=== PATIENT | female | born 1955 | race Caucasian/White ===

== ENCOUNTER 2022-02-27 13:38 | Outpatient (CLI) | payer OTHER, SELFPAY ==
--- OUTSIDE RECORDS SUMMARY | 2022-02-27 08:09 | XMS_ITS | Encounter Summary ---
:1955 Author Organization [facility] Address [address] [place] [address] Care Team Providers Name Role Phone Catrina Sue MD Primary Care Provider Catrina Sue MD Unavailable Reason for Visit Reason Comments Wellness Visit Please see MD encounter for hair clipper power. Encounter Details Date Type Department Care Team Description 03/22/2021 Office Visit [facility] Rn, Pv [facility] (Primary Dx) [address] [place] [phone] Social History Tobacco Use Types Packs/Day Years Used Date Smoking Tobacco: Former Cigarettes 0 Quit : 02/01/1977 Smokeless Tobacco: Never Alcohol Use Standard Drinks/Week Comments Yes 1 (1 standard drink = 0.6 oz pure alcoho l) 1/week Stress Answer Date Recorded Do you feel stress - tense, restless, nervous, or To some ex tent 02/24/2020 anxious, or unable to sleep at night because your mind is troubled all the time - these days? Sex Assigned at Date Recorded Not on file COVID-19 Exposure Response Date Recorded In the last month, have you been in contact with No / Unsure 03/22/2021 2:06 PM ANCILLARY SERVICES MANAGER someone who was confirmed or suspected to have Coronavirus / COVID-19? documented as of this encounter Progress Notes Christine Domingo, LATONYA - 03/22/2021 2:20 PM CST Please see MD encounter for hair clipper power. Federica RN LLARY SERVICES MANAGER documented in this encounter Plan of Treatment Not on filedocumented as of this encounter Visit Diagnoses Diagnosis Wellness examination - Primary documented in this encounter Additional Health Concerns Assessment Noted Time PHQ-9 Depression Total Score: 1 01/16/2019 11:01 AM CD T documented as of this encounter Care Teams Electro Mechanical Technician Relationship Specialty Start Date End Date Catrina Sue MD PCP - General Family Practice 06/05/[address] [place] [phone] Catrina Sue MD Assigned PCP 03/28/[address] [place] [id number] documented as of this encounter
--- OUTSIDE RECORDS SUMMARY | 2022-02-27 08:09 | XMS_ITS | Encounter Summary ---
:1955 Author Organization [facility] Address [address] [place] [address] Care Team Providers Name Role Phone Catrina Sue MD Primary Care Provider Catrina Sue MD Unavailable Encounter Details Date Type Department Care Team Description 03/22/2021 Travel Social History Tobacco Use Types Packs/Day Years [...] with No / Unsure 03/22/2021 2:06 PM CANDY MAKER someone who was confirmed or suspected to have Coronavirus / COVID-19? documented as of this encounter Plan of Treatment Not on filedocumented as of this encounter Visit Diagnoses Not on filedocumented in this encounter Additional Health Concerns Assessment Noted Time PHQ-9 Depression Total Score: 1 01/16/2019 11:01 AM CD T documented as of this encounter Care Teams Ladies Locker Room Attendant Relationship Specialty Start Date End Date Catrina Sue MD PCP - General Family Practice 06/05/[address] [place] [phone] Catrina Sue MD Assigned PCP 03/28/[address] [place] [phone] documented as of this encounter
--- OUTSIDE RECORDS SUMMARY | 2022-02-27 08:09 | XMS_ITS | Encounter Summary ---
:1955 Author Organization [facility] Address [address] [place] [address] Care Team Providers Name Role Phone Catrina Sue MD Primary Care Provider Catrina Sue MD Unavailable Encounter Details Date Type Department Care Team Description 11/11/2021 [facility] Catrina Rowland MD [address] [place] [address] [place] [address] [phone] Social History Tobacco Use Types Packs/Day Years [...] Assigned at Date Recorded Not on file documented as of this encounter Miscellaneous Notes Telephone Encounter - Catrina Sue MD - 11/15/2021 9:01 AM CDT Reviewed and approved documented in this encounter Plan of Treatment Not on filedocumented as of this encounter Visit Diagnoses Diagnosis Major depressive disorder, recurrent epi sode, mild (H) Major depressive disorder, recurrent epi sode, mild documented in this encounter Additional Health Concerns Assessment Noted Time PHQ-9 Depression Total Score: 1 01/16/2019 11:01 AM CD T documented as of this encounter Care Teams Prestidigitator Relationship Specialty Start Date End Date Catrina Sue MD PCP - General Family Practice 06/05/[address] [place] [phone] Catrina Sue MD Assigned PCP 03/28/[address] [place] [phone] documented as of this encounter
--- OUTSIDE RECORDS SUMMARY | 2022-02-27 08:09 | XMS_ITS | Encounter Summary ---
:1955 Author Organization [facility] Address [address] [place] [address] Care Team Providers Name Role Phone Catrina Sue MD Primary Care Provider Catrina Sue MD Unavailable Encounter Details Date Type Department Care Team Description 11/02/2020 Records - [facility] ELVIA CONVERSION Provider, Histor ical Social History Tobacco Use Types Packs/Day Years [...] on file documented as of this encounter Plan of Treatment Not on filedocumented as of this encounter Procedures Procedure Name Priority Date/Time Associated Diagnosis Comme nts MA SCREENING Routine 03/09/2006 12:00 AM Results for this BILATERAL BUTCHER'S ASSISTANT procedure are i n the results section. documented in this encounter Results MA Screening Bilateral (03/09/2006 12:00 AM BUTCHER'S ASSISTANT) Anatomical Region Laterality Modality Breast Bilateral Other Specimen (Source) Anatomical Location Collection Method / Collectio n Time Received Time / Laterality Volume Narrative 03/09/2006 12:00 AM BUTCHER'S ASSISTANT See Historical Hospital Medical Record f or documentation Procedure Note Provider, Historical - 11/02/2020Formatt ing of this note might be different from the original. See Historical Hospital Medical Record f or documentation Historical Provider IMG MAMMOGRAPHY ORDERABLES documented in this encounter Visit Diagnoses Not on filedocumented in this encounter Additional Health Concerns Assessment Noted Time PHQ-9 Depression Total Score: 1 01/16/2019 11:01 AM CD T documented as of this encounter Care Teams Research Chief Engineer Relationship Specialty Start Date End Date Catrina Sue MD PCP - General Family Practice 06/05/[address] [place] [phone] Catrina Sue MD Assigned PCP 03/28/[address] [place] [phone] documented as of this encounter
--- OUTSIDE RECORDS SUMMARY | 2022-02-27 08:09 | XMS_ITS | Encounter Summary ---
:1955 Author Organization [facility] Address [address] [place] [address] Care Team Providers Name Role Phone Catrina Sue MD Primary Care Provider Catrina Sue MD Unavailable Encounter Details Date Type Department Care Team Description 11/10/2020 Records - [facility] ELVIA CONVERSION Provider, Histor ical Social [...] Associated Diagnosis Comme nts MA SCREENING Routine 04/12/2007 12:00 AM Results for this BILATERAL ELECTRICAL AND RADIO AIRCRAFT MECHANIC procedure are i n the results section. documented in this encounter Results MA Screening Bilateral (04/12/2007 12:00 AM ELECTRICAL AND RADIO AIRCRAFT MECHANIC) Anatomical Region Laterality Modality Breast Bilateral Other Specimen (Source) Anatomical Location Collection Method / Collectio n Time Received Time / Laterality Volume Narrative 04/12/2007 12:00 AM ELECTRICAL AND RADIO AIRCRAFT MECHANIC See Historical Hospital Medical Record f or documentation Procedure Note Provider, Historical - 11/10/2020Formatt ing of this note might be different from the original. See Historical Hospital Medical Record f or documentation Historical Provider IMG MAMMOGRAPHY ORDERABLES documented in this encounter Visit Diagnoses Not on filedocumented in this encounter Additional Health Concerns Assessment Noted Time PHQ-9 Depression Total Score: 1 01/16/2019 11:01 AM CD T documented as of this encounter Care Teams Booth Manager Relationship Specialty Start Date End Date Catrina Sue MD PCP - General Family Practice 06/05/[address] [place] [address] Catrina Sue MD Assigned PCP 03/28/[address] [place] [address] documented as of this encounter
--- OUTSIDE RECORDS SUMMARY | 2022-02-27 08:09 | XMS_ITS | Encounter Summary ---
:1955 Author Organization [facility] Address [address] [place] [address] Care Team Providers Name Role Phone Catrina Sue MD Primary Care Provider Catrina Sue MD Unavailable Reason for Visit Reason Onset Date Comments Orders 07/12/2021 Encounter Details Date Type Department Care Team Description 07/12/2021 Telephone [facility] Catrina Rowland MD Orders [address] [place] [address] [place] [address] [phone] Social History Tobacco Use Types Packs/Day Years [...] been in contact with No / Unsure 07/12/2021 10:53 AM CDT someone who was confirmed or suspected to have Coronavirus / COVID-19? documented as of this encounter Miscellaneous Notes Telephone Encounter - Catrina Sue MD - 07/12/2021 9:04 AM CDT Signed plan Telephone Encounter - Sherly Mosher - 07/12/2021 8:38 AM CDT [facility] phone call message - order or referral request for patient: Order or referral being requested: Reclast infusion order Additional Comments: Per Jamie patient pervious order has and requesting new order. Patientis being seen at 11 am today and requesting orders brady. Once order approve please call and inform. OK to leave a message on voice mail? Yes Primary language: Sammarinese Silo Filler needed? No Call taken on July 12, 2021 at 8:40 AM by Sherly Mosher documented in this encounter Plan of Treatment Not on filedocumented as of this encounter Visit Diagnoses Diagnosis Age-related osteoporosis without current pathological fracture - Primary Senile osteoporosis documented in this encounter Additional Health Concerns Assessment Noted Time PHQ-9 Depression Total Score: 1 01/16/2019 11:01 AM CD T documented as of this encounter Care Teams Boat Driver Relationship Specialty Start Date End Date Catrina Sue MD PCP - General Family Practice 06/05/[address] [place] [phone] Catrina Sue MD Assigned PCP 03/28/[address] [place] [phone] documented as of this encounter
--- OUTSIDE RECORDS SUMMARY | 2022-02-27 08:09 | XMS_ITS | Encounter Summary ---
:1955 Author Organization [facility] Address [address] [place] [address] Care Team Providers Name Role Phone Catrina Sue MD Primary Care Provider Catrina Sue MD Unavailable Encounter Details Date Type Department Care Team Description 11/23/2020 Travel Social History Tobacco Use Types Packs/Day [...] been in contact with No / Unsure 11/23/2020 9:34 AM CDT someone who was confirmed or suspected to have Coronavirus / COVID-19? documented as of this encounter Plan of Treatment Not on filedocumented as of this encounter Visit Diagnoses Not on filedocumented in this encounter Additional Health Concerns Assessment Noted Time PHQ-9 Depression Total Score: 1 01/16/2019 11:01 AM CD T documented as of this encounter Care Teams Supervisor Fiber Locking Relationship Specialty Start Date End Date Catrina Sue MD PCP - General Family Practice 06/05/[address] [place] [phone] Catrina Sue MD Assigned PCP 03/28/[address] [place] [phone] documented as of this encounter
--- OUTSIDE RECORDS SUMMARY | 2022-02-27 08:09 | XMS_ITS | Encounter Summary ---
:1955 Author Organization [place] Address [address] [place] [address] Care Team Providers Name Role Phone Catrina Sue MD Primary Care Provider Catrina Sue MD Unavailable Reason for Visit Reason Comments Musculoskeletal Problem Left foot pain Neck Pain Wellness Visit Arthritis Forms Urge Incontinence Encounter Details Date Type Department Care Team Description 03/22/2021 Office Visit [facility] Catrina Sue for subsequent annual wellness visit (AWV) in Medicare patient (Primary Dx); Clinic Amanda Boateng MD Mild intermittent asthma without complic ation; [address] Hypothyroidism due to acquir ed atrophy of thyroid; [address] [place] [address] E Family history of ASCVD; [place], [place] [address] Postmenopausal atrophic vaginitis [id number] Social History Tobacco Use Types Packs/Day Years [...] / COVID-19? documented as of this encounter Last Filed Vital Signs Vital Sign Reading Time Taken Comments Blood Pressure 130/81 03/22/2021 2:21 PM CLAIM ATTORNEY Pulse 90 03/22/2021 2:21 PM CLAIM ATTORNEY Temperature 36.7 ??C (98 ??F) 03/22/2021 2:21 PM CLAIM ATTORNEY Respiratory Rate 20 03/22/2021 2:21 PM CLAIM ATTORNEY Oxygen Saturation 100% 03/22/2021 2:21 PM CLAIM ATTORNEY Inhaled Oxygen Concentration - - Weight 65.3 kg (144 lb) 03/22/2021 2:21 PM CLAIM ATTORNEY Height - - Body Mass Index 21.9 06/25/2020 10:00 AM CLAIM ATTORNEY documented in this encounter Patient Instructions Patient InstructionsSmCatrina gaspar MD - 03/22/2021 2:40 PM CST My Asthma Action Plan Name: Janet Soto Date of : 1955 Date: 03/21/2021 My doctor: Catrina Sue My clinic: [address] [id number] My Asthma Severity: Mild Intermittent Avoid your asthma triggers GREEN ZONE Good Control ?? I feel good ?? No cough or wheeze ?? Can work, sleep and play without asthma symptoms 1. If exercise triggers your asthma, take your rescue medication (2 puffs of albuterol, Ventolin/Pro-Air) 15 minutes before exercise or sports, and during exercise if you have asthma symptoms. 2. Spacer to use with inhaler: If you have a spacer, make sure to use it with your inhaler. YELLOW ZONE Getting Worse I have ANY of these: ?? I do not feel good ?? Cough or wheeze ?? Chest feels tight ?? Wake up at night 1. Start taking your rescue medicine (1-2 puffs of albuterol - Ventolin/Pro-Air) every 4-6 hours as needed. 2. If symptoms are not controlled with above, can take 2 puffs every 20 minutes for up to 1 hour, then continue every 4 hours if needed. 3. If you do not return to the Green Zone in 12-24 hours or you get worse, call the clinic. RED ZONE Medical Alert - Get Help I have ANY of these: ?? I feel awful ?? Medicine is not helping ?? Breathing getting harder ?? Trouble walking or talking ?? Nose opens wide to breathe 1. Take your rescue medicine NOW (6-8 puffs of albuterol - Ventolin/Pro-Air) for every 20 minutes for up to 1 hour. 2. Call your doctor NOW. 3. If you are still in the Red Zone after 20 minutes and you have not reached your doctor: ?? Take your rescue medicine again (6-8 puffs of albuterol - Ventolin/Pro-Air) and ?? Call 911 or go to the emergency room right away See your regular doctor within 1 weeks of an Emergency Room or Urgent Care visit for follow-up treatment. Electronically signed by: Catrina Sue MD Annual Reminders: Meet with Rivet Machine Operator, Flu Shot in the Fall, Pneumonia Shot Pharmacy: [facility] - [place], [place] - [address] [place] [address] [facility] - [address] [id number] [id number] [facility] [address] & [facility] PERSONAL PREVENTIVE SERVICES PLAN - SERVICES Review these tests with your medical staff then decide which ones you want and take this page home for your reference SCREENING TESTS Description Year of Last Screening Recommended Today? Heart disease screening blood tests ??? Cholesterol level Reducing cholesterol can reduce your risk of heart attacks by 25%. Screening is recommended yearly if you are at risk of heart disease otherwise every 4-5 years 02/24/20 Yes; Recommended . Diabetes screening tests ??? Hemoglobin A1c blood test Finding and treating diabetes early can reduce complications. Screening recommended/covered yearly if you have high blood pressure, high cholesterol, obesity (BMI >30), or a history of high blood glucose tests; or 2 of the following: family history of diabetes, overweight (BMI >25 but <30), age 65 years or older, and a history of diabetes of or gave to baby weighing more than 9 lbs. 05/24/2018 BMP,glucose- 90 No: is not indicated today. Hepatitis B screening Finding hepatitis B early can reduce complications. Screening is recommended for persons with selected risk factors. No: is not indicated today. Hepatitis C screening Finding hepatitis C early can reduce complications. Screening is recommended for all persons born from 1945 through 1965 and for those with selected other risk factors. 03/05/18 negative No: is not indicated today. HIV screening Finding HIV early can reduce complications. Screening is recommended for persons with risk factors for HIV infection. 03/05/18 negative No: is not indicated today. Glaucoma screening Early detection of glaucoma can prevent blindness. Please talk to your eye doctorabout this. SCREENING TESTS Description Year of Last Screening Recommended Today? Colorectal cancer screening ??? Fecal occult blood test ??? Screening colonoscopy Screening for colon cancer has been shown to reduce from colon cancer by 25-30%. Screening recommended to start at 50 years and continuing until age 75 years. Yes; Recommended Breast Cancer Screening (women) ??? Mammogram Mammogram screening for breast cancer has been shown to reduce the risk of dying from breast cancer and prolong life. Screening is recommended every 1-2 years for women aged 50 to 74 years. 03/15/21 negative No: is not indicated today. Cervical Cancer screening (women) ??? Pap Cervical pap smears can reduce cervical cancer. Screening is recommended annually if high risk (history of abnormal pap smears) otherwise every 2-3 years, stop screening at 65 years of age if history of normal paps. 02/07/17 negative No: is not indicated today. Screening for Osteoporosis: Bone mass measurements (women) ??? Dexa Scan Screening and treating Osteoporosis can reduce the risk of hip and spine fractures. Screening is recommended in women 65 years or older and in women and men at risk of osteoporosis. 04/14/20 osteoporosis No: is not indicated today. Screening for Lung Cancer ??? Low-dose CT scanning Screening can reduce mortality in persons aged 55-80 who have smoked at least 30 pack-years and who are either still smoking or have quit in the past 15 years. No: is not indicated today. Abdominal Aortic Aneurysm (AAA) screening ??? Ultrasound (US) An aneurysm treated before rupture is very safe -a ruptured aneurysm can be fatal. Screening by US for AAA is limited to patients who meet one of the following criteria: ??? Men who are 65-75 years old and have smoked more than 100 cigarettes in their lifetime ??? Anyone with a family history of abdominal aortic aneurysm No: is not indicated today. Here are your recommended immunizations. Take this home for your reference. IMMUNIZATIONS Description Recommend today? Influenza (Flu shot) Prevents flu; should get every year No; is up to date. Rec'd 02/18/21 PCV 13 Pneumonia vaccination; you get it once No; is up to date. PPSV 23 Second pneumonia vaccination; usually get it 1 year after PCV 13 No; is up to date. Zoster (Shingles) Prevents shingles; you get it once (Check with Part D insurance for coverage, must receive at a pharmacy, not clinic) No; is up to date. Tetanus Prevents tetanus; once every 10 years No; is up to date. Hepatitis B If you have any of the following risk factors you should be immunized for hepatitis B: severe kidney disease, people who live in the same house as a carrier of Hepatitis B virus, people wholive in institutions (e.g. nursing homes or group homes), homosexual men, patients with hemophilia who received Factor VIII or IX concentrates, abusers of illicit injectable drugs No: is not indicated today. PATIENT INSTRUCTIONS Yearly exam: ??? See your health care provider every year in order to review changes in your health, review medicines that you take, and discuss preventive care needs such as immunizations and cancer screening. ??? Get a flu shot each year. Advance Directives: ??? If you have not done so, you are encouraged to complete advance directives and/or a living will.More information about advance directives can be found at: http://www.[place]med.org/advocacy/[place]-Issues/Advance-Directives Nutrition: ?? Eat at least 5 servings of fruits and vegetables each day. ?? Eat whole-grain bread, whole-wheat pasta and brown rice instead of white grains and rice. ?? Talk to your doctor about Calcium and Vitamin D. Lifestyle: ?? Exercise for at least 150 minutes a week (30 minutes a day, 5 days a week). This will help you control your weight and prevent disease. ?? Limit alcohol to one drink per day. ?? If you smoke, try to quit - your doctor will be happy to help. ?? Wear sunscreen to prevent skin cancer. ?? See your dentist every six months for an exam and cleaning. ?? See your eye doctor every 1 to 2 years to screen for conditions such as glaucoma, macular degeneration and cataracts. M ATTORNEY documented in this encounter Progress Notes Catrina Sue MD - 03/22/2021 2:40 PM CST Annual Wellness Visit for 65 years and older HPI This 65 year old female presents as an established patient Catrina Sue who presents for an annual wellness visit. Other issues patient wants to be addressed today: Chief Complaint Patient presents with ??? Musculoskeletal Problem Left foot pain ??? Neck Pain ??? Wellness Visit ??? Arthritis ??? Forms ??? Urge Incontinence Wt Readings from Last 5 Encounters: 03/22/21 65.3 kg (144 lb) 11/23/20 63.5 kg (140 lb) 06/25/20 64.2 kg (141 lb 8 oz) 02/24/20 62.3 kg (137 lb 6.4 oz) 01/16/19 63.5 kg (140 lb) 1. Left foot: lateral midfoot pain, left lateral maleoli burning and then sharp on medial -not injured, worried about arthritis 2. Intermittent sharp pain in the neck 3. Leaking of urine not really urge, but more related to prolonged holding and small leaking Patient Active Problem List Diagnosis ??? AK (actinic keratosis) ??? Esophageal reflux ??? Lesion of plantar nerve ??? Osteoarthritis of multiple joints ??? Disorder of bone and cartilage ??? Postmenopausal atrophic vaginitis ??? Symptomatic menopausal or female climacteric states ??? Tinnitus, bilateral ??? Hypothyroidism due to acquired atrophy of thyroid ??? Mild intermittent asthma without complication ??? Routine general medical examination at a health care facility ??? Intractable migraine with aura ??? Vertigo ??? Acromioclavicular joint arthritis ??? Lymphedema of left lower extremity ??? Age-related osteoporosis without current pathological fracture ??? Major depressive disorder, recurrent episode, mild (H) Past Medical History: Diagnosis Date ??? Acromioclavicular joint arthritis 02/04/2016 ??? Acromioclavicular joint arthritis ??? Actinic keratosis ??? AK (actinic keratosis) 05/11/2012 ??? Asthma in adult, mild intermittent, uncomplicated ??? Atrophic vaginitis 05/11/2012 ??? Benign neoplasm of skin ??? Biceps tendonitis on right 02/04/2016 ??? Biceps tendonitis on right ??? Cancer (H) ??? Disease of thyroid gland ??? Disorder of bone and cartilage ??? Esophageal reflux 05/11/2012 ??? Esophageal reflux ??? Essential hypertension, benign 09/18/2012 ??? Essential hypertension, benign ??? Hypothyroid ??? Hypothyroidism due to acquired atrophy of thyroid 02/02/2015 ??? Hypothyroidism due to acquired atrophy of thyroid ??? Impingement syndrome of right shoulder 02/04/2016 ??? Impingement syndrome of right shoulder ??? Intractable migraine with aura ??? Intractable migraine with aura ??? Leiomyoma of uterus ??? Leiomyoma of uterus, unspecified 05/11/2012 ??? Lesion of plantar nerve 05/11/2012 ??? Lymphedema of left leg ??? Mild intermittent asthma without complication 02/02/2015 Overview: Diagnosis updated by automated process. Provider to review and confirm. ??? Osteoarthritis of multiple joints ??? Postmenopausal atrophic vaginitis ??? Skin cancer y-3 ??? Symptomatic menopausal or female climacteric states ??? Tinnitus, bilateral ??? Unspecified asthma(493.90) 05/11/2012 ??? Unspecified hypothyroidism 05/11/2012 ??? Unspecified tinnitus 05/11/2012 ??? Varicose veins of lower extremities with complications ??? Venous insufficiency bilateral ablation 2013 ??? Vertigo Family History Problem Relation Age of Onset ??? Coronary Artery Disease Father ??? Other Cancer Mother AML ??? Carotid Endarterectomy Sister 70 ??? Coronary Stenting Sister 68 ??? Tremor Brother 63 benign, essential ??? Coronary Artery Disease Maternal Grandmother ??? Prostate Cancer Maternal Grandfather ??? Colon Cancer Paternal Grandmother ??? Coronary Artery Disease Paternal Grandfather ??? Diabetes No family hx of ??? Hypertension No family hx of ??? Cerebrovascular Disease No family hx of ??? Breast Cancer No family hx of ??? Asthma No family hx of ??? Cancer Mother 71.00 AML ??? Heart Failure Father ??? CABG Father Problem List, Family History and past Medical History reviewed and unchanged/updated. Are you sexually active? Yes rarely Any sexual concerns? Yes painful, tried multiple things including vaginal estrogen and laser, wanting to try something FOR WOMEN Any vaginal bleeding in the last year? No Have you ever had an abnormal Pap smear? Yes 20 years ago Frailty Assessment 1. Weight loss (>5% in year) No Wt Readings from Last 5 Encounters: 03/22/21 65.3 kg (144 lb) 11/23/20 63.5 kg (140 lb) 06/25/20 64.2 kg (141 lb 8 oz) 02/24/20 62.3 kg (137 lb 6.4 oz) 01/16/19 63.5 kg (140 lb) 2. Exhaustion (perceived effort for a given activity) How difficult is walking from one room to the other on the same level?not 3. Weakness (handgrip strength) How difficult is lifting or carrying something as heavy as 10 pounds? not No 4. Decreased physical activity Compared with most (men/women) your age, would you say that you are more active, less active, or about the same? About the same, still working NO 5. Slow gait speed (timed up and go > 12 sec.) No FALL RISK ASSESSMENT 03/22/2021 06/25/2020 02/24/2020 06/20/2019 01/16/2019 Fallen 2 or more times in the past year? No No No No No Any fall with injury in the past year? No - No - No Timed Up and Go Test/Seconds (13.5 is a fall risk; contact physician) 10 - 8 - - Frailty screen score: 0 Frail Assessment:0 Robust EVALUATION OF COGNITIVE FUNCTION Mood/affect:Normal Appearance:Normal Family member/caregiver input: Normal PHQ-2 Score: PHQ-2 (??1998 Pfizer) 02/24/2020 01/16/2019 Q1: Little interest or pleasure in doing things 0 0 Q2: Feeling down, depressed or hopeless 0 0 PHQ-2 Score 0 0 PHQ-2 Total Score (12-17 Years)- Positive if 3 or more points; Administer PHQ-A if positive 0 0 PHQ-9 Score: [facility] [place] Follow-up to PHQ 01/16/2019 PHQ-9 9. Suicide Ideation past 2 weeks Not at all Mini Cog Test: Recall result: 3 points Clock Draw Test result: Normal Cognitive screen is:Negative Other Assessments: CV Risk based on Pooled Cohort Risk The 10-year ASCVD risk score (Alonso THORNTON Jr., et al., 2013) is: 7.4% Values used to calculate the score: Age: 65 years Sex: Female Is Non- : No Diabetic: No Tobacco smoker: No Systolic Blood Pressure: 130 mmHg Is BP treated: No HDL Cholesterol: 66 mg/dL Total Cholesterol: 250 mg/dL Advance Directives: Discussed with patient and family as appropriate. Has patient completed advance directives and/or a living will? yes FULL CODE status Immunization History Administered Date(s) Administered ??? COVID-19,PF,Pfizer (12+ Yrs) 06/29/2020, 07/20/2020, 02/18/2021 ??? HepB 07/13/1999, 03/13/2008, 12/24/2008 ??? Influenza (High Dose) 3 valent vaccine 01/22/2019 ??? Influenza (IIV3) PF 02/16/2011, 02/08/2012 ??? Influenza Quad, Recombinant, pf(RIV4) (Flublok) 02/18/2021 ? ? Influenza Vaccine IM > 6 months Valent IIV4 (Alfuria,Fluzone) 02/25/2014, 02/02/2015, 02/02/2016, 02/07/2017, 02/15/2018, 02/03/2020 ??? Influenza Vaccine, 6+MO IM (QUADRIVALENT W/PRESERVATIVES) 02/17/2013 ? ? Influenza,INJ,MDCK,PF,Quad >4yrs 02/03/2020 ? ? Pneumo Conj 13-V (2010&after) 02/24/2020 ??? Pneumococcal 23 valent 04/06/2000, 12/24/2008 ??? TD (ADULT, 7+) 04/06/2000 ??? TDAP Vaccine (Boostrix) 01/22/2019 ??? Tdap (Adacel,Boostrix) 12/24/2008, 01/22/2019 ??? Zoster vaccine recombinant adjuvanted (SHINGRIX) 01/22/2019 ??? Zoster vaccine, live 02/20/2013 Reviewed Immunization Record Today Physical Exam Vitals: BP 130/81 Pulse 90 Temp 98 ??F (36.7 ??C) (Oral) Resp 20 Wt 65.3 kg (144 lb) SpO2 100% BMI 21.90 kg/m?? BMI= Body mass index is 21.9 kg/m??. EXAM: Gen: alert, oriented X 3, no acute distress, no sign of discomfort LUNGS: CTAB, no wheezing, no rales, no crackles, no accessory muscle use COR: normal rate, regular rhythm -lower extremities : no edema FOOT/ANKLE: left appear normal, points to tenderness over distal 5th metatarsal and lateral maleolus, normal appearance Assessment and Plan: Reviewed Preventive Services and Plan form with patient as specified in Patient Instructions. Positive findings on assessment: none Janet was seen today for musculoskeletal problem, neck pain, wellness visit, arthritis, forms and urge incontinence. 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 Discussed avoidinghow she pronates her left foot. Recheck in June when due for Oscar Hernadez. Discussed risks and benefits of osphena including: breast, endometrium, clots, stroke concerns. Options for treatment and follow-up care were reviewed with the Janet Soto and/or guardian engaged in the decision making process and verbalized understanding of the options discussed and agreed with the final plan. Catrina Sue MD M ATTORNEY Christine Domingo RN - 03/22/2021 2:40 PM CST Medicare Wellness Visit Health Risk Assessment Health Risk Assessment / Review of Systems Constitutional: Any fevers or night sweats? No Eyes: Vision problems No Hearing Do you feel you have hearing loss? No Cardiovascular: Any chest pain, fast or irregular heart beat, calf pain with walking? No Respiratory: Any breathing problems or cough? No Gastrointestinal: Any stomach or stool problems? No, hx GERD, would occasionally experience palpitations in relation to GERD per pt. Take two tums and palpitations associated with chest discomfort would be resolved. Genitourinary: Do you have difficulty controlling urination? YES - occasionally have urinary leakage, wears a pad. Has been occurring more than usual. Muscles and Joints: Any joint stiffness or soreness? YES - reports left, outer foot discomfort by 5th toe, also experiencing burning sensation in outer ankle joint. Discomfort worst when step onto floor first thing in the morning or after prolong sitting. Symptoms present x 1.5 months. Skin: Any concerning lesions or moles? No, sees Dermatology every 6 months, last seen 01/2021. Nervous System: Any loss of strength or feeling, numbness or tingling, shaking, dizziness, or headache? YES - family history, father and sister had neuropathy. Reports left foot, mid toe numbness and tingling sensation in bilateral feet/ hands. Mental Health: Any depression, anxiety or problems sleeping? No Cognition: Do you have any problems with your memory? No Medical Care What other specialists or organizations are involved in your medical care? Dermatology Patient Care Team Relationship Specialty Notifications Start End Catrina Sue MD PCP - General Family Practice 06/05/[address] [place], [place] [id number] Catrina Sue MD Assigned PCP 03/28/[address] [place] [id number] Have you been to the ER or overnight in the hospital in the last year? No Social History / Home Safety Marital Status: Who lives in your household? Self and Do you feel threatened or controlled by a partner, ex-partner or anyone in your life? No Has anyone hurt you physically, for example by pushing, hitting, slapping or kicking you or forcing you to have sex? No Does your home have any of the following safety concerns; loose rugs in the hallway, bathrooms with no grab bars by the tub or toilet, stairs with no handrails or poorly lit areas? YES -no grab bars in the bathroom Do you need help with dressing yourself, bathing, eating or getting around your home? No Do you need help with the phone, transportation, shopping, preparing meals, housework, laundry, medications or managing money?No Risk Behaviors and Healthy Habits History Smoking Status ??? Former Smoker ??? Packs/day: 0.00 ??? Quit date: 02/01/1977 Smokeless Tobacco ??? Never Used How many servings of fruits and vegetables do you eat a day? 1 serving a day. Reviewed daily intake recommendation and encouraged increase intake when able. Exercise: None No exercise Do you frequently drive without a seatbelt? No Do you use tobacco? No Do you use any other drugs? No Do you use alcohol?Yes Number of drinks per day : 0-1 Number of drinking days a week : Has about 3 cocktails a week Frailty Assessment Have you lost 10 or more pounds unintentionally in the previous year? No How difficult is walking from one room to the other on the same level?not Is it difficult to lift or carry something as heavy as 10 pounds?mildly Compared with most (men/women) your age, would you say that you are more active, less active, or about the same? less FALL RISK ASSESSMENT 03/22/2021 06/25/2020 02/24/2020 06/20/2019 01/16/2019 Fallen 2 or more times in the past year? No No No No No Any fall with injury in the past year? No - No - No Timed Up and Go Test/Seconds (13.5 is a fall risk; contact physician) 10 - 8 - - Advance Directives: Discussed with patient and family as appropriate. Has patient completed advance directives and/or a living will? Yes- completed advance directive in 2019, does not wish to make any changes at this time. Christine Domingo RN M ATTORNEY documented in this encounter Miscellaneous Notes Result Encounter Note - Catrina Sue MD - 03/22/2021 2:40 PM CLAIM ATTORNEY The 10-year ASCVD risk score (Mccune DC Jr., et al., 2013) is: 7.4% Values used to calculate the score: Age: 65 years Sex: Female Is Non- : No Diabetic: No Tobacco smoker: No Systolic Blood Pressure: 130 mmHg Is BP treated: No HDL Cholesterol: 66 mg/dL Total Cholesterol: 250 mg/dL M ATTORNEY documented in this encounter Plan of Treatment Not on filedocumented as of this encounter Procedures Procedure Name Priority Date/Time Associated Diagnosis Comme nts COLONOSCOPY - HIM Routine 07/06/2021 SCAN COLONOSCOPY - HIM Routine 07/06/2021 SCAN TSH Routine 03/22/2021 2:10 Hypothyroidism due to Res ults for this PM CLAIM ATTORNEY acquired atrophy of procedur e are in thyroid the results section. LIPID PROFILE Routine 03/22/2021 2:10 Family history of Result s for this PM CLAIM ATTORNEY ASCVD procedure are i n the results section. documented in this encounter Results Colonoscopy - HIM Scan (07/06/2021) Narrative This result has an attachment that is no t available. Patient Reported PROCEDURES Colonoscopy - HIM Scan (07/06/2021) Narrative This result has an attachment that is no t available. Patient Reported PROCEDURES TSH (03/22/2021 2:10 PM CLAIM ATTORNEY) P athologist Signature TSH 2.29 0.30 - 5.00 03/22/2021 [facility] uIU/mL 10:06 PM CLAIM ATTORNEY Specimen Anatomical Collection Method / Collection Time Recei krishan Time (Source) Location / Volume Laterality Blood STRUCTURE OF RIGHT Venipuncture / 03/22/2021 2:10 11/3 2:44 UPPER LIMB / Unknown PM CLAIM ATTORNEY PM CLAIM ATTORNEY Unknown Catrina Sue MD LAB - BLOOD ORDERABLES Performing Organization Address City/State/ZIP Code Phon e Number [place] [address] [place] [address], [facility] [phone] (ABNORMAL) Lipid Profile (03/22/2021 2:10 PM CLAIM ATTORNEY) [facility] gist Method Time Signature Cholesterol 250 (H) <=199 03/22/2021 [facility] mg/dL 10:24 PM CLAIM ATTORNEY Triglycerides 174 (H) <=149 03/22/2021 [facility] mg/dL 10:24 PM CLAIM ATTORNEY Direct Measure 66 >=50 03/22/2021 [facility] HDL mg/dL 10:24 PM CLAIM ATTORNEY Comment: HDL Cholesterol Reference Range: 0-2 years: No reference ranges established for lucinda ents under 2 years old ??at [facility] for lipid analytes. 2-8 years: Greater than 45 mg/dL 18 years and older: Female: Greater than or equal to 50 mg/d L Male: ?? Greater than or equal to 40 mg/ dL LDL Cholesterol 149 (H) <=129 mg/dL 03/22/2021 10:24 PM [facility] Calculated CLAIM ATTORNEY Patient Fasting > 8hrs? Unknown 03/22/2021 10:24 PM [facility] CLAIM ATTORNEY Specimen Anatomical Collection Method / Collection Time Recei krishan Time (Source) Location / Volume Laterality Blood STRUCTURE OF RIGHT Venipuncture / 03/22/2021 2:10 02/23 2:44 UPPER LIMB / Unknown PM CLAIM ATTORNEY PM CLAIM ATTORNEY Unknown Catrina Sue MD LAB - BLOOD ORDERABLES Performing Organization Address City/State/ZIP Code Phon e Number [place] [address] [facility] [place], [place] [phone] [place] [address] [place] [address] documented in this encounter Visit Diagnoses Diagnosis Encounter for subsequent annual wellness visit (AWV) in Medicare patient - Primary Mild intermittent asthma without complic ation Unspecified asthma Hypothyroidism due to acquired atrophy o f thyroid Family history of ASCVD Family history of other cardiovascular d iseases Postmenopausal atrophic vaginitis documented in this encounter Additional Health Concerns Assessment Noted Time PHQ-9 Depression Total Score: 1 01/16/2019 11:01 AM CD T documented as of this encounter Care Teams Customs Appraiser Relationship Specialty Start Date End Date Catrina Sue MD PCP - General Family Practice 06/05/[address] [place] [address] Catrina Sue MD Assigned PCP 03/28/[address] [place] [address] documented as of this encounter
--- OUTSIDE RECORDS SUMMARY | 2022-02-27 08:09 | XMS_ITS | Encounter Summary ---
:1955 Author Organization [facility] Address [address] [place] [address] Care Team Providers Name Role Phone Catrina Sue MD Primary Care Provider Catrina Sue MD Unavailable Encounter Details Date Type Department Care Team Description 03/15/2021 Travel Social History Tobacco Use Types Packs/Day [...] been in contact with No / Unsure 03/15/2021 8:24 AM CUSTOMER SERVICE ASSISTANT someone who was confirmed or suspected to have Coronavirus / COVID-19? documented as of this encounter Plan of Treatment Not on filedocumented as of this encounter Visit Diagnoses Not on filedocumented in this encounter Additional Health Concerns Assessment Noted Time PHQ-9 Depression Total Score: 1 01/16/2019 11:01 AM CD T documented as of this encounter Care Teams Special Services Agent Relationship Specialty Start Date End Date Catrina Sue MD PCP - General Family Practice 06/05/[address] [place] [address] Catrina Sue MD Assigned PCP 03/28/[address] [place] [address] [phone] documented as of this encounter
--- OUTSIDE RECORDS SUMMARY | 2022-02-27 08:09 | XMS_ITS | Encounter Summary ---
:1955 Author Organization [facility] Address [address] [place] [address] Care Team Providers Name Role Phone Catrina Sue MD Primary Care Provider Catrina Sue MD Unavailable Reason for Visit Reason Onset Date Comments TREVON 10/13/2021 Encounter Details Date Type Department Care Team Description 10/13/2021 Telephone [facility] Catrina Rowland MD [address] [place] [address] [place] [address] [phone] Social History Tobacco Use Types Packs/Day Years [...] this encounter Miscellaneous Notes Telephone Encounter - Janes Torres - 10/13/2021 1:55 PM CDT Patient called requesting to cancel appointment with Dr. Sue and that she will be looking for another clinic much closer by because she lives to far from our location. Informed her to fill out ROIthat will be mailed to her and she will mail the TREVON back so we can send it to our Medical Record department to start the process. She is aware and had been informed that it may take some time for records to be completed and sent. Sent mail 10/14/21 documented in this encounter Plan of Treatment Not on filedocumented as of this encounter Visit Diagnoses Not on filedocumented in this encounter Additional Health Concerns Assessment Noted Time PHQ-9 Depression Total Score: 1 01/16/2019 11:01 AM CD T documented as of this encounter Care Teams Category Director Relationship Specialty Start Date End Date Catrina Sue MD PCP - General Family Practice 06/05/[address] [place] [address] Catrina Sue MD Assigned PCP 03/28/[address] [place] [phone] documented as of this encounter
--- OUTSIDE RECORDS SUMMARY | 2022-02-27 08:09 | XMS_ITS | Encounter Summary ---
:1955 Author Organization [facility] Address [address] [place] [address] Care Team Providers Name Role Phone Catrina Sue MD Primary Care Provider Catrina Sue MD Unavailable Reason for Visit Diagnostic Imaging Mammo (Routine) - Closed Specialty Diagnoses / Procedures Referred By Contact Refer red To Contact Diagnoses Screening mammogram, encounter for Catrina Sue MD Procedures MA Screen Bilateral w/Laura [address] [place] [address] Referral ID Status Reason Start Date Expiration Date Visits Requ ested Visits Authorized [id number] Closed 01/14/2021 01/14/2022 1 1 Encounter Details Date Type Department Care Team Description 03/15/2021 Ancillary [facility] Catrina Sue Screen ing mammogram, Procedure [facility] Breast MD [facility] encounter for Center [address] [place] [address] [address] [place] [address] [place], [place] [phone] (Work) [phone] Social History Tobacco Use Types Packs/Day Years [...] with No / Unsure 03/15/2021 8:24 AM AERIAL GUNNER someone who was confirmed or suspected to have Coronavirus / COVID-19? documented as of this encounter Plan of Treatment Not on filedocumented as of this encounter Procedures Procedure Name Priority Date/Time Associated Diagnosis Comme nts MA SCREENING Routine 03/15/2021 8:49 AM Screening mammogram, R esults for this BILATERAL W/ LAURA AERIAL GUNNER encounter for procedure are in the results section. documented in this encounter Results MA Screen Bilateral w/Laura (03/15/2021 8:49 AM AERIAL GUNNER) Anatomical Region Laterality Modality Breast Bilateral Mammography Specimen (Source) Anatomical Location Collection Method / Collectio n Time Received Time / Laterality Volume Narrative 03/15/2021 12:20 PM AERIAL GUNNER BILATERAL FULL FIELD DIGITAL SCREENING MAMMOGRAM WITH TOMOSYNTHESIS Performed on: 03/15/21 Compared to: 01/28/2020, 09/03/2018, , and 02/03/2016 Technique: ??This study was evaluated wi th the assistance of Computer-Aided Detection. ??Breast Tomosynthesis was us ed in interpretation. Findings: The breasts have scattered are as of fibroglandular density. ?? There is no radiographic evidence of mal ignancy. IMPRESSION: ACR BI-RADS Category 1: Nega tive RECOMMENDED FOLLOW-UP: Annual routine sc reening mammogram The results and recommendations of this examination will be communicated to the patient. Catrina Sue MD IMG MAMMOGRAPHY ORDERABLES documented in this encounter Visit Diagnoses Diagnosis Screening mammogram, encounter for documented in this encounter Additional Health Concerns Assessment Noted Time PHQ-9 Depression Total Score: 1 01/16/2019 11:01 AM CD T documented as of this encounter Care Teams Legal Transcriber Relationship Specialty Start Date End Date Catrina Sue MD PCP - General Family Practice 06/05/[address] [place] [address] Catrina Sue MD Assigned PCP 03/28/[address] [place] [address] documented as of this encounter
--- OUTSIDE RECORDS SUMMARY | 2022-02-27 08:09 | XMS_ITS | Encounter Summary ---
:1955 Author Organization [facility] Address [address] [place] [address] Care Team Providers Name Role Phone Catrina Sue MD Primary Care Provider Catrina Sue MD Unavailable Encounter Details Date Type Department Care Team Description 11/10/2020 Records - [facility] CONVERSION Provider, [facility] Social History Tobacco Use Types Packs/Day Years [...] Associated Diagnosis Comme nts MA SCREENING Routine 11/30/2010 12:00 AM Results for this BILATERAL CDT procedure are i n the results section. documented in this encounter Results MA Screening Bilateral (11/30/2010 12:00 AM CDT) Anatomical Region Laterality Modality Breast Bilateral Other Specimen (Source) Anatomical Location Collection Method / Collectio n Time Received Time / Laterality Volume Narrative 11/30/2010 12:00 AM CDT See Historical Hospital Medical Record f or [...] documented as of this encounter Care Teams Consumer Attorney Relationship Specialty Start Date End Date Catrina Sue MD PCP - General Family Practice 06/05/[address] [place] [address] Catrina Sue MD Assigned PCP 03/28/[address] [place] [address] documented as of this encounter
--- OUTSIDE RECORDS SUMMARY | 2022-02-27 08:09 | XMS_ITS | Clinical Summary ---
:1955 Author Organization [facility] [place] [address] Care Team Providers Name Role Phone Catrina Sue Sam Primary Care Provider Allergies No known active allergies Medications Medication Sig Dispensed Refills Start Date End Date Status levothyroxine (SYNTHROID) 75 mcg 0 016 Active tablet Active Problems Problem Noted Date Impingement syndrome of right shoulder 02/04/2016 Acromioclavicular joint arthritis 02/04/2016 Biceps tendonitis on right 02/04/2016 Family History Medical History Relation Name Comments Heart failure Father Relation Name Status Comments Father Social History Tobacco Use Types Packs/Day Years Used Date Former Smoker Alcohol Use Standard Drinks/Week Comments Yes 0 (1 standard drink = 0.6 oz pure alcoho l) Sex Assigned at Date Recorded Not on file Obstetrics History Plan of Treatment Health Maintenance Due Date Last Done Comments COVID-19 vaccine series (#1) 1955 Tdap 1964 Depression screening for age 12+ 1965 BMI (ht and wt on same day) for age 18+ 1971 Hepatitis C screening for age 18-79 1971 Tetanus booster 1973 Colonoscopy through age 75 1998 Lipids for age 45-75 1998 Mammogram for age 45-75 1998 Zoster (shingles) series for age 50+ (1 of 2) 2003 DEXA/DXA scan for age 65+ 2018 Pneumococcal series for age 65+ (1 - PCV) 2018 Influenza for age 65+ 12/22/2021 Results Not on filefrom Last 3 Months Insurance Payer Benefit Plan / Subscriber ID Effective Dates Phone Addre ss Type Group MEDICA MEDICA CHOICE [id number] 2015-Present [address] [address] [place] [address] Care Teams [employer] Law Clerk Relationship Specialty Start Date End Date Catrina Sue PCP - General Family Practice 01/25/16
--- OUTSIDE RECORDS SUMMARY | 2022-02-27 08:09 | XMS_ITS | Encounter Summary ---
:1955 Author Organization [facility] Address [address] [place] [address] Care Team Providers Name Role Phone Catrina Sue MD Primary Care Provider Catrina Sue MD Unavailable Reason for Visit Reason Onset Date Comments Refill Request 10/25/2020 Encounter Details Date Type Department Care Team Description 10/25/2020 Refill [facility] Catrina Rowland MD Refill Request [address] [place] [address] [place] [address] [phone] Social History Tobacco Use Types Packs/Day Years [...] this encounter Miscellaneous Notes Telephone Encounter - Martha Frias CMA - 10/25/2020 9:00 AM CDT Message to physician: Date of last visit: 02/24/2020 Date of next visit if scheduled:none Last Comprehensive Metabolic Panel: Sodium Date Value Ref Range Status 05/24/2018 141 136 - 145 mmol/L Final Potassium Date Value Ref Range Status 05/24/2018 4.4 3.5 - 5.0 mmol/L Final Chloride Date Value Ref Range Status 05/24/2018 104 98 - 107 mmol/L Final Carbon Dioxide Date Value Ref Range Status 02/02/2015 29.0 20.0 - 32.0 mmol/L Final Glucose Date Value Ref Range Status 05/24/2018 90 70 - 125 mg/dL Final Urea Nitrogen Date Value Ref Range Status 05/24/2018 16 8 - 22 mg/dL Final Creatinine Date Value Ref Range Status 06/15/2020 0.78 0.60 - 1.10 mg/dL Final GFR Estimate Date Value Ref Range Status 06/15/2020 >60 >60 mL/min/1.73m2 Final Calcium Date Value Ref Range Status 05/24/2018 9.7 8.5 - 10.5 mg/dL Final BP Readings from Last 3 Encounters: 06/25/20 119/64 02/24/20 98/67 06/20/19 119/67 No results found for: A1C Please complete refill and CLOSE ENCOUNTER. Closing the encounter signifies the refill is complete. documented in this encounter Plan of Treatment Not on filedocumented as of this encounter Visit Diagnoses Diagnosis Major depressive disorder, recurrent epi sode, mild (H) Major depressive disorder, recurrent epi sode, mild documented in this encounter Additional Health Concerns Assessment Noted Time PHQ-9 Depression Total Score: 1 01/16/2019 11:01 AM CD T documented as of this encounter Care Teams Subway Train Driver Relationship Specialty Start Date End Date Catrina Sue MD PCP - General Family Practice 06/05/[address] [place] [address] Catrina Sue MD Assigned PCP 03/28/[address] [place] [phone] (work) documented as of this encounter
--- OUTSIDE RECORDS SUMMARY | 2022-02-27 08:09 | XMS_ITS | Clinical Summary ---
:1955 Author Organization [facility] Address [address] [place] [address] Care Team Providers Name Role Phone Catrina Sue MD Primary Care Provider Catrina Sue MD Unavailable Allergies Active Allergy Reactions Severity Noted Date Comments Cats 09/08/2015 Horse Allergy 09/08/2015 Uncaria Tomentosa (Cats Claw) Unknown 09/08/2015 Medications Medication Sig Dispensed Refills Start Date End Date Status Calcium Take 2 tablets 0 Activ e Carbonate-Vitamin D by mouth daily (CALCIUM PLUS VITAMIN D PO) aspirin 81 MG EC Take 81 mg by 0 Active tablet mouth multivitamin Take 1 tablet 0 Act prisca (THERMEMS) TABS by mouth albuterol (VENTOLIN Inhale 2 puffs 1 Inhaler 3 01/16/2019 Active HFA) 108 (90 Base) into the lungs MCG/ACT every 6 hours inhalerIndications: Mild intermittent asthma without complication acyclovir (ZOVIRAX) Take 1 tablet 15 tablet 6 01/16/2019 Active 400 MG (400 mg) by tabletIndications: mouth every 8 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 FLUCELVAX QUADRIVALENT ADM 0.5ML IM 0 02/03/2020 Active 0.5 ML JULIANNE UTD PREVNAR 13 SUSP ADM 0.5ML IM 0 06/24/2019 Active injection UTD SHINGRIX injection ADM 0.5ML IM 0 06/24/2019 Active UTD zoledronic Acid Inject 100 mLs 100 mL 0 06/03/2020 07/13/19 23 Active (RECLAST) 5 MG/100ML (5 mg) into the SOLN vein once for 1 infusionIndications: dose Age-related osteoporosis without current pathological fracture ospemifene (OSPHENA) Take 1 tablet 90 tablet 3 03/22/2021 Active 60 MG (60 mg) by tabletIndications: mouth every Postmenopausal morning atrophic vaginitis levothyroxine Take 1 tablet 90 tablet 3 05/16/2021 A ctive (SYNTHROID/LEVOTHROID) (75 mcg) by 75 MCG mouth daily tabletIndications: Hypothyroidism due to acquired atrophy of thyroid citalopram (CELEXA) 10 Take 1 tablet 180 tablet 3 11/15/2021 Active MG tabletIndications: (10 mg) by Major depressive mouth 2 times disorder, recurrent daily episode, mild (H) Active Problems Problem Noted Date Major depressive disorder, recurrent episode, mild 06/2020 Age-related osteoporosis without current pathological fracture 05/24/2018 Lymphedema of left lower extremity 12/13/2017 Intractable migraine with aura 10/17/2017 Overview: Since her 20s, previously on inderal, al so ASA daily for prevention, uses excedrine for treatment Vertigo 10/17/2017 Routine general medical examination at [facility] 02/14/2017 Overview: 1. Result is: Normal 2. HPV NEG 3. Date next is due: 5 years with HPV 4. Follow up colposcopy is: Not indicate d Acromioclavicular joint arthritis 02/04/2016 Hypothyroidism due to acquired atrophy of thyroid 01/21 Mild intermittent asthma without complication 02/03/20 15 Overview: Diagnosis updated by automated process. Provider to review and confirm. AK (actinic keratosis) 05/11/2012 Esophageal reflux 05/11/2012 Lesion of plantar nerve 05/11/2012 Osteoarthritis of multiple joints 05/11/2012 Overview: Problem list name updated by automated p rocess. Provider to review Disorder of bone and cartilage 05/11/2012 Overview: Problem list name updated by automated p rocess. Provider to review Postmenopausal atrophic vaginitis 05/11/2012 Overview: MENOPAUSE 2007 Symptomatic menopausal or female climacteric states Tinnitus, bilateral 05/11/2012 Overview: Problem list name updated by automated p rocess. Provider to review Resolved Problems Problem Noted Date Resolved Date Mild intermittent asthma 03/25/2014 02/02/2016 Essential hypertension, benign 09/18/2012 5 Overview: The 10-year ASCVD risk score (Alonsoheidy THORNTON Jr , et al, 2013) is: 2.8% Values used to calculate the score: Age: 59 years Sex: Female Is an : No Diabetic: No Tobacco smoker: No Systolic Blood Pressure: 117 mmHg Prescribed Anti-hypertensives: No HDL Cholesterol: 71 mg/dL Total Cholesterol: 215 mg/dL Benign paroxysmal positional vertigo 05/11/201203/2016 Mastodynia 05/11/2012 02/26/2014 Cataract 05/11/2012 09/17/2012 Overview: Problem list name updated by automated p rocess. Provider to review Screening for malignant neoplasm of cervix 05/11/2012 09/17/2012 Overview: Problem list name updated by automated p rocess. Provider to review Hypothyroidism 05/11/2012 02/02/2015 Overview: Problem list name updated by automated p rocess. Provider to review Leiomyoma of uterus 05/11/2012 02/02/2016 Overview: Problem list name updated by automated p rocess. Provider to review Asthma 05/11/2012 02/02/2015 Overview: Problem list name updated by automated p rocess. Provider to review Benign neoplasm of skin 05/11/2012 09/17/2012 Overview: Problem list name updated by automated p rocess. Provider to review Varicose veins of lower extremities with complications 05/1102/02/2016 Overview: Problem list name updated by tayo dunn Provider to review Immunizations Name Administration Dates Next Due HepB 12/24/2008, 03/13/2008, 07/13/1999 Influenza (High Dose) 3 valent 01/22/2019 vaccine Influenza (IIV3) PF 02/08/2012, 02/16/2011 Influenza Quad, Recombinant, pf(RIV4) 02/18/2021 (Flublok) Influenza Vaccine IM > 6 months 02/03/2020, 02/15/2018, 01/21, Valent IIV4 (Alfuria,Fluzone) 02/02/2016, 02/02/2015, 2013 Influenza Vaccine, 6+MO IM 02/17/2013 (QUADRIVALENT W/PRESERVATIVES) Influenza,INJ,MDCK,PF,Quad 02/03/2020 >6mo(Flucelvax-RMG) Pneumo Conj 13-V (2010&after) 02/24/2020 Pneumococcal 23 valent 12/24/2008, 04/06/2000 TD (ADULT, 7+) 04/06/2000 TDAP Vaccine (Boostrix) 01/22/2019 Tdap (Adacel,Boostrix) 01/22/2019, 12/24/2008 Zoster vaccine recombinant adjuvanted 01/22/2019 (SHINGRIX) Zoster vaccine, live 02/20/2013 Family History Medical History Relation Comments Tremor Brother 1 benign, essential CABG Father Coronary Artery Disease Father Heart Failure Father Prostate Cancer Maternal Grandfather Coronary Artery Disease Maternal Grandmother Cancer Mother AML Other Cancer Mother AML Coronary Artery Disease Paternal Grandfather Colon Cancer Paternal Grandmother Carotid Endarterectomy Sister 2 Coronary Stenting Sister 2 Asthma No family hx of Breast Cancer No family hx of Cerebrovascular Disease No family hx of Diabetes No family hx of Hypertension No family hx of Relation Status Comments Brother 1 Alive Brother 2 Alive Father (Age 57) Maternal Grandfather Maternal Grandmother Mother Paternal Grandfather Paternal Grandmother Sister 1 Alive Sister 2 Alive Sister 3 Alive Sister 4 Alive Social History Tobacco Use Types Packs/Day Years Used Date Smoking Tobacco: Former Cigarettes 0 Quit : 02/01/1977 Smokeless Tobacco: Never Tobacco Cessation: Counseling Given: No Alcohol Use Standard Drinks/Week Comments Yes 1 (1 standard drink = 0.6 oz pure alcoho l) 1/week Stress Answer Date Recorded Do you feel stress - tense, restless, nervous, or To some ex tent 02/24/2020 anxious, or unable to sleep at night because your mind is troubled all the time - these days? Sex Assigned at Date Recorded Not on file Last Filed Vital Signs Vital Sign Reading Time Taken Comments Blood Pressure 119/68 07/12/2021 12:52 PM CDT Pulse 72 07/12/2021 12:52 PM CDT Temperature 36.6 ??C (97.8 ??F) 07/12/2021 12:52 PM CDT Respiratory Rate 16 07/12/2021 12:52 PM CDT Oxygen Saturation 98% 07/12/2021 12:52 PM CDT Inhaled Oxygen Concentration - - Weight 63.5 kg (140 lb) 07/12/2021 11:03 AM CDT Height 172.7 cm (5' 7.99) 07/12/2021 11:03 AM CDT Body Mass Index 21.29 07/12/2021 11:03 AM CDT Plan of Treatment Health Maintenance Due Date Last Done Comments ANNUAL REVIEW OF HM ORDERS 1955 CT COLONOGRAPHY 1955 DEPRESSION ACTION PLAN 1955 FIT-DNA (Cologuard) 1955 FIT 1955 FLEX SIG 1955 ZOSTER IMMUNIZATION (3 of 03/19/2019 01/22/2019, 01/22/2019 , 3) 02/20/2013 SPIROMETRY 05/24/2019 05/24/2018, 02/02/2015, 02/08/2012 PHQ-9 07/17/2019 01/16/2019, 01/23/2014 Pneumococcal Vaccine: 65+ 02/23/2021 02/24/2020, 12/24/2008 , Years (#3) 04/06/2000 COVID-19 Vaccine (4 - 04/15/2021 02/18/2021, 07/20/2020, Booster for Pfizer series) 06/29/2020 ASTHMA CONTROL TEST 09/19/2021 03/22/2021, 01/16/2019, 02/07/2017, Additional history exists INFLUENZA VACCINE (#1) 2021 02/18/2021, 02/18/2021, 02/03/2020, Additional history exists ASTHMA ACTION PLAN 03/22/2022 03/22/2021, 05/24/2018, 05/24/2018, Additional history exists FALL RISK ASSESSMENT 03/22/2022 03/22/2021, 06/25/2020, 02/24/2020, Additional history exists MEDICARE ANNUAL WELLNESS 03/22/2022 03/22/2021, 02/24/2020, VISIT 01/16/2019, Additional history exists MAMMO SCREENING 03/15/2023 03/15/2021, 01/28/2020, 01/28/2020, Additional history exists ADVANCE CARE PLANNING 06/17/2023 06/17/2018 LIPID 03/22/2026 03/22/2021, 02/24/2020, 02/02/2016, Additional history exists COLONOSCOPY 07/06/2028 07/06/2021, 07/06/2021, 07/06/2021, Additional history exists COLORECTAL CANCER SCREENING 07/06/2028 DTAP/TDAP/TD IMMUNIZATION 01/22/2029 01/22/2019, 01/22/2019 , (4 - Td or Tdap) 12/24/2008, Additional history exists DEXA 04/14/2035 04/14/2020, 04/30/2018, 11/23/2006 HEPATITIS B IMMUNIZATION Completed 12/24/2008, 12/24/2008, 03/13/2008, Additional history exists HEPATITIS C SCREENING Completed 03/05/2018 IPV IMMUNIZATION Aged Out No longer eligi ble based on patient 's age to complete this topic MENINGITIS IMMUNIZATION Aged Out No longe r eligible based on patient 's age to complete this topic Insurance Payer Benefit Plan / Subscriber ID Effective Dates Phone Addre ss Type Group MEDICA MEDICA ADVANTAGE [id number] 2020-Present [phone] [address] [address] [email or web address] [address] Advance Directives For more information, please contact: [phone] Documents on File Type Date Recorded Patient Watch Parts Grinder Explanati on Advance Directives and 06/17/2018 1:46 PM Health Care Directive Living Will 05-31-18 Latest Code Status on File Code Status Date Activated Date Inactivated Comments Full Code 03/23/2021 8:53 PM Question Answer Comments Code status determined by: Discussion with patient/ legal de cision maker Healthcare Agents on File Name Relationship Healthcare Agent Communication Relationship Eddiana Soto Spouse [facility] Health Care Agent (Home) Destinee Edinson Sister Health Care Agent [phone] ( Home) Care Teams Retail Loan Originator Assistant Relationship Specialty Start Date End Date Catrina Sue MD PCP - General Family Practice 06/05/[address] [place] [id number] Catrina Sue MD Assigned PCP 03/28/[address] [place] [address]
--- OUTSIDE RECORDS SUMMARY | 2022-02-27 08:09 | XMS_ITS | Encounter Summary ---
:1955 Author Organization [facility] Address [address] [place] [address] Care Team Providers Name Role Phone Catrina Sue MD Primary Care Provider Catrina Sue MD Unavailable Encounter Details Date Type Department Care Team Description 07/12/2021 Travel Social History Tobacco Use Types Packs/Day [...] documented as of this encounter Care Teams Melting Operator Relationship Specialty Start Date End Date Catrina Sue MD PCP - General Family Practice 06/05/[address] [place] [phone] Catrina Sue MD Assigned PCP 03/28/[address] [place] [phone] documented as of this encounter
--- OUTSIDE RECORDS SUMMARY | 2022-02-27 08:09 | XMS_ITS | Encounter Summary ---
:1955 Author Organization [facility] Address [address] [place] [address] Care Team Providers Name Role Phone Catrina Sue MD Primary Care Provider Catrina Sue MD Unavailable Encounter Details Date Type Department Care Team Description 11/10/2020 Records - [facility] ELVIA CONVERSION Provider, Histor ical Social [...] Associated Diagnosis Comme nts MA SCREENING Routine 04/28/2008 12:00 AM Results for this BILATERAL VULNERABILITY ASSESSMENT ANALYST procedure are i n the results section. documented in this encounter Results MA Screening Bilateral (04/28/2008 12:00 AM VULNERABILITY ASSESSMENT ANALYST) Anatomical Region Laterality Modality Breast Bilateral Other Specimen (Source) Anatomical Location Collection Method / Collectio n Time Received Time / Laterality Volume Narrative 04/28/2008 12:00 AM VULNERABILITY ASSESSMENT ANALYST See Historical Hospital Medical Record f or [...] documented as of this encounter Care Teams Animal Control Licensing Worker Relationship Specialty Start Date End Date Catrina Sue MD PCP - General Family Practice 06/05/[address] [place] [address] Catrina Sue MD Assigned PCP 03/28/[address] [place] [phone] documented as of this encounter
--- OUTSIDE RECORDS SUMMARY | 2022-02-27 08:09 | XMS_ITS | Encounter Summary ---
:1955 Author Organization [facility] Address [address] [place] [address] Care Team Providers Name Role Phone Catrina Sue MD Primary Care Provider Catrina Sue MD Unavailable Encounter Details Date Type Department Care Team Description 02/14/2021 Travel Social History Tobacco Use Types Packs/Day [...] been in contact with No / Unsure 02/14/2021 12:00 PM CDT someone who was confirmed or suspected to have Coronavirus / COVID-19? documented as of this encounter Plan of Treatment Not on filedocumented as of this encounter Visit Diagnoses Not on filedocumented in this encounter Additional Health Concerns Assessment Noted Time PHQ-9 Depression Total Score: 1 01/16/2019 11:01 AM CD T documented as of this encounter Care Teams Fabricating Machine Operator Relationship Specialty Start Date End Date Catrina Sue MD PCP - General Family Practice 06/05/[address] [place] [address] Catrina Sue MD Assigned PCP 03/28/[address] [place] [address] documented as of this encounter
--- OUTSIDE RECORDS SUMMARY | 2022-02-27 08:09 | XMS_ITS | Encounter Summary ---
:1955 Author Organization [facility] Address [address] [facility] [place] [address] Care Team Providers Name Role Phone Catrina Sue MD Primary Care Provider Catrina Sue MD Unavailable Reason for Visit Reason Comments Abdominal Pain For about one month on the l eft side Constipation Recheck Medication Headache Encounter Details Date Type Department Care Team Description 11/23/2020 Office Visit [facility] Catrina Sue ab dominal pain (Primary Dx); Clinic Amanda Florez MD Major depressive disorder, recurrent epi sode, mild (H) [address] [facility] [address] [place], [place] [address] [address] [place] [address] (Wo rk) Social History Tobacco Use Types Packs/Day Years [...] Sign Reading Time Taken Comments Blood Pressure 116/77 11/23/2020 9:40 AM CDT Pulse 68 11/23/2020 9:40 AM CDT Temperature - - Respiratory Rate 18 11/23/2020 9:40 AM CDT Oxygen Saturation 98% 11/23/2020 9:40 AM CDT Inhaled Oxygen Concentration - - Weight 63.5 kg (140 lb) 11/23/2020 9:40 AM CDT Height - - Body Mass Index 21.29 06/25/2020 10:00 AM ASSISTANT BUYER documented in this encounter Progress Notes Catrina Sue MD - 11/23/2020 9:40 AM CDT Assessment & Plan (R10.12) LUQ abdominal pain (primary encounter diagnosis) Comment: has colonoscopy next year, has had diverticulosis Plan: CBC with platelets Possibly diet related, differential includes diverticulosis, other colonic issue, appears not MSK, not splenic, but will check CBC ensure no elevated WBC, no low hgb, consider earlier colonoscopy if symptoms increase again, any lab abnormality (F33.0) Major depressive disorder, recurrent episode, mild (H) Comment: doing well Plan: stable and no changes No follow-ups on file. Catrina Sue MD [facility] Paris Gonzales is a 65 year old who presents for the following health issues HPI 1. Stomach pain X 3 months: -random ache random, not daily -gradually and now getting more daily LUQ pain, three weeks ago had it more painful and really bad, did take 600 mg ibuprofen and had a short relief of pain (30 mins) -wondered if it was ASA related and has stopped daily ASA and reduced excedrin use of headaches Much improved, almost gone, but does feel LUQ pain slightly NO weight loss, no blood in stool, nl color and consistency Primary worry of pancreatic cancer Wondered if from posture, not worse with eating, better after BM Review of Systems Objective BP 116/77 Pulse 68 Resp 18 Wt 63.5 kg (140 lb) SpO2 98% BMI 21.29 kg/m?? Body mass index is 21.29 kg/m??. Physical Exam documented in this encounter Miscellaneous Notes Result Encounter Note - Catrina Sue MD - 11/23/2020 9:40 AM CDT normal documented in this encounter Plan of Treatment Not on filedocumented as of this encounter Procedures Procedure Name Priority Date/Time Associated Diagnosis Comme nts CBC WITH PLATELETS Routine 11/23/2020 10:38 AM LUQ abdominal p ain Results for this CDT procedure are i n the results section. documented in this encounter Results CBC with platelets (11/23/2020 10:38 AM CDT) P athologist Signature WBC Count 5.4 4.0 - 11.0 11/23/2020 [facility] 10e3/uL 10:53 AM CDT RBC Count 4.09 3.80 - 11/23/2020 [facility] 5.20 10:53 AM CDT 10e6/uL Hemoglobin 12.8 11.7 - 11/23/2020 [facility] 15.7 g/dL 10:53 AM CDT Hematocrit 39.9 35.0 - 11/23/2020 [facility] 47.0 % 10:53 AM CDT MCV 98 78 - 100 11/23/2020 [facility] fL 10:53 AM CDT MCH 31.3 26.5 - 11/23/2020 [facility] 33.0 pg 10:53 AM CDT MCHC 32.1 31.5 - 11/23/2020 [facility] 36.5 g/dL 10:53 AM CDT RDW 12.8 10.0 - 11/23/2020 [facility] 15.0 % 10:53 AM CDT Platelet Count 216 150 - 450 11/23/2020 [facility] Y 10e3/uL 10:53 AM CDT Specimen Anatomical Collection Method / Collection Time Recei krishan Time (Source) Location / Volume Laterality Blood STRUCTURE OF RIGHT Venipuncture / 11/23/2020 10:38 06/2020 UPPER LIMB / Unknown AM CDT 10:48 AM CDT Unknown Catrina Sue MD LAB - BLOOD ORDERABLES Performing Organization Address City/State/ZIP Code Phon e Number [facility] [place] [address] [place] [address] [address] [facility] [place], [place] [address] [phone] - [address] documented in this encounter Visit Diagnoses Diagnosis LUQ abdominal pain - Primary Abdominal pain, left upper quadrant Major depressive disorder, recurrent epi sode, mild (H) Major depressive disorder, recurrent epi sode, mild documented in this encounter Additional Health Concerns Assessment Noted Time PHQ-9 Depression Total Score: 1 01/16/2019 11:01 AM CD T documented as of this encounter Care Teams Mineralogy Teacher Relationship Specialty Start Date End Date Catrina Sue MD PCP - General Family Practice 06/05/[address] [place] [phone] Catrina Sue MD Assigned PCP 03/28/[address] [place] [address] documented as of this encounter
--- OUTSIDE RECORDS SUMMARY | 2022-02-27 08:09 | XMS_ITS | Encounter Summary ---
:1955 Author Organization [facility] Address [address] [place] [address] Care Team Providers Name Role Phone Catrina Sue MD Primary Care Provider Catrina Sue MD Unavailable Encounter Details Date Type Department Care Team Description 11/02/2020 Records - [facility] ELVIA CONVERSION Provider, [facility] Social History Tobacco Use Types Packs/Day Years [...] Associated Diagnosis Comme nts MA SCREENING Routine 08/05/2009 12:00 AM Results for this BILATERAL CDT procedure are i n the results section. documented in this encounter Results MA Screening Bilateral (08/05/2009 12:00 AM CDT) Anatomical Region Laterality Modality Breast Bilateral Other Specimen (Source) Anatomical Location Collection Method / Collectio n Time Received Time / Laterality Volume Narrative 08/05/2009 12:00 AM CDT See Historical Hospital Medical [...] documented as of this encounter Care Teams Paint Supervisor Relationship Specialty Start Date End Date Catrina Sue MD PCP - General Family Practice 06/05/[address] [place] [phone] Catrina Sue MD Assigned PCP 03/28/[address] [place] [phone] documented as of this encounter
--- OUTSIDE RECORDS SUMMARY | 2022-02-27 08:09 | XMS_ITS | Encounter Summary ---
:1955 Author Organization [facility] Address [address] [place] [address] Care Team Providers Name Role Phone Catrina Sue MD Primary Care Provider Catrina Sue MD Unavailable Reason for Visit Reason Comments Infusion Reclast Treatment and Therapy Plans (Routine) - Authorized Specialty Diagnoses / Procedures Referred By Contact Refer red To Contact Infusion Therapy Diagnoses Age-related osteoporosis without current pathological fracture Catrina Sue, Sjn Infusion Therapy Procedures ZZC INJECTION, ZOLEDRONIC ACID, 1 MG [address] [place] [address] [place] [address] Referral ID Status Reason Start Date Expiration Date Visits V isits Requested Authorized [id number] Authorized 07/12/2021 04/22/2022 99 99 Encounter Details Date Type Department Care Team Description 07/12/2021 Infusion Therapy [facility] Catrina Sue e-related Visit [facility] MD Kilo osteoporosis without [address] pathological 1575 [facility] E fracture (Primary Dx) [place], [place] [phone] Social History Tobacco Use Types Packs/Day Years [...] Mass Index 21.29 07/12/2021 11:03 AM CDT documented in this encounter Progress Notes Salina Friend, RN - 07/12/2021 11:00 AM CDT Infusion Nursing Note: Janet Soto presents today for Reclast. Patient seen by provider today: No Sample Shoe Inspector And Reworker present during visit today: Not Applicable. Note: Patient arrives today via ambulatory for her Reclast infusion. Patient is alert and oriented X4 and vitals are stable. Pt states she has had this drug 3-4 times in the past. Pt reports that her PMD mentioned she may be done after days dose but that will be determined at her annual exam. . Intravenous Access: Peripheral IV placed. Treatment Conditions: Results reviewed, labs MET treatment parameters, ok to proceed with treatment. Biological Infusion Checklist: ~~~ NOTE: If the patient answers yes to any of the questions below, hold the infusion and contact ordering provider or on-call provider. 1. Have you recently had an elevated temperature, fever, chills, productive cough, coughing for 3 weeks or longer or hemoptysis, abnormal vital signs, night sweats, chest pain or have you noticed a decrease in your appetite, unexplained weight loss or fatigue? No 2. Do you have any open wounds or new incisions? No 3. Do you have any recent or upcoming hospitalizations, surgeries or dental procedures? No 4. Do you currently have or recently have had any signs of illness or infection or are you on any antibiotics? No 5. Have you had any new, sudden or worsening abdominal pain? No 6. Have you or anyone in your household received a live vaccination in the past 4 weeks? Please note: No live vaccines while on biologic/chemotherapy until 6 months after the last treatment. Patient can receive the flu vaccine (shot only) and the pneumovax. It is optimal for the patient to get these vaccines mid cycle, but they can be given at any time as long as it is not on the day of the infusion.No 7. Have you recently been diagnosed with any new nervous system diseases (ie. Multiple sclerosis, Guillain [place], seizures, neurological changes) or cancer diagnosis? No 8. Are you on any form of radiation or chemotherapy? No 9. Are you or breast feeding or do you have plans of in the future? No 10. Have you been having any signs of worsening depression or suicidal ideations? (benlysta only) No 11. Have there been any other new onset medical symptoms? No Post Infusion Assessment: Patient tolerated infusion without incident. Site patent and intact, free from redness, edema or discomfort. No evidence of extravasations. Access discontinued per protocol. Discharge Plan: Discharge instructions reviewed with: Patient. Patient and/or family verbalized understanding of discharge instructions and all questions answered. AVS to patient via [employer]. Patient will return PRN for next appointment. Patient discharged in stable condition accompanied by: self. Departure Mode: Ambulatory. SALINA FRIEND RN documented in this encounter Plan of Treatment Not on filedocumented as of this encounter Procedures Procedure Name Priority Date/Time Associated Diagnosis Comme nts CREATININE Routine 07/12/2021 11:24 AM Age-related Results for this CDT osteoporosis without procedu re are in current pathological the res ults fracture section. CALCIUM Routine 07/12/2021 11:24 AM Age-related Results for this CDT osteoporosis without procedu re are in current pathological the res ults fracture section. documented in this encounter Results Calcium (07/12/2021 11:24 AM CDT) athologist Signature Calcium 8.9 8.5 - 10.5 07/12/2021 [facility] mg/dL 12:00 PM CDT Specimen Anatomical Collection Method / Collection Time Recei krishan Time (Source) Location / Volume Laterality Blood BLOOD SPECIMEN / Venipuncture / 07/12/2021 11:24 07/12 Unknown Unknown AM CDT 11:46 AM CDT Catrina Sue MD LAB - BLOOD ORDERABLES Performing Organization Address City/[facility] Code Phon e Number [facility] [place] [address] Creatinine (07/12/2021 11:24 AM CDT) athologist Signature Creatinine 0.72 0.60 - 1.10 07/12/2021 [facility] mg/dL 12:00 PM CDT GFR Estimate >90 >60 07/12/2021 [facility] mL/min/1.73 12:00 PM CDT m2 Comment: Effective April 12, 2021 eGF Rcr in adults is calculated using the 2020 CKD-EPI creatinine equation which includ es age and gender (Michelle et al., NEJM, DOI: 10.1056/PNRVum1503815) Specimen Anatomical Collection Method / Collection Time Recei krishan Time (Source) Location / Volume Laterality Blood BLOOD SPECIMEN / Venipuncture / 07/12/2021 11:24 07/12 Unknown Unknown AM CDT 11:46 AM CDT Catrina Sue MD LAB - BLOOD ORDERABLES Performing Organization Address City/[facility]/ZIP [facility] Phon e Number [facility] [place] [address] documented in this encounter Visit Diagnoses Diagnosis Age-related osteoporosis without current pathological fracture - Primary Senile osteoporosis documented in this encounter Administered Medications Inactive Administered Medications - up to 3 most recent administrations Medication Order MAR Action Action Date Dose Rate Site sodium chloride (PF) 0.9% PF flush Given 07/12/2021 2:56 PM CDT 20 mLs 3-20 mL 3-20 mL, Intracatheter, EVERY 1 HOUR PRN, line flush, post meds or blood draw, Starting on Sun07/12/21 at 1123, PIV: 3 mL after each use & PRN to assess patency. Midline; CVC; PICC; Jay; PORT: 10 mL after each use & PRN to assess patency; 20 mL after blood draw. Apheresis: only for use when patient is NOT under care of apheresis services; 10 mL after each use & PRN to assess patency; 20 mL after blood draw. zoledronic Acid (RECLAST) infusion 5 New Bag 07/12/2021 12:32 PM CDT 5 mg 400 mL/hr mg 5 mg, Intravenous, Administer over 15 Minutes, at 400 mL/hr, ONCE, On Sun07/12/21 at 1230, For 1 dose, Given once per year. documented in this encounter Additional Health Concerns Assessment Noted Time PHQ-9 Depression Total Score: 1 01/16/2019 11:01 AM CD T documented as of this encounter Care Teams Director Broadcast Relationship Specialty Start Date End Date Catrina Sue MD PCP - General Family Practice 06/05/[address] [place] [address] Catrina Sue MD Assigned PCP 03/28/[address] [place] [address] documented as of this encounter
--- OUTSIDE RECORDS SUMMARY | 2022-02-27 08:09 | XMS_ITS | Encounter Summary ---
:1955 Author Organization [facility] Address [address] [place] [address] Care Team Providers Name Role Phone Catrina Sue MD Primary Care Provider Catrina Sue MD Unavailable Encounter Details Date Type Department Care Team Description 05/16/2021 [facility] Eric Thakkar RN [address] [phone] Social History Tobacco Use Types [...] Telephone Encounter - Catrina Sue MD - 05/16/2021 4:53 PM CST Reviewed and approved Y TECH Telephone Encounter - Natalia Hinton RN - 05/16/2021 10:46 AM CST Date of last visit: 03/22/21 Date of next visit if scheduled: Visit date not found Pharmacy fax request: Yes Patient/Phone call request : No BP Readings from Last 3 Encounters: 03/22/21 130/81 11/23/20 116/77 06/25/20 119/64 LDL Cholesterol Calculated Date Value Ref Range Status 03/22/2021 149 (H) <=129 mg/dL Final 01/23/2014 127 0 - 129 mg/dL Final LDL Cholesterol Direct Date Value Ref Range Status 02/24/2020 143.0 (H) 0.0 - 99.0 mg/dL Final No results found for: A1C Last Comprehensive Metabolic Panel: Sodium Date Value [...] 05/24/2018 9.7 8.5 - 10.5 mg/dL Final Please complete refill and CLOSE ENCOUNTER. Closing the encounter signifies the refill is complete. Y TECH documented in this encounter Plan of Treatment Not on filedocumented as of this encounter Visit Diagnoses Diagnosis Hypothyroidism due to acquired atrophy o f thyroid documented in this encounter Additional Health Concerns Assessment Noted Time PHQ-9 Depression Total Score: 1 01/16/2019 11:01 AM CD T documented as of this encounter Care Teams Microsoft Exchange Administrator Relationship Specialty Start Date End Date Catrina Sue MD PCP - General Family Practice 06/05/[address] [place] [address] Catrina Sue MD Assigned PCP 03/28/[address] [place] [address] documented as of this encounter
--- OUTSIDE RECORDS SUMMARY | 2022-02-27 08:09 | XMS_ITS | Encounter Summary ---
:1955 Author Organization [facility] Address [address] [place] [address] Care Team Providers Name Role Phone Catrina Sue MD Primary Care Provider Catrina Sue MD Unavailable Encounter Details Date Type Department Care Team Description 10/13/2020 Orders Only [facility], Ngozi V, [facility] current pathological [address] fracture (Primary Dx) [place] [phone] Social History Tobacco Use Types Packs/Day Years [...] documented as of this encounter Care Teams Hvac Journeyman Relationship Specialty Start Date End Date Catrina Sue MD PCP - General Family Practice 06/05/[address] [place] [address] Catrina Sue MD Assigned PCP 03/28/[address] [place] [address] documented as of this encounter
--- OUTSIDE RECORDS SUMMARY | 2022-02-27 08:10 | XMS_ITS | Encounter Summary ---
:1955 Author Organization [facility] Address [address] [place] [address] Care Team Providers Name Role Phone Catrina Sue MD Primary Care Provider Catrina Sue MD Unavailable Encounter Details Date Type Department Care Team Description 09/18/2020 Records - [facility] ELVIA CONVERSION Provider, Histor ical Social History [...] Name Priority Date/Time Associated Diagnosis Comme nts MR BRAIN W/O & W Routine 06/02/2005 12:00 AM Resu lts for this CONTRAST BESSEMER CONVERTER OPERATOR procedure are i n the results section. documented in this encounter Results MR Brain w/o & w Contrast (06/02/2005 12:00 AM BESSEMER CONVERTER OPERATOR) Anatomical Region Laterality Modality Head, SUBRAD MR NEURO, UMP MR NEURO, RAD MR Other Specimen (Source) Anatomical Location Collection Method / Collectio n Time Received Time / Laterality Volume Narrative 06/02/2005 12:00 AM BESSEMER CONVERTER OPERATOR See Historical Hospital Medical Record f or documentation Procedure Note Provider, Historical - 09/18/2020Formatt ing of this note might be different from the original. See Historical Hospital Medical Record f or documentation Historical Provider IMG MRI ORDERABLES documented in this encounter Visit Diagnoses Not on filedocumented in this encounter Additional Health Concerns Assessment Noted Time PHQ-9 Depression Total Score: 1 01/16/2019 11:01 AM CD T documented as of this encounter Care Teams Legal Contracts Specialist Relationship Specialty Start Date End Date Catrina Sue MD PCP - General Family Practice 06/05/[address] [place] [address] Catrina Sue MD Assigned PCP 03/28/[address] [place] [address] documented as of this encounter
--- OUTSIDE RECORDS SUMMARY | 2022-02-27 08:10 | XMS_ITS | Encounter Summary ---
:1955 Author Organization [facility] Address [address] [place] [address] Care Team Providers Name Role Phone Catrina Sue MD Primary Care Provider Catrina Sue MD Unavailable Encounter Details Date Type Department Care Team Description [facility]/01/2020 [facility] [address] [phone] Social History Tobacco Use Types Packs/Day [...] documented as of this encounter Care Teams Correction Warden Relationship Specialty Start Date End Date Catrina Sue MD PCP - General Family Practice 06/05/[address] [place] [address] Catrina Sue MD Assigned PCP 03/28/[address] [place] [address] documented as of this encounter
--- OUTSIDE RECORDS SUMMARY | 2022-02-27 08:10 | XMS_ITS | Encounter Summary ---
:1955 Author Organization [facility] Address [address] [place] [address] Care Team Providers Name Role Phone Catrina Sue MD Primary Care Provider Catrina Sue MD Unavailable Reason for Visit Reason Onset Date Comments Refill Request 04/28/2020 Encounter Details Date Type Department Care Team Description 04/28/2020 Refill [facility] Catrina Rowland MD Refill Request [address] [place] [address] [place] [address] [phone] Social History Tobacco Use Types Packs/Day Years [...] Telephone Encounter - Catrina Sue MD - 04/28/2020 2:23 PM CST Reviewed and approved RPRESSER HAND Telephone Encounter - Martha Frias CMA - 04/28/2020 10:29 AM CST Message to physician: Date of last visit: 02/24/2020 Date of next visit if scheduled: none Last Comprehensive Metabolic Panel: Sodium Date Value [...] Final Creatinine Date Value Ref Range Status 06/03/2019 0.83 0.60 - 1.10 mg/dL Final GFR Estimate Date Value Ref Range Status 06/03/2019 >60 >60 mL/min/1.73m2 Final Calcium Date Value Ref Range Status 05/24/2018 9.7 8.5 - 10.5 mg/dL Final BP Readings from Last 3 Encounters: 02/24/20 98/67 01/16/19 97/65 05/24/18 118/77 No results found for: A1C Please complete refill and CLOSE ENCOUNTER. Closing the encounter signifies the refill is complete. 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
--- OUTSIDE RECORDS SUMMARY | 2022-02-27 08:10 | XMS_ITS | Encounter Summary ---
:1955 Author Organization [facility] Address [address] [place] [address] Care Team Providers Name Role Phone Catrina Sue MD Primary Care Provider Catrina Sue MD Unavailable Encounter Details Date Type Department Care Team Description 08/26/2020 Records - [facility] HE E-VISITS Yuriy Jhaveri MD [address] [place] [address] (Wo rk) Social History Tobacco Use Types [...] this encounter Miscellaneous Notes Telephone Encounter - Yana Jhaveri MD - 08/26/2020 3:42 PM CDT Telephone Encounter by Yana Jhaveri MD at 08/26/2020 3:42 PM Author: Yana Jhaveri MD Service: -- Author Type: Physician Filed: 08/26/2020 3:42 PM Encounter Date: 08/26/2020 Status: Signed Drum Straightener: Yana Jhaveri MD (Physician) From: Janet Soto Sent: 08/13/2020 11:34 AM CDT To: Yana Jhaveri MD Subject: RE:please schedule your covid vaccine appointment My doctor is Dr. Casandra Sue and I have received both my vaccines at [facility]. documented in this encounter Plan of Treatment Not on filedocumented as of this encounter Visit Diagnoses Not on filedocumented in this encounter Additional Health Concerns Assessment Noted Time PHQ-9 Depression Total Score: 1 01/16/2019 11:01 AM CD T documented as of this encounter Care Teams Section Supervisor Relationship Specialty Start Date End Date Catrina Sue MD PCP - General Family Practice 06/05/[address] [place] [address] Catrina Sue MD Assigned PCP 03/28/[address] [place] [address] documented as of this encounter
--- OUTSIDE RECORDS SUMMARY | 2022-02-27 08:10 | XMS_ITS | Encounter Summary ---
:1955 Author Organization [facility] Address [address] [place] [address] Care Team Providers Name Role Phone Catrina Sue MD Primary Care Provider Catrina Sue MD Unavailable Reason for Referral (Routine) - Closed Specialty Diagnoses / Procedures Referred By Contact Refer red To Contact Diagnoses Age-related osteoporosis without current pathological fracture Catrina Sue MD [address] [place] [address] Referral ID Status Reason Start Date Expiration Date Visits Requ ested Visits Authorized [id number] Closed 06/03/2020 06/03/2021 1 1 PHONE QUOTATION CLERK Reason for Visit Reason Onset Date Comments Orders 06/03/2020 Encounter Details Date Type Department Care Team Description 06/03/2020 Telephone [facility] Catrina Rowland MD Orders [address] [address] [place] [address] [phone] Social History Tobacco Use Types Packs/Day Years [...] been in contact with No / Unsure 06/15/2020 9:20 AM TELEPHONE QUOTATION CLERK someone who was confirmed or suspected to have Coronavirus / COVID-19? documented as of this encounter Miscellaneous Notes Telephone Encounter - Natalia Hinton RN - 06/15/2020 4:20 PM CST Faxed order for infusion to [facility] Infusion ([phone]) along with creatinine result. Loraine HANKS PHONE QUOTATION CLERK Telephone Encounter - Ashia Menjivar - 06/10/2020 9:18 AM CST Patient called back and scheduled her lab appointment on 06/15 @ 9:30 am PHONE QUOTATION CLERK Telephone Encounter - Deandra Ponce - 06/10/2020 8:41 AM CST Called, not available, male who answered states patient is not home at the moment but he will notifyher to return call. Per Dr. Sue, Schedule a lab only visit. PHONE QUOTATION CLERK Telephone Encounter - Catrina Sue MD - 06/08/2020 9:48 PM CST Signed paper and signed cr order. PHONE QUOTATION CLERK Telephone Encounter - Natalia Hinton RN - 06/08/2020 8:51 AM CST Routing to PCP to sign pended order for creatinine per infusion request. Patient needs creatinine level no more than 28 days prior to infusion. Can route to lockstitch front edge tape sewer to schedule patient once ordered.Loraine RN PHONE QUOTATION CLERK Telephone Encounter - Natalia Hinton RN - 06/07/2020 8:59 AM CST Order set placed on PCP desk due to needing written order form completed with PCP signature per [facility]. Also required serum creatinine no more than 28 days prior to infusion. Loraine RN PHONE QUOTATION CLERK Telephone Encounter - Catrina Sue MD - 06/03/2020 3:57 PM CST reclast IV for osteoporosis. I placed order at [facility]. PHONE QUOTATION CLERK Telephone Encounter - Cristobal Gamez - 06/03/2020 11:11 AM CST [facility] phone call message - order or referral request for patient: Order or referral being requested: Infusion Additional Comments: Patient state she was in recently and had discuss with PCP before. Patient needan order for infusion sent to [place] as she gets it done once a year and it is time to go back. OK to leave a message on voice mail? Yes Primary language: Comoran Record Pressman needed? No Call taken on June 03, 2020 at 11:12 AM by Cristobal Gamez PHONE QUOTATION CLERK documented in this encounter Plan of Treatment Scheduled Referrals Name Type Priority Associated Diagnoses Order [facility] Referral Routine Age-related osteopo rosis Expected: 06/10/2020 Infusion Order without current (Approxima te), pathological fracture s: 08/31/2020 documented as of this encounter Results Creatinine ([facility]) (06/15/2020 9:24 AM TELEPHONE QUOTATION CLERK) P athologist Signature Creatinine 0.[address] [facility] 1.10 mg/dL LAB GFR Estimate If >[address] [facility] Black mL/min/1.7 LAB 3m2 GFR Estimate >[address] [facility] mL/min/1.7 LAB 3m2 Specimen (Source) Anatomical Collection Method Collection Time Re ceived Time Location / / Volume Laterality Venous blood 06/15/2020 9:24 AM specimen TELEPHONE QUOTATION CLERK (specimen) Narrative [facility] - 06/15/2020 4:13 PM CS T Test performed by: [facility]ORATOR Y [address] [place] [address] Catrina Sue MD LAB - [facility] Performing Organization Address City/State/ZIP Code Phon e Number [facility] documented in this encounter Visit Diagnoses Diagnosis Age-related osteoporosis without current pathological fracture Senile osteoporosis Age-related osteoporosis without current pathological fracture Senile osteoporosis documented in this encounter Additional Health Concerns Assessment Noted Time PHQ-9 Depression Total Score: 1 01/16/2019 11:01 AM CD T documented as of this encounter Care Teams Agricultural Adviser Relationship Specialty Start Date End Date Catrina Sue MD PCP - General Family Practice 06/05/[address] [place] [address] Catrina Sue MD Assigned PCP 03/28/[address] [place] [address] documented as of this encounter
--- OUTSIDE RECORDS SUMMARY | 2022-02-27 08:10 | XMS_ITS | Encounter Summary ---
:1955 Author Organization [facility] Address [address] [place] [address] Care Team Providers Name Role Phone Catrina Sue MD Primary Care Provider Catrina Sue MD Unavailable Encounter Details Date Type Department Care Team Description 09/18/2020 Records - [facility] ELVIA CONVERSION Provider, Histor ical Social [...] Name Priority Date/Time Associated Diagnosis Comme nts CT MISC FCIS ORDER Routine 10/30/2005 12:00 AM Re sults for this CDT procedure are i n the results section. CT MISC FCIS ORDER Routine 10/30/2005 12:00 AM Re sults for this CDT procedure are i n the results section. documented in this encounter Results CT Misc Order (10/30/2005 12:00 AM CDT) Anatomical Region Laterality Modality Computed Tomography Specimen (Source) Anatomical Location Collection Method / Collectio n Time Received Time / Laterality Volume Narrative 10/30/2005 12:00 AM CDT See Historical Hospital Medical Record f or documentation Procedure Note Provider, Historical - 09/18/2020Formatt ing of this note might be different from the original. See Historical Hospital Medical Record f or documentation Historical Provider IMG CT ORDERABLES CT Misc Order (10/30/2005 12:00 AM CDT) Anatomical Region Laterality Modality Computed Tomography Specimen (Source) Anatomical Location Collection Method / Collectio n Time Received Time / Laterality Volume Narrative 10/30/2005 12:00 AM CDT See Historical Hospital Medical Record f or documentation Procedure Note Provider, Historical - 09/18/2020Formatt ing of this note might be different from the original. See Historical Hospital Medical Record f or documentation Historical Provider IMG CT ORDERABLES documented in this encounter Visit Diagnoses Not on filedocumented in this encounter Additional Health Concerns Assessment Noted Time PHQ-9 Depression Total Score: 1 01/16/2019 11:01 AM CD T documented as of this encounter Care Teams Reel Tender Relationship Specialty Start Date End Date Catrina Sue MD PCP - General Family Practice 06/05/[address] [place] [address] Catrina Sue MD Assigned PCP 03/28/[address] [place] [address] documented as of this encounter
--- OUTSIDE RECORDS SUMMARY | 2022-02-27 08:10 | XMS_ITS | Encounter Summary ---
:1955 Author Organization [place] Address [facility] [address] Care Team Providers Name Role Phone Catrina Sue MD Primary Care Provider Catrina Sue MD Unavailable Encounter Details Date Type Department Care Team Description 06/15/2020 Orders Only [facility] Age -related osteoporosis [place] [facility] without current [address] [facility] [place] [phone] Social History Tobacco Use Types [...] with No / Unsure 06/15/2020 9:20 AM SURVIVAL SPECIALIST someone who was confirmed or suspected to have Coronavirus / COVID-19? documented as of this encounter Plan of Treatment Not on filedocumented as of this encounter Procedures Procedure Name Priority Date/Time Associated Diagnosis Comme nts HI COLLECTION VENOUS Routine 06/15/2020 9:24 AM Age-related R esults for this BLOOD VENIPUNCTURE SURVIVAL SPECIALIST osteoporosis without p rocedure are in current pathological the res ults fracture section. documented in this encounter Results Creatinine (Zogenix) (06/15/2020 9:24 AM SURVIVAL SPECIALIST) P athologist Signature Creatinine 0.78 0.60 - [facility] 1.10 mg/dL LAB GFR Estimate If >[address] [facility] Black mL/min/1.7 LAB 3m2 GFR Estimate >60 >60 [facility] mL/min/1.7 LAB 3m2 Specimen (Source) Anatomical Collection Method Collection Time Re ceived Time Location / / Volume Laterality Venous blood 06/15/2020 9:24 AM specimen SURVIVAL SPECIALIST (specimen) Narrative [facility] - 06/15/2020 4:13 PM CS T Test performed by: [facility] Y [address] [place] [id number] Catrina Sue MD LAB - [employer] Performing Organization Address City/State/ZIP Code Phon e Number [facility] documented in this encounter Visit Diagnoses Diagnosis Age-related osteoporosis without current pathological fracture Senile osteoporosis documented in this encounter Additional Health Concerns Assessment Noted Time PHQ-9 Depression Total Score: 1 01/16/2019 11:01 AM CD T documented as of this encounter Care Teams [place] Department Supervisor Relationship Specialty Start Date End Date Catrina Sue MD PCP - General Family Practice 06/05/[address] [place] [address] Catrina Sue MD Assigned PCP 03/28/[address] [place] [address] documented as of this encounter
--- OUTSIDE RECORDS SUMMARY | 2022-02-27 08:10 | XMS_ITS | Encounter Summary ---
:1955 Author Organization [place] Address [address] [place] [address] Care Team Providers Name Role Phone Catrina Sue MD Primary Care Provider Catrina Sue MD Unavailable Encounter Details Date Type Department Care Team Description 09/18/2020 Records - [facility] CONVERSION Provider, Histor ical Social [...] Name Priority Date/Time Associated Diagnosis Comme nts US CAROTID Routine 09/23/2004 12:00 AM Results for this BILATERAL CDT procedure are i n the results section. documented in this encounter Results US Carotid Bilateral (09/23/2004 12:00 AM CDT) Anatomical Region Laterality Modality Vascular, Head Other Specimen (Source) Anatomical Location Collection Method / Collectio n Time Received Time / Laterality Volume Narrative 09/23/2004 12:00 AM CDT See Historical Hospital Medical Record f or documentation Procedure Note Provider, Historical - 09/18/2020Formatt ing of this note might be different from the original. See Historical Hospital Medical Record f or documentation Historical Provider IMG ORDERABLES documented in this encounter Visit Diagnoses Not on filedocumented in this encounter Additional Health Concerns Assessment Noted Time PHQ-9 Depression Total Score: 1 01/16/2019 11:01 AM CD T documented as of this encounter Care Teams Firepot Operator And Tender Relationship Specialty Start Date End Date Catrina Sue MD PCP - General Family Practice 06/05/[address] [place] [address] Catrina Sue MD Assigned PCP 03/28/[address] [place] [address] documented as of this encounter
--- OUTSIDE RECORDS SUMMARY | 2022-02-27 08:10 | XMS_ITS | Encounter Summary ---
:1955 Author Organization [place] Address [address] [place] [address] Care Team Providers Name Role Phone Catrina Sue MD Primary Care Provider Catrina Sue MD Unavailable Reason for Visit Reason Comments Infusion Encounter Details Date Type Department Care Team Description 06/25/2020 Infusion - [facility] Provider, Age-relate d [facility] Historical osteoporosis w [facility] current pathological [address] [place] [phone] Social History Tobacco Use Types Packs/Day Years [...] with No / Unsure 06/15/2020 9:20 AM INFANT CAREGIVER someone who was confirmed or suspected to have Coronavirus / COVID-19? documented as of this encounter Last Filed Vital Signs Vital Sign Reading Time Taken Comments Blood Pressure 119/64 06/25/2020 11:00 AM INFANT CAREGIVER Pulse 76 06/25/2020 11:00 AM INFANT CAREGIVER Temperature 36.9 ??C (98.4 ??F) 06/25/2020 11:00 AM INFANT CAREGIVER Respiratory Rate 20 06/25/2020 11:00 AM INFANT CAREGIVER Oxygen Saturation 97% 06/25/2020 11:00 AM INFANT CAREGIVER Inhaled Oxygen - - Concentration Weight 64.2 kg (141 lb 8 06/25/2020 10:00 Took wt this morning oz) AM INFANT CAREGIVER Height 172.7 cm (5' 8) 06/25/2020 10:00 AM INFANT CAREGIVER Body Mass Index 21.52 06/25/2020 10:00 AM INFANT CAREGIVER documented in this encounter Progress Notes Martina Warren RN - 06/25/2020 10:00 AM CST Janet came in at about 09:45 ambulatory VSS. She acknowledged she is here for Reclast infusion, therapy plan explained to her, she states she has received Reclast in the past and has no questions or concerns at this time. Creatinine checked on 06/15/2020 was 0.78. She denied any side effect the last time she took Reclast one year ago rather she said she is doing okay and the last bone scan she did wasgood..IV established on the left arm,flushed, with good blood return. Reclast medication education reviewed, including importance of increased fluid( water) intake today and for at least 2 days after infusion and the importance that her dentist knows she receives this medication and to follow up with her Primary MD if she has questions regarding bone density. Reclast infused per order. Janet tolerated infusion with no sign of reaction or adverse side effect noted IV line was flushed with 100 ml of normal saline after the infusion. VSS after the infusion. PIV discontinued, site covered with gauze and coban. Discharge Education with AVS reviewed she was instructed to take good care of her teeth while on this medicine. Make sure to see her dentist for regular follow-up appointments. Janet stated understanding and acknowledged thather needs were met today.She discharged at about 11:10 ambualtory and stable. NT CAREGIVER documented in this encounter Miscellaneous Notes Patient Instructions - HE - Martina Warren RN - 06/25/2020 10:00 AM INFANT CAREGIVER Images from the original note were not included. Patient Instructions by Martina Warren RN at 06/25/2020 10:00 AM Author: Martina Warren RN Service: -- Author Type: Registered Nurse Filed: 06/25/2020 10:57 AM Encounter Date: 06/25/2020 Status: Signed Golf [employer] Weighter: Martina Warren RN (Registered Nurse) Janet instructed to call her MD with any questions regarding her yearly ZoledronicAcid infusion.Patient Education Zoledronic Acid injection (Hypercalcemia, Oncology) Brand Name: Zometa What is this medicine? ZOLEDRONIC ACID (DIPTI le dron ik id) lowers the amount of calcium loss from bone. It is used to treat too much calcium in your blood from cancer. It is also used to prevent complications of cancer that has spread to the bone. How should I use this medicine? This medicine is for infusion into a vein. It is given by a health direct support professional caregiver in a hospital or clinic setting. Talk to your atmospheric physics professor regarding the use of this medicine in children. Special care may be needed. What side effects may I notice from receiving this medicine? Side effects that you should report to your doctor or health direct support professional caregiver as soon as possible: ?? allergic reactions like skin rash, itching or hives, swelling of the face, lips, or tongue ?? anxiety, confusion, or depression ?? breathing problems ?? changes in vision ?? eye pain ?? feeling faint or lightheaded, falls ?? jaw pain, especially after dental work ?? mouth sores ?? muscle cramps, stiffness, or weakness ?? redness, blistering, peeling or loosening of the skin, including inside the mouth ?? trouble passing urine or change in the amount of urine Side effects that usually do not require medical attention (report to your doctor or health direct support professional caregiver if they continue or are bothersome): ?? bone, joint, or muscle pain ?? constipation ?? diarrhea ?? fever ?? hair loss ?? irritation at site where injected ?? loss of appetite ?? nausea, vomiting ?? stomach upset ?? trouble sleeping ?? trouble swallowing ?? weak or tired What may interact with this medicine? ?? certain antibiotics given by injection ?? NSAIDs, medicines for pain and inflammation, like ibuprofen or naproxen ?? some diuretics like bumetanide, furosemide ?? teriparatide ?? thalidomide What if I miss a dose? It is important not to miss your dose. Call your doctor or health direct support professional caregiver if you are unable to keep an appointment. Where should I keep my medicine? This drug is given in a hospital or clinic and will not be stored at home. What should I tell my health care provider before I take this medicine? They need to know if you have any of these conditions: ?? aspirin-sensitive asthma ?? cancer, especially if you are receiving medicines used to treat cancer ?? dental disease or wear dentures ?? infection ?? kidney disease ?? receiving corticosteroids like dexamethasone or prednisone ?? an unusual or allergic reaction to zoledronic acid, other medicines, foods, dyes, or preservatives ?? or trying to get ?? breast-feeding What should I watch for while using this medicine? Visit your doctor or health direct support professional caregiver for regular checkups. It may be some time before you see the benefit from this medicine. Do not stop taking your medicine unless your doctor tells you to. Your doctor may order blood tests or other tests to see how you are doing. Women should inform their doctor if they wish to become or think they might be . There is a potential for serious side effects to an unborn child. Talk to your health care professionalor pharmacist for more information. You should make sure that you get enough calcium and vitamin D while you are taking this medicine. Discuss the foods you eat and the vitamins you take with your health direct support professional caregiver. Some people who take this medicine have severe bone, joint, and/or muscle pain. This medicine may also increase your risk for jaw problems or a broken thigh bone. Tell your doctor right away if you have severe pain in your jaw, bones, joints, or muscles. Tell your doctor if you have any pain that doesnot go away or that gets worse. Tell your dentist and dental surgeon that you are taking this medicine. You should not have major dental surgery while on this medicine. See your dentist to have a dental exam and fix any dental problems before starting this medicine. Take good care of your teeth while on this medicine. Make sure you see your dentist for regular follow-up appointments. NOTE:This sheet is a summary. It may not cover all possible information. If you have questions aboutthis medicine, talk to your doctor, pharmacist, or health care provider. Copyright?? 2018 [employer] , NT CAREGIVER documented in this encounter Plan of Treatment Not on filedocumented as of this encounter Visit Diagnoses Diagnosis Age-related osteoporosis without current pathological fracture Senile osteoporosis documented in this encounter Additional Health Concerns Assessment Noted Time PHQ-9 Depression Total Score: 1 01/16/2019 11:01 AM CD T documented as of this encounter Care Teams Stave Mill Hand Relationship Specialty Start Date End Date Catrina Sue MD PCP - General Family Practice 06/05/[address] [place] [address] Catrina Sue MD Assigned PCP 03/28/[address] [place] [phone] documented as of this encounter
--- OUTSIDE RECORDS SUMMARY | 2022-02-27 08:10 | XMS_ITS | Encounter Summary ---
:1955 Author Organization [place] Address [address] [place] [address] Care Team Providers Name Role Phone Catrina Sue MD Primary Care Provider Catrina Sue MD Unavailable Encounter Details Date Type Department Care Team Description 08/26/2020 Communication - [facility] Shakila, Yana Floyd, [facility] MEDICINE/OB MD [address] [place] [phone] [place] [address] Social History Tobacco Use Types Packs/Day Years [...] documented as of this encounter Care Teams Die Maker Apprentice Relationship Specialty Start Date End Date Catrina Sue MD PCP - General Family Practice 06/05/[address] [place] [phone] Catrina Sue MD Assigned PCP 03/28/[address] [place] [phone] documented as of this encounter
--- OUTSIDE RECORDS SUMMARY | 2022-02-27 08:10 | XMS_ITS | Encounter Summary ---
:1955 Author Organization [place] Address [address] [place] [address] Care Team Providers Name Role Phone Catrina Sue MD Primary Care Provider Catrina Sue MD Unavailable Encounter Details Date Type Department Care Team Description 09/14/2020 Records - [facility] ELVIA CONVERSION Provider, Histor ical Social History [...] encounter Procedures Procedure Name Priority Date/Time Associated Comments Diagnosis US PELVIC Routine 05/04/2000 12:00 Results for this TRANSABDOMINAL AM METEOROLOGY PROFESSOR procedure are in the results section. documented in this encounter Results US Pelvis Complete without Transvaginal (05/04/2000 12:00 AM METEOROLOGY PROFESSOR) Anatomical Region Laterality Modality Abdomen/Pelvis Other Specimen (Source) Anatomical Location Collection Method / Collectio n Time Received Time / Laterality Volume Narrative 05/04/2000 12:00 AM METEOROLOGY PROFESSOR See Historical Hospital Medical Record f or documentation Procedure Note Provider, Historical - 09/14/2020Formatt ing of this note might be different from the original. See Historical Hospital Medical Record f or documentation Historical Provider IMG ORDERABLES documented in this encounter Visit Diagnoses Not on filedocumented in this encounter Additional Health Concerns Assessment Noted Time PHQ-9 Depression Total Score: 1 01/16/2019 11:01 AM CD T documented as of this encounter Care Teams Substance Abuse Counselor Relationship Specialty Start Date End Date Catrina Sue MD PCP - General Family Practice 06/05/[address] [place] [address] Catrina Sue MD Assigned PCP 03/28/[address] [place] [phone] documented as of this encounter
--- OUTSIDE RECORDS SUMMARY | 2022-02-27 08:10 | XMS_ITS | Encounter Summary ---
:1955 Author Organization [place] Address [address] [place] [address] Care Team Providers Name Role Phone Catrina Sue MD Primary Care Provider Catrina Sue MD Unavailable Encounter Details Date Type Department Care Team Description 09/15/2020 Records - [facility] ELVIA CONVERSION Provider, Histor ical Social [...] Name Priority Date/Time Associated Diagnosis Comme nts MAMMO MISC(FCIS) Routine 09/24/2001 12:00 AM Resu lts for this ORDER CDT procedure are i n the results section. documented in this encounter Results Mammo Misc Order (09/24/2001 12:00 AM CDT) Anatomical Region Laterality Modality Other Specimen (Source) Anatomical Location Collection Method / Collectio n Time Received Time / Laterality Volume Narrative 09/24/2001 12:00 AM CDT See Historical Hospital Medical Record f or documentation Procedure Note Provider, Historical - 09/15/2020Formatt ing of this note might be different from the original. See Historical Hospital Medical Record f or documentation Historical Provider IMG MAMMOGRAPHY ORDERABLES documented in this encounter Visit Diagnoses Not on filedocumented in this encounter Additional Health Concerns Assessment Noted Time PHQ-9 Depression Total Score: 1 01/16/2019 11:01 AM CD T documented as of this encounter Care Teams Data Quality Consultant Relationship Specialty Start Date End Date Catrina Sue MD PCP - General Family Practice 06/05/[address] [place] [address] Catrina Sue MD Assigned PCP 03/28/[address] [place] [phone] documented as of this encounter
--- OUTSIDE RECORDS SUMMARY | 2022-02-27 08:10 | XMS_ITS | Encounter Summary ---
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 documented as of this encounter Plan of Treatment Not on filedocumented as of this encounter Visit Diagnoses Not on filedocumented in this encounter Additional Health Concerns Assessment Noted Time PHQ-9 Depression Total Score: 1 01/16/2019 11:01 AM CD T documented as of this encounter Care Teams Epic Prelude Analyst Relationship Specialty Start Date End Date Catrina Sue MD PCP - General Family Practice 06/05/[address] [place] [address] Catrina Sue MD Assigned PCP 03/28/[address] [place] [address] [phone] documented as of this encounter
--- OUTSIDE RECORDS SUMMARY | 2022-02-27 08:10 | XMS_ITS | Encounter Summary ---
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 documented as of this encounter Plan of Treatment Not on filedocumented as of this encounter Visit Diagnoses Not on filedocumented in this encounter Additional Health Concerns Assessment Noted Time PHQ-9 Depression Total Score: 1 01/16/2019 11:01 AM CD T documented as of this encounter Care Teams Tool Carrier Relationship Specialty Start Date End Date Catrina Sue MD PCP - General Family Practice 06/05/[address] [place] [phone] Catrina Sue MD Assigned PCP 03/28/[address] [place] [phone] documented as of this encounter
--- OUTSIDE RECORDS SUMMARY | 2022-02-27 08:10 | XMS_ITS | Encounter Summary ---
:1955 Author Organization [place] Address [address] [place] [address] Care Team Providers Name Role Phone Catrina Sue MD Primary Care Provider Catrina Sue MD Unavailable Encounter Details Date Type Department Care Team Description 09/18/2020 Records - [facility] ELVIA CONVERSION Provider, Histor ical Social [...] Comme nts CT MISC FCIS ORDER Routine 10/11/2005 12:00 AM Re sults for this CDT procedure are i n the results section. CT MISC FCIS ORDER Routine 10/11/2005 12:00 AM Re sults for this CDT procedure are i n the results section. documented in this encounter Results CT Misc Order (10/11/2005 12:00 AM CDT) Anatomical Region Laterality Modality Computed Tomography Specimen (Source) Anatomical Location Collection Method / Collectio n Time Received Time / Laterality Volume Narrative 10/11/2005 12:00 AM CDT See Historical Hospital Medical Record f or documentation Procedure Note Provider, Historical - 09/18/2020Formatt ing of this note might be different from the original. See Historical Hospital Medical Record f or documentation Historical Provider IMG CT ORDERABLES CT Misc Order (10/11/2005 12:00 AM CDT) Anatomical Region Laterality Modality Computed Tomography Specimen (Source) Anatomical Location Collection Method / Collectio n Time Received Time / Laterality Volume Narrative 10/11/2005 12:00 AM CDT See Historical Hospital Medical [...] documented as of this encounter Care Teams Fixed Income Analyst Relationship Specialty Start Date End Date Catrina Sue MD PCP - General Family Practice 06/05/[address] [place] [phone] Catrina Sue MD Assigned PCP 03/28/[address] [place] [phone] documented as of this encounter
--- OUTSIDE RECORDS SUMMARY | 2022-02-27 08:10 | XMS_ITS | Encounter Summary ---
:1955 Author Organization [place] Address [address] [place] [address] Care Team Providers Name Role Phone Catrina Sue MD Primary Care Provider Catrina Sue MD Unavailable Encounter Details Date Type Department Care Team Description 09/13/2020 Records - [facility] ELVIA CONVERSION Provider, Histor ical [...] Priority Date/Time Associated Diagnosis Comme nts MAMMO MISC(IS) Routine 12/22/1999 12:00 AM Resu lts for this ORDER CDT procedure are i n the results section. US MISC(FCIS) US Routine 12/22/1999 12:00 AM Resu lts for this ORDER CDT procedure are i n the results section. documented in this encounter Results US Miscellaneous US Order (12/22/1999 12:00 AM CDT) Anatomical Region Laterality Modality Other Specimen (Source) Anatomical Location Collection Method / Collectio n Time Received Time / Laterality Volume Narrative 12/22/1999 12:00 AM CDT See Historical Hospital Medical Record f or documentation Procedure Note Provider, Historical - 09/13/2020Formatt ing of this note might be different from the original. See Historical Hospital Medical Record f or documentation Historical Provider IMG US ORDERABLES Mammo Misc Order (12/22/1999 12:00 AM CDT) Anatomical Region Laterality Modality Other Specimen (Source) Anatomical Location Collection Method / Collectio n Time Received Time / Laterality Volume Narrative 12/22/1999 12:00 AM CDT See Historical Hospital Medical Record f or documentation Procedure Note Provider, Historical - 09/13/2020Formatt ing of this note might be different from the original. See Historical Hospital Medical Record f or documentation Historical Provider IMG MAMMOGRAPHY ORDERABLES documented in this encounter Visit Diagnoses Not on filedocumented in this encounter Additional Health Concerns Assessment Noted Time PHQ-9 Depression Total Score: 1 01/16/2019 11:01 AM CD T documented as of this encounter Care Teams Province Archivist Relationship Specialty Start Date End Date Catrina Sue MD PCP - General Family Practice 06/05/[address] [place] [address] Catrina Sue MD Assigned PCP 03/28/[address] [place] [phone] documented as of this encounter
--- OUTSIDE RECORDS SUMMARY | 2022-02-27 08:10 | XMS_ITS | Encounter Summary ---
:1955 Author Organization [facility] Address [address] [place] [address] Care Team Providers Name Role Phone Catrina Sue MD Primary Care Provider Catrina Sue MD Unavailable Encounter Details Date Type Department Care Team Description 09/16/2020 Records - [facility] [place] CONVERSION Provider, Histor ical Social History [...] Name Priority Date/Time Associated Diagnosis Comme nts XR COLON AIR Routine 10/07/2002 12:00 AM Results for this CONTRAST CDT procedure are i n the results section. documented in this encounter Results XR Colon Air contrast (10/07/2002 12:00 AM CDT) Anatomical Region Laterality Modality Colon Other Specimen (Source) Anatomical Location Collection Method / Collectio n Time Received Time / Laterality Volume Narrative 10/07/2002 12:00 AM CDT See Historical Hospital Medical Record f or documentation Procedure Note Provider, Historical - 09/16/2020Formatt ing of this note might be different from the original. See Historical Hospital Medical Record f or documentation Historical Provider IMG DIAGNOSTIC IMAGING ORDER TRUDY documented in this encounter Visit Diagnoses Not on filedocumented in this encounter Additional Health Concerns Assessment Noted Time PHQ-9 Depression Total Score: 1 01/16/2019 11:01 AM CD T documented as of this encounter Care Teams Firearms Assembly Supervisor Relationship Specialty Start Date End Date Catrina Sue MD PCP - General Family Practice 06/05/[address] [place] [address] Catrina Sue MD Assigned PCP 03/28/[address] [place] [address] documented as of this encounter
--- OUTSIDE RECORDS SUMMARY | 2022-02-27 08:10 | XMS_ITS | Encounter Summary ---
:1955 Author Organization [facility] Address [address] [place] [address] Care Team Providers Name Role Phone Catrina Sue MD Primary Care Provider Catrina Sue MD Unavailable Encounter Details Date Type Department Care Team Description 09/21/2020 Records - [facility] [place] CONVERSION Provider, Histor ical Social History [...] Date/Time Associated Comments Diagnosis US PELVIC Routine 03/23/2009 12:00 Results for this TRANSABDOMINAL AM KNIFE OPERATOR procedure are in the results section. US TRANSVAGINAL PELVIC Routine 03/23/2009 12:00 R esults for this NON-OB AM KNIFE OPERATOR procedure are i n the results section. documented in this encounter Results US Transvaginal Non OB (03/23/2009 12:00 AM KNIFE OPERATOR) Anatomical Region Laterality Modality Abdomen/Pelvis Other Specimen (Source) Anatomical Location Collection Method / Collectio n Time Received Time / Laterality Volume Narrative 03/23/2009 12:00 AM KNIFE OPERATOR See Historical Hospital Medical Record f or documentation Procedure Note Provider, Historical - 09/21/2020Formatt ing of this note might be different from the original. See Historical Hospital Medical Record f or documentation Historical Provider IMG US ORDERABLES US Pelvis Complete without Transvaginal (03/23/2009 12:00 AM KNIFE OPERATOR) Anatomical Region Laterality Modality Abdomen/Pelvis Other Specimen (Source) Anatomical Location Collection Method / Collectio n Time Received Time / Laterality Volume Narrative 03/23/2009 12:00 AM KNIFE OPERATOR See Historical Hospital Medical Record f or documentation Procedure Note Provider, Historical - 09/21/2020Formatt ing of this note might be different from the original. See Historical Hospital Medical Record f or documentation Historical Provider IMG US ORDERABLES documented in this encounter Visit Diagnoses Not on filedocumented in this encounter Additional Health Concerns Assessment Noted Time PHQ-9 Depression Total Score: 1 01/16/2019 11:01 AM CD T documented as of this encounter Care Teams Core Blower Relationship Specialty Start Date End Date Catrina Sue MD PCP - General Family Practice 06/05/[address] [place] [phone] Catrina Sue MD Assigned PCP 03/28/[address] [place] [address] [phone] documented as of this encounter
--- OUTSIDE RECORDS SUMMARY | 2022-02-27 08:10 | XMS_ITS | Encounter Summary ---
:1955 Author Organization [facility] Address [address] [place] [address] Care Team Providers Name Role Phone Catrina Sue MD Primary Care Provider Catrina uSe MD Unavailable Encounter Details Date Type Department Care Team Description 09/18/2020 [facility], Histor ical Social History Tobacco [...] Procedure Name Priority Date/Time Associated Comments Diagnosis MR MISCELLANEOUS ORDER Routine 09/04/2005 12:00 R esults for this AM CDT procedure are i n the results section. documented in this encounter Results MR MISCELLANEOUS ORDER (09/04/2005 12:00 AM CDT) Anatomical Region Laterality Modality Other Specimen (Source) Anatomical Location Collection Method / Collectio n Time Received Time / Laterality Volume Narrative 09/04/2005 12:00 AM CDT See Historical Hospital Medical [...] documented as of this encounter Care Teams Retail And Restaurant Relationship Specialty Start Date End Date Catrina Sue MD PCP - General Family Practice 06/05/[address] [place] [address] Catrina Sue MD Assigned PCP 03/28/[address] [place] [address] documented as of this encounter
--- OUTSIDE RECORDS SUMMARY | 2022-02-27 08:10 | XMS_ITS | Encounter Summary ---
:1955 Author Organization [facility] Address [address] [place] [address] Care Team Providers Name Role Phone Catrina Sue MD Primary Care Provider Catrina Sue MD Unavailable Encounter Details Date Type Department Care Team Description 09/20/2020 Records - [facility], Histor ical Social History [...] Date/Time Associated Comments Diagnosis US PELVIC Routine 03/29/2007 12:00 Results for this TRANSABDOMINAL AM OPTICAL MECHANIC APPRENTICE procedure are in the results section. documented in this encounter Results US Pelvis Complete without Transvaginal (03/29/2007 12:00 AM OPTICAL MECHANIC APPRENTICE) Anatomical Region Laterality Modality Abdomen/Pelvis Other Specimen (Source) Anatomical Location Collection Method / Collectio n Time Received Time / Laterality Volume Narrative 03/29/2007 12:00 AM OPTICAL MECHANIC APPRENTICE See Historical Hospital Medical Record f or documentation Procedure Note Provider, Historical - 09/20/2020Formatt ing of this note might be different from the original. See Historical Hospital Medical Record f or documentation Historical Provider IMG ORDERABLES documented in this encounter Visit Diagnoses Not on filedocumented in this encounter Additional Health Concerns Assessment Noted Time PHQ-9 Depression Total Score: 1 01/16/2019 11:01 AM CD T documented as of this encounter Care Teams Leveling Machine Operator Relationship Specialty Start Date End Date Catrina Sue MD PCP - General Family Practice 06/05/[address] [place] [address] Catrina Sue MD Assigned PCP 03/28/[address] [place] [address]84 documented as of this encounter
--- OUTSIDE RECORDS SUMMARY | 2022-02-27 08:10 | XMS_ITS | Encounter Summary ---
:1955 Author Organization [facility] Address [address] [place] [address] Care Team Providers Name Role Phone Catrina Sue MD Primary Care Provider Catrina Sue MD Unavailable Encounter Details Date Type Department Care Team Description [facility]/16/2020 [facility] Provider, Histor ical Social [...] Associated Diagnosis Comme nts MAMMO MISC(FCIS) Routine 05/29/2003 12:00 AM Resu lts for this ORDER SOAP GRINDER procedure are i n the results section. US MISC(FCIS) US Routine 05/29/2003 12:00 AM Resu lts for this ORDER SOAP GRINDER procedure are i n the results section. documented in this encounter Results Mammo Misc Order (05/29/2003 12:00 AM SOAP GRINDER) Anatomical Region Laterality Modality Other Specimen (Source) Anatomical Location Collection Method / Collectio n Time Received Time / Laterality Volume Narrative 05/29/2003 12:00 AM SOAP GRINDER See Historical Hospital Medical Record f or documentation Procedure Note Provider, Historical - 09/16/2020Formatt ing of this note might be different from the original. See Historical Hospital Medical Record f or documentation Historical Provider IMG MAMMOGRAPHY ORDERABLES US Miscellaneous US Order (05/29/2003 12:00 AM SOAP GRINDER) Anatomical Region Laterality Modality Other Specimen (Source) Anatomical Location Collection Method / Collectio n Time Received Time / Laterality Volume Narrative 05/29/2003 12:00 AM SOAP GRINDER See Historical Hospital Medical Record f or [...] documented as of this encounter Care Teams Machine Bander And Cellophaner Relationship Specialty Start Date End Date Catrina Sue MD PCP - General Family Practice 06/05/[address] [place] [phone] Catrina Sue MD Assigned PCP 03/28/[address] [place] [phone] documented as of this encounter
--- OUTSIDE RECORDS SUMMARY | 2022-02-27 08:10 | XMS_ITS | Encounter Summary ---
:1955 Author Organization [facility] Address [address] [place] [address] Care Team Providers Name Role Phone Catrina Sue MD Primary Care Provider Catrina Sue MD Unavailable Encounter Details Date Type Department Care Team Description 09/19/2020 Records - [facility] [place] CONVERSION Provider, Histor ical Social [...] Name Priority Date/Time Associated Diagnosis Comme nts DX HIP/PELVIS/SPINE Routine 11/23/2006 12:00 AM R esults for this CDT procedure are i n the results section. documented in this encounter Results DX Hip/Pelvis/Spine (11/23/2006 12:00 AM CDT) Anatomical Region Laterality Modality Dexa Other Specimen (Source) Anatomical Location Collection Method / Collectio n Time Received Time / Laterality Volume Narrative 11/23/2006 12:00 AM CDT See Historical Hospital Medical Record f or documentation Procedure Note Provider, Historical - 09/19/2020Formatt ing of this note might be different from the original. See Historical Hospital Medical Record f or documentation Historical Provider IMG DEXA ORDERABLES documented in this encounter Visit Diagnoses Not on filedocumented in this encounter Additional Health Concerns Assessment Noted Time PHQ-9 Depression Total Score: 1 01/16/2019 11:01 AM CD T documented as of this encounter Care Teams Workers' Compensation Claims Supervisor Relationship Specialty Start Date End Date Catrina Sue MD PCP - General Family Practice 06/05/[address] [place] [address] Catrina Sue MD Assigned PCP 03/28/[address] [place] [address] [phone] documented as of this encounter
--- OUTSIDE RECORDS SUMMARY | 2022-02-27 08:10 | XMS_ITS | Encounter Summary ---
:1955 Author Organization [facility] Address [address] [place] [address] Care Team Providers Name Role Phone Catrina Sue MD Primary Care Provider Catrina Sue MD Unavailable Encounter Details Date Type Department Care Team Description 09/21/2020 Records - [facility] [place] CONVERSION Provider, Histor ical Social History [...] Comme nts CT MISC FCIS ORDER Routine 05/30/2008 12:00 AM Re sults for this ASSOCIATE PROFESSOR PLANT PATHOLOGY procedure are i n the results section. CT CHEST W/O & W Routine 05/30/2008 12:00 AM Resu lts for this CONTRAST ASSOCIATE PROFESSOR PLANT PATHOLOGY procedure are i n the results section. XR CHEST PORT 1 Routine 05/30/2008 12:00 AM Resul ts for this VIEW ASSOCIATE PROFESSOR PLANT PATHOLOGY procedure are i n the results section. documented in this encounter Results XR Chest Port 1 View (05/30/2008 12:00 AM ASSOCIATE PROFESSOR PLANT PATHOLOGY) Anatomical Region Laterality Modality Chest Digital Radiography Specimen (Source) Anatomical Location Collection Method / Collectio n Time Received Time / Laterality Volume Narrative 05/30/2008 12:00 AM ASSOCIATE PROFESSOR PLANT PATHOLOGY See Historical Hospital Medical Record f or documentation Procedure Note Provider, Historical - 09/21/2020Formatt ing of this note might be different from the original. See Historical Hospital Medical Record f or documentation Historical Provider IMG DIAGNOSTIC IMAGING ORDER TRUDY CT Chest w/o & w Contrast (05/30/2008 12:00 AM ASSOCIATE PROFESSOR PLANT PATHOLOGY) Anatomical Region Laterality Modality Chest, SUBRAD CT BODY, UMP CT CHEST, RAD CT Computed Tomography Specimen (Source) Anatomical Location Collection Method / Collectio n Time Received Time / Laterality Volume Narrative 05/30/2008 12:00 AM ASSOCIATE PROFESSOR PLANT PATHOLOGY See Historical [facility] Medical Record f or documentation Procedure Note Provider, Historical - 09/21/2020Formatt ing of this note might be different from the original. See Historical Hospital Medical Record f or documentation Historical Provider IMG CT ORDERABLES CT Misc Order (05/30/2008 12:00 AM ASSOCIATE PROFESSOR PLANT PATHOLOGY) Anatomical Region Laterality Modality Computed Tomography Specimen (Source) Anatomical Location Collection Method / Collectio n Time Received Time / Laterality Volume Narrative 05/30/2008 12:00 AM ASSOCIATE PROFESSOR PLANT PATHOLOGY See Historical [facility] Medical Record f or documentation Procedure Note Provider, Historical - 09/21/2020Formatt ing of this note might be different from the original. See Historical [facility] Medical Record f or documentation Historical Provider IMG CT ORDERABLES documented in this encounter Visit Diagnoses Not on filedocumented in this encounter Additional Health Concerns Assessment Noted Time PHQ-9 Depression Total Score: 1 01/16/2019 11:01 AM CD T documented as of this encounter Care Teams High Speed Warper Tender Relationship Specialty Start Date End Date Catrina Sue MD PCP - General Family Practice 06/05/[address] [place] [address]17 Catrina Sue MD Assigned PCP 03/28/[address] [place] [address] documented as of this encounter
--- OUTSIDE RECORDS SUMMARY | 2022-02-27 08:10 | XMS_ITS | Encounter Summary ---
:1955 Author Organization [facility] Address [address] [place] [address] Care Team Providers Name Role Phone Catrina Sue MD Primary Care Provider Catrina Sue MD Unavailable Encounter Details Date Type Department Care Team Description 09/17/2020 Records - [facility] Provider, Histor ical Social History [...] Date/Time Associated Comments Diagnosis US PELVIC Routine 12/18/2003 12:00 Results for this TRANSABDOMINAL AM CDT procedure are in the results section. documented in this encounter Results US Pelvis Complete without Transvaginal (12/18/2003 12:00 AM CDT) Anatomical Region Laterality Modality Abdomen/Pelvis Other Specimen (Source) Anatomical Location Collection Method / Collectio n Time Received Time / Laterality Volume Narrative 12/18/2003 12:00 AM CDT See Historical Hospital Medical Record f or documentation Procedure Note Provider, Historical - 09/17/2020Formatt ing of this note might be different from the original. See Historical Hospital Medical Record f or documentation Historical Provider IMG US ORDERABLES documented in this encounter Visit Diagnoses Not on filedocumented in this encounter Additional Health Concerns Assessment Noted Time PHQ-9 Depression Total Score: 1 01/16/2019 11:01 AM CD T documented as of this encounter Care Teams Densitometrist Relationship Specialty Start Date End Date Catrina Sue MD PCP - General Family Practice 06/05/[address] [place] [address]17 Catrina Sue MD Assigned PCP 03/28/[address] [place] [address] 70702 documented as of this encounter
--- OUTSIDE RECORDS SUMMARY | 2022-02-27 08:10 | XMS_ITS | Encounter Summary ---
:1955 Author Organization [facility] Address [address] [place] [address] Care Team Providers Name Role Phone Catrina Sue MD Primary Care Provider Catrina Sue MD Unavailable Encounter Details Date Type Department Care Team Description 09/15/2020 Records - [facility] Provider, Histor ical Social History Tobacco [...] Date/Time Associated Comments Diagnosis US PELVIC Routine 01/10/2002 12:00 Results for this TRANSABDOMINAL AM CDT procedure are in the results section. documented in this encounter Results US Pelvis Complete without Transvaginal (01/10/2002 12:00 AM CDT) Anatomical Region Laterality Modality Abdomen/Pelvis Other Specimen (Source) Anatomical Location Collection Method / Collectio n Time Received Time / Laterality Volume Narrative 01/10/2002 12:00 AM CDT See Historical Hospital Medical [...] documented as of this encounter Care Teams Calendering Machine Operator Relationship Specialty Start Date End Date Catrina Sue MD PCP - General Family Practice 06/05/[address] [place] [address] Catrina Sue MD Assigned PCP 03/28/[address] [place] [address] 47686 documented as of this encounter
--- OUTSIDE RECORDS SUMMARY | 2022-02-27 08:10 | XMS_ITS | Encounter Summary ---
:1955 Author Organization [facility] Address [address] [place] [address] Care Team Providers Name Role Phone Catrina Sue MD Primary Care Provider Catrina Sue MD Unavailable Encounter Details Date Type Department Care Team Description [facility]/2020 [facility] Provider, Histor ical Social [...] Associated Diagnosis Comme nts MAMMO MISC(IS) Routine 04/06/2004 12:00 AM Resu lts for this ORDER PHARMACY BENEFIT MANAGER procedure are i n the results section. US MISC(FCIS) US Routine 04/06/2004 12:00 AM Resu lts for this ORDER PHARMACY BENEFIT MANAGER procedure are i n the results section. US RENAL COMPLETE Routine 04/06/2004 12:00 AM Res ults for this NON-VASCULAR PHARMACY BENEFIT MANAGER procedure are i n the results section. documented in this encounter Results US Miscellaneous US Order (04/06/2004 12:00 AM PHARMACY BENEFIT MANAGER) Anatomical Region Laterality Modality Other Specimen (Source) Anatomical Location Collection Method / Collectio n Time Received Time / Laterality Volume Narrative 04/06/2004 12:00 AM PHARMACY BENEFIT MANAGER See Historical Hospital Medical Record f or documentation Procedure Note Provider, Historical - 09/17/2020Formatt ing of this note might be different from the original. See Historical Hospital Medical Record f or documentation Historical Provider IMG US ORDERABLES US Renal Complete (04/06/2004 12:00 AM PHARMACY BENEFIT MANAGER) Anatomical Region Laterality Modality Abdomen/Pelvis Other Specimen (Source) Anatomical Location Collection Method / Collectio n Time Received Time / Laterality Volume Narrative 04/06/2004 12:00 AM PHARMACY BENEFIT MANAGER See Historical Hospital Medical Record f or documentation Procedure Note Provider, [facility] - 09/17/2020Formatt ing of this note might be different from the original. See Historical Hospital Medical Record f or documentation Historical Provider IMG US ORDERABLES Mammo Misc Order (04/06/2004 12:00 AM PHARMACY BENEFIT MANAGER) Anatomical Region Laterality Modality Other Specimen (Source) Anatomical Location Collection Method / Collectio n Time Received Time / Laterality Volume Narrative 04/06/2004 12:00 AM PHARMACY BENEFIT MANAGER See Historical Hospital Medical Record f or documentation Procedure Note Provider, [facility] - 09/17/2020Formatt ing of this note might be different from the original. See Historical [facility] Medical Record f or documentation Historical Provider IMG MAMMOGRAPHY ORDERABLES documented in this encounter Visit Diagnoses Not on filedocumented in this encounter Additional Health Concerns Assessment Noted Time PHQ-9 Depression Total Score: 1 01/16/2019 11:01 AM CD T documented as of this encounter Care Teams Pharmacy Technician Relationship Specialty Start Date End Date Catrina Sue MD PCP - General Family Practice 06/05/[address] [place] [address]751 Catrina Sue MD Assigned PCP 03/28/[address] [place] [address] [phone] documented as of this encounter
--- OUTSIDE RECORDS SUMMARY | 2022-02-27 08:10 | XMS_ITS | Encounter Summary ---
:1955 Author Organization [facility] Address [address] [place] [address] Care Team Providers Name Role Phone Catrina Sue MD Primary Care Provider Catrina Sue MD Unavailable Encounter Details Date Type Department Care Team Description 09/19/2020 Records - [facility] [place] CONVERSION Provider, Histor ical [...] Associated Diagnosis Comme nts MR BRAIN W/O Routine 01/31/2006 12:00 AM Results for this CONTRAST CDT procedure are i n the results section. documented in this encounter Results MR Brain w/o Contrast (01/31/2006 12:00 AM CDT) Anatomical Region Laterality Modality Head, SUBRAD MR NEURO, UMP MR NEURO, RAD MR Other Specimen (Source) Anatomical Location Collection Method / Collectio n Time Received Time / Laterality Volume Narrative 01/31/2006 12:00 AM CDT See Historical Hospital Medical [...] documented as of this encounter Care Teams Platen Builder Up Relationship Specialty Start Date End Date Catrina Sue MD PCP - General Family Practice 06/05/[address] [place] [address] Catrina Sue MD Assigned PCP 03/28/[address] [place] [address] [phone] documented as of this encounter
--- OUTSIDE RECORDS SUMMARY | 2022-02-27 08:10 | XMS_ITS | Encounter Summary ---
:1955 Author Organization [facility] Address [address] [place] [address] Care Team Providers Name Role Phone Catrina Sue MD Primary Care Provider Catrina Sue MD Unavailable Encounter Details Date Type Department Care Team Description 09/17/2020 Records - [facility] [place] CONVERSION Provider, Histor ical Social History [...] Priority Date/Time Associated Diagnosis Comme nts XR CHEST 2 VIEWS Routine 10/11/2003 12:00 AM Resu lts for this CDT procedure are i n the results section. documented in this encounter Results XR Chest 2 Views (10/11/2003 12:00 AM CDT) Anatomical Region Laterality Modality Chest Digital Radiography Specimen (Source) Anatomical Location Collection Method / Collectio n Time Received Time / Laterality Volume Narrative 10/11/2003 12:00 AM CDT See Historical Hospital Medical [...] documented as of this encounter Care Teams Dealer Development Manager Relationship Specialty Start Date End Date Catrina Sue MD PCP - General Family Practice 06/05/[address] [place] [address]804 Catrina Sue MD Assigned PCP 03/28/[address] [place] [address] [phone] documented as of this encounter
--- OUTSIDE RECORDS SUMMARY | 2022-02-27 08:10 | XMS_ITS | Encounter Summary ---
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 documented as of this encounter Plan of Treatment Not on filedocumented as of this encounter Visit Diagnoses Not on filedocumented in this encounter Additional Health Concerns Assessment Noted Time PHQ-9 Depression Total Score: 1 01/16/2019 11:01 AM CD T documented as of this encounter Care Teams Suede Brusher Relationship Specialty Start Date End Date Catrina Sue MD PCP - General Family Practice 06/05/[address] [place] [phone] Catrina Sue MD Assigned PCP 03/28/[address] [place] [address] [phone] documented as of this encounter
--- OUTSIDE RECORDS SUMMARY | 2022-02-27 08:11 | XMS_ITS | Encounter Summary ---
:1955 Author Organization [facility] Address [address] [place] [address] Care Team Providers Name Role Phone Catrina Sue MD Primary Care Provider Reason for Referral (Routine) - Closed Specialty Diagnoses / Procedures Referred By Contact Refer red To Contact Diagnoses Age-related osteoporosis without current pathological fracture Catrina Sue MD [facility] [place] [address] Referral ID Status Reason Start Date Expiration Date Visits Requ ested Visits Authorized [id number] Closed 05/30/2019 05/29/2020 1 1 RA PROTOTYPING ENGINEER Reason for Visit Reason Onset Date Comments Referral 05/30/2019 Encounter Details Date Type Department Care Team Description 05/30/2019 Telephone [facility] Catrina Aragon MD Referral [address] [facility] [facility] [place] [address] [place] [address] (Wo rk) Social History Tobacco [...] Telephone Encounter - Natalia Hinton RN - 06/04/2019 8:33 AM CST Creatinine WNL. Faxed infusion order set and lab results to [facility] infusion. Called patient and updated on orders faxed HE. Patient verbalized understanding. Loraine HANKS RA PROTOTYPING ENGINEER Telephone Encounter - Huyen Torres CMA - 06/02/2019 1:18 PM CST Done. Immunizations are updated. RA PROTOTYPING ENGINEER Telephone Encounter - Catrina Sue MD - 05/30/2019 2:28 PM CST Images from the original note were not included. RA PROTOTYPING ENGINEER Telephone Encounter - Catrina Sue MD - 05/30/2019 1:39 PM CST Would do a second dose, it is yearly, after 3 doses consider a holiday, will also need repeat dexa. Ok to order her 2nd infusion now without visit. In December a routine visit and we'll reorder a dexa to decide course for 2020. Before 2019 infusion, needs a creatinine, added future lab, ok to get drawn here or [facility] RA PROTOTYPING ENGINEER Telephone Encounter - Christine Domingo RN - 05/30/2019 11:03 AM CST Last seen in clinic 12/2018. Will route to Dr Sue to verify whether Janet will need office visit follow up prior to referral completion. Federica RN RA PROTOTYPING ENGINEER Telephone Encounter - Cristobal Gamez - 05/30/2019 10:55 AM CST [facility] Family Medicine phone call message- general phone call: Reason for call: Need an infusion, had it last year for osteoporosis and patient is unsure if it is for 2 years or needs renewal. Patient would like a nurse to call back to discuss further on the orderand schedule appt. Return call needed: Yes OK to leave a message on voice mail? Yes Primary language: Kyrgyz Solar Sales Energy Advisor needed? No Call taken on May 30, 2019 at 10:55 AM by Cristobal Gamez RA PROTOTYPING ENGINEER documented in this encounter Plan of Treatment Scheduled Referrals Name Type Priority Associated Diagnoses Order S [facility] Outpatient Referral Routine Age-related osteopo rosis Ordered: 05/30/2019 Infusion Order without current pathological fracture documented as of this encounter Results Creatinine (Epos) (06/03/2019 10:02 AM [place] PROTOTYPING ENGINEER) P athologist Signature Creatinine 0.83 0.60 - [facility] 1.10 mg/dL LAB GFR Estimate If >[address] [facility] Black mL/min/1.7 LAB 3m2 GFR Estimate >60 >60 [facility] mL/min/1.7 LAB 3m2 Specimen (Source) Anatomical Collection Method Collection Time Re ceived Time Location / / Volume Laterality Venous blood 06/03/2019 10:02 specimen AM [facility] PROTOTYPING ENGINEER (specimen) Narrative [facility] - 06/03/2019 7:33 PM CS T Test performed by: [facility] [address] [place] [id number] Catrina Sue MD LAB - [email or web address] Performing Organization Address City/State/ZIP Code Phon e Number [facility] documented in this encounter Visit Diagnoses Diagnosis Age-related osteoporosis without current pathological fracture - Primary Senile osteoporosis Age-related osteoporosis without current pathological fracture Senile osteoporosis documented in this encounter Additional Health Concerns Assessment Noted Time PHQ-9 Depression Total Score: 1 01/16/2019 11:01 AM CD T documented as of this encounter Care Teams Systems Integration Advisor Relationship Specialty Start Date End Date Catrina Sue MD PCP - General Family Practice 06/05/12 [address] [place] [address] documented as of this encounter
--- OUTSIDE RECORDS SUMMARY | 2022-02-27 08:11 | XMS_ITS | Encounter Summary ---
:1955 Author Organization [facility] Address [address] [place] [address] Care Team Providers Name Role Phone Catrina Sue MD Primary Care Provider Encounter Details Date Type Department Care Team Description 09/03/2018 Hospital Encounter [facility] Catrina Sue Visit for screening [facility] Breast MD [facility] [address] [place] [address] [place] [id number] [place] [address] [phone] (Work) [phone] Social History Tobacco Use Types Packs/Day Years Used Date Smoking Tobacco: Former Cigarettes Quit : 02/01/1977 Smokeless Tobacco: Never Alcohol [...] on file documented as of this encounter Medications at Time of Discharge Medication Sig Dispensed Refills Start Date End Date acyclovir (ZOVIRAX) 400 MG Take 1 tablet (400 180 tablet 3 0 10/05/2015 01/16/2019 tabletIndications: mg) by mouth 2 Recurrent herpes simplex times daily albuterol (VENTOLIN HFA) Inhale 2 puffs 0 01/16/2019 108 (90 BASE) MCG/ACT into the lungs inhaler every 6 hours. citalopram (CELEXA) 10 MG Take 1 tablet (10 180 tablet 3 01/16/2019 tabletIndications: Major mg) by mouth 2 depressive disorder, times daily recurrent episode, mild (H) levothyroxine Take 1 tablet (75 90 tablet 3 03/06/2018/05/2019 (SYNTHROID/LEVOTHROID) 75 mcg) by mouth MCG tabletIndications: daily Hypothyroidism due to acquired atrophy of thyroid zoledronic Acid (RECLAST) Inject 100 mLs (5 100 mL 0 04/201801/16/2019 5 MG/100ML SOLN mg) into the vein infusionIndications: once for 1 dose Age-related osteoporosis without current pathological fracture documented as of this encounter Plan of Treatment Not on filedocumented as of this encounter Procedures Procedure Name Priority Date/Time Associated Diagnosis Comme nts MA SCREENING Routine 09/03/2018 10:04 AM Visit for screening R esults for this DIGITAL BILATERAL CDT mammogram procedure are in the results section. documented in this encounter Results MA Screening Digital Bilateral (09/03/2018 10:04 AM CDT) Anatomical Region Laterality Modality Breast Bilateral Other Specimen (Source) Anatomical Location Collection Method / Collectio n Time Received Time / Laterality Volume Narrative 09/03/2018 3:17 PM CDT BILATERAL FULL FIELD DIGITAL SCREENING MAMMOGRAM Performed on: 09/03/18. Compared to: 02/05/2017 Mammo Screening Bilateral, 02/03/2016 Mammo Screening Bilateral, 01/28/2015 Mammo Screening Bilateral, 01/21/2014 Mammo Screening Bilateral, and 01/16/2013 Mammo Screening Bilateral Findings: The breasts have scattered are as of fibroglandular densities. There is no radiographic evidence of malignancy. This study was evaluated with the assistance of Computer-Aided Detection. Continue routine screening mammogram as recommended. ACR BI-RADS Category 1: Negative Procedure Note Chelle Landeros MD - 1 BILATERAL FULL FIELD DIGITAL SCREENING M AMMOGRAM Performed on: 09/03/18. Compared to: 02/05/2017 Mammo Screening Bilateral, 02/03/2016 Mammo Screening Bilateral, 01/28/2015 Mammo Screening Bilateral, 01/21/2014 Mammo Screening Bilateral, and 01/16/2013 Mammo Screening Bilateral Findings: The breasts have scattered are as of fibroglandular densities. There is no radiographic evidence of malignancy. This study was evaluated with the assistance of Computer-Aided Detection. Continue routine screening mammogram as recommended. ACR BI-RADS Category 1: Negative Catrina Sue MD IMG MAMMOGRAPHY ORDERABLES documented in this encounter Visit Diagnoses Diagnosis Visit for screening mammogram Other screening mammogram documented in this encounter Care Teams Education Consultant Relationship Specialty Start Date End Date Catrina Sue MD PCP - General Family Practice 06/05/[address] [place] [address] documented as of this encounter
--- OUTSIDE RECORDS SUMMARY | 2022-02-27 08:11 | XMS_ITS | Encounter Summary ---
:1955 Author Organization [facility] Address [address] [place] [address] Care Team Providers Name Role Phone Catrina Sue MD Primary Care Provider Catrina Sue MD Unavailable Encounter Details Date Type Department Care Team Description 01/28/2020 Hospital Encounter [facility] Catrina Sue Screening mammogram, [facility] Breast MD [facility] encounter for [address] [place] [address] [place], [place] [phone] (Work) [phone] Social History Tobacco Use Types Packs/Day Years [...] Sig Dispensed Refills Start Date End Date albuterol (VENTOLIN HFA) Inhale 2 puffs into 1 Inhaler 3 108 (90 Base) MCG/ACT the lungs every 6 inhalerIndications: Mild hours intermittent asthma without complication aspirin 81 MG EC tablet Take 81 mg by mouth 0 Calcium Take 2 tablets by 0 Carbonate-Vitamin D mouth daily (CALCIUM PLUS VITAMIN D PO) multivitamin (THERMEMS) Take 1 tablet by 0 TABS mouth PREVNAR 13 SUSP ADM 0.5ML IM UTD 0 06/24/2019 injection SHINGRIX injection ADM 0.5ML IM UTD 0 06/24/2019 citalopram (CELEXA) 10 Take 1 tablet (10 180 tablet 3 201910/25/2020 MG tabletIndications: mg) by mouth 2 times Major depressive daily disorder, recurrent episode, mild (H) ESTROGENS, CONJUGATED [facility] Place 0.5 g 0 07/12/2021 vaginally At Bedtime Compounded E3/E2/T from Rx [facility] levothyroxine Take 1 tablet (75 90 tablet 3 04/24/2019/0 09/2020 (SYNTHROID/LEVOTHROID) mcg) by mouth daily 75 MCG tabletIndications: Hypothyroidism due to acquired atrophy of thyroid zoledronic Acid Inject 100 mLs (5 100 mL 0 05/30/2019 (RECLAST) 5 MG/100ML mg) into the vein SOLN once for 1 dose infusionIndications: Age-related osteoporosis without current pathological fracture documented as of this encounter Plan of Treatment Not on filedocumented as of this encounter Procedures Procedure Name Priority Date/Time Associated Diagnosis Comme nts MA SCREENING Routine 01/28/2020 8:12 AM Screening mammogram, R esults for this BILATERAL W/ LAURA CDT encounter for procedure are in the results section. documented in this encounter Results MA Screen Bilateral w/Laura (01/28/2020 8:12 AM CDT) Anatomical Region Laterality Modality Breast Bilateral Other Specimen (Source) Anatomical Location Collection Method / Collectio n Time Received Time / Laterality Volume Narrative 01/28/2020 9:17 AM CDT BILATERAL FULL FIELD DIGITAL SCREENING MAMMOGRAM WITH TOMOSYNTHESIS Performed on: 01/28/20. Compared to: 09/03/2018 Mammo Screening Bilateral, 02/05/2017 Mammo Screening Bilateral, and 02/03/2016 Mammo Screening Bilateral Findings: The breasts have scattered are as of fibroglandular densities. There is no radiographic evidence of malignancy. This study was evaluated with the assistance of Computer-Aided Detection. Breast Tomosynthesis was used in interpretation . Routine screening mammogram in one year is recom mended. ACR BI-RADS Category 1: Negative Procedure Note Felicia Sunshine MD - 10/01/2020For matting of this note might be different from the original. BILATERAL FULL FIELD DIGITAL SCREENING M AMMOGRAM WITH TOMOSYNTHESIS Performed on: 01/28/20. Compared to: 09/03/2018 Mammo Screening Bilateral, 02/05/2017 Mammo Screening Bilateral, and 02/03/2016 Mammo Screening Bilateral Findings: The breasts have scattered are as of fibroglandular densities. There is no radiographic evidence of malignancy. This study was evaluated with the assistance of Computer-Aided Detection. Breast Tomosynthesis was used in interpretation. Routine screening mammogram in one year is recom mended. ACR BI-RADS Category 1: Negative Catrina Sue MD IMG MAMMOGRAPHY ORDERABLES documented in this encounter Visit Diagnoses Diagnosis Screening mammogram, encounter for documented in this encounter Additional Health Concerns Assessment Noted Time PHQ-9 Depression Total Score: 1 01/16/2019 11:01 AM CD T documented as of this encounter Care Teams Performance Engineer Relationship Specialty Start Date End Date Catrina Sue MD PCP - General Family Practice 06/05/[address] [place] [address] Catrina Sue MD Assigned PCP 09/11/19 03/27/[address] [place] [address] documented as of this encounter
--- OUTSIDE RECORDS SUMMARY | 2022-02-27 08:11 | XMS_ITS | Encounter Summary ---
:1955 Author Organization [facility] Address [address] [place] [address] Care Team Providers Name Role Phone Catrina Seu MD Primary Care Provider Catrina Sue MD Unavailable Reason for Visit Reason Comments Wellness Visit please refer to MD encounter for press operator carbon products Encounter Details Date Type Department Care Team Description 02/24/2020 Office Visit [facility] Rn, Pv [facility] (Primary Dx) [address] [place] [address] [phone] Social History Tobacco Use Types Packs/Day [...] been in contact with No / Unsure 02/24/2020 8:46 AM CORRUGATOR HELPER someone who was confirmed or suspected to have Coronavirus / COVID-19? documented as of this encounter Progress Notes Christine Domingo, LATONYA - 02/24/2020 9:00 AM CST Please refer to MD encounter for press operator carbon products. Federica RN UGATOR HELPER documented in this encounter Plan of Treatment Not on filedocumented as of this encounter Visit Diagnoses Diagnosis Wellness examination - Primary documented in this encounter Additional Health Concerns Assessment Noted Time PHQ-9 Depression Total Score: 1 01/16/2019 11:01 AM CD T documented as of this encounter Care Teams Oil Rig Roughneck Relationship Specialty Start Date End Date Catrina Sue MD PCP - General Family Practice 06/05/[address] [place] [address] Catrina Sue MD Assigned PCP 09/11/19 03/27/[address] [place] [address] documented as of this encounter
--- OUTSIDE RECORDS SUMMARY | 2022-02-27 08:11 | XMS_ITS | Encounter Summary ---
:1955 Author Organization [facility] Address [address] [place] [address] Care Team Providers Name Role Phone Catrina Sue MD Primary Care Provider Reason for Visit Reason Onset Date Comments Refill Request 04/24/2019 Encounter Details Date Type Department Care Team Description 04/24/2019 Refill [facility] Catrina Sue MD Refill Request [address] [address] [place], [place] [phone] (Wo rk) Social History Tobacco Use Types [...] Telephone Encounter - Catrina Sue MD - 04/24/2019 12:27 PM GLASS CUTTING MACHINE OPERATOR Reviewed and approved S CUTTING MACHINE OPERATOR documented in this encounter Plan of Treatment Not on filedocumented as of this encounter Visit Diagnoses Diagnosis Hypothyroidism due to acquired atrophy o f thyroid documented in this encounter Additional Health Concerns Assessment Noted Time PHQ-9 Depression Total Score: 1 01/16/2019 11:01 AM CD T documented as of this encounter Care Teams Dielectric Tester Relationship Specialty Start Date End Date Catrina Sue MD PCP - General Family Practice 06/05/[address] [place] [address] documented as of this encounter
--- OUTSIDE RECORDS SUMMARY | 2022-02-27 08:11 | XMS_ITS | Encounter Summary ---
:1955 Author Organization [facility] Address [address] [place] [address] Care Team Providers Name Role Phone Catrina Sue MD Primary Care Provider Encounter Details Date Type Department Care Team Description 06/03/2019 Travel Social History Tobacco Use Types Packs/Day [...] documented as of this encounter Care Teams Medical Billing Coder Relationship Specialty Start Date End Date Catrina Sue MD PCP - General Family Practice 06/05/[address] [place] [address] documented as of this encounter
--- OUTSIDE RECORDS SUMMARY | 2022-02-27 08:11 | XMS_ITS | Encounter Summary ---
:1955 Author Organization [facility] [place] Address [address] [place] [address] Care Team Providers Name Role Phone Catrina Sue MD Primary Care Provider Reason for Visit Reason Onset Date Comments Refill Request 01/24/2019 Encounter Details Date Type Department Care Team Description 01/24/2019 Telephone [facility] Catrina Aragon MD Refill Request [address] [place] [address] [place], [place] [phone] (Wo rk) Social History Tobacco Use Types [...] this encounter Miscellaneous Notes Telephone Encounter - KrisDeandra Germán - 01/24/2019 2:41 PM CDT Patient states she heard Dr. Sue's voicemail and has no further questions. Telephone Encounter - Catrina Sue MD - 01/24/2019 2:32 PM CDT Called mobile, left message: thyroid normal, no need to change med dosing. Had normal kidneys May so still good. If further questions call back or message through [employer]. Telephone Encounter - Deandra Ponce - 01/24/2019 10:18 AM CDT [facility] Family Medicine phone call message- patient requesting results: Test: Lab Date of test: 01/16/2019 Additional Comments: Patient states she would like a call back to discuss her results. Please call and advise. OK to leave a message on voice mail? Yes Primary language: Serbian Pet Trainer needed? No Call taken on January 24, 2019 at 10:19 AM by Deandra Ponce documented in this encounter Plan of Treatment Not on filedocumented as of this encounter Visit Diagnoses Not on filedocumented in this encounter Additional Health Concerns Assessment Noted Time PHQ-9 Depression Total Score: 1 01/16/2019 11:01 AM CD T documented as of this encounter Care Teams Insurance Underwriter Relationship Specialty Start Date End Date Catrina Sue MD PCP - General Family Practice 06/05/[address] [place] [address] documented as of this encounter
--- OUTSIDE RECORDS SUMMARY | 2022-02-27 08:11 | XMS_ITS | Encounter Summary ---
:1955 Author Organization [place] Address [address] [place] [id number] Care Team Providers Name Role Phone Catrina Sue MD Primary Care Provider Catrina Sue MD Unavailable Catrina Sue MD Unavailable Reason for Visit Reason Comments Follow Up left leg swelling Encounter Details Date Type Department Care Team Description 08/12/2018 Office Visit - [facility] Mirtha Fernandes; 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 documented as of this encounter Last Filed Vital Signs Vital Sign Reading Time Taken Comments Blood Pressure - - Pulse - - Temperature - - Respiratory Rate - - Oxygen Saturation - - Inhaled Oxygen Concentration - - Weight 61.1 kg (134 lb 12.8 oz) 08/12/2018 8:57 AM CDT Height 172.7 cm (5' 8) 08/12/2018 8:57 AM CDT Body Mass Index 20.5 08/12/2018 8:57 AM CDT documented in this encounter Progress Notes Mirtha Fernandes MD - 08/12/2018 8:40 AM CDT Date of Service: 08/12/2018 Date last seen by Dr. Fernandes: 05/02/18 PCP: Catrina Sue MD Impression: 1. Left foot swelling 2. Lymphedema left leg 3. Venous insufficiency bilateral legs 4. Left iliac compression by right iliac [id number] further intervention indicated Plan: 1. Questions were answered. 2. She will continue using her compression and says she will get to therapy to learn some techniquesto control the mild swelling she has. Rewritten. 3. I will see her in follow-up in 6 months or when needed. Time spent with patient 15 minutes with greater than 50% time in consultation, education and coordination of care, excluding procedures. Chief Complaint: Left foot swelling History of Present Illness: Janet Soto returns to the [facility] for her left foot swelling felt mainly due to venous insufficiency of both legs. She had previous ablation of both legsfor years before. There was lymphedema of the left leg but the etiology was unclear. and CT showed co mpression slight of the left common iliac by the right common iliac vein. I had her see vascular surgery to see if further needed to be done to address this. Dr. Martin saw her and felt no further follow-up or intervention was needed. She was to get her therapy and wear her compression. She is here for follow-up. She did not get to therapy. She wears her compression daily. The swelling has been undergood control. There have been no new masses, rashes, or swellings of any other joints. There has been no new decrease in appetite, unexplained weight loss, abdominal bloating, bowel or bladder changes and irregular bleeding. Past Medical History: Diagnosis Date ??? Acromioclavicular [...] of bone and cartilage ??? Esophageal reflux ??? Essential hypertension, benign ??? Hypothyroid ??? Hypothyroidism due to acquired atrophy of thyroid 02/02/2015 ??? Hypothyroidism due to acquired atrophy of thyroid ??? Impingement syndrome of right shoulder 02/04/2016 ??? Impingement syndrome of right shoulder ??? Intractable migraine with aura ??? Intractable migraine with aura ??? Leiomyoma of uterus ??? Lesion of plantar nerve 05/11/2012 ??? Lymphedema of left leg ??? Mild intermittent asthma without complication 02/02/2015 Overview: Diagnosis updated by automated process. Provider to review and confirm. ??? Osteoarthritis of multiple joints ??? Postmenopausal atrophic vaginitis ??? Skin cancer y-3 ??? Symptomatic menopausal or female climacteric states ??? Tinnitus, bilateral ??? Varicose veins of lower extremities with complications ??? Venous insufficiency bilateral ablation 2013 ??? Vertigo Past Surgical History: Procedure Laterality Date ??? PATELLAR TENDON REPAIR ??? TUBAL LIGATION Current Outpatient Medications: ??? acyclovir (ZOVIRAX) 400 MG tablet, Take 400 mg by mouth., Disp: , Rfl: ??? albuterol (PROAIR HFA;PROVENTIL HFA;VENTOLIN HFA) 90 mcg/actuation inhaler, Inhale 2 puffs., Disp: , Rfl: ??? aspirin 81 MG EC tablet, Take 81 mg by mouth daily., Disp: , Rfl: ??? calcium-vitamin D (CALCIUM-VITAMIN D) 500 mg(1,250mg) -200 unit per tablet, Take 2 tablets by mouth daily., Disp: , Rfl: ??? citalopram (CELEXA) 10 MG tablet, Take 10 mg by mouth., Disp: , Rfl: ??? levothyroxine (SYNTHROID, LEVOTHROID) 100 MCG tablet, Take 100 mcg by mouth daily., Disp: , Rfl: ??? magnesium citrate solution, Take 400 mL by mouth once., Disp: , Rfl: ??? multivitamin therapeutic tablet, Take 1 tablet by mouth daily., Disp: , Rfl: Allergies Allergen Reactions ??? Cats Claw (Uncaria [Cat's Claw (Uncaria Tomentosa)] Unknown ??? Horse Dander Standardized Allergenic Extract Unknown Social History Socioeconomic History ??? Marital status: Spouse name: Not on file ??? Number of children: Not on file ??? Years of education: Not on file ??? Highest education level: Not on file Occupational History ??? Not on file Social Needs ??? Financial resource strain: Not on file ??? Food insecurity: Worry: Not on file Inability: Not on file ??? Transportation needs: Medical: Not on file Non-medical: Not on file Tobacco Use ??? Smoking status: Former Smoker Last attempt to quit: 1977 Years since quittin.3 ??? Smokeless tobacco: Never Used Substance and Sexual Activity ??? Alcohol use: Yes Alcohol/week: 0.6 oz Types: 1 Standard drinks or equivalent per week Comment: 1/week ??? Drug use: No ??? Sexual activity: Yes Partners: Male Lifestyle ??? Physical activity: Days per week: Not on file Minutes per session: Not on file ??? Stress: Not on file Relationships ??? Social connections: Talks on phone: Not on file Gets together: Not on file Attends druze service: Not on file Active member of club or organization: Not on file Attends meetings of clubs or organizations: Not on file Relationship status: Not on file ??? Intimate partner violence: Fear of current or ex partner: Not on file Emotionally abused: Not on file Physically abused: Not on file Forced sexual activity: Not on file Other Topics Concern ??? 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 and has 3 children. Lives in a house. Family History Problem Relation Age of Onset ??? Cancer Mother 71 AML ??? Heart failure Father ??? Coronary artery disease Father ??? CABG Father ??? Coronary artery disease Maternal Grandmother ??? Prostate cancer Maternal Grandfather ??? Colon cancer Paternal Grandmother ??? Coronary artery disease Paternal Grandfather ??? Breast cancer Neg Hx Review of Systems: Janet Soto no new numbess, tingling or weakness, redness or rashes, fevers, new masses, abdominal bloating or discomfort, unexplained weight loss, increased pain, new ulcers, shortness of breath and chest pain Full 12 point review of systems was completed. Imaging: I personally reviewed the following imaging today and those on care everywhere, if indicated No results found. EXAM DATE: 05/02/2018 ?? [facility] CT ABDOMEN, PELVIS WITH CONTRAST 05/02/2018 8:00 AM ?? INDICATION: Lower extremity edema TECHNIQUE: CT abdomen and pelvis. Multiplanar reformation images (MPR). Dose reduction techniques were used. IV CONTRAST: 100 ml Isovue 370 was administered intravenously after SPR istat CR= 0.8 mg/dl, eGFR= 72. COMPARISON: 06/22/2011 CT abdomen and pelvis and 04/30/2018 DEXA ?? FINDINGS: LUNG BASES: Lungs are clear. No pleural effusion. Heart size normal. ?? ABDOMEN: IVC is patent with no extrinsic compression. Liver, spleen, pancreas, kidneys, adrenal glands, gallbladder, bile ducts, and abdominal aorta are negative. ?? PELVIS: Stable narrowing proximal left common iliac vein secondary to anterior extrinsic compression by the crossing proximal right common iliac artery. Iliac veins are otherwise normal. Mild colonic tortuosity, redundancy and diverticulosis with moderate to large amount of stool. Small intestine, colon, appendix, ureters, bladder, uterus and adnexa otherwise negative. ?? MUSCULOSKELETAL: L1 vertebral density measurement of less than 110HU consistent with osteoporosis and results of recent DEXA. ?? CONCLUSION: 1. Stable narrowing proximal left common iliac vein secondary to anterior extrinsic compression by the crossing proximal right common iliac artery. This may be of no clinical significance but could cause some impedance of venous return. Lower extremity venous duplex ultrasound may be useful in determining if there is asymmetric left-sided monophasic flow. IVC and iliac veins are otherwise normal. 2. Mild colonic tortuosity, redundancy and diverticulosis with moderate to large amount of stool. 3. Osteoporosis. Labs: I personally reviewed the following labs today and those on care everywhere, if indicated Lab Results Component Value Date SEDRATE 16 10/15/2013 No results found for: CRP Lab Results Component Value Date CREATININE 0.83 05/24/2018 No results found for: HGBA1C Lab Results Component Value Date BUN 16 05/24/2018 Lab Results Component Value Date ALBUMIN 3.7 06/22/2011 No results found for: [id number] Lab Results Component Value Date TSH 5.13 (H) 04/30/2018 Lab Results Component Value Date WBC 8.8 06/22/2011 HGB 12.4 06/22/2011 HCT 36.6 06/22/2011 MCV 93 06/22/2011 PLT 193 06/22/2011 Physical Exam: Vitals: 08/12/18 0857 BP: 122/72 Pulse: 80 Resp: 12 Temp: 97.9 ??F (36.6 ??C) BMI 20.50 (stable) weight 134 pounds Circumferential measures: Vasc Edema 12/13/2017 05/02/2018 08/12/2018 Right just above MTP 22.1 22.1 23.5 Right Ankle 22.2 21.5 22.7 Right Widest Calf 35.3 34.8 33.5 Right Thigh Up 10cm 41.5 42 42 Left - just above MTP 23 23 22.7 Left Ankle 22.5 21.7 21.8 Left Widest Calf 37 35.3 34.2 Left Thigh Up 10cm 45 44.5 44.5 Stable General: 63 y.o. female in no apparent distress. Psych: Alert and oriented x 3. Cooperative. Affect normal. HEENT: Atraumatic, normocephalic Musculoskeletal: Normal range of motion in knees and ankles bilaterally throughout. There is no active joint synovitis, erythema, swelling or joint laxity. Neurological: Sensation is intact to pin prick and light touch in both legs. Strength testing is normal in ankle dorsiflexion and great toe extension bilaterally. Vascular: Dorsalis pedis and posterior tibialis pulses are strong and equal bilaterally. There are slight telangietasias, medial ankle venous flares, venous varicosities and spider veins . ?? Integumentary: Skin of the legs is uniformly warm and dry. There is a positive Stemmer's sign in theleft second toe. This is stable. Nails are normal. Mirtha Fernandes MD, ABWMS, FACCWS, [facility] [phone] documented in this encounter Miscellaneous Notes Patient Instructions - Kavya Mayorga - 08/12/2018 8:40 [place] [address] [employer] - [phone] [facility] [phone] LYMPHEDEMA THERAPY TREATMENT ?? - What to expect your first visit ?? Based on your initial evaluation, you will have an individualized program designed by a certified lymphedema therapist. ?? It will consist of discussing your prior activity level, goals and limitations. ?? The therapist will assess your edema, evaluate for swelling, ,measure your motion and strength. ?? - Treatment usually includes ?? Lymphedema education and prevention strategies. ?? Lymphedema massage- A special decompressive massage to help improve the lymphatic drainage. ?? Lymphatic stimulation exercises ?? Bandaging or compression garments- To provide increased tissue pressure in the swollen extremity. ?? Home exercise program instruction ?? Stretching exercises ?? Education in how to independently manage edema. ? - Follow up care ?? ONCE FORMAL THERAPY HAS BEEN COMPLETED, THE PATIENT WILL BE EXPECTED TO WEAR THE APPROPRIATE COMPRESSION BANDAGES, BE CONSISTENT WITH THE SKIN CARE PROGRAM AND PERFORM THE PRESCRIBED SELF -MASSAGE AND /OR EXERCISES PRESCRIBED. Swelling in the legs can be caused by many reasons. No matter what the reason, treatment usually includes some type of compression. You should wear your compression socks as much as you can. Your compression should be put on first thing in the morning. Take the compression off at night. It is especially important to wear them with long periods of sitting/standing, long car rides or if you will be flying. Going without compression for even brief periods of time can be damaging to your legs and your health. Compression socks should get replaced usually every 4-6 months. They do not need to be worn at nightwhile in bed. If we have seen you in the last year, we can refill your sock prescription, otherwise your primary care provider is able to refill them for you. Call us with any problems or questions. Compression Velcro may need to be replaced every 9-12 months. Often the liners and socks need to be replaced every three or four months. The neoprene velcro may last up to 2 years. If the velcro becomes worn a tailor may be able to repair it for you inexpensively. If you do a lot of standing, it is good to do calf raises to help keep the blood pumping. If you venus lot at work, it is good to get up periodically to walk around. Elevation of the foot of your bed 4-6 helps the blood return back to where it is needed. Please call us if you have any questions [phone] [facility]. documented in this encounter Plan of Treatment Not on filedocumented as of this encounter Visit Diagnoses Diagnosis Swelling Edema Venous insufficiency of both lower extre mities Left leg swelling Lymphedema of left lower extremity documented in this encounter Care Teams Histopathologist Relationship Specialty Start Date End Date Catrina Sue MD PCP - General Family Practice 06/05/[address] [place] [id number] Catrina Sue MD Assigned PCP 03/28/[address] [place] [address] [phone] Catrina Sue MD Assigned PCP 09/11/19 03/27/[address] [place] [address] documented as of this encounter
--- OUTSIDE RECORDS SUMMARY | 2022-02-27 08:11 | XMS_ITS | Encounter Summary ---
:1955 Author Organization [place] Address [address] [place] [address] Care Team Providers Name Role Phone Catrina Sue MD Primary Care Provider Catrina Sue MD Unavailable Reason for Visit Reason Onset Date Comments Refill Request 10/31/2019 Encounter Details Date Type Department Care Team Description 10/31/2019 Refill [facility] Catrina Sue MD Refill Request [address] [address] [place] [address] [phone] (Wo rk) Social History Tobacco Use Types [...] Telephone Encounter - Martha Frias CMA - 10/31/2019 9:00 AM CDT Message to physician: Date of last visit: 01/16/2019 Date of next visit if scheduled: Visit date not found Last Comprehensive Metabolic Panel: Sodium Date Value [...] Final BP Readings from Last 3 Encounters: 01/16/19 97/65 05/24/18 118/77 03/05/18 109/70 No results found for: A1C Please complete [...] documented as of this encounter Care Teams Glass Wool Blanket Machine Feeder Relationship Specialty Start Date End Date Catrina Sue MD PCP - General Family Practice 06/05/[address] [place] [phone] Catrina Sue MD Assigned PCP 09/11/19 03/27/[address] [place] [id number] documented as of this encounter
--- OUTSIDE RECORDS SUMMARY | 2022-02-27 08:11 | XMS_ITS | Encounter Summary ---
:1955 Author Organization [facility] Address [address] [place] [address]. [place] [address] Care Team Providers Name Role Phone Catrina Sue MD Primary Care Provider Encounter Details Date Type Department Care Team Description 05/29/2019 Medical Correspondence [facility] Scan, OUTPATIENT INFUSION Health Info Mgmt Non-Provider ORDER [address] [phone] Social History Tobacco Use Types Packs/Day Years [...] documented as of this encounter Care Teams Farm Machine Tender Relationship Specialty Start Date End Date Catrina Sue MD PCP - General Family Practice 06/05/[address] [place] [phone] documented as of this encounter
--- OUTSIDE RECORDS SUMMARY | 2022-02-27 08:11 | XMS_ITS | Encounter Summary ---
:1955 Author Organization [place] Address [address] [place] [address] Care Team Providers Name Role Phone Catrina Sue MD Primary Care Provider Reason for Visit Rehab Therapy Integrated Services (Routine) - Closed Specialty Diagnoses / Procedures Referred By Contact Refer red To Contact Diagnoses Lymphdema of lower extremities [facility] Procedures [facility] [address] [place], [place] [address] Phone: Fax: Referral ID Status Reason Start Date Expiration Date Visits Requ ested Visits Authorized [id number] Closed 08/15/2018 04/22/2019 365 365 Encounter Details Date Type Department Care Team Description 08/20/2018 Hospital Encounter [facility] Mirtha Fernandes MD [address] [place] [address] Rehabilitation Services [facility] [address] [place], [place] [id number] [address] [address] Social History Tobacco Use Types Packs/Day Years [...] Take 1 tablet (75 90 tablet 3 03/06/2018/0 05/2019 (SYNTHROID/LEVOTHROID) 75 mcg) by mouth MCG tabletIndications: daily Hypothyroidism due to acquired atrophy of thyroid zoledronic Acid (RECLAST) Inject 100 mLs (5 100 mL 0 04/201801/16/2019 5 MG/100ML SOLN mg) into the vein infusionIndications: once for 1 dose Age-related osteoporosis without current pathological fracture documented as of this encounter Progress Notes [facility] - 08/20/2018 11:59 PM CDT Outpatient Occupational Therapy Discharge Note Patient: Janet Soto : 1955 Beginning/End Dates of Reporting Period: 08/20/18 to 07/11/2019 Referring Provider: Mirtha Lerma Diagnosis: lymphedema LLE; leg swelling; venous insufficiency both LE's Client Self Report: Objective Measurements: none taken-pt did not return for services Outcome Measures (most recent score): Lymphedema Life Impact Scale (score range 0-72). A higher score indicates greater impairment.: 3-prescore, no post score-pt did not return for services Goals: Goal Identifier 1 Goal Description In order to improve functional mobility for activities of living, promote optimal fit LB clothing, and reduce chances skin infections, by the completion of the intensive phase of services the pt and/or caregiver will: Target Date 10/18/18 Date Met Progress: Goal Identifier 1a Goal Description tolerate gradient compression bandaging/wearing compression garments 23 hrs/day to prevent re-acccumulation of extracellular fluid for reductions needed to aide imporvements in LB clothing fit and reduce risk skin infections Target Date 10/18/18 Date Met Progress: Goal Identifier 1b Goal Description demonstrate independence in applying gradient compression bandages to build I with home management of BLE lymphedema needed to aide imporvements in LB clothing fit and reduce risk skininfections Target Date 10/18/18 Date Met Progress: Goal Identifier 1c Goal Description demonstrate independence in performing prescribed exercises to facilate the lymph system and muscle pumping systems for max reducitons in BLE lymphedema needed to aide imporvements in LB clothing fit, mobility tasks, and reduce risk skin infections Target Date 10/18/18 Date Met Progress: Goal Identifier 1d Goal Description be independent in donning/doffing, wearing schedule, and care of compression garmentsto build I with home management of BLE lymphedema needed to aide imporvements in LB clothing fit and reduce risk skin infections Target Date 10/18/18 Date Met Progress: Goal Identifier Goal Description Target Date Date Met Progress: Goal Identifier Goal Description Target Date Date Met Progress: Goal Identifier Goal Description Target Date Date Met Progress: Progress Toward Goals: Pt was evaluated for services and post education expressed no interest in leanring steps of the therapy she is not employing at home. Pt was managing with daily knee high compression stockings but not wearing nighttime compression, performing any ex, and no MLD. Pt was issued HEP and received some alternative options for home management regarding ongoing stocking use, body positioning, and HEP. Pt was educated to return for services if she was not satisfied with HEP and stocking use, or at least willing to take on other steps of the therapy for optimal results and improved home management. Pt has not returned for services. Pt to be discharged. Plan: Discharge from therapy. Discharge: Reason for Discharge: Patient chooses to discontinue therapy. Patient has failed to schedule further appointments. Equipment Issued: Discharge Plan: Pt to return for services as needed/desired [facility] Re[facility] - 08/20/2018 3:21 PM CDT 08/20/18 1500 Rehab Discipline Discipline OT Type of Visit Type of visit Initial Edema Evaluation General Information Start of care 08/20/18 Referring physician Mirtha Fernandes Orders Evaluate and treat as indicated (see media tab for order/parameters of orders) Order date 08/12/18 Medical diagnosis lymphedema LLE; leg swelling; venous insufficiency both LE's Onset of illness / date of surgery 08/12/18 Edema onset 08/12/18 Affected body parts LLE;RLE (LLE>RLE) Edema etiology Chronic Venous Insufficiency Edema etiology comments Pt has history LE vein stripping procedure a few years ago and recently had work up from vascular office. She did not seem to understand her chart has a diagnosis venous insufficiency and that LE swelling related to vein function in BLE's. Pertinent history of current problem (PT: include personal factors and/or comorbidities that impact the POC; OT: include additional occupational profile info) PMH significant for osteoarthritis, asthma, skin cancer (localized), diverticulosis, MCGINNIS's, numbness/tingling in feet/lower legs-neuropathy, hypo thyroidism, surgeries, and vision issues. 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 No Have you fallen and had an injury in the past year? Yes Is patient a fall risk? No (i fall 1 year ago-fell off chair standing on) Abuse Screen (yes response referral indicated) Feels Unsafe at Home or Work/School no Feels Threatened by Someone no Does Anyone Try to Keep You From Having Contact with Others or Doing Things Outside Your Home? no Physical Signs of Abuse Present no System Outcome Measures Lymphedema Life Impact Scale (score range 0-72). A higher score indicates greater impairment. 3 Subjective Report Patient report of symptoms mild LLE swelling Patient / Family Goals Patient / family goals statement to learn how to address LE swelling Pain Patient currently in pain No Cognitive Status Orientation Orientation to person, place and time Level of consciousness Alert Follows commands and answers questions 100% of the time Personal safety and judgement Intact Memory Intact Edema Exam / Assessment Skin condition Non-pitting;Intact Skin condition comments BLE non pitting edema/lymphedema foot-knee crease; LLE more involved than RLE Scar (B knee surgery scars) Dorsal pedal pulse Symmetrical Stemmer sign Negative Girth Measurements Girth Measurements Refer to separate girth measurement flowsheet Range of Motion ROM comments BLE WNL Strength Strength comments NT'd Activities of Daily Living Activities of Daily Living I Bed Mobility Bed mobility I Transfers Transfers I Gait / Locomotion Gait / Locomotion I Sensory Sensory perception comments BLE neuropathy reported Vascular Assessment Vascular Assessment Comments chart indicates venous insufficiency Coordination Coordination Gross motor coordination appropriate Muscle Tone Muscle tone No deficits were identified Planned Edema Interventions Planned edema interventions Manual lymph drainage;Gradient compression bandaging;Fit for compressiongarment;Exercises;Precautions to prevent infection / exacerbation;Education;Skin care / precautions;Home management program development Clinical Impression Criteria for skilled therapeutic intervention met Yes Therapy diagnosis lymphedema Influenced by the following impairments / conditions Stage 1;Phlebolymphedema Assessment of Occupational Performance 1-3 Performance Deficits Identified Performance Deficits decreased/compromised fit LB clothing; infection risk Clinical Decision Making (Complexity) Low complexity Treatment frequency 3 times / week Treatment duration 3x/wk x 2 weeks, then 0x/wk x 3 weeks, then 1x/wk x 1 week if returning to learn GCB's and receive MLD; only 1x treat if no intentions to return Patient / family and/or staff in agreement with plan of care Yes Risks and benefits of therapy have been explained Yes Clinical impression comments Pt will benefit from skilled lymphedema services to reduce BLE lymphedema for imporved clothing fit and reduce risk skin infections. Goals Edema Eval Goals 1;2;3;4;5;6 Goal 1 Goal identifier 1 Goal description In order to improve functional mobility for activities of living, promote optimal fit LB clothing, and reduce chances skin infections, by the completion of the intensive phase of services the pt and/or caregiver will: Target date 10/18/18 Goal 2 Goal identifier 1a Goal description tolerate gradient compression bandaging/wearing compression garments 23 hrs/day to prevent re-acccumulation of extracellular fluid for reductions needed to aide imporvements in LB clothing fit and reduce risk skin infections Target date 10/18/18 Goal 3 Goal identifier 1b Goal description demonstrate independence in applying gradient compression bandages to build I with home management of BLE lymphedema needed to aide imporvements in LB clothing fit and reduce risk skininfections Target date 10/18/18 Goal 4 Goal identifier 1c Goal description demonstrate independence in performing prescribed exercises to facilate the lymph system and muscle pumping systems for max reducitons in BLE lymphedema needed to aide imporvements in LB clothing fit, mobility tasks, and reduce risk skin infections Target date 10/18/18 Goal 5 Goal identifier 1d Goal description be independent in donning/doffing, wearing schedule, and care of compression garmentsto build I with home management of BLE lymphedema needed to aide imporvements in LB clothing fit and reduce risk skin infections Target date 10/18/18 Total Evaluation Time OT Henok Morales Complexity Minutes (50410) 17 documented in this encounter Miscellaneous Notes Addendum Note - [facility] - 08/20/2018 11:59 PM CDT Encounter addended by: [facility], OT on: 07/11/2019 4:09 PM Actions taken: Clinical Note Signed, Episode resolved documented in this encounter Plan of Treatment Not on filedocumented as of this encounter Visit Diagnoses Not on filedocumented in this encounter Care Teams Boiling House Oiler Relationship Specialty Start Date End Date Catrina Sue MD PCP - General Family Practice 06/05/[address] [place] [id number] documented as of this encounter
--- OUTSIDE RECORDS SUMMARY | 2022-02-27 08:11 | XMS_ITS | Encounter Summary ---
:1955 Author Organization [place] Address [address] [place] [id number] Care Team Providers Name Role Phone Catrina Sue MD Primary Care Provider Catrina Sue MD Unavailable Catrina Sue MD Unavailable Reason for Visit Reason Comments Infusion Encounter Details Date Type Department Care Team Description 06/20/2019 Infusion - [facility] Provider, [place] gerardo [facility] Historical osteoporosis w [facility] current pathological [address] [place] [address] Social History Tobacco Use Types Packs/Day [...] with No / Unsure 06/15/2020 9:20 AM CHILD AND YOUTH PROGRAM ASSISTANT someone who was confirmed or suspected to have Coronavirus / COVID-19? documented as of this encounter Last Filed Vital Signs Vital Sign Reading Time Taken Comments Blood Pressure 119/67 06/20/2019 12:06 PM CHILD AND YOUTH PROGRAM ASSISTANT Pulse 71 06/20/2019 12:06 PM CHILD AND YOUTH PROGRAM ASSISTANT Temperature 36.8 ??C (98.2 ??F) 06/20/2019 11:00 AM CHILD AND YOUTH PROGRAM ASSISTANT Respiratory Rate 16 06/20/2019 11:00 AM CHILD AND YOUTH PROGRAM ASSISTANT Oxygen Saturation 98% 06/20/2019 11:00 AM CHILD AND YOUTH PROGRAM ASSISTANT Inhaled Oxygen Concentration - - Weight - - Height - - Body Mass Index - - documented in this encounter Progress Notes Angela Everett - 06/20/2019 11:00 AM CST 1215 D AND YOUTH PROGRAM ASSISTANT Angela Everett - 06/20/2019 11:00 AM CST Janet arrived A&OX4 ambualtory and stable, confirms she is here for Reclast infusion. Pt states she has received Reclast in the past and has not questions or concerns, she states she recalls having a headache after the last infusion but it was not that bad. POC/medication education reviewed, including importance of increased water intake for at least 2 days after infusion and the importance that her dentist knows she receives this medication and to followup with PMD regarding bone density testing. 06/03/2019 Creatinine 0.83 PIV with ease L FA, medial AC, excellent blood return and line easily flushed NS Reclast infused as ordered; pt tolerated w/o sxs adverse Rxn; line rinsed with NS @ 200mL x30min while pt was monitored; no sxs adverse Rxn. VSS. PIV dc'd ,site covered with gauze/coban. DC education/AVS reviewed, pt stated understanding and that her needs were met today. 1215 Janet busby'd A&OX4 ambualtory and stable D AND YOUTH PROGRAM ASSISTANT documented in this encounter Miscellaneous Notes Patient Instructions - HE - Angela Everett - 06/20/2019 11:00 AM CHILD AND YOUTH PROGRAM ASSISTANT Patient Education Zoledronic Acid Solution for injection What is this medicine? ZOLEDRONIC ACID (DIPTI hogan ik id) lowers the amount of calcium loss from bone. It is used to treat Paget's disease and osteoporosis in women. This medicine may be used for other purposes; ask your health care provider or pharmacist if you have questions. What should I tell my health care provider before I take this medicine? They need to know if you have any of these conditions: ?? aspirin-sensitive asthma ?? cancer, especially if you are receiving medicines used to treat cancer ?? dental disease or wear dentures ?? infection ?? kidney disease ?? low levels of calcium in the blood ?? past surgery on the parathyroid gland or intestines ?? receiving corticosteroids like dexamethasone or prednisone ?? an unusual or allergic reaction to zoledronic acid, other medicines, foods, dyes, or preservatives ?? or trying to get ?? breast-feeding How should I use this medicine? This medicine is for infusion into a vein. It is given by a health patient care specialist in a hospital or clinic setting. Talk to your blacksmith supervisor regarding the use of this medicine in children. This medicine is not approved for use in children. Overdosage: If you think you have taken too much of this medicine contact a poison control center [facility] hospital room at once. NOTE: This medicine is only for you. Do not share this medicine with others. What if I miss a dose? It is important not to miss your dose. Call your doctor or health patient care specialist if you are unable to keep an appointment. What may interact with this medicine? ?? certain antibiotics given by injection ?? NSAIDs, medicines for pain and inflammation, like ibuprofen or naproxen ?? some diuretics like bumetanide, furosemide ?? teriparatide This list may not describe all possible interactions. Give your health care provider a list of all the medicines, herbs, non-prescription drugs, or dietary supplements you use. Also tell them if you smoke, drink alcohol, or use illegal drugs. Some items may interact with your medicine. What should I watch for while using this medicine? Visit your doctor or health patient care specialist for regular checkups. It may be some [...] the vitamins you take with your health patient care specialist. Some people who take this medicine have [...] see your dentist for regular follow-up appointments. What side effects may I notice from receiving this medicine? Side effects that you should report to your doctor or health patient care specialist as soon as possible: ?? allergic reactions like skin rash, itching or hives, swelling of the face, lips, or tongue ?? anxiety, confusion, or depression ?? breathing problems ?? changes in vision ?? eye pain ?? feeling faint or lightheaded, falls ?? jaw pain, especially after dental work ?? mouth sores ?? muscle cramps, stiffness, or weakness ?? trouble passing urine or change in the amount of urine Side effects that usually do not require medical attention (report to your doctor or health patient care specialist if they continue or are bothersome): ?? bone, joint, or muscle pain ?? constipation ?? diarrhea ?? fever ?? hair loss ?? irritation at site where injected ?? loss of appetite ?? nausea, vomiting ?? stomach upset ?? trouble sleeping ?? trouble swallowing ?? weak or tired This list may not describe all possible side effects. Call your doctor for medical advice about sideeffects. You may report side effects to FDA at 1-242-BPR-1341. Where should I keep my medicine? This drug is given in a hospital or clinic and will not be stored at home. NOTE:This sheet is a summary. It may not cover all possible information. If you have questions aboutthis medicine, talk to your doctor, pharmacist, or health care provider. Copyright?? 2015 Gold Standard D AND YOUTH PROGRAM ASSISTANT documented in this encounter Plan of Treatment Not on filedocumented as of this encounter Visit Diagnoses Diagnosis Age-related osteoporosis without current pathological fracture Senile osteoporosis documented in this encounter Additional Health Concerns Assessment Noted Time PHQ-9 Depression Total Score: 1 01/16/2019 11:01 AM CD T documented as of this encounter Care Teams Core Paster Relationship Specialty Start Date End Date Catrina Sue MD PCP - General Family Practice 06/05/[address] [place] [id number] Catrina Sue MD Assigned PCP 03/28/[address] [place] [phone] Catrina Sue MD Assigned PCP 09/11/19 03/27/[address] [place] [id number] documented as of this encounter
--- OUTSIDE RECORDS SUMMARY | 2022-02-27 08:11 | XMS_ITS | Encounter Summary ---
:1955 Author Organization [place] Address [address] [place] [address] Care Team Providers Name Role Phone Catrina Sue MD Primary Care Provider Reason for Visit Reason Onset Date Comments Forms 02/12/2019 Encounter Details Date Type Department Care Team Description 02/12/2019 [facility]phone [facility] Catrina Sweet MD Forms [address] [place] [address]. [address] [place] [address] [place], [place] [phone] (Wo rk) Social History Tobacco Use Types [...] this encounter Miscellaneous Notes Telephone Encounter - Jacky Gamez CMA - 02/12/2019 1:48 PM CDT Disability parking form filled out but needs patient signature. Called and informed patient. She will be in the area around [place] and will stop in to complete and sign. Make a copy for chart and originals to patient. ~ Jacky Gillespie CMA ([place]) Telephone Encounter - Catrina Sue MD - 02/12/2019 11:53 AM CDT Temporary during winter due to fall risk Ok to mail Telephone Encounter - Ashia Menjivar - 02/12/2019 9:22 AM CDT [facility] Family Medicine phone call message- general phone call: Reason for call: Patient called stating she was seen not too long ago and forgot to let Dr. Sueknow that she needed her handicap form filled out to get her sticker before winter, she would like it filled out and mailed to her due to [place]. Patient states Dr. Sue should have forms already. Return call needed: No OK to leave a message on voice mail? Yes Primary language: Belarusian Medical Officer needed? No Call taken on February 12, 2019 at 9:23 AM by Ashia Menjivar documented in this encounter Plan of Treatment Not on filedocumented as of this encounter Visit Diagnoses Not on filedocumented in this encounter Additional Health Concerns Assessment Noted Time PHQ-9 Depression Total Score: 1 01/16/2019 11:01 AM CD T documented as of this encounter Care Teams Antique Clock Repairer Relationship Specialty Start Date End Date Catrina Sue MD PCP - General Family Practice 06/05/[address] [place] [id number] documented as of this encounter
--- OUTSIDE RECORDS SUMMARY | 2022-02-27 08:11 | XMS_ITS | Encounter Summary ---
:1955 Author Organization [place] Address [facility] [place] [address] Care Team Providers Name Role Phone Catrina Sue MD Primary Care Provider Catrina Sue MD Unavailable Catrina Sue MD Unavailable Reason for Referral Diagnostic Imaging Dexa (Routine) - Closed Specialty Diagnoses / Procedures Referred By Contact Refer red To Contact Procedures Catrina Sue MD DEXA - HIM Scan [address] [place] [address] Referral ID Status Reason Start Date Expiration Date Visits Requ ested Visits Authorized [id number] Closed 04/19/2020 04/19/2021 1 1 NING LEAD (Routine) - Closed Specialty Diagnoses / Procedures Referred By Contact Refer red To Contact Procedures Catrina Sue MD Pneumococcal vaccine 13 [address] [facility] valent PCV13 IM (Prevnar) [place], [place] [address] [[id number]] Referral ID Status Reason Start Date Expiration Date Visits Requ ested Visits Authorized [id number] Closed 02/24/2020 02/23/2021 1 1 NING LEAD Reason for Visit Reason Comments Wellness Visit Medication Reconciliation completed. Encounter Details Date Type Department Care Team Description 02/24/2020 Office Visit [facility] Catrina Sue for subsequent annual wellness visit (AWV) in Medicare patient (Primary Dx); Clinic Amanda Boateng MD Age-related osteoporosis without current pathological fracture; [address] Hypothyroidism due to acquir ed atrophy of thyroid; [address] [place] [address] [address] Family history of ASCVD [place], [place] [phone] Social History Tobacco Use Types Packs/Day Years [...] with No / Unsure 02/24/2020 8:46 AM PLANNING LEAD someone who was confirmed or suspected to have Coronavirus / COVID-19? documented as of this encounter Last Filed Vital Signs Vital Sign Reading Time Taken Comments Blood Pressure 98/67 02/24/2020 9:46 AM PLANNING LEAD Pulse 76 02/24/2020 9:46 AM PLANNING LEAD Temperature 36.9 ??C (98.5 ??F) 02/24/2020 9:46 AM PLANNING LEAD Respiratory Rate 12 02/24/2020 9:46 AM PLANNING LEAD Oxygen Saturation 97% 02/24/2020 9:46 AM PLANNING LEAD Inhaled Oxygen Concentration - - Weight 62.3 kg (137 lb 6.4 oz) 02/24/2020 9:46 AM PLANNING LEAD Height 171 cm (5' 7.32) 02/24/2020 9:46 AM PLANNING LEAD Body Mass Index 21.31 02/24/2020 9:46 AM PLANNING LEAD documented in this encounter Patient Instructions Patient Christine Sky RN - 02/24/2020 9:20 AM CST PERSONAL PREVENTIVE SERVICES PLAN - SERVICES Review [...] of heart disease otherwise every 4-5 years 02/02/16 Yes; Recommended, pt requests Diabetes screening tests ??? Hemoglobin A1c blood [...] baby weighing more than 9 lbs. 05/24/2018 BMP,glucose 90 Yes; Recommended. Hepatitis B screening Finding hepatitis B early can reduce complications. Screening is recommended for persons with selected risk factors. No: is not indicated today. Hepatitis C screening Finding hepatitis C early can reduce complications. Screening is recommended for all persons born from 1945 through 1965 and for those with selected other risk factors. 03/05/2018 negative No: is not indicated today. HIV screening Finding HIV early can reduce complications. Screening is recommended for persons with risk factors for HIV infection. 03/05/2018 No: is not indicated today. Glaucoma screening [...] for women aged 50 to 74 years. 09/03/2018 normal Yes; Recommended Cervical Cancer screening (women) ??? Pap Cervical pap smears can reduce cervical cancer. Screening is recommended annually if high risk (history of abnormal pap smears) otherwise every 2-3 years, stop screening at 65 years of age if history of normal paps. 02/07/17 normal No: is not indicated today. Screening for Osteoporosis: Bone mass measurements (women) ??? Dexa Scan Screening and treating Osteoporosis can reduce the risk of hip and spine fractures. Screening is recommended in women 65 years or older and in women and men at risk of osteoporosis. 04/30/2018 No: is not indicated today. Screening for [...] shot) Prevents flu; should get every year Yes; Recommended PCV 13 Pneumonia vaccination; you get it once Yes; Recommended PPSV 23 Second pneumonia vaccination; usually get it 1 year after PCV 13 No: is not indicated today. Zoster (Shingles) Prevents shingles; you get it once (Check with Part D insurance for coverage, must receive at a pharmacy, not clinic) No: is not indicated today. Tetanus Prevents tetanus; once every 10 years [...] such as glaucoma, macular degeneration and cataracts. Referral for??: ?Dexa ?? LOCATION/PLACE/Provider :?[facility] [address] DATE & TIME :?? referral faxed? PHONE :?[phone] FAX :?[phone] Appointment instructions: No tums, rolaids or calcium supplements 2 days prior to appt Appointment made by clinic staff/pharmacy scheduler:?Gill NING LEAD documented in this encounter Progress Notes Catrina Sue MD - 02/24/2020 9:20 AM CST Annual Wellness Visit for 65 years and older HPI This 63 year old female presents as an established patient Catrina Sue who presents for an annual wellness visit. Other issues patient wants to be addressed today: Chief Complaint Patient presents with ??? Wellness Visit ??? Medication Reconciliation completed. Intermittent right chest wall pain spot here hurts sometimes: pulse, at first thought lung thing, then muscle thing -thinks present since springtime, last episode several weeks ago, perhaps gone -notices starting subtle, annoying, not flared by doing activity with arms or exercise, the same with sitting -not tender to the touch so thinks inside rib cage -nonradiating, not associated with diaphoresis, dyspnea Patient Active Problem List Diagnosis ??? AK [...] ??? Age-related osteoporosis without current pathological fracture Past Medical History: Diagnosis Date ??? Esophageal reflux 05/11/2012 ??? Essential hypertension, benign 09/18/2012 ??? Leiomyoma of uterus, unspecified 05/11/2012 ??? Unspecified asthma(493.90) 05/11/2012 ??? Unspecified hypothyroidism 05/11/2012 ??? Unspecified tinnitus 05/11/2012 Family History Problem Relation Age of Onset [...] of ??? Asthma No family hx of Problem List, Family History and past Medical History reviewed and unchanged/updated. Nursing Notes: Jacky Gamez CMA 02/24/2020 9:55 AM Signed Chief Complaint Patient presents with ??? Wellness Visit ??? Medication Reconciliation completed. BP 98/67 (BP Location: Right arm, Patient Position: Sitting, Cuff Size: Adult Regular) Pulse 76 Temp 98.5 ??F (36.9 ??C) (Oral) Resp 12 Ht 1.71 m (5' 7.32) Wt 62.3 kg (137 lb 6.4 oz) SpO2 97% BMI 21.31 kg/m?? BP Recheck if applicable: Left arm 101/68 Flu shot already rec'd at pharmacy OK to get PCV13 ~ Jacky Gamez CMA ([place]) [facility] Are you sexually active? Yes see HPI If yes, with men, women, or both? Male If yes, do you more than one current partner?No FOR WOMEN What year did you stop having periods?52 Any vaginal bleeding in the last year? No Have you ever had an abnormal Pap smear? No Frailty Assessment 1. Weight loss (>5% in year) No Wt Readings from Last 5 Encounters: 02/24/20 62.3 kg (137 lb 6.4 oz) 01/16/19 63.5 kg (140 lb) 05/24/18 62.6 kg (138 lb) 03/05/18 62.5 kg (137 lb 12.8 oz) 10/17/17 61.7 kg (136 lb) 2. Exhaustion (perceived effort for a given activity) How difficult is walking from one room to the other on the same level?not No 3. Weakness (handgrip strength) How difficult is lifting or carrying something as heavy as 10 pounds? not No 4. Decreased physical activity Compared with most (men/women) your age, would you say that you are more active, less active, or about the same? more No 5. Slow gait speed (timed up and go > 12 sec.) No FALL RISK ASSESSMENT 02/24/2020 01/16/2019 Fallen 2 or more times in the past year? No No Any fall with injury in the past year? No No Timed Up and Go Test/Seconds (13.5 is a fall risk; contact physician) 8 - Frailty screen score: 0 Frail Assessment:0 Robust EVALUATION OF COGNITIVE FUNCTION Mood/affect:Normal Appearance:Normal Family member/caregiver input: here alone PHQ-2 Score: PHQ-2 (??1999 Pfizer) 02/24/2020 01/16/2019 Q1: Little interest or pleasure in doing things 0 0 Q2: Feeling down, depressed or hopeless 0 0 PHQ-2 Score 0 0 PHQ-9 Score: [facility] Follow-up to PHQ 01/16/2019 PHQ-9 9. Suicide Ideation past 2 weeks Not at all Mini Cog Test: Recall result: 3 points Clock Draw Test result: Normal Cognitive screen is:Negative Other Assessments: CV Risk based on Pooled Cohort Risk The 10-year ASCVD risk score (Alonso THORNTON Jr., et al., 2013) is: 3.7% Values used to calculate the score: Age: 64 years Sex: Female Is Non- : No Diabetic: No Tobacco smoker: No Systolic Blood Pressure: 98 mmHg Is BP treated: No HDL Cholesterol: 68 mg/dL Total Cholesterol: 230 mg/dL ECG (if done)not performed Corrected Visual acuity: sees eye doctor Hearing evaluation if done: no concerns Advance Directives: Discussed with patient and family as appropriate. Has patient completed advance directives and/or a living will? yes Immunization History Administered Date(s) Administered ??? HepB 07/13/1999, 03/13/2008, 12/24/2008 ??? Influenza (High Dose) 3 valent vaccine 01/22/2019 ??? Influenza (IIV3) PF 02/16/2011, 02/08/2012 ? ? Influenza Vaccine IM > 6 months Valent IIV4 02/25/2014, 02/02/2015, 02/02/2016, 02/07/2017, 02/15/2018, 02/03/2020 ??? Influenza Vaccine, 6+MO IM (QUADRIVALENT W/PRESERVATIVES) 02/17/2013 ? ? Pneumo Conj 13-V (2010&after) 02/24/2020 ??? Pneumococcal 23 valent 04/06/2000, 12/24/2008 ??? TD (ADULT, 7+) 04/06/2000 ??? TDAP Vaccine (Boostrix) 01/22/2019 ??? Tdap (Adacel,Boostrix) 12/24/2008 ??? Zoster vaccine, live 02/20/2013 Reviewed Immunization Record Today Physical Exam Vitals: BP 98/67 (BP Location: Right arm, Patient Position: Sitting, Cuff Size: Adult Regular) Pulse 76 Temp 98.5 ??F (36.9 ??C) (Oral) Resp 12 Ht 1.71 m (5' 7.32) Wt 62.3 kg (137 lb 6.4 oz) SpO2 97% BMI 21.31 kg/m?? BMI= Body mass index is 21.31 kg/m??. EXAM: Gen: alert, oriented X 3, no acute distress, no sign of discomfort LUNGS: CTAB, no wheezing, no rales, no crackles, no accessory muscle use COR: normal rate, regular rhythm and no murmurs, clicks, or gallops -lower extremities : no pitting edema Assessment and Plan: Reviewed Preventive Services and Plan form with patient as specified in Patient Instructions. Positive findings on assessment: none Janet was seen today for wellness visit and medication reconciliation. Diagnoses and all orders for this visit: Encounter for subsequent annual wellness visit (AWV) in Medicare patient Age-related osteoporosis without current pathological fracture - Dexa hip/pelvis/spine*; Future Hypothyroidism due to acquired atrophy of thyroid - [facility]SH Sensitive ([facility]) Family history of ASCVD - Lipid Panel ([facility]) - Results < 1 hr Other orders - Pneumococcal vaccine 13 valent PCV13 IM (Prevnar) [[id number]] Completed Everyone Countsg fear of falling during winter with osteoporosis. Options for treatment and follow-up care were reviewed with the aJnet Soto and/or guardian engaged in the decision making process and verbalized understanding of the options discussed and agreed with the final plan. Catrina Sue MD NING LEAD Christine Domingo RN - 02/24/2020 9:20 AM CST Medicare Wellness Visit Health Risk Assessment 1) Requesting refill of Levothyroxine. 2) Requesting renewal of infusion for Osteoporosis which is due in May 2020. Health Risk Assessment / Review of Systems Constitutional: Any fevers or night sweats? No Eyes: Vision problems No Hearing Do you feel you have hearing loss? No Cardiovascular: Any chest pain, fast or irregular heart beat, calf pain with walking? YES - intermittent pain in upper,right side of chest x several months ago. No cough,fever or shortness of breath. Rate pain 5 out of 10 when present, resolve on its own, no known trigger. Family history: father had bypass at age 57, sister- stent placed at 70 years old,per her barrel endshake adjuster sister bam carotid artery vessel and can be hereditary. Respiratory: Any breathing problems or cough? No Gastrointestinal: Any stomach or stool problems? YES -constipation, Janet reports she does not drink much water during the day, average water intake is one glass with her medications. Encouraged high fiber foods and increase in water intake to promote bowel motility and soft stools. Genitourinary: Do you have difficulty controlling urination? No- occasionally will get urinary leakage once in awhile. Muscles and Joints: Any joint stiffness or soreness? YES -history of arthritis, bilateral hips have been achy. Skin: Any concerning lesions or moles? No, sees Dermatology every 6 months. Hx skin cancer per patient report. Nervous System: Any loss of strength or feeling, numbness or tingling, shaking, dizziness, or headache? YES - Janet voiced concern of left foot, mid toe numbness which is known by Dr Sue. Family hx: neuropathy. Janet has been having tingling sensation in her toes and fingers. Mental Health: Any depression, anxiety or problems sleeping? No - on Celexa which has been effective. Cognition: Do you have any problems with your memory? No Medical Care What other specialists or organizations are involved in your medical care? Dermatology and Full Stack Engineer every 2 years. Patient Care Team Relationship Specialty Notifications Start End Catrina Sue MD PCP - General Family Practice 06/05/[address] [facility] [facility] [address] Catrina Sue MD Assigned PCP 09/11/[address] [facility] [facility] [address] Have you been to the ER or overnight in the hospital in the last year? No Social History / Home Safety Marital Status: Who lives in your household? Do you feel threatened or controlled by [...] with no handrails or poorly lit areas? No Do you need help with dressing yourself, [...] and vegetables do you eat a day? 2-3 servings a day. Encouraged and recommendation of daily fruits and vegetables has been reviewed with patient. Exercise: None No exercise Do you frequently drive without a seatbelt? No Do you use tobacco? No Do you use any other drugs? No Do you use alcohol?Yes Number of drinks per day : 0-1 Number of drinking days a week : 1-2 cocktail or wine Frailty Assessment Have you lost 10 or more pounds unintentionally in the previous year? No How difficult is walking from one room to the other on the same level?not Is it difficult to lift or carry something as heavy as 10 pounds?mildly Compared with most (men/women) your age, would you say that you are more active, less active, or about the same? same FALL RISK ASSESSMENT 02/24/2020 01/16/2019 Fallen 2 or more times in the past year? No No Any fall with injury in the past year? No No Timed Up and Go Test/Seconds (13.5 is a fall risk; contact physician) 8 - Advance Directives: Discussed with patient and family as appropriate. Has patient completed advance directives and/or a living will? Yes, completed in 2019, copy scanned in chart. Per Janet, no changes as of today's date to be made. Christine Domingo RN NING LEAD documented in this encounter Nursing Notes Jacky Gamez CMA - 02/24/2020 9:20 AM CST Chief Complaint Patient presents with ??? Wellness Visit ??? Medication Reconciliation completed. BP 98/67 (BP Location: Right arm, Patient Position: Sitting, Cuff Size: Adult Regular) Pulse 76 Temp 98.5 ??F (36.9 ??C) (Oral) Resp 12 Ht 1.71 m (5' 7.32) Wt 62.3 kg (137 lb 6.4 oz) SpO2 97% BMI 21.31 kg/m?? BP Recheck if applicable: Left arm 101/68 Flu shot already rec'd at pharmacy OK to get PCV13 ~ Jacky (Alix) TITI Gamez [facility] NING LEAD documented in this encounter Miscellaneous Notes Result Encounter Note - Catrina Sue MD - 02/24/2020 9:20 AM PLANNING LEAD Called home # LM to call back about dexa results. Does still show osteoporosis but some improvement. Tscore -3.0 (2019 was -3.6). I would recommend a third dose of the IV infusion of reclast like you've had the past two years. Let me know and we can order this again. Ok to schedule tel appt too to review these results if there are questions. NING LEAD documented in this encounter Plan of Treatment Not on filedocumented as of this encounter Procedures Procedure Name Priority Date/Time Associated Diagnosis Comme nts DEXA - HIM SCAN Routine 04/14/2020 Results for this procedure are i n the results section. TSH SENSITIVE Routine 02/24/2020 10:51 Hypothyroidism due to R esults for this ([facility]) AM PLANNING LEAD acquired atrophy of procedur e are in thyroid the results section. LIPID PANEL Routine 02/24/2020 10:51 Family history of ASCVD Results for this ([facility]) AM PLANNING LEAD procedure are i n the results section. documented in this encounter Results DEXA - HIM Scan (04/14/2020) Anatomical Region Laterality Modality Other Narrative This result has an attachment that is no t available. Patient Reported IMG DEXA ORDERABLES (ABNORMAL) Lipid Panel ([facility]) - Results < 1 hr (02/24/2020 10:51 AM PLANNING LEAD) [facility] Method Time Signature Cholesterol 230.0 (H) <200.0 [facility] mg/dL LAB Triglycerides 96.0 <150.0 [facility] mg/dL LAB HDL Cholesterol 68.0 >50.0 [facility] mg/dL LAB Comment: If diabetic or CVD then referen ce range <100 VLDL-Cholesterol 19.0 7.0 - 32.0 mg/dL [facility] LDL Cholesterol Direct 143.0 (H) 0.0 - 99.0 mg/dL [facility] Cholesterol/HDL Ratio 3.4 <5.0 RATIO [facility] Specimen Anatomical Collection Method Collection Time Receive d Time (Source) Location / / Volume Laterality Blood specimen VENOUS BLOOD / 02/24/2020 10:51 020 (specimen) Unknown AM PLANNING LEAD 10:52 AM PLANNING LEAD Catrina Sue MD LAB - [facility] Performing Organization Address City/[facility] Phon e Number [facility] [address] [place] [id number] TSH Sensitive ([facility]) (02/24/2020 10:51 AM PLANNING LEAD) P athologist Signature TSH 1.31 0.30 - 5.00 [email or web address] uIU/mL LAB Specimen (Source) Anatomical Collection Method Collection Time Re ceived Time Location / / Volume Laterality Blood specimen VENOUS BLOOD / 02/24/2020 10:51 (specimen) Unknown AM PLANNING LEAD Narrative [facility] - 02/24/2020 8:21 PM CS T Test performed by: [facility]-[employer] LABORATOR Y [address] [place] [address] Catrina Sue MD LAB - [facility] Performing Organization Address City/[facility] Phon e Number [facility] documented in this encounter Visit Diagnoses Diagnosis Encounter for subsequent annual wellness visit (AWV) in Medicare patient - Primary Age-related osteoporosis without current pathological fracture Senile osteoporosis Hypothyroidism due to acquired atrophy o f thyroid Family history of ASCVD Family history of other cardiovascular d iseases documented in this encounter Additional Health Concerns Assessment Noted Time PHQ-9 Depression Total Score: 1 01/16/2019 11:01 AM CD T documented as of this encounter Care Teams Box Truck Washer Relationship Specialty Start Date End Date Catrina Sue MD PCP - General Family Practice 06/05/[address] [place] [phone] Catrina Sue MD Assigned PCP 03/28/20 [facility] [place] [address] Catrina Sue MD Assigned PCP 09/11/19 03/27/[address] [place] [phone] documented as of this encounter
--- OUTSIDE RECORDS SUMMARY | 2022-02-27 08:11 | XMS_ITS | Encounter Summary ---
:1955 Author Organization [place] Address [facility]ly [facility], [id number] [place] [address] Care Team Providers Name Role Phone Catrina Sue MD Primary Care Provider Encounter Details Date Type Department Care Team Description [facility]/03[facility] Age-related osteoporosis [address] [place] [address] pathological fracture [phone] Social History Tobacco Use Types Packs/Day Years [...] Date/Time Associated Diagnosis Comme nts CREATININE Routine 06/03/2019 10:02 Age-related Results for this ([facility]) AM CLINICAL REVIEW NURSE osteoporosis without procedu re are in current pathological the res ults fracture section. documented in this encounter Results Creatinine ([facility]) (06/03/2019 10:02 AM CLINICAL REVIEW NURSE) P athologist Signature Creatinine 0.83 0.60 - [facility] 1.10 mg/dL LAB GFR Estimate If >[address] [facility] mL/min/1.7 LAB 3m2 GFR Estimate >[address] [facility] mL/min/1.7 LAB 3m2 Specimen (Source) Anatomical Collection Method Collection Time Re ceived Time Location / / Volume Laterality Venous blood 06/03/2019 10:02 specimen AM CLINICAL REVIEW NURSE (specimen) Narrative [facility] - 06/03/2019 7:33 PM CS T Test performed by: [facility] [address] [place] [phone] Catrina Sue MD [facility] - [facility] Performing Organization Address City/State/ZIP Code Phon e Number [facility] documented in this encounter Visit Diagnoses Diagnosis Age-related osteoporosis without current pathological fracture Senile osteoporosis documented in this encounter Additional Health Concerns Assessment Noted Time PHQ-9 Depression Total Score: 1 01/16/2019 11:01 AM CD T documented as of this encounter Care Teams Inspector Eyeglass Relationship Specialty Start Date End Date Catrina Sue MD PCP - General Family Practice 06/05/[address] [place] [id number] documented as of this encounter
--- OUTSIDE RECORDS SUMMARY | 2022-02-27 08:11 | XMS_ITS | Encounter Summary ---
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 documented as of this encounter Plan of Treatment Not on filedocumented as of this encounter Visit Diagnoses Not on filedocumented in this encounter Additional Health Concerns Assessment Noted Time PHQ-9 Depression Total Score: 1 01/16/2019 11:01 AM CD T documented as of this encounter Care Teams Director Advertising Relationship Specialty Start Date End Date Catrina Sue MD PCP - General Family Practice 2/13/13 [facility] [place] [address] Catrina Sue MD Assigned PCP 09/11/19 03/27/[address] [place] [id number] documented as of this encounter
--- OUTSIDE RECORDS SUMMARY | 2022-02-27 08:11 | XMS_ITS | Encounter Summary ---
:1955 Author Organization [place] Address [facility] [place] [address] Care Team Providers Name Role Phone Catrina Sue MD Primary Care Provider Reason for Visit Reason Comments Medicare Visit Needs Tdap, zoster, and PCV 13 Medication Reconciliation needs attention, got a cream from RAILWAY SIGNAL TECHNICIAN Encounter Details Date Type Department Care Team Description 01/16/2019 Office Visit Catrina Rodriguez Hypothyro idism due to acquired atrophy of thyroid (Primary Dx); Clinic MD Kilo Recurrent herpes simplex; [address] [place] Major depressive disorder, r ecurrent episode, mild (H); [place] [address] [address] Mild intermittent asthma without complic ation; [phone] [place], [place] [address] Slow transit constipation Social History Tobacco Use Types Packs/Day Years [...] on file documented as of this encounter Last Filed Vital Signs Vital Sign Reading Time Taken Comments Blood Pressure 97/65 01/16/2019 9:53 AM CDT Pulse 80 01/16/2019 9:53 AM CDT Temperature 36.4 ??C (97.6 ??F) 01/16/2019 9:53 AM CDT Respiratory Rate 20 01/16/2019 9:53 AM CDT Oxygen Saturation 96% 01/16/2019 9:53 AM CDT Inhaled Oxygen Concentration - - Weight 63.5 kg (140 lb) 01/16/2019 9:53 AM CDT Height 172.7 cm (5' 8) 01/16/2019 9:53 AM CDT Body Mass Index 21.29 01/16/2019 9:53 AM CDT documented in this encounter Patient Instructions Patient Natalia Snider RN - 01/16/2019 10:00 AM CDT PERSONAL PREVENTIVE SERVICES PLAN - SERVICES Review [...] of heart disease otherwise every 4-5 years 01/23/14 Yes; Recommended Diabetes screening tests ??? Hemoglobin A1c blood [...] to baby weighing more than 9 lbs. BMP 05/24/18 No; is up to date. Hepatitis B screening Finding hepatitis B early can reduce complications. Screening is recommended for persons with selected risk factors. - No: is not indicated today. Hepatitis C screening Finding hepatitis C early can reduce complications. Screening is recommended for all persons born from 1945 through 1965 and for those with selected other risk factors. 02/23/18 No; is up to date. HIV screening Finding HIV early can reduce complications. Screening is recommended for persons with risk factors for HIV infection. - No: is not indicated today. Glaucoma screening [...] years and continuing until age 75 years. - Yes; Recommended Breast Cancer Screening (women) ??? Mammogram Mammogram screening for breast cancer has been shown to reduce the risk of dying from breast cancer and prolong life. Screening is recommended every 1-2 years for women aged 50 to 74 years. 09/03/18 No; is up to date. Cervical Cancer screening (women) ??? Pap Cervical pap smears can reduce cervical cancer. Screening is recommended annually if high risk (history of abnormal pap smears) otherwise every 2-3 years, stop screening at 65 years of age if history of normal paps. - No: is not indicated today. Screening for Osteoporosis: Bone mass measurements (women) ??? Dexa Scan Screening and treating Osteoporosis can reduce the risk of hip and spine fractures. Screening is recommended in women 65 years or older and in women and men at risk of osteoporosis. 04/30/18 No; is up to date. Screening for Lung Cancer ??? Low-dose CT scanning Screening can reduce mortality in persons aged 55-80 who have smoked at least 30 pack-years and who are either still smoking or have quit in the past 15 years. - No: is not indicated today. Abdominal Aortic [...] a family history of abdominal aortic aneurysm - No: is not indicated today. Here are [...] must receive at a pharmacy, not clinic) Yes; Recommed Tetanus Prevents tetanus; once every 10 years Yes; Recommended Hepatitis B If you have any of [...] such as glaucoma, macular degeneration and cataracts. documented in this encounter Progress Notes Catrina Sue MD - 01/16/2019 10:00 AM CDT Annual Wellness Visit for 65 years and older HPI This 63 year old female presents as an established patient Catrina Sue who presents for an annual wellness visit. 1. Vaginal dysparunia: going through laser therapy and hormone cream and vaginal stretching and finding much help so far. Will also do prolotherapy type. Other issues patient wants to be addressed today: Chief Complaint Patient presents with ??? Medicare Visit Needs Tdap, zoster, and PCV 13 ??? Medication Reconciliation needs attention, got a cream from RAILWAY SIGNAL TECHNICIAN Patient Active Problem List Diagnosis ??? [place] [...] Father ??? Other Cancer Mother AML ??? Coronary Artery Disease Maternal Grandmother ??? [...] Medical History reviewed and unchanged/updated. Nursing Notes: Natalia Hinton RN 01/16/2019 9:50 AM Signed Medicare Wellness Visit Health Risk Assessment Needs meds refilled Health Risk Assessment / Review of Systems Constitutional: Any fevers or night sweats? YES intermittent night sweats Eyes: Vision problems No Hearing Do you feel you have hearing loss? No Cardiovascular: Any chest pain, fast or irregular heart beat, calf pain with walking? No Respiratory: Any breathing problems or cough? No Gastrointestinal: Any stomach or stool problems? YES constant constipation. Has daily Bm but comes out in little pieces. Not currently taking anything for it Genitourinary: Do you have difficulty controlling urination? No -Vaginal dryness, saw RAILWAY SIGNAL TECHNICIAN yesterday and would like to discuss with PCP Muscles and Joints: Any joint stiffness or soreness? YES bilateral knees and hips, improves with activity. Pain is worsening. Now has new R knee pain since this morning, stretched and felt it pull/pop.Now is catching whenever she sits or stands from seated position Skin: Any concerning lesions or moles? No -just saw communications billing analyst and had some spots removed on chest Nervous System: Any loss of strength or feeling, numbness or tingling, shaking, dizziness, or headache? YES middle toe on bilateral feet, neuropathy-runs in family, tingling in toes Mental Health: Any depression, anxiety or problems sleeping? YES anxiety, takes celexa and is effective Cognition: Do you have any problems with your memory? No Medical Care What other specialists or organizations are involved in your medical care? Patient Care Team Relationship Specialty Notifications Start End Catrina Sue MD PCP - General Family Practice 06/05/[address] [place] [address] Have you been to the ER or [...] History Smoking Status ??? Former Smoker ??? Quit date: 02/01/1977 Smokeless Tobacco ??? Never Used How many servings of fruits and vegetables do you eat a day? 2-3/day, educated on 5/day Exercise: None No exercise Do you frequently drive without a seatbelt? No Do you use tobacco? No Do you use any other drugs? No Do you use alcohol?Yes Number of drinks per day 0 Number of drinking days a week 1-3, occasional drinking when at cabin Frailty Assessment Have you lost 10 or more pounds unintentionally in the previous year? No How difficult is walking from one room to the other on the same level?not No Is it difficult to lift or carry something as heavy as 10 pounds?not No Compared with most (men/women) your age, would you say that you are more active, less active, or about the same? Same No Timed Up and Go: 9 seconds, uneven gait r/t knee pain FALL RISK ASSESSMENT 01/16/2019 Fallen 2 or more times in the past year? No Any fall with injury in the past year? No Advance Directives: Discussed with patient and family as appropriate. Has patient completed advance directives and/or a living will? yes Stated she believes she has one, will look for it and provide copy. Gave blank one in case she cannot find it or wants to make changes. Patient verbalized understanding. Natalia Hinton RN Are you sexually active? Yes see HPI [...] No Wt Readings from Last 5 Encounters: 01/16/19 63.5 kg (140 lb) 05/24/18 62.6 kg (138 lb) 03/05/18 62.5 kg (137 lb 12.8 oz) 10/17/17 61.7 kg (136 lb) 02/07/17 61.5 kg (135 lb 9.6 oz) 2. Exhaustion (perceived effort for a given [...] > 12 sec.) No FALL RISK ASSESSMENT 01/16/2019 Fallen 2 or more times in the past year? No Any fall with injury in the past year? No Frailty screen score: 0 Frail Assessment:0 Robust EVALUATION OF COGNITIVE FUNCTION Mood/affect:Normal Appearance:Normal Family member/caregiver input: here alone PHQ-2 Score: PHQ-2 (??1999 Pfizer) 01/16/2019 03/05/2018 Q1: Little interest or pleasure in doing things 0 0 Q2: Feeling down, depressed or hopeless 0 0 PHQ-2 Score 0 0 PHQ-9 Score: No flowsheet data found. Mini Cog Test: Recall result: 3 points Clock Draw Test result: Normal Cognitive screen is:Negative Other Assessments: CV Risk based on Pooled Cohort Risk The 10-year ASCVD risk score (Alonso THORNTON Jr., et al., 2013) is: 3.2% Values used to calculate the score: Age: 63 years Sex: Female Is Non- : No Diabetic: No Tobacco smoker: No Systolic Blood Pressure: 97 mmHg Is BP treated: No HDL Cholesterol: 81 mg/dL Total Cholesterol: 253 mg/dL ECG (if done)not performed Corrected Visual acuity: sees eye doctor Hearing evaluation if done: no concerns Advance Directives: Discussed with patient and family as appropriate. Has patient completed advance directives and/or a living will? yes Immunization History Administered Date(s) Administered ??? HepB 07/13/1999, 03/13/2008, 12/24/2008 ??? Influenza (IIV3) PF 02/16/2011, 02/08/2012 ? ? Influenza Vaccine IM > 6 months Valent IIV4 02/25/2014, 02/02/2015, 02/02/2016, 02/07/2017, 02/15/2018 ??? Influenza Vaccine, 3 YRS +, IM (QUADRIVALENT W/PRESERVATIVES) 02/17/2013 ??? Pneumococcal 23 valent 04/06/2000, 12/24/2008 ??? TD (ADULT, 7+) 04/06/2000 ??? Tdap (Adacel,Boostrix) 12/24/2008 ??? Zoster vaccine, live 02/20/2013 Reviewed Immunization Record Today Physical Exam Vitals: BP 97/65 Pulse 80 Temp 97.6 ??F (36.4 ??C) Resp 20 Ht 1.727 m (5' 8) Wt 63.5 kg (140 lb) SpO2 96% BMI 21.29 kg/m?? BMI= Body mass index is 21.29 kg/m??. EXAM: Gen: alert, oriented X 3, [...] assessment: none Janet was seen today for medicare visit and medication reconciliation. Diagnoses and all orders for this visit: Hypothyroidism due to acquired atrophy of thyroid - TSH Sensitive ([facility]) Recurrent herpes simplex - acyclovir (ZOVIRAX) 400 MG tablet; Take 1 tablet (400 mg) by mouth every 8 hours for 5 days Major depressive disorder, recurrent episode, mild (H) - citalopram (CELEXA) 10 MG tablet; Take 1 tablet (10 mg) by mouth 2 times daily Mild intermittent asthma without complication - albuterol (VENTOLIN HFA) 108 (90 Base) MCG/ACT inhaler; Inhale 2 puffs into the lungs every 6 hours Options for treatment and follow-up care were reviewed with the Janet Soto and/or guardian engaged in the decision making process and verbalized understanding of the options discussed and agreed with the final plan. Catrina Sue MD documented in this encounter Nursing Notes Natalia Hinton RN - 01/16/2019 10:00 AM CDT Medicare Wellness Visit Health Risk Assessment Needs meds refilled Health Risk Assessment / Review of Systems Constitutional: Any fevers or night sweats? YES intermittent night sweats Eyes: Vision problems No Hearing Do you feel you have hearing loss? No Cardiovascular: Any chest pain, fast or irregular heart beat, calf pain with walking? No Respiratory: Any breathing problems or cough? No Gastrointestinal: Any stomach or stool problems? YES constant constipation. Has daily Bm but comes out in little pieces. Not currently taking anything for it Genitourinary: Do you have difficulty controlling urination? No -Vaginal dryness, saw RAILWAY SIGNAL TECHNICIAN yesterday and would like to discuss with PCP Muscles and Joints: Any joint stiffness or soreness? YES bilateral knees and hips, improves with activity. Pain is worsening. Now has new R knee pain since this morning, stretched and felt it pull/pop.Now is catching whenever she sits or stands from seated position Skin: Any concerning lesions or moles? No -just saw communications billing analyst and had some spots removed on chest Nervous System: Any loss of strength or feeling, numbness or tingling, shaking, dizziness, or headache? YES middle toe on bilateral feet, neuropathy-runs in family, tingling in toes Mental Health: Any depression, anxiety or problems sleeping? YES anxiety, takes celexa and is effective Cognition: Do you have any problems with your memory? No Medical Care What other specialists or organizations are involved in your medical care? Patient Care Team Relationship Specialty Notifications Start End Catrina Sue MD PCP - General Family Practice 06/05/[address] [place] [address] Have you been to the ER or [...] History Smoking Status ??? Former Smoker ??? Quit date: 02/01/1977 Smokeless Tobacco ??? Never Used How many servings of fruits and vegetables do you eat a day? 2-3/day, educated on 5/day Exercise: None No exercise Do you frequently drive without a seatbelt? No Do you use tobacco? No Do you use any other drugs? No Do you use alcohol?Yes Number of drinks per day 0 Number of drinking days a week 1-3, occasional drinking when at cabin Frailty Assessment Have you lost 10 or more pounds unintentionally in the previous year? No How difficult is walking from one room to the other on the same level?not No Is it difficult to lift or carry something as heavy as 10 pounds?not No Compared with most (men/women) your age, would you say that you are more active, less active, or about the same? Same No Timed Up and Go: 9 seconds, uneven gait r/t knee pain FALL RISK ASSESSMENT 01/16/2019 Fallen 2 or more times in the past year? No Any fall with injury in the past year? No Advance Directives: Discussed with patient and family as appropriate. Has patient completed advance directives and/or a living will? yes Stated she believes she has one, will look for it and provide copy. Gave blank one in case she cannot find it or wants to make changes. Patient verbalized understanding. Natalia Hinton RN documented in this encounter Miscellaneous Notes Result Encounter Note - Catrina Sue MD - 01/16/2019 10:00 AM CDT Your thyroid level is normal documented in this encounter Plan of Treatment Not on filedocumented as of this encounter Procedures Procedure Name Priority Date/Time Associated Diagnosis Comme nts TSH SENSITIVE Routine 01/16/2019 10:00 Hypothyroidism due to R esults for this ([facility]) AM CDT acquired atrophy of procedur e are in thyroid the results section. documented in this encounter Results [facility]) (01/16/2019 10:00 AM CDT) athologist Signature TSH 0.67 0.30 - 5.00 [facility] uIU/mL LAB Specimen (Source) Anatomical Collection Method Collection Time Re ceived Time Location / / Volume Laterality Blood specimen VENOUS BLOOD / 01/16/2019 10:00 (specimen) Unknown AM CDT [address] [facility] - 01/16/2019 3:57 PM CD T Test performed by: [facility] [address] [place] [id number] Catrina Sue MD LAB - [facility] Performing Organization Address City/State/ZIP Code Phon e Number [facility] documented in this encounter Visit Diagnoses Diagnosis Hypothyroidism due to acquired atrophy o f thyroid - Primary Recurrent herpes simplex Herpes simplex without mention of compli cation Major depressive disorder, recurrent epi sode, mild (H) Major depressive disorder, recurrent epi sode, mild Mild intermittent asthma without complic ation Unspecified asthma Slow transit constipation documented in this encounter Additional Health Concerns Assessment Noted Time PHQ-9 Depression Total Score: 1 01/16/2019 11:01 AM CD T documented as of this encounter Care Teams Director Of Product Design Relationship Specialty Start Date End Date Catrina Sue MD PCP - General Family Practice 06/05/[address] [place] [id number] documented as of this encounter
--- OUTSIDE RECORDS SUMMARY | 2022-02-27 08:11 | XMS_ITS | Encounter Summary ---
:1955 Author Organization [facility] Address [address] [place] [id number] Care Team Providers Name Role Phone Catrina Sue MD Primary Care Provider Encounter Details Date Type Department Care Team Description 01/16/2019 Travel Social History Tobacco Use Types Packs/Day [...] documented as of this encounter Care Teams Professor Of Art Relationship Specialty Start Date End Date Catrina Sue MD PCP - General Family Practice 06/05/[address] [place] [id number] documented as of this encounter
--- OUTSIDE RECORDS SUMMARY | 2022-02-27 08:11 | XMS_ITS | Encounter Summary ---
:1955 Author Organization [facility] Address [address] [place] [address] Care Team Providers Name Role Phone Catrina Sue MD Primary Care Provider Catrina Sue MD Unavailable Catrina Sue MD Unavailable Encounter Details Date Type Department Care Team Description 06/06/2019 Ambulatory - [facility] [address] [id number] Social History Tobacco Use Types Packs/Day Years [...] with No / Unsure 06/15/2020 9:20 AM COMMISSARY WORKER someone who was confirmed or suspected to have Coronavirus / COVID-19? documented as of this encounter Plan of Treatment Not on filedocumented as of this encounter Visit Diagnoses Not on filedocumented in this encounter Additional Health Concerns Assessment Noted Time PHQ-9 Depression Total Score: 1 01/16/2019 11:01 AM CD T documented as of this encounter Care Teams Refrigerator Tester Relationship Specialty Start Date End Date Catrina Sue MD PCP - General Family Practice 06/05/[address] [place] [phone] Catrina Sue MD Assigned PCP 03/28/[address] [place] [address] Catrina Sue MD Assigned PCP 09/11/19 03/27/[address] [place] [phone] documented as of this encounter
--- OUTSIDE RECORDS SUMMARY | 2022-02-27 08:11 | XMS_ITS | Encounter Summary ---
:1955 Author Organization [facility] Address [address] [place] [id number] Care Team Providers Name Role Phone Catrina Sue MD Primary Care Provider Encounter Details Date Type Department Care Team Description 01/16/2019 Office Visit Amanda monte Rn, Pv p Wellness examination [address] [facility] (Primary Dx) [place] [address] Social History Tobacco Use Types Packs/Day Years [...] on file documented as of this encounter Progress Notes Natalia Hinton RN - 01/16/2019 9:40 AM CDT Please refer to encounter with on 01/16/2019 for clinical documentation improvement specialist. Loraine HANKS documented in this encounter Plan of Treatment Not on filedocumented as of this encounter Visit Diagnoses Diagnosis Wellness examination - Primary documented in this encounter Additional Health Concerns Assessment Noted Time PHQ-9 Depression Total Score: 1 01/16/2019 11:01 AM CD T documented as of this encounter Care Teams Title Officer Relationship Specialty Start Date End Date Catrina Sue MD PCP - General Family Practice 06/05/[address] [place] [id number] documented as of this encounter
--- OUTSIDE RECORDS SUMMARY | 2022-02-27 08:12 | XMS_ITS | Encounter Summary ---
:1955 Author Organization [place] Address [address] [place] [address] Care Team Providers Name Role Phone Catrina Sue MD Primary Care Provider Catrina Sue MD Unavailable Catrina Sue MD Unavailable Encounter Details Date Type Department Care Team Description 05/02/2018 Records - [facility] Mirtha Fernandes Other specified soft tissue disorders; [facility] MD Javier Lymphedema, not elsewhere classified; [facility] [place] [address] [place] [address] Scar conditions and fibrosis of skin; [address] [facility] [address] Venous insufficiency (chronic) (peripher al) [address] [place] [phone] Social History Tobacco Use Types Packs/Day Years [...] with No / Unsure 06/15/2020 9:20 AM WARP KNITTER someone who was confirmed or suspected to have Coronavirus / COVID-19? documented as of this encounter Plan of Treatment Not on filedocumented as of this encounter Procedures Procedure Name Priority Date/Time Associated Diagnosis Comme nts US VENOUS Routine 05/02/2018 9:02 AM Other specified soft R esults for this COMPETENCY WARP KNITTER tissue disorders procedure are in BILATERAL Lymphedema, not the results elsewhere classi fied section. Scar conditions and fibrosis of skin Venous insufficiency (chronic) (peripheral) documented in this encounter Results US Venous Competency Bilateral (05/02/2018 9:02 AM WARP KNITTER) Anatomical Region Laterality Modality Lower Extremity Other Specimen (Source) Anatomical Location Collection Method / Collectio n Time Received Time / Laterality Volume Impressions 05/02/2018 9:21 AM WARP KNITTER CONCLUSION: 1. ??No deep venous thrombosis of either lower extremity. Incompetent right common femoral, profunda femoral and proximal femoral veins. Incompetent left proximal and mid femoral veins. 2. ??RIGHT LEG: No evidence of superfici al venous incompetency. 3. ??LEFT LEG: No evidence of superficia l venous incompetency. Narrative 05/02/2018 9:21 AM WARP KNITTER [facility] LOCATION: [facility] DATE: 05/02/2018 EXAM: BILATERAL LOWER EXTREMITY DEEP AND SUPERFICIAL VENOUS DUPLEX ULTRASOUND WITH PHYSIOLOGIC TESTING INDICATION: Symptomatic varicose veins. Assess for incompetent veins. TECHNIQUE: Supine and upright ultrasound of the deep and superficial veins with Valsalva and compression augmentation maneuvers. Duplex imaging is performed utilizing heath-scale, two-dimensional images, color-flow imaging, Doppler waveform an alysis, and spectral Doppler imaging. INCOMPETENCY CRITERIA: Deep vein reflux reported when greater than 1,000 ms flow reversal. ??Superficial vein reflux reported when greater than 500 ms flow reversal. Splitting Machine Operator Helper vein reflux reported as greater than 350 ms flow reversal. DEEP VEIN FINDINGS: ?? RIGHT LEG: The common femoral, profunda femoral, femoral, popliteal, and visualized calf veins are patent and compressible. ??Incompetent common femoral, profunda femoral and proximal femoral veins. LEFT LEG: ??The common femoral, profunda femoral, femoral, popliteal, and visualized calf veins are patent and compressible. ?? Incompetent proximal and mid femoral veins. RIGHT SUPERFICIAL VEIN FINDINGS: GREAT SAPHENOUS VEIN: Competent at the s aphenofemoral junction and mid calf. The vein is not visualized in the proximal thigh and knee. SMALL SAPHENOUS VEIN: Competent from the saphenopopliteal junction to the mid calf. No incompetent perforating veins or abno rmal accessory veins identified. LEFT SUPERFICIAL VEIN FINDINGS: GREAT SAPHENOUS VEIN: Competent at the s aphenofemoral junction and mid calf. The vein is not visualized in the proximal thigh and knee. SMALL SAPHENOUS VEIN: Not visualized. No incompetent perforating veins or abno rmal accessory veins identified. Procedure Note Evans Donato MD - 09/29/2020Formatt ing of this note might be different from the original. [facility] LOCATION: [facility] DATE: 05/02/2018 EXAM: BILATERAL LOWER EXTREMITY DEEP AND SUPERFICIAL VENOUS DUPLEX ULTRASOUND WITH PHYSIOLOGIC TESTING INDICATION: Symptomatic varicose veins. Assess for incompetent veins. TECHNIQUE: Supine and upright ultrasound of the deep and superficial veins with Valsalva and compression augmentation maneuvers. Duplex imaging is performed utilizing heath-scale, two-dimensional images, color-flow imaging, Doppler waveform analysis, and spectral Doppler imaging. INCOMPETENCY CRITERIA: Deep vein reflux reported when greater than 1,000 ms flow reversal. Superficial vein reflux reported when greater than 500 ms flow reversal. Splitting Machine Operator Helper vein reflux reported as greater than 350 ms flow reversal. DEEP VEIN FINDINGS: RIGHT LEG: The common femoral, profunda femoral, femoral, popliteal, and visualized calf veins are patent and compressible. Incompetent common femoral, profunda femoral and proximal femoral veins. LEFT LEG: The common femoral, profunda f emoral, femoral, popliteal, and visualized calf veins are patent and compressible. Incompetent proximal and mid femoral veins. RIGHT SUPERFICIAL VEIN FINDINGS: GREAT SAPHENOUS VEIN: Competent at the s aphenofemoral junction and mid calf. The vein is not visualized in the proximal thigh and knee. SMALL SAPHENOUS VEIN: Competent from the saphenopopliteal junction to the mid calf. No incompetent perforating veins or abno rmal accessory veins identified. LEFT SUPERFICIAL VEIN FINDINGS: GREAT SAPHENOUS VEIN: Competent at the s aphenofemoral junction and mid calf. The vein is not visualized in the proximal thigh and knee. SMALL SAPHENOUS VEIN: Not visualized. No incompetent perforating veins or abno rmal accessory veins identified. IMPRESSION: CONCLUSION: 1. No deep venous thrombosis of either l ower extremity. Incompetent right common femoral, profunda femoral and proximal femoral veins. Incompetent left proximal and mid femoral veins. 2. RIGHT LEG: No evidence of superficial venous incompetency. 3. LEFT LEG: No evidence of superficial venous incompetency. Mirtha Fernandes MD IMG US ORDERABLES documented in this encounter Visit Diagnoses Diagnosis Other specified soft tissue disorders Lymphedema, not elsewhere classified Other lymphedema Scar conditions and fibrosis of skin Scar condition and fibrosis of skin Venous insufficiency (chronic) (peripher al) Unspecified venous (peripheral) insuffic iency documented in this encounter Care Teams Civil Laboratory Technician Relationship Specialty Start Date End Date Catrina Sue MD PCP - General Family Practice 06/05/[address] [place] [address] Catrina Sue MD Assigned PCP 03/28/[address] [place] [address] Catrina Sue MD Assigned PCP 09/11/19 03/27/[address] [place] [address] documented as of this encounter
--- OUTSIDE RECORDS SUMMARY | 2022-02-27 08:12 | XMS_ITS | Encounter Summary ---
:1955 Author Organization [place] Address [address] [place] [address] Care Team Providers Name Role Phone Catrina Sue MD Primary Care Provider Catrina Sue MD Unavailable Catrina Sue MD Unavailable Encounter Details Date Type Department Care Team Description 05/03/2018 [facility] [address] [phone] Social History Tobacco Use Types Packs/Day Years [...] with No / Unsure 06/15/2020 9:20 AM WEB PRESSMAN someone who was confirmed or suspected to have Coronavirus / COVID-19? documented as of this encounter Plan of Treatment Not on filedocumented as of this encounter Visit Diagnoses Diagnosis Swelling Edema documented in this encounter Care Teams Delivery Agent Relationship Specialty Start Date End Date Catrina Sue MD PCP - General Family Practice 06/05/[address] [place] [address] Catrina Sue MD Assigned PCP 03/28/[address] [place] [address] Catrina Sue MD Assigned PCP 09/11/19 03/27/[address] [place] [address] documented as of this encounter
--- OUTSIDE RECORDS SUMMARY | 2022-02-27 08:12 | XMS_ITS | Encounter Summary ---
:1955 Author Organization [place] Address [address] [place] [address] Care Team Providers Name Role Phone Ctarina Sue MD Primary Care Provider Catrina Sue MD Unavailable Catrina Sue MD Unavailable Encounter Details Date Type Department Care Team Description [facility] [address] [place] [phone] Social History Tobacco Use Types Packs/Day Years [...] with No / Unsure 06/15/2020 9:20 AM FRONT LINE SUPERVISOR someone who was confirmed or suspected to have Coronavirus / COVID-19? documented as of this encounter Plan of Treatment Not on filedocumented as of this encounter Visit Diagnoses Not on filedocumented in this encounter Care Teams Loan Operations Manager Relationship Specialty Start Date End Date Catrina Sue MD PCP - General Family Practice 06/05/[address] [place] [address] Catrina Sue MD Assigned PCP 03/28/[address] [place] [address] Catrina Sue MD Assigned PCP 09/11/19 03/27/[address] [place] [address] documented as of this encounter
--- OUTSIDE RECORDS SUMMARY | 2022-02-27 08:12 | XMS_ITS | Encounter Summary ---
:1955 Author Organization [place] Address [address] [place] [address] Care Team Providers Name Role Phone Catrina Sue MD Primary Care Provider Catrina Sue MD Unavailable Catrina Sue MD Unavailable Encounter Details Date Type Department Care Team Description 11/29/2017 Ambulatory - [facility] [address] [phone] Social History Tobacco Use Types Packs/Day Years [...] with No / Unsure 06/15/2020 9:20 AM FILLER LEAF CUTTER LONG someone who was confirmed or suspected to have Coronavirus / COVID-19? documented as of this encounter Plan of Treatment Not on filedocumented as of this encounter Visit Diagnoses Not on filedocumented in this encounter Care Teams Aviation Electrical Technician Relationship Specialty Start Date End Date Catrina Sue MD PCP - General Family Practice 06/05/[address] [place] [address] Catrina Sue MD Assigned PCP 03/28/[address] [place] [address] Catrina Sue MD Assigned PCP 09/11/19 03/27/[address] [place] [address] documented as of this encounter
--- OUTSIDE RECORDS SUMMARY | 2022-02-27 08:12 | XMS_ITS | Encounter Summary ---
:1955 Author Organization [place] Address [address] [place] [address] Care Team Providers Name Role Phone Catrina Sue MD Primary Care Provider Reason for Visit Reason Onset Date Comments Results 02/09/2017 Encounter Details Date Type Department Care Team Description 02/09/2017 Telephone [facility] Catrina Sweet MD Results [address] [facility]. [address] [place] [address] [place] [address] [place] [address] [phone] (Wo rk) Social History Tobacco Use Types Packs/Day Years Used Date Smoking Tobacco: Former Cigarettes Quit : 02/01/1977 Alcohol Use Standard Drinks/Week Comments Yes 1 [...] this encounter Miscellaneous Notes Telephone Encounter - Huyen Jones RN - 02/09/2017 9:59 AM CDT Notes Recorded by Jacky Gamez CMA on 02/09/2017 at 9:22 AM Called pt with results. ---CThao, CHIEF OF ANESTHESIOLOGY Reviewed and is completed. Telephone Encounter - Lucero Pascual - 02/09/2017 9:14 AM CDT [facility] Family Medicine phone call message- general phone call: Reason for call: Returning Alix's call from yesterday regarding results. Please call patient. Return call needed: YesOK to leave a message on voice mail? Yes Primary language: Barbadian Resident Services Coordinator needed? No Call taken on February 09, 2017 at 9:14 AM by Lucero Pascual documented in this encounter Plan of Treatment Not on filedocumented as of this encounter Visit Diagnoses Not on filedocumented in this encounter Care Teams Furniture Restorer Relationship Specialty Start Date End Date Catrina Sue MD PCP - General Family Practice 06/05/[address] [place] [address] documented as of this encounter
--- OUTSIDE RECORDS SUMMARY | 2022-02-27 08:12 | XMS_ITS | Encounter Summary ---
:1955 Author Organization [place] Address [address] [place] [address] Care Team Providers Name Role Phone Catrina Sue MD Primary Care Provider Catrina Sue MD Unavailable Catrina Sue MD Unavailable Encounter Details Date Type Department Care Team Description 11/29/2017 Ambulatory - [facility] [address] [phone] Social History Tobacco Use Types Packs/Day [...] with No / Unsure 06/15/2020 9:20 AM RN RELIEF CHARGE someone who was confirmed or suspected to have Coronavirus / COVID-19? documented as of this encounter Plan of Treatment Not on filedocumented as of this encounter Visit Diagnoses Not on filedocumented in this encounter Care Teams Coring Machine Operator Relationship Specialty Start Date End Date Catrina Sue MD PCP - General Family Practice 06/05/[address] [place] [address] Catrina Sue MD Assigned PCP 03/28/[address] [place] [address] Catrina Sue MD Assigned PCP 09/11/19 03/27/[address] [place] [address] documented as of this encounter
--- OUTSIDE RECORDS SUMMARY | 2022-02-27 08:12 | XMS_ITS | Encounter Summary ---
:1955 Author Organization [place] Address [address] [place] [address] Care Team Providers Name Role Phone Catrina Sue MD Primary Care Provider Catrina Sue MD Unavailable Catrina Sue MD Unavailable Encounter Details Date Type Department Care Team Description 05/02/2018 Records - [facility] CONVERSION ProviderRaymond Social History Tobacco Use Types Packs/Day Years [...] with No / Unsure 06/15/2020 9:20 AM PHOTOGRAPHIC COLORIST someone who was confirmed or suspected to have Coronavirus / COVID-19? documented as of this encounter Plan of Treatment Not on filedocumented as of this encounter Procedures Procedure Name Priority Date/Time Associated Diagnosis Comme nts CT IMAGING - HIM SCAN 05/02/2018 documented in this encounter Results CT IMAGING - HIM SCAN (05/02/2018) Anatomical Region Laterality Modality Computed Tomography Specimen (Source) Anatomical Location Collection Method / Collectio n Time Received Time / Laterality Volume Narrative This result has an attachment that is no t available. Historical Provider IMG CT ORDERABLES documented in this encounter Visit Diagnoses Not on filedocumented in this encounter Care Teams Wound Treatment Rn Relationship Specialty Start Date End Date Catrina Sue MD PCP - General Family Practice 06/05/[address] [place] [address] Catrina Sue MD Assigned PCP 03/28/[address] [place] [address] Catrina Sue MD Assigned PCP 09/11/19 03/27/[address] [place] [address] documented as of this encounter
--- OUTSIDE RECORDS SUMMARY | 2022-02-27 08:12 | XMS_ITS | Encounter Summary ---
:1955 Author Organization [place] Address [address] [place] [address] Care Team Providers Name Role Phone Catrina Sue MD Primary Care Provider Catrina Sue MD Unavailable Catrina Sue MD Unavailable Encounter Details Date Type Department Care Team Description 05/06/2018 Communication - [facility] Emmy Robledo, [facility] [address] [phone] Social History Tobacco Use Types [...] with No / Unsure 06/15/2020 9:20 AM DRIVER MATERIAL HANDLER someone who was confirmed or suspected to have Coronavirus / COVID-19? documented as of this encounter Miscellaneous Notes Telephone Encounter - Emmy Coleman RN - 05/06/2018 10:32 AM CST Patient has been notified, appt with MD Martin is scheduled ER MATERIAL HANDLER Telephone Encounter - Emmy Coleman RN - 05/06/2018 10:32 AM CST ----- Message from Mirtha Fernandes MD sent at 05/06/2018 10:29 AM DRIVER MATERIAL HANDLER ----- Regarding: RE: MD Martin's response to ct Thank you. Let patient know. ----- Message ----- From: Emmy Coleman RN Sent: 05/03/2018 9:10 AM To: Mirtha Fernandes MD, Emmy Coleman RN Subject: MD Martin's response to ct MD Martin reviewed the CT findings as you requested on 05/03/17, his response was as follows - normalanatomic /no clinical significant if bilateral swelling. If left sided swelling is greater than the right side, then it is clinically significant. He DOES want to see the patient. I have sent in a referral for a [facility] MD to see the patient. Please let me know if there is anything else I need to do. Emmy Coleman ER MATERIAL HANDLER documented in this encounter Plan of Treatment Not on filedocumented as of this encounter Visit Diagnoses Not on filedocumented in this encounter Care Teams Workers Compensation Claims Assistant Relationship Specialty Start Date End Date Catrina Sue MD PCP - General Family Practice 06/05/[address] [place] [address] Catrina Sue MD Assigned PCP 03/28/[address] [place] [address] Catrina Sue MD Assigned PCP 09/11/19 03/27/[address] [place] [address] documented as of this encounter
--- OUTSIDE RECORDS SUMMARY | 2022-02-27 08:12 | XMS_ITS | Encounter Summary ---
:1955 Author Organization [place] Address [address] [place] [address] Care Team Providers Name Role Phone Catrina Sue MD Primary Care Provider Reason for Visit Reason Onset Date Comments Refill Request 12/05/2017 Encounter Details Date Type Department Care Team Description 12/05/2017 Refill [facility] Catrina Sue MD Refill Request [facility] [address] [address] [place], [place] [phone] (Wo rk) Social History Tobacco Use Types [...] Telephone Encounter - Catrina Sue MD - 12/05/2017 4:35 PM CDT Reviewed and approved documented in this encounter Plan of Treatment Not on filedocumented as of this encounter Visit Diagnoses Diagnosis Major depressive disorder, recurrent epi sode, mild (H) Major depressive disorder, recurrent epi sode, mild documented in this encounter Care Teams Tile Mechanic Helper Relationship Specialty Start Date End Date Catrina Sue MD PCP - General Family Practice 06/05/[address] [place] [address] documented as of this encounter
--- OUTSIDE RECORDS SUMMARY | 2022-02-27 08:12 | XMS_ITS | Encounter Summary ---
:1955 Author Organization [place] Address [address] [place] [address] Care Team Providers Name Role Phone Catrina Sue MD Primary Care Provider Catrina Sue MD Unavailable Catrina Sue MD Unavailable Encounter Details Date Type Department Care Team Description 10/17/2017 [facility] Catrina Fitzgerald [facility] MD [facility] [place] [address] [place], [place] [phone] (Wo rk) [phone] Social History Tobacco Use Types Packs/Day Years [...] with No / Unsure 06/15/2020 9:20 AM DIRECTOR OF OUTPATIENT SERVICES someone who was confirmed or suspected to have Coronavirus / COVID-19? documented as of this encounter Plan of Treatment Not on filedocumented as of this encounter Visit Diagnoses Diagnosis Lymphedema Other lymphedema documented in this encounter Care Teams Store Host Relationship Specialty Start Date End Date Catrina Sue MD PCP - General Family Practice 06/05/[address] [place] [address] Catrina Sue MD Assigned PCP 03/28/[address] [place] [address] Catrina Sue MD Assigned PCP 09/11/19 03/27/[address] [place] [address] documented as of this encounter
--- OUTSIDE RECORDS SUMMARY | 2022-02-27 08:12 | XMS_ITS | Encounter Summary ---
:1955 Author Organization [place] Address [address] [place] [address] Care Team Providers Name Role Phone Catrina Sue MD Primary Care Provider Reason for Visit Reason Onset Date Comments Call Back 06/07/2018 Encounter Details Date Type Department Care Team Description 06/07/2018 Telephone [facility] Catrina Sweet MD Call Back [facility]. [address] [place] [address] [place], [place] [phone] (Wo rk) Social History Tobacco Use Types [...] Telephone Encounter - Jacky Gamez CMA - 06/10/2018 2:28 PM CST Called and infusion appt taken care of and scheduled. ~ Jacky Gillespie CMA (Chrissi) CIL MACHINE OPERATOR Telephone Encounter - Deandra Ponce - 06/07/2018 10:30 AM CST [facility] Family Medicine phone call message- general phone call: Reason for call: Patient stated she would like a return call from Alix regarding a pre authorization for infusion. She states Alix knows what she is talking about. Please call and advise. Return call needed: Yes OK to leave a message on voice mail? Yes Primary language: Hong Konger Drawing Checker needed? No Call taken on June 07, 2018 at 10:30 AM by Deandra Ponce CIL MACHINE OPERATOR documented in this encounter Plan of Treatment Not on filedocumented as of this encounter Visit Diagnoses Not on filedocumented in this encounter Care Teams Mat Roller Relationship Specialty Start Date End Date Catrina Sue MD PCP - General Family Practice 06/05/[address] [place] [address] documented as of this encounter
--- OUTSIDE RECORDS SUMMARY | 2022-02-27 08:12 | XMS_ITS | Encounter Summary ---
:1955 Author Organization [place] Address [facility] [place] [address] Care Team Providers Name Role Phone Catrina Sue MD Primary Care Provider Catrina Sue MD Unavailable Catrina Sue MD Unavailable Reason for Visit Reason Comments Advice Only Encounter Details Date Type Department Care Team Description 05/10/2018 Office Visit - [facility] Jonatan Martin Venous insufficiency of both lower extremities; [facility] MD Eliecer Swelling; [place] [address] Age-related osteoporosis wit hout current pathological fracture [address] [place] [address] [place], [place] [phone] (Work) [phone] Social History Tobacco Use Types Packs/Day Years [...] with No / Unsure 06/15/2020 9:20 AM 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 documented as of this encounter Last Filed Vital Signs Vital Sign Reading Time Taken Comments Blood Pressure - - Pulse - - Temperature - - Respiratory Rate - - Oxygen Saturation - - Inhaled Oxygen Concentration - - Weight 63 kg (139 lb) 05/10/2018 1:36 PM ENGINE BUILDUP MECHANIC Height 172.7 cm (5' 8) 05/10/2018 1:36 PM ENGINE BUILDUP MECHANIC Body Mass Index 21.13 05/10/2018 1:36 PM ENGINE BUILDUP MECHANIC documented in this encounter Progress Notes Clari Lizarraga MA - 05/10/2018 1:40 PM CST CONSULT. Left leg swelling, per MD Fontenot request. US venous insufficiency and CT abdomen pelviswith contrast completed. Left iliac compression by right iliac vein-mild. Pain in Left side of pelvis NE BUILDUP MECHANIC Jonatan Martin MD - 05/10/2018 1:40 PM CST Mrs. Soto is a 62-year-old female who we have been asked to evaluate for possible May Thurner syndrome. Patient has had bilateral lower extremity swelling for over a year. Left is worse than rightbut not by much. She does not report any venous claudication. She has had vein stripping in both lower extremities for varicose veins. He has never had deep venous thrombosis. She also recalls having had episodes of phlebitis in the left lower extremity after the of her 2 sons who are adults now. Past medical history is notable for esophageal reflux, hypothyroidism, actinic keratosis, right shoulder impingement, osteoarthritis, left lower extremity swelling and lymphedema. Past surgical history is positive for patellar tendon repair and tubal ligation. 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 He does not smoke and occasionally consumes alcohol. Her father also had multiple problems with heart disease and underwent coronary artery bypass grafting and subsequently due to complications of heart failure. Review of systems is as noted in history of presenting illness otherwise negative. On examination: He appears comfortable and she is in no acute distress. Vital signs are reviewed. HEENT: Head is atraumatic and normocephalic, mucosa pink. Eyes: Extraocular motions are intact, sclerae are anicteric. Mental: Alert and oriented x4, judgment and insight are good. Cardiac: Regular rate and rhythm, S1 plus S2 +0. Chest: Clear to auscultation bilaterally. Abdomen: Soft and nontender. Extremities: Mild lower extremity edema. Imaging data: I reviewed the recent ultrasonography as well as a CT scan of the abdomen and pelvis. There is the usual anatomical arrangement of the left common iliac vein passing behind the right common iliac artery on its way to make that the confluence of the right common iliac vein and hence the inferior vena cava. Diagnosis: Bilateral lower extremity swelling. Plan: I explained to her that this is the normal arrangement of the arterial and venous system in our systems. Findings alone of left common iliac vein being slightly compressed by the right common iliac artery does not constitute May Thurner syndrome and does not warrant further workup or treatment. She does not have any symptoms of venous claudication in all the more reason that she does not have classic May Thurner physiology. I have plentifully reassured her. She can follow-up on a as needed basis. NE BUILDUP MECHANIC documented in this encounter Miscellaneous Notes Letter - Historical Provider - 10/07/2020 3:47 AM CDT Letter by Jonatan Martin MD at Author: Jonatan Martin MD Service: -- Author Type: -- Filed: Encounter Date: 05/10/2018 Status: (Other) Catrina Sue MD [address] [facility] [address] May 10, 2018 Patient: Janet Soto MR Number: [id number] Date of : 1955 Date of Visit: 05/10/[address] Vikram MD: Thank you for referring Janet oSto to me for evaluation. Below are the relevant portions of my assessment and plan of care. If you have questions, please do not hesitate to call me. I look forward to following Janet along with you. Sincerely, Jonatan Martin MD MD Mario Varner Kamran M, MD 05/10/2018 2:01 PM Sign at close encounter Mrs. Soto is a 62-year-old female who we have been asked to evaluate for possible May Thurner syndrome. Patient has had bilateral lower extremity swelling for over a year. Left is worse than rightbut not by much. She does not report any venous claudication. She has had vein stripping in both lower extremities for varicose veins. He has never had deep venous thrombosis. She also recalls having had episodes of phlebitis in the left lower extremity after the of her 2 sons who are adults now. Past medical history is notable for esophageal reflux, hypothyroidism, actinic keratosis, right shoulder impingement, osteoarthritis, left lower extremity swelling and lymphedema. Past surgical history is positive for patellar tendon repair and tubal ligation. 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 He does not smoke and occasionally consumes alcohol. Her father also had multiple problems with heart disease and underwent coronary artery bypass grafting and subsequently due to complications of heart failure. Review of systems is as noted in history of presenting illness otherwise negative. On examination: He appears comfortable and she is in no acute distress. Vital signs are reviewed. HEENT: Head is atraumatic and normocephalic, mucosa pink. Eyes: Extraocular motions are intact, sclerae are anicteric. Mental: Alert and oriented x4, judgment and insight are good. Cardiac: Regular rate and rhythm, S1 plus S2 +0. Chest: Clear to auscultation bilaterally. Abdomen: Soft and nontender. Extremities: Mild lower extremity edema. Imaging data: I reviewed the recent ultrasonography as well as a CT scan of the abdomen and pelvis. There is the usual anatomical arrangement of the left common iliac vein passing behind the right common iliac artery on its way to make that the confluence of the right common iliac vein and hence the inferior vena cava. Diagnosis: Bilateral lower extremity swelling. Plan: I explained to her that this is the normal arrangement of the arterial and venous system in our systems. Findings alone of left common iliac vein being slightly compressed by the right common iliac artery does not constitute May Thurner syndrome and does not warrant further workup or treatment. She does not have any symptoms of venous claudication in all the more reason that she does not have classic May Thurner physiology. I have plentifully reassured her. She can follow-up on a as needed basis. Clari Lizarraga CMA 05/10/2018 1:38 PM Sign at close encounter CONSULT. Left leg swelling, per MD Fontenot request. US venous insufficiency and CT abdomen pelviswith contrast completed. Left iliac compression by right iliac vein-mild. Pain in Left side of pelvis NE BUILDUP MECHANIC Addendum Note - Reynaldo Xavier PharmD - 05/10/2018 1:40 PM CST Addendum Note by Reynaldo Xavier RPh at 05/10/2018 1:40 PM Author: Reynaldo Xavier RPh Service: -- Author Type: Pharmacist Filed: 05/29/2018 4:12 PM Encounter Date: 05/10/2018 Status: Signed Pewter Caster: Reynaldo Xavier RPh (Pharmacist) Addended by: REYNALDO XAVIER on: 05/29/2018 04:12 PM Modules accepted: Orders NE BUILDUP MECHANIC documented in this encounter Plan of Treatment Not on filedocumented as of this encounter Visit Diagnoses Diagnosis Venous insufficiency of both lower extre mities Swelling Edema Age-related osteoporosis without current pathological fracture Senile osteoporosis documented in this encounter Care Teams Cotton Opener Relationship Specialty Start Date End Date Catrina Sue MD PCP - General Family Practice 06/05/[address] [place] [id number] Catrina Sue MD Assigned PCP 03/28/[address] [place] [address] Catrina Sue MD Assigned PCP 09/11/19 03/27/[address] [place] [address] (work) documented as of this encounter
--- OUTSIDE RECORDS SUMMARY | 2022-02-27 08:12 | XMS_ITS | Encounter Summary ---
:1955 Author Organization [place] Address [address] [place] [address] Care Team Providers Name Role Phone Catrina Sue MD Primary Care Provider Catrina Sue MD Unavailable Catrina Sue MD Unavailable Encounter Details Date Type Department Care Team Description 05/24/2018 Records - [facility] CONVERSION Provider, Raymond serna Social History Tobacco Use Types Packs/Day Years [...] with No / Unsure 06/15/2020 9:20 AM TRACTOR ENGINE MECHANIC someone who was confirmed or suspected to have Coronavirus / COVID-19? documented as of this encounter Plan of Treatment Not on filedocumented as of this encounter Procedures Procedure Name Priority Date/Time Associated Diagnosis Comme nts LAB RESULT - HIM SCAN 05/24/2018 documented in this encounter Results LAB RESULT - HIM SCAN (05/24/2018) Narrative This result has an attachment that is no t available. Historical Provider MH NON-BEAKER LAB TESTING documented in this encounter Visit Diagnoses Not on filedocumented in this encounter Care Teams Dehydrogenation Converter Operator Relationship Specialty Start Date End Date Catrina Sue MD PCP - General Family Practice 06/05/[address] [place] [address] Catrina Sue MD Assigned PCP 03/28/[address] [place] [address] Catrina Sue MD Assigned PCP 09/11/19 03/27/[address] [place] [address] documented as of this encounter
--- OUTSIDE RECORDS SUMMARY | 2022-02-27 08:12 | XMS_ITS | Encounter Summary ---
:1955 Author Organization [place] Address [address] [place] [address] Care Team Providers Name Role Phone Catrina Pearce MD Primary Care Provider Reason for Referral Diagnostic Imaging Dexa - Closed Specialty Diagnoses / Procedures Referred By Contact Refer red To Contact Diagnoses Screening for condition Catrina Pearce MD Procedures DX Hip/Pelvis/Spine [address] [place] [address] Referral ID Status Reason Start Date Expiration Date Visits Requ ested Visits Authorized [id number] Closed 03/05/2018 03/05/2019 1 1 OCOL MANAGER Reason for Visit Reason Comments Thyroid Disease f/u thyroid and blood work Medication Reconciliation need attention, she is not o n two meds, please double check and see if ok to d.c Handicap form renew handicap form Encounter Details Date Type Department Care Team Description 03/05/2018 Office Visit Catrina Rodriguez Hypothyro idism due to acquired atrophy of thyroid (Primary Dx); Clinic MD Kilo Screening for condition; [address] [facility]. [address] [place] Primary osteoarthritis [place] [address] [address] [phone] [place], [place] [address] Social History Tobacco Use Types Packs/Day Years [...] Sign Reading Time Taken Comments Blood Pressure 109/70 03/05/2018 9:58 AM PROTOCOL MANAGER Pulse 87 03/05/2018 9:58 AM PROTOCOL MANAGER Temperature 37 ??C (98.6 ??F) 03/05/2018 9:58 AM PROTOCOL MANAGER Respiratory Rate 16 03/05/2018 9:58 AM PROTOCOL MANAGER Oxygen Saturation 95% 03/05/2018 9:58 AM PROTOCOL MANAGER Inhaled Oxygen Concentration - - Weight 62.5 kg (137 lb 12.8 oz) 03/05/2018 9:58 AM PROTOCOL MANAGER Height 171.5 cm (5' 7.5) 03/05/2018 9:58 AM PROTOCOL MANAGER Body Mass Index 21.26 03/05/2018 9:58 AM PROTOCOL MANAGER documented in this encounter Patient Instructions Patient InstructionsNate Pascual RMA - 03/05/2018 9:40 AM CST ~Follow up 1 year ~DEXA Your medication list is printed, please keep this with you, it is helpful to bring this current listto any other medical appointments, the emergency room or hospital. If you had lab testing today and your results are reassuring or normal they will be be mailed to youwithin 7 days. If the lab tests need quick action we will call you with the results. The phone number we will call with results is # [phone] (home) . If this is not the best number please call our clinic and change the number. If you need any refills please call your pharmacy and they will contact us. If you have any further concerns or wish to schedule another appointment you must call our office during normal business hours [phone] (8-5:00 M-F) If you have urgent medical questions that cannot wait you may also call [phone] at any time of day. If you have a medical emergency please call 911. Thank you for coming to [facility]. Referral for ( TEST ) : Dexa Scan LOCATION/PLACE/Provider : [facility] [address] [place], [place] DATE & TIME : 04-30-2018 at 10:00am PHONE : [phone] FAX : [phone] Appointment made by clinic staff/production scheduler: Latosha OCOL MANAGER documented in this encounter Progress Notes Jacky Gamez CMA - 03/07/2018 2:17 PM CST Called pt with results. Included NEG hiv and hep c results. ---CTTITI barnhart OCOL MANAGER Catrina Pearce MD - 03/06/2018 2:14 PM CST Call patient: Thyroid dose is too high. I faxed in a new pill strength: 75 micrograms daily (was 88) so just a slight reduction. You can finish up any remaining 88 mcg but then switch and transition to the 75 mcg pill size. We should recheck your TSH sometime after April. Can come in for a lab only visit. OCOL MANAGER Catrina Pearce MD - 03/05/2018 9:40 AM CST SUBJECTIVE: Patient presents with: Thyroid Disease: f/u thyroid and blood work Medication Reconciliation: need attention, she is not on two meds, please double check and see if okto d.c Handicap form: renew handicap form 1. Thyroid -feeling fine, no issues that she is aware of 2.Lymphedema -planning, ultrasound and CT of pelvis to evaluate -workup planned in April 25. Arthritis and osteopenia: Due for DEXA, with ice, and risk of fall and injury has [facility] parking ROS: GEN: no weight gain/loss LUNGS: no dyspnea, wheeze, cough COR: no chest pain, palpitations, PND GI: constipation OBJECTIVE: BP 109/70 Pulse 87 Temp 98.6 ??F (37 ??C) (Oral) Resp 16 Ht 5' 7.5 (171.5 cm) Wt 137 lb 12.8 oz (62.5 kg) SpO2 95% BMI 21.26 kg/m2 Gen: alert, oriented X 3, no acute distress, no sign of discomfort LUNGS: CTAB, no wheezing, no rales, no crackles, no accessory muscle use COR: normal rate, regular rhythm and no murmurs, clicks, or gallops Patellar reflexes 2/4 bilat. ASSESSMENT/PLAN: (E03.4) Hypothyroidism due to acquired atrophy of thyroid (primary encounter diagnosis) Comment: appears clinically euthyroid Plan: TSH Sensitive ([employer]) Adjust if needed (Z13.9) Screening for condition Comment: agrees Plan: Hepatitis C Antibody ([employer]), HIV Ag/Ab Screen Piatt ([employer]) (M15.0) Primary osteoarthritis involving multiple joints Comment: completed handicap permit until July Plan: DX Hip/Pelvis/Spine Agrees to routine screening OCOL MANAGER documented in this encounter Miscellaneous Notes Addendum Note - Catrina Pearce MD - 03/06/2018 2:15 PM PROTOCOL MANAGER Addended by: CATRINA PEARCE on: 03/06/2018 02:15 PM Modules accepted: Orders OCOL MANAGER Addendum Note - Catrina Pearce MD - 03/06/2018 2:13 PM PROTOCOL MANAGER Addended by: CATRINA PEARCE on: 03/06/2018 02:13 PM Modules accepted: Orders OCOL MANAGER Result Encounter Note - Catrina Pearce MD - 03/05/2018 9:40 AM PROTOCOL MANAGER Call patient: Your bone density results show osteoporosis with a tscore down to -3.6. Please come in so we can discuss the results and medication options for osteoporosis. OCOL MANAGER Result Encounter Note - Jacky Gamez CMA - 03/05/2018 9:40 AM CST Called patient w/results. Appt f/u scheduled for 05.24.2018 with PCP ~ Jacky Gillespie CMA ([place]) OCOL MANAGER documented in this encounter Plan of Treatment Not on filedocumented as of this encounter Procedures Procedure Name Priority Date/Time Associated Diagnosis Comme nts DX Routine 04/30/2018 Screening for condition Resu lts for this HIP/PELVIS/SPINE procedure a re in the results section. HIV AG/AB SCREEN Routine 03/05/2018 9:58 AM Screening for cond ition Results for this CASCADE PROTOCOL MANAGER procedure are i n ([employer]) the results section. HEPATITIS C Routine 03/05/2018 9:58 AM Screening for conditio n Results for this ANTIBODY PROTOCOL MANAGER procedure are i n ([employer]) the results section. TSH SENSITIVE Routine 03/05/2018 9:58 AM Hypothyroidism due to Results for this ([employer]) PROTOCOL MANAGER acquired atrophy of procedur e are in thyroid the results section. documented in this encounter Results (ABNORMAL) TSH Sensitive ([employer]) (04/30/2018 8:49 AM PROTOCOL MANAGER) P athologist Signature TSH 5.13 (H) 0.30 - 5.00 [facility] uIU/mL LAB Specimen (Source) Anatomical Collection Method Collection Time Re ceived Time Location / / Volume Laterality Blood specimen VENOUS BLOOD / 04/30/2018 8:49 AM (specimen) Unknown PROTOCOL MANAGER Narrative [facility] - 04/30/2018 4:15 PM CS T Test performed by: [facility] [address] [place] [id number] Catrina Pearce MD [facility] Performing Organization Address City/State/ZIP Code Phon e Number [facility] DX Hip/Pelvis/Spine (04/30/2018) Anatomical Region Laterality Modality Dexa Other Narrative This result has an attachment that is no t available. Catrina Pearce MD IMG DEXA ORDERABLES HIV Ag/Ab Screen [place] ([facility]) (03/05/2018 9:58 AM PROTOCOL MANAGER) athologist Signature HIV Negative Negative [facility] dy Specimen (Source) Anatomical Collection Method Collection Time Re ceived Time Location / / Volume Laterality Blood specimen VENOUS BLOOD / 03/05/2018 9:58 AM (specimen) Unknown PROTOCOL MANAGER Narrative [facility] - 03/05/2018 5:06 PM CS T Test performed by: [facility] [address] [place] [id number] Method is [employer] HIV Ag/Ab for the detec tion of HIV p24 antigen, HIV-1 antibodies and HIV-2 antibodies. Catrina Pearce MD [facility] Performing Organization Address City/[facility] Phon e Number [facility] Hepatitis C Antibody ([facility]) (03/05/2018 9:58 AM PROTOCOL MANAGER) athologist Signature Hepatitis C Negative Negative [facility] Antib[facility] LAB Screen Specimen (Source) Anatomical Collection Method Collection Time Re ceived Time Location / / Volume Laterality Blood specimen VENOUS BLOOD / 03/05/2018 9:58 AM (specimen) Unknown PROTOCOL MANAGER Narrative [facility] - 03/06/2018 9:51 AM CS T Test performed by: [facility] [address] [place] [id number] Catrina Pearce MD [facility] Performing Organization Address City/[facility]/ZIP [facility] Phon e Number [facility] (ABNORMAL) TSH Sensitive ([facility]) (03/05/2018 9:58 AM PROTOCOL MANAGER) athologist Signature TSH 0.23 (L) 0.30 - 5.00 [facility] uIU/mL LAB Specimen (Source) Anatomical Collection Method Collection Time Re ceived Time Location / / Volume Laterality Blood specimen VENOUS BLOOD / 03/05/2018 9:58 AM (specimen) Unknown PROTOCOL MANAGER Narrative [facility] - 03/05/2018 7:53 PM CS T Test performed by: [facility] [address] [place] [phone] Catrina Pearce MD [facility] Performing Organization Address City/[facility] Phon e Number [facility] documented in this encounter Visit Diagnoses Diagnosis Hypothyroidism due to acquired atrophy o f thyroid - Primary Screening for condition Screening for unspecified condition Primary osteoarthritis involving multipl e joints Hypothyroidism due to acquired atrophy o f thyroid documented in this encounter Care Teams Investment Associate Relationship Specialty Start Date End Date Catrina Pearce MD PCP - General Family Practice 06/05/[address] [place] [id number] documented as of this encounter
--- OUTSIDE RECORDS SUMMARY | 2022-02-27 08:12 | XMS_ITS | Encounter Summary ---
:1955 Author Organization [place] Address [address] [place] [address] Care Team Providers Name Role Phone Catrina Sue MD Primary Care Provider Encounter Details Date Type Department Care Team Description 06/17/2018 Documentation Only [place] Yessenia Bradley [address] [facility] [address] [place] [address] Social History Tobacco Use Types Packs/Day Years [...] on filedocumented in this encounter Care Teams Legal Compliance Officer Relationship Specialty Start Date End Date Catrina Sue MD PCP - General Family Practice 06/05/[address] [place] [id number] documented as of this encounter
--- OUTSIDE RECORDS SUMMARY | 2022-02-27 08:12 | XMS_ITS | Encounter Summary ---
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 documented as of this encounter Plan of Treatment Not on filedocumented as of this encounter Visit Diagnoses Not on filedocumented in this encounter Care Teams Transportation Security Officer Relationship Specialty Start Date End Date Catrina Sue MD PCP - General Family Practice 2/13/[address] [place] [address] Catrina Sue MD Assigned PCP 03/28/[address] [place] [address] Catrina Sue MD Assigned PCP 09/11/19 03/27/[address] [place] [address] documented as of this encounter
--- OUTSIDE RECORDS SUMMARY | 2022-02-27 08:12 | XMS_ITS | Encounter Summary ---
:1955 Author Organization [facility] Address [address] [place] [address] Care Team Providers Name Role Phone Catrina Sue MD Primary Care Provider Catrina Sue MD Unavailable Catrina Sue MD Unavailable Reason for Visit Reason Comments Infusion Encounter Details Date Type Department Care Team Description 06/17/2018 Infusion - [facility] Provider, [place] gerardo [facility] Historical osteoporosis w [facility] current pathological [address] [place] [address] Social History Tobacco Use Types [...] with No / Unsure 06/15/2020 9:20 AM MEDICARE SALES EXECUTIVE someone who was confirmed or suspected to have Coronavirus / COVID-19? documented as of this encounter Last Filed Vital Signs Vital Sign Reading Time Taken Comments Blood Pressure - - Pulse - - Temperature - - Respiratory Rate - - Oxygen Saturation - - Inhaled Oxygen Concentration - - Weight 63 kg (139 lb) 06/17/2018 1:55 PM MEDICARE SALES EXECUTIVE Height 172.7 cm (5' 8) 06/17/2018 1:55 PM MEDICARE SALES EXECUTIVE Body Mass Index 21.13 06/17/2018 1:55 PM MEDICARE SALES EXECUTIVE documented in this encounter Progress Notes Sanjuana Poe RN - 06/17/2018 2:00 PM CST Pt arrived ambulatory at 14:00 and was seated in chair 12 - no I have not eaten much today. Most recent creat. is 0.83 on 05/24/18. IV was placed on third attempt (by two nurses) - flushed IV with NSeasily and maintained an excellent blood return - infused the first dose of zoledronic acid 5 mg over 20 minutes. The IV was flushed with NS 100 mls at completion, and patient was monitored. Educated the patient on the process of receiving Reclast, potential side effects, and frequency given. Patient verbalized understanding, and was given the package drug insert with side effects highlighted - patient was informed of osteonecrosis of the jaw. I go to the dentist this week, and will tell the [place] dentist then. Ate lunch and drank 350 mls of juice/water during the treatment. Post infusion AVS was given and explained to the patient. Left unit ambulatory at 15:40 in stable condition. Instructed to call with any questions or concerns. Sanjuana Poe RN CARE SALES EXECUTIVE documented in this encounter Miscellaneous Notes Patient Instructions - HE - Sanjuana Poe RN - 06/17/2018 2:[address] Catrina Sue -- [phone] 1st floor OP Infusion -- [phone] Call with any questions or concerns. (Patient was given the zoledronic acid drug insert for information regarding this medication.) CARE SALES EXECUTIVE documented in this encounter Plan of Treatment Not on filedocumented as of this encounter Visit Diagnoses Diagnosis Age-related osteoporosis without current pathological fracture Senile osteoporosis documented in this encounter Care Teams Portfolio Strategist Relationship Specialty Start Date End Date Catrina Sue MD PCP - General Family Practice 06/05/[address] [place] [address] Catrina Sue MD Assigned PCP 03/28/[address] [place] [address] Catrina Sue MD Assigned PCP 09/11/19 03/27/[address] [place] [id number] documented as of this encounter
--- OUTSIDE RECORDS SUMMARY | 2022-02-27 08:12 | XMS_ITS | Encounter Summary ---
:1955 Author Organization [facility] Address [address] [place] [address] Care Team Providers Name Role Phone Catrina Sue MD Primary Care Provider Reason for Referral Diagnostic Imaging Mammo (Routine) - Closed Specialty Diagnoses / Procedures Referred By Contact Refer red To Contact Procedures Catrina Sue MD Mammogram - HIM Scan [address] [place] [address] Referral ID Status Reason Start Date Expiration Date Visits Requ ested Visits Authorized [id number] Closed 09/03/2018 09/03/2019 1 1 - Closed Specialty Diagnoses / Procedures Referred By Contact Refer red To Contact Diagnoses Age-related osteoporosis without current pathological fracture Catrina Sue MD [address] [place] [address] Referral ID Status Reason Start Date Expiration Date Visits Requ ested Visits Authorized [id number] Closed 05/24/2018 05/24/2019 1 1 ING CUSTOMER SERVICE REPRESENTATIVE Reason for Visit Reason Comments Medication Reconciliation RECHECK Encounter Details Date Type Department Care Team Description 05/24/2018 Office Visit [facility] Catrina Licona Mild intermittent asthma wit hout complication (Primary Dx); [address] [facility] MD Kilo Age-related osteoporosis without current pathological fracture; [place] [address] [place] [address] Mild persistent asthma witho ut complication [phone] [place], [place] [address] Social History Tobacco Use Types Packs/Day Years [...] Sign Reading Time Taken Comments Blood Pressure 118/77 05/24/2018 1:50 PM BILLING CUSTOMER SERVICE REPRESENTATIVE Pulse 76 05/24/2018 1:50 PM BILLING CUSTOMER SERVICE REPRESENTATIVE Temperature 36.6 ??C (97.9 ??F) 05/24/2018 1:50 PM BILLING CUSTOMER SERVICE REPRESENTATIVE Respiratory Rate 18 05/24/2018 1:50 PM BILLING CUSTOMER SERVICE REPRESENTATIVE Oxygen Saturation 98% 05/24/2018 1:50 PM BILLING CUSTOMER SERVICE REPRESENTATIVE Inhaled Oxygen Concentration - - Weight 62.6 kg (138 lb) 05/24/2018 1:50 PM BILLING CUSTOMER SERVICE REPRESENTATIVE Height 172.7 cm (5' 8) 05/24/2018 1:50 PM BILLING CUSTOMER SERVICE REPRESENTATIVE Body Mass Index 20.98 05/24/2018 1:50 PM BILLING CUSTOMER SERVICE REPRESENTATIVE documented in this encounter Patient Instructions Patient InstructionsSmCatrina gaspar MD - 05/24/2018 2:00 PM CST My Asthma Action Plan Name: Janet Soto Date of : 1955 Date: 05/24/2018 My doctor: Catrina Sue My clinic: [address] [address] My Asthma Severity: mild persistent Avoid your asthma triggers: smoke, upper respiratory infectionsand animal dander GREEN ZONE Good Control ?? I feel good ?? No cough or wheeze ?? Can work, sleep and play without asthma symptoms You are not on any controlling medications. Most days no medication is needed 1. If exercise triggers your asthma, take [...] tight ?? Wake up at night 1. Keep taking your Green Zone medications. 2. Start taking your rescue medicine (1-2 puffs of albuterol - Ventolin/Pro-Air) every 4-6 hours as needed. 3. If symptoms are not controlled with above, can take 2 puffs every 20 minutes for up to 1 hour, then continue every 4 hours if needed. 4. If you do not return to the [...] follow-up treatment. Electronically signed by: Catrina Sue Annual Reminders: Meet with Nurse Ldr, Flu Shot in the Fall, Pneumonia Shot Pharmacy: [facility] [place], [place] - [address] [place] [address] [facility] - [address] Referral for HE Outpt Infusion along with OV note and labs faxed to the infusion center [phone] Patient will be contacted to schedule appointment. 06/07/2018: Called patient, appt has been scheduled for 06/17/2018 at 2:00pm at [facility] ~ Jacky Gillespie CMA ([place]) 06/20/2018: Forward message to provider to review notes in [facility] from [facility] ~ Jacky Gillespie CMA ([place]) ING CUSTOMER SERVICE REPRESENTATIVE documented in this encounter Progress Notes Catrina Sue MD - 05/24/2018 2:00 PM CST HPI: Janet Soto is a 63 year old female with a significant past medical history of arthritis and osteopenia who presents for follow up of concern(s) listed below 1. DEXA Tscore -3.3 Osteoporosis Risk Score/FRAX score Patient's 10-year risk of any fracture is 24%. Patient's 10-year risk of hip fracture is 10%. http://[email or web address].ac.uk/FRAX/ Reviewed scan with patient and reviewed FRAX score. Patient has some concerns about fracture risk and willing to try medications. Reviewed two options: bisphosphonates and parathyroid hormone based. Patient interested in 2. Asthma -doesn't use inhalers very much ACT 23, feels quite good, did visit kids and they had a cat -doesn't use any controller and doesn't use inhalers frequently ROS: GEN: no weight gain/loss LUNGS: no dyspnea, wheeze, cough COR: no chest pain, palpitations, PND PMHX: Patient Active Problem List Diagnosis ??? AK [...] ??? Age-related osteoporosis without current pathological fracture Current Outpatient Medications Medication Sig Dispense Refill ??? acyclovir (ZOVIRAX) 400 MG tablet Take 1 tablet (400 mg) by mouth 2 times daily 180 tablet 3 ??? albuterol (VENTOLIN HFA) 108 (90 BASE) MCG/ACT inhaler Inhale 2 puffs into the lungs every 6 hours. ??? citalopram (CELEXA) 10 MG tablet Take 1 tablet (10 mg) by mouth 2 times daily 180 tablet 3 ??? levothyroxine (SYNTHROID/LEVOTHROID) 75 MCG tablet Take 1 tablet (75 mcg) by mouth daily 90 tablet 3 ??? zoledronic Acid (RECLAST) 5 MG/100ML SOLN infusion Inject 100 mLs (5 mg) into the vein once for 1 dose 100 mL 0 Allergies Allergen Reactions ??? Cats ??? Horse Allergy No results found for this or any previous visit (from the past 24 hour(s)). Review of Systems: C: NEGATIVE for fatigue, unexpected change in weight R: NEGATIVE for significant cough or shortness of breath CV: NEGATIVE for chest pain, palpitations or new or worsening peripheral edema P: NEGATIVE for changes in mood or affect Physical Exam: Vitals: 05/24/18 1350 BP: 118/77 BP Location: Left arm Patient Position: Sitting Pulse: 76 Resp: 18 Temp: 97.9 ??F (36.6 ??C) TempSrc: Oral SpO2: 98% Weight: 62.6 kg (138 lb) Height: 1.727 m (5' 8) Body mass index is 20.98 kg/m??. GENERAL APPEARANCE: healthy, alert and no distress, RESP: lungs clear to auscultation - no rales, rhonchi or wheezes CV: regular rate and rhythm, and no murmur, click, rub or gallop Reviewed spirometry results at visit: Moderate obstruction noted. Decline since 2015. Assessment and Plan (J45.20) Mild intermittent asthma without complication (primary encounter diagnosis) Comment: recheck in one year, moderate obstruction Plan: Asthma Action Plan (AAP), Spirometry, Breathing Capacity Will change to non inhaler, and in one year repeat spirometry, sooner if any asthma symptoms worsen (M81.0) Age-related osteoporosis without current pathological fracture Comment: will try to increase calcium and vitamin D and start infusion Plan: [facility] Outpatient Infusion Order, zoledronic Acid (RECLAST) 5 MG/100ML SOLN Infusion -25 mins spent with pt >50% face to face counseling on above conditions. Options for treatment and follow-up care were reviewed with the patient and/or guardian. Janet Soto and/or guardian engaged in the decision making process and verbalized understanding of the options discussed and agreed with the final plan. Catrina Sue MD ING CUSTOMER SERVICE REPRESENTATIVE documented in this encounter Miscellaneous Notes Result Encounter Note - Catrina Sue MD - 05/24/2018 2:00 PM BILLING CUSTOMER SERVICE REPRESENTATIVE Call patient: normal, [facility] infusion will need the creatinine level ING CUSTOMER SERVICE REPRESENTATIVE Result Encounter Note - Jacky Gamez CMA - 05/24/2018 2:00 PM CST Called pt with results. Informed patient to let Infusion Center know of results in care everywhere. ---TITI Swanson ING CUSTOMER SERVICE REPRESENTATIVE Result Encounter Note - Catrina Sue MD - 05/24/2018 2:00 PM BILLING CUSTOMER SERVICE REPRESENTATIVE Informed at visit, Recheck in one year ING CUSTOMER SERVICE REPRESENTATIVE Result Encounter Note - Catrina Sue MD - 05/24/2018 2:00 PM BILLING CUSTOMER SERVICE REPRESENTATIVE Normal mammogram repeat in 2 years. documented in this encounter Plan of Treatment Not on filedocumented as of this encounter Procedures Procedure Name Priority Date/Time Associated Diagnosis Comme nts MAMMOGRAM - HIM Routine 09/03/2018 Results for this SCAN procedure are i n the results section. BASIC METABOLIC Routine 05/24/2018 2:48 PM Age-related Result s for this PROFILE BILLING CUSTOMER SERVICE REPRESENTATIVE osteoporosis without procedu re are in ([facility]) current pathological the res ults fracture section. ASTHMA ACTION PLAN Routine 05/24/2018 1:46 PM Mild intermitten t BILLING CUSTOMER SERVICE REPRESENTATIVE asthma without complication HC SPIROMETRY, Routine 05/24/2018 Mild intermittent Results for this BREATH CAPACITY asthma without procedure are in complication the results section. documented in this encounter Results Mammogram - HIM Scan (09/03/2018) Anatomical Region Laterality Modality Other Narrative This result has an attachment that is no t available. Patient Reported IMG MAMMOGRAPHY ORDERABLES Basic Metabolic Profile ([facility]) (05/24/2018 2:48 PM BILLING CUSTOMER SERVICE REPRESENTATIVE) athologist Signature Sodium 141 136 - 145 [facility] mmol/L LAB Potassium 4.4 3.5 - 5.0 [facility] mmol/L LAB Chloride 104 98 - 107 [facility] mmol/L LAB CO2, Total 25 22 - 31 [facility] mmol/L LAB Anion Gap 12 5 - 18 [facility] mmol/L LAB Glucose 90 70 - 125 [facility] mg/dL LAB Calcium 9.7 8.5 - 10.5 [facility] mg/dL LAB Urea Nitrogen 16 8 - 22 [facility] mg/dL LAB Creatinine 0.83 0.60 - [facility] 1.10 mg/dL LAB GFR Estimate If >[address] [facility] Black mL/min/1.7 LAB 3m2 GFR Estimate >60 >60 [facility] mL/min/1.7 LAB 3m2 Specimen (Source) Anatomical Collection Method Collection Time Re ceived Time Location / / Volume Laterality Blood specimen VENOUS BLOOD / 05/24/2018 2:48 PM (specimen) Unknown BILLING CUSTOMER SERVICE REPRESENTATIVE Narrative [facility] - 05/24/2018 9:05 PM CS T Test performed by: [facility] [address] [address] Fasting Glucose reference range is 70-99 mg/dL per [place] [employer] (ADA) gin villalobos. Catrina Sue MD LAB - [facility] Performing Organization Address City/State/ZIP Code Phon e Number [id number] Spirometry, Breathing Capacity (05/24/2018) P athologist Signature FEV-1 1.83L (65%) FVC 2.71L (74%) FEV1/FVC 0.67 (88%) FEF 25/75 Impressions Catrina Sue MD - 05/24/2018 Moderate obstruction Narrative This result has an attachment that is no t available. Catrina Sue MD PROCEDURES documented in this encounter Visit Diagnoses Diagnosis Mild intermittent asthma without complic ation - Primary Unspecified asthma Age-related osteoporosis without current pathological fracture Senile osteoporosis Mild persistent asthma without complicat ion Unspecified asthma documented in this encounter Care Teams Senior Mainframe Developer Relationship Specialty Start Date End Date Catrina Sue MD PCP - General Family Practice 06/05/[address] [place] [address] documented as of this encounter
--- OUTSIDE RECORDS SUMMARY | 2022-02-27 08:12 | XMS_ITS | Encounter Summary ---
:1955 Author Organization [facility] Address [address] [place] [address] Care Team Providers Name Role Phone Catrina Sue MD Primary Care Provider Encounter Details Date Type Department Care Team Description 05/24/2018 Travel Social History Tobacco Use Types Packs/Day [...] on filedocumented in this encounter Care Teams Spare Hand Relationship Specialty Start Date End Date Catrina Sue MD PCP - General Family Practice 06/05/[address] [place] [id number] documented as of this encounter
--- OUTSIDE RECORDS SUMMARY | 2022-02-27 08:12 | XMS_ITS | Encounter Summary ---
:1955 Author Organization [facility] Address [address] [place] [address] Care Team Providers Name Role Phone Catrina Sue MD Primary Care Provider Encounter Details Date Type Department Care Team Description 04/30/2018 Travel Social History Tobacco Use Types Packs/Day [...] on filedocumented in this encounter Care Teams Hospice Spiritual Care Coordinator Relationship Specialty Start Date End Date Catrina Sue MD PCP - General Family Practice 06/05/[address] [place] [address] documented as of this encounter
--- OUTSIDE RECORDS SUMMARY | 2022-02-27 08:12 | XMS_ITS | Encounter Summary ---
:1955 Author Organization [facility] Address [address] [place] [address] Care Team Providers Name Role Phone Catrina Sue MD Primary Care Provider Reason for Visit Reason Onset Date Comments Refill Request 12/05/2017 Encounter Details Date Type Department Care Team Description 12/05/2017 Telephone [facility] Catrina Sweet MD Refill Request [address] [place] [address] [place], [place] [id number] (Wo rk) Social History Tobacco Use Types [...] this encounter Miscellaneous Notes Telephone Encounter - Rhys Groves - 12/05/2017 11:45 AM CDT RX called in for Levothyroxine 88 mcg to [facility] [phone] and RX was approved by [facility] in 10/17/17 and was sent to [facility] pharmacy and patient requested to sent this RX [facility] instead. documented in this encounter Plan of Treatment Not on filedocumented as of this encounter Visit Diagnoses Not on filedocumented in this encounter Care Teams Flag Signaler Relationship Specialty Start Date End Date Catrina Sue MD PCP - General Family Practice 06/05/[address] [place] [address] documented as of this encounter
--- OUTSIDE RECORDS SUMMARY | 2022-02-27 08:12 | XMS_ITS | Encounter Summary ---
:1955 Author Organization [facility] Address [address] [place] [address] Care Team Providers Name Role Phone Catrina Sue MD Primary Care Provider Catrina Sue MD Unavailable Catrina Sue MD Unavailable Encounter Details Date Type Department Care Team Description 04/23/2018 Records - [facility] HE CONVERSION Scan, Non-Provider [...] with No / Unsure 06/15/2020 9:20 AM MANAGER CASE someone who was confirmed or suspected to have Coronavirus / COVID-19? documented as of this encounter Plan of Treatment Not on filedocumented as of this encounter Visit Diagnoses Not on filedocumented in this encounter Care Teams Ditch Repairer Relationship Specialty Start Date End Date Catrina Sue MD PCP - General Family Practice 2/13/[address] [place] [address] Catrina Sue MD Assigned PCP 03/28/[address] [place] [address] Catrina Sue MD Assigned PCP 09/11/19 03/27/[address] [place] [address] documented as of this encounter
--- OUTSIDE RECORDS SUMMARY | 2022-02-27 08:12 | XMS_ITS | Encounter Summary ---
:1955 Author Organization [place] Address [facility] [place] [address] Care Team Providers Name Role Phone Catrina Sue MD Primary Care Provider Reason for Referral Consultation - Closed Specialty Diagnoses / Procedures Referred By Contact Refer red To Contact Diagnoses Lymphedema of left leg Catrina Sue MD [address] [facility] [place] [address] Referral ID Status Reason Start Date Expiration Date Visits Requ ested Visits Authorized [id number] Closed 10/17/2017 10/17/2018 1 1 Reason for Visit Reason Comments Edema left leg/foot for about coup le of months now. Dizziness for about one month Medication Reconciliation completed but needs attentio n. Takes Vitamins. Encounter Details Date Type Department Care Team Description 10/17/2017 Office Visit Catrina Rodriguez Hypothyro idism due to acquired atrophy of thyroid (Primary Dx); Clinic MD Kilo Intractable migraine with aura without s tatus migrainosus; [address] [place] [address] Vertigo; [place] [address] [address] Lymphedema of left leg [phone] [place], [place] [address] Social History Tobacco Use Types Packs/Day Years [...] Sign Reading Time Taken Comments Blood Pressure 106/72 10/17/2017 1:07 PM CDT Pulse 81 10/17/2017 1:07 PM CDT Temperature 37 ??C (98.6 ??F) 10/17/2017 1:07 PM CDT Respiratory Rate - - Oxygen Saturation 96% 10/17/2017 1:07 PM CDT Inhaled Oxygen Concentration - - Weight 61.7 kg (136 lb) 10/17/2017 1:07 PM CDT Height - - Body Mass Index 20.68 02/07/2017 1:51 PM CDT documented in this encounter Patient Instructions Patient InstructionsCatrina Sue MD - 10/17/2017 1:50 PM CDT Images from the original note were not included. Managing Balance Problems: Vestibular Rehabilitation Therapy An inner ear problem can knock out part of the balance system. Vestibular rehabilitation therapy helps you learn how to rely on specific parts of your balance system. Checking eye movement The therapist will check for nystagmus. This is an automatic, jumpy eye movement. Nystagmus in certain positions can mean an inner ear problem. It can even show which semicircular canal is affected. The therapist will watch your eyes while you move into different positions. Treating your condition Treatment can include: ?? Canalith repositioning. This is a series of guided head and body movements. It helps move crystals, easing symptoms of benign positional vertigo (BPV). ?? Habituation exercises to retrain your balance system. The therapist will teach you how to do these exercises at home. ?? Gaze stabilization exercises. These are??to retrain the eyes to stay in focus while your head moves. This helps ease dysequilibrium. ?? Gait and balance training. This includes standing and walking on different surfaces. The therapist can teach you how to keep your balance and prevent falls. Doing habituation exercises The therapist will teach exercises suited to your condition. Habituation exercises will make you dizzy at first. Just remind yourself that symptoms probably will last for only a minute. If you keep doing the exercises, they will help lessen your dizziness. Then when you do a similar movement in daily life, it is less likely to bring on symptoms. Getting back into action Dizziness doesn't have to keep you from exercising. Start with activities that don't make you dizzy.Then ease into more challenging activities. Try these tips: ?? Always exercise with a partner. ?? Stop if you have nausea or faintness. ?? Walk on a treadmill, holding on to the handles for support. ?? Use a ball machine for sports like tennis until you're ready for a live game. This way you know where to expect the ball. ?? Don't give up. With time, most people can return to activities and sports. Date Last Reviewed: 02/22/2016 ?? [id number] [employer]. [address] [place] [address]. All rights reserved. This information is not intended as a substitute for professional medical care. Always follow your healthcare professional's instructions. Referral for ( TEST ) : Vascular Surgery LOCATION/PLACE/Provider : [facility] [place] DATE & TIME : 12-13-2017 at 8:00am PHONE : [phone] FAX : [phone] Appointment made by clinic staff/automotive general sales manager: Latosha documented in this encounter Progress Notes Danae Jennings CMA - 10/18/2017 2:27 PM CDT Pt returned call and received results. Catrina Sue MD - 10/17/2017 11:55 PM CDT Call patient: Now taking a bit too much thyroid hormone, and will have you pick up worker a new dose (middle) and we should recheck in 2 months. Catrina Sue MD - 10/17/2017 1:00 PM CDT HPI: Janet Soto is a 62 year old female with a significant past medical history of hypothyroid who presents for the new concern(s) of Patient presents with: Edema: left leg/foot for about couple of months now. Dizziness: for about one month Medication Reconciliation: completed but needs attention. Takes Vitamins. 1. Hypothyroid Still really tired, napping more, can't drive, not sure why that is, wonders if it is still her thyroid is off 2. Puffy Left foot years -used to be on HCTZ/triamterine combo but that was stopped, did break foot years ago, it is more edema over the toes and can extend up the foot to the ankle, wonders if needs another diuretic restarted 3. Bout of dizziness: -random bouts of feeling movement -once rolled over in bed and really felt things spinning (2 mornings) -now just a brief sensation of movement will occur even with minor head movements (Migraines X 40 years still having) PMHX: Patient Active Problem List Diagnosis ??? [...] ??? Intractable migraine with aura ??? Vertigo Current Outpatient Prescriptions Medication Sig Dispense Refill ??? acyclovir (ZOVIRAX) 400 MG tablet Take 1 tablet (400 mg) by mouth 2 times daily 180 tablet 3 ??? albuterol (VENTOLIN HFA) 108 (90 BASE) MCG/ACT inhaler Inhale 2 puffs into the lungs every 6 hours. ??? citalopram (CELEXA) 10 MG tablet Take 1 tablet (10 mg) by mouth 2 times daily 180 tablet 3 ??? levothyroxine (SYNTHROID/LEVOTHROID) 100 MCG tablet Take 1 tablet (100 mcg) by mouth daily 90 tablet 3 Wt Readings from Last 5 Encounters: 10/17/17 136 lb (61.7 kg) 02/07/17 135 lb 9.6 oz (61.5 kg) 02/02/16 132 lb 6.4 oz (60.1 kg) 09/08/15 130 lb 3.2 oz (59.1 kg) 02/02/15 137 lb 12.8 oz (62.5 kg) Allergies Allergen Reactions ??? Cats ??? Horse Allergy No results found for this or any previous visit (from the past 24 hour(s)). Review of Systems: CONSTITUTIONAL: see above fatigued E: NEGATIVE for acute vision problems or changes ENT/MOUTH: thinks ringing is getting worse in Left ear, possibly less hearing R: NEGATIVE for significant cough or shortness of breath CV: denies CP NEURO: waking up with headaches (treats with nocturnal coffee) P: NEGATIVE for changes in mood or affect PSYCHIATRIC: at times a little worried, but overall ok Physical Exam: Vitals: 10/17/17 1307 BP: 106/72 Pulse: 81 Temp: 98.6 ??F (37 ??C) TempSrc: Oral SpO2: 96% Weight: 136 lb (61.7 kg) Body mass index is 20.68 kg/(m^2). GENERAL APPEARANCE: healthy, alert and no distress, HENT: ear canals and TM's normal and nose and mouth without ulcers or lesions RESP: lungs clear to auscultation - no rales, rhonchi or wheezes CV: regular rate and rhythm, and no murmur, click, rub or gallop MS: extremities normal- no gross deformities noted Extremities: Legs no edema of ankles, at the metatarsal area, left foot is more puffy than right, nowarmth, redness, nontender SUZY-HAllpike negative, no nystagmus with movements but did have sensation of dizziness Neuro: symmetric reflexes, gait normal, off balance with closing eyes, and unable to balance on one leg Assessment and Plan (E03.4) Hypothyroidism due to acquired atrophy of thyroid (primary encounter diagnosis) Comment: Will recheck unsure if the change in dose was correct Plan: TSH Sensitive ([facility]) Adjust if needed (G43.119) Intractable migraine with aura without status migrainosus Comment: updated problem list Plan: appears infrequent and resolves with ASA/Caffeine (R42) Vertigo Comment: mild and intermittent, do not see true BPPV, do not see central findings Plan: discussed balance exercises, consideration of referral (I89.0) Lymphedema of left leg Comment: agrees with lymphedema after foot trauma, would not add diuretic at this time Plan: VASCULAR SURGERY REFERRAL Discussed possible wrapping, exercises, will refer. Options for treatment and follow-up care were reviewed with the patient and/or guardian. Janet Soto and/or guardian engaged in the decision making process and verbalized understanding of the options discussed and agreed with the final plan. Catrina Sue MD documented in this encounter Nursing Notes Jacky Gamez CMA - 10/17/2017 1:00 PM CDT Chief Complaint Patient presents with ??? Edema left leg/foot for about couple of months now. ??? Dizziness for about one month ??? Medication Reconciliation completed but needs attention. Takes Vitamins. BP 106/72 Pulse 81 Temp 98.6 ??F (37 ??C) (Oral) Wt 136 lb (61.7 kg) SpO2 96% BMI 20.68 kg/m2 documented in this encounter Plan of Treatment Scheduled Referrals Name Type Priority Associated Diagnoses Order S chedule VASCULAR SURGERY Referral Routine Lymphedema of left leg O rdered: 10/17/2017 REFERRAL documented as of this encounter Procedures Procedure Name Priority Date/Time Associated Diagnosis Comme nts TSH SENSITIVE Routine 10/17/2017 2:00 PM Hypothyroidism due to Results for this ([id number]) CDT acquired atrophy of procedur e are in thyroid the results section. documented in this encounter Results (ABNORMAL) TSH Sensitive ([facility]) (10/17/2017 2:00 PM CDT) P athologist Signature TSH 0.02 (L) 0.30 - 5.[address] [facility] uIU/mL LAB Specimen (Source) Anatomical Collection Method Collection Time Re ceived Time Location / / Volume Laterality Blood specimen VENOUS BLOOD / 10/17/2017 2:00 PM (specimen) Unknown CDT Narrative [facility] - 10/17/2017 10:28 PM C DT Test performed by: [facility] [address] [place] [id number] Catrina Sue MD LAB - [facility] Performing Organization Address City/State/ZIP Code Phon e Number [facility] documented in this encounter Visit Diagnoses Diagnosis Hypothyroidism due to acquired atrophy o f thyroid - Primary Intractable migraine with aura without s tatus migrainosus Migraine with aura, with intractable kym amairani, so stated, without mention of status migrainosus Vertigo Dizziness and giddiness Lymphedema of left leg Other lymphedema documented in this encounter Care Teams Music Specialist Relationship Specialty Start Date End Date Catrina Sue MD PCP - General Family Practice 06/05/[address] [place] [id number] documented as of this encounter
--- OUTSIDE RECORDS SUMMARY | 2022-02-27 08:12 | XMS_ITS | Encounter Summary ---
:1955 Author Organization [place] Address [address] [place] [address] Care Team Providers Name Role Phone Catrina Sue MD Primary Care Provider Catrina Sue MD Unavailable Catrina Sue MD Unavailable Reason for Visit Reason Comments Follow Up left leg swelling Encounter Details Date Type Department Care Team Description 05/02/2018 Office Visit - [facility] Mirtha Fernandes leg swelling; [facility] MD Javier Lymphedema of left lower extremity; [place] [address] [facility] Venous insufficiency of both lower extremities [id number] [place] [id number] Social History Tobacco Use Types Packs/Day Years [...] with No / Unsure 06/15/2020 9:20 AM PASTER SUPERVISOR someone who was confirmed or suspected to have Coronavirus / COVID-19? documented as of this encounter Last Filed Vital Signs Vital Sign Reading Time Taken Comments Blood Pressure - - Pulse - - Temperature - - Respiratory Rate - - Oxygen Saturation - - Inhaled Oxygen Concentration - - Weight 63 kg (139 lb) 05/02/2018 9:10 AM PASTER SUPERVISOR Height 172.7 cm (5' 8) 05/02/2018 9:10 AM PASTER SUPERVISOR Body Mass Index 21.13 05/02/2018 9:10 AM PASTER SUPERVISOR documented in this encounter Progress Notes Aretha Kinsey - 05/02/2018 9:40 AM CST Pt complaint numbness of bilateral middle toes and burning sensation in the night with left leg. No pain. ER SUPERVISOR Mirtha Fernandes MD - 05/02/2018 9:40 AM CST Date of Service: 05/02/2018 Date last seen by Dr. Fernandes: 12/13/2017 PCP: Catrina Sue MD Impression: 1. Left foot swelling 2. Lymphedema left leg 3. Venous insufficiency bilateral legs 4. Left iliac compression by right iliac vein-mild Plan: 1. Questions were answered. 2. She will continue working with her compression, exercise and get to therapy to learn some techniques to control the mild swelling she has. 3. Because of the findings on her CT scan I will ask vascular surgery to review it to be sure nothing further should be done or evaluated, or if any specific follow-up is recommended. 4. I will see her in follow-up in 3 months or when needed. Time spent with patient 15 minutes with greater than 50% time in consultation, education and coordination of care, excluding procedures. Chief Complaint: Left foot swelling History of Present Illness: Janet Soto returns to the [facility] for her left foot swelling felt mainly due to venous insufficiency of both legs. She had previous ablation of both legsfor years before. There was lymphedema of the left leg but the etiology was unclear. The swelling began on and off for over 10 years. There was no associated trauma, medication change or major illness.She was initially put on HCTZ with benefit. She was diagnosed with venous insufficiency and had ablation on both legs about 4 years ago. Because of the unclear nature especially the left leg swelling repeat venous insufficiency study was ordered. In addition, CT scan of the abdomen and pelvis was ordered to check for proximal obstruction. CT scan was done this morning and showed compression slight ofthe left common iliac by the right common iliac vein. The venous insufficiency study showed deep vein insufficiency. There was nothing of major significance on the superficial veins. It was recommendedshe go to therapy and then get compression. She is here for follow-up. She did not get to therapy yet. There have been no new masses, rashes, [...] ??? Highest education level: Not on file Social Needs ??? Financial resource strain: Not on file ??? Food insecurity - worry: Not on file ??? Food insecurity - inability: Not on file ??? Transportation needs - medical: Not on file ??? Transportation needs - non-medical: Not on file Occupational History ??? Not on file Tobacco Use ??? Smoking status: Former Smoker Last attempt to quit: 1977 Years since quittin.0 ??? Smokeless tobacco: Never Used Substance and Sexual Activity ??? Alcohol use: Yes Alcohol/week: 0.6 oz Types: 1 Standard drinks or equivalent per week Comment: 1/week ??? Drug use: No ??? Sexual activity: Yes Partners: Male Other Topics Concern ??? 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 and has [...] and those on care everywhere, if indicated Us Venous Insufficiency Legs Bilateral Result Date: 05/02/2018 [facility] RAD[facility] LOCATION: [facility] DATE: 05/02/2018 EXAM: BILATERALLOWER EXTREMITY DEEP AND SUPERFICIAL VENOUS DUPLEX ULTRASOUND WITH PHYSIOLOGIC TESTING INDICATION: Symptomatic varicose veins. Assess for incompetent veins. TECHNIQUE: Supine and upright ultrasound of the deep and superficial veins with Valsalva and compression augmentation maneuvers. Duplex imaging is performed utilizing heath-scale, two-dimensional images, color- flow imaging, Doppler waveform analysis, and spectral Doppler imaging. INCOMPETENCY CRITERIA: Deep vein reflux reported when greater than 1,000 ms flow reversal. Superficial vein reflux reported when greater than 500 ms flow reversal. Lap Grinder vein reflux reported as greater than 350 ms flow reversal. DEEP VEIN FINDINGS: RIGHT LEG: The common femoral, profunda femoral, femoral, popliteal, and visualized calf veins are patent and compressible. Incompetent common femoral, profunda femoral and proximal femoral veins. LEFT LEG: The commonfemoral, profunda femoral, femoral, popliteal, and visualized calf veins are patent and compressible. Incompetent proximal and mid femoral veins. RIGHT SUPERFICIAL VEIN FINDINGS: GREAT SAPHENOUS VEIN: Competent at the saphenofemoral junction and mid calf. The vein is not visualized in the proximal thigh and knee. SMALL SAPHENOUS VEIN: Competent from the saphenopopliteal junction to the mid calf. No incompetent perforating veins or abnormal accessory veins identified. LEFT SUPERFICIAL VEIN FINDINGS: GREAT SAPHENOUS VEIN: Competent at the saphenofemoral junction and mid calf. The vein is not visualized in the proximal thigh and knee. SMALL SAPHENOUS VEIN: Not visualized. No incompetent perforating veins or abnormal accessory veins identified. CONCLUSION: 1. No deep venous thrombosis of either lower extremity. Incompetent right common femoral, profunda femoral and proximal femoral veins. Incompetent left proximal and mid femoral veins. 2. RIGHT LEG: No evidence of superficial venous incompetency. 3. LEFT LEG: No evidence of superficial venous incompetency. EXAM DATE: 05/02/2018 ?? [facility] CT ABDOMEN, PELVIS WITH CONTRAST 05/02/2018 [...] CRP Lab Results Component Value Date CREATININE 0.73 01/23/2014 No results found for: HGBA1C Lab Results Component Value Date BUN 23 (H) 01/23/2014 Lab Results Component Value Date ALBUMIN 3.7 06/22/2011 No results found for: [id number] Lab Results Component Value Date TSH 5.13 (H) 04/30/2018 Lab Results Component Value Date WBC 8.8 06/22/2011 HGB 12.4 06/22/2011 HCT 36.6 06/22/2011 MCV 93 06/22/2011 PLT 193 06/22/2011 Physical Exam: Vitals: 05/02/18 0910 BP: 117/62 Pulse: 72 Resp: 16 Temp: 98.2 ??F (36.8 ??C) BMI 21.13 Circumferential measures: Vasc Edema 12/13/2017 05/02/2018 Right just above MTP 22.1 22.1 Right Ankle 22.2 21.5 Right Widest Calf 35.3 34.8 Right Thigh Up 10cm 41.5 42 Left - just above MTP 23 23 Left Ankle 22.5 21.7 Left Widest Calf 37 35.3 Left Thigh Up 10cm 45 44.5 Stable General: 62 y.o. female in no apparent distress. Psych: Alert and oriented x 3. Cooperative. Affect normal. HEENT: Atraumatic, normocephalic Musculoskeletal: Normal range of motion in knees and ankles bilaterally throughout. There is no active joint synovitis, erythema, swelling or joint laxity. Neurological: Sensation is intact to pin prick and light touch in both legs. Strength testing is normal in hip flexion, knee flexion, knee extension, ankle dorsiflexion and great toe extension bilaterally. Vascular: Dorsalis pedis and posterior tibialis pulses are strong and equal bilaterally. There are slight telangietasias, medial ankle venous flares, venous varicosities and spider veins . ?? Integumentary: Skin of the legs is uniformly warm and dry. There is a positive Stemmer's sign in theleft second toe. Nails are normal. Mirtha Fernandes MD, ABWMS, FACCWS, [facility] Plaster Machine Tender Wound Care [facility] Lymp[facility] [phone] ER SUPERVISOR documented in this encounter Miscellaneous Notes Patient Instructions - HE - Emmy Coleman RN - 05/02/2018 9:40 AM PASTER SUPERVISOR A referral was sent to [facility]. You will receive a phone call in 1-2 business days to schedule you appointment. If for some reason you do not hear from them or wish to schedule sooner please call [phone] to schedule. [facility] - [address], [address] [place] [address] LYMPHEDEMA THERAPY TREATMENT ?? - What to [...] THE PRESCRIBED SELF -MASSAGE AND /OR EXERCISES PRESCRIBE Compression and therapy and exercise. I will ask Vascular Surgery to review study to see if any further should be done. ER SUPERVISOR documented in this encounter Plan of Treatment Not on filedocumented as of this encounter Visit Diagnoses Diagnosis Left leg swelling Lymphedema of left lower extremity Venous insufficiency of both lower extre mities documented in this encounter Care Teams Referral Clerk Relationship Specialty Start Date End Date Catrina Sue MD PCP - General Family Practice 06/05/[address] [place] [id number] Catrina Sue MD Assigned PCP 03/28/[address] [place] [id number] Catrina Sue MD Assigned PCP 09/11/19 03/27/[address] [place] [phone] documented as of this encounter
--- OUTSIDE RECORDS SUMMARY | 2022-02-27 08:12 | XMS_ITS | Encounter Summary ---
:1955 Author Organization [place] Address [address] [place] [address] Care Team Providers Name Role Phone Catrina Sue MD Primary Care Provider Reason for Visit Reason Onset Date Comments Refill Request 04/02/2017 Encounter Details Date Type Department Care Team Description 04/02/2017 Refill [facility] Catrina Sue MD Refill Request [facility] [address] [address] [place], [place] [phone] (Wo rk) Social History Tobacco Use Types [...] Telephone Encounter - Catrina Sue MD - 04/02/2017 5:29 PM CST Reviewed and approved TRAINING SUPERVISOR documented in this encounter Plan of Treatment Not on filedocumented as of this encounter Visit Diagnoses Diagnosis Major depressive disorder, recurrent epi sode, mild (H) Major depressive disorder, recurrent epi sode, mild documented in this encounter Care Teams Skidder Lever Operator Relationship Specialty Start Date End Date Catrina Sue MD PCP - General Family Practice 06/05/[address] [place], [place] [phone] documented as of this encounter
--- OUTSIDE RECORDS SUMMARY | 2022-02-27 08:12 | XMS_ITS | Encounter Summary ---
:1955 Author Organization [facility] Address [address] [place] [address] Care Team Providers Name Role Phone Catrina Sue MD Primary Care Provider Catrina Sue MD Unavailable Catrina Sue MD Unavailable Reason for Visit Reason Comments Leg Swelling Encounter Details Date Type Department Care Team Description 12/13/2017 Office Visit - [facility] Mirtha Fernandes leg swelling; 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 documented as of this encounter Last Filed Vital Signs Vital Sign Reading Time Taken Comments Blood Pressure - - Pulse - - Temperature - - Respiratory Rate - - Oxygen Saturation - - Inhaled Oxygen Concentration - - Weight 63 kg (139 lb) 12/13/2017 7:56 AM CDT Height 172.7 cm (5' 8) 12/13/2017 7:56 AM CDT Body Mass Index 21.13 12/13/2017 7:56 AM CDT documented in this encounter Progress Notes Mirtha Fernandes MD - 12/13/2017 8:00 AM CDT Referred By: Catrina Sue MD Date Of Service: 12/13/2017 Chief Complaint: Left foot swelling History of Present Illness: Janet Soto presents to the [facility] as a newconsult to evaluate Left foot swelling. The swelling began on and off for over 10 years. There was no associated trauma, medication change or major illness. She was initially put on HCTZ with benefit. She was diagnosed with venous insufficiency and had ablation on both legs about 4 years ago. This wasbeneficial. The swelling been stable since onset. She is not having any pain. The swelling is unchanged with elevation. The patient sleeps in a bed. History is complicated by known phlebitis in both legs years ago, early knee surgery bilaterally for patellae dislocations. There has been increasing numbness in the distal toes bilateral with burning in the ankles. She does not wake up at night with pain. Movement does not exacerbate things. There have been no new masses, rashes, [...] TENDON REPAIR ??? TUBAL LIGATION Current Outpatient Prescriptions: ??? acyclovir (ZOVIRAX) 400 MG tablet, Take [...] Dander Standardized Allergenic Extract Unknown Social History Social History ??? Marital status: Spouse name: N/A ??? Number of children: N/A ??? Years of education: N/A Occupational History ??? Not on file. Social History Main Topics ??? Smoking status: Former Smoker Quit date: 1976 ??? Smokeless tobacco: Never Used ??? Alcohol use 0.6 oz/week 1 Standard drinks or equivalent per week Comment: 1/week ??? Drug use: No ??? Sexual activity: Yes Partners: Male Other Topics Concern ??? 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 and has [...] Breast cancer Neg Hx Review of Systems: Review of systems is otherwise negative, except as noted above. Full 12 point review of systems was completed. Radiology/Diagnostic Studies: I personally reviewed the following imaging today and those on care everywhere, if indicated Nothing to review Laboratory Studies: I personally reviewed the following labs today and those on care everywhere, if indicated Lab Results Component Value Date SEDRATE 16 10/15/2013 No results found for: CRP Lab Results Component Value Date CREATININE 0.73 01/23/2014 No results found for: HGBA1C Lab Results Component Value Date BUN 23 (H) 01/23/2014 Lab Results Component Value Date ALBUMIN 3.7 06/22/2011 No results found for: [id number] Lab Results Component Value Date TSH 0.02 (L) 10/17/2017 Lab Results Component Value Date WBC 8.8 06/22/2011 HGB 12.4 06/22/2011 HCT 36.6 06/22/2011 MCV 93 06/22/2011 PLT 193 06/22/2011 Physical Exam: Vitals: 12/13/17 0756 BP: 120/70 Pulse: 72 Resp: 12 Temp: 98.2 ??F (36.8 ??C) BMI 21.13 See flow chart for circumferential measures. Vasc Edema 12/13/2017 Right just above MTP 22.1 Right Ankle 22.2 Right Widest Calf 35.3 Right Thigh Up 10cm 41.5 Left - just above MTP 23 Left Ankle 22.5 Left Widest Calf 37 Left Thigh Up 10cm 45 General: 62 y.o. female in no apparent distress. Psych: Alert and oriented x 3. Cooperative. Affect normal. Respiratory: Lungs are clear to auscultation throughout with full inspiration Cardiovascular: Normal S1, S2 without murmur, gallop or rub. No audible carotid bruits. Regular rhythm. Abdominal: Normal bowel sounds without any pain, guarding or rigidity. No inguinal lymphadenopathy palpated. Musculoskeletal: Normal range of motion in hips, knees and ankles bilaterally throughout . There is no active joint synovitis, erythema, swelling or joint laxity. Neurological: Sensation is intact to pin prick and light touch in both legs. Strength testing is normal in hip flexion, knee flexion, knee extension, ankle dorsiflexion and great toe extension bilaterally. Deep tendon reflexes, knee jerks and ankle jerks, not present in knee jerks and normal in ankle jerks. Vascular: Dorsalis pedis and posterior tibialis pulses are strong and equal bilaterally and reveal audible biphasic waves with a hand held doppler bilaterally. There are slight telangietasias, medial ankle venous flares, venous varicosities and spider veins . Integumentary: Skin of the legs is uniformly warm and dry. There is a positive Stemmer's sign in theleft second toe. Nails are normal Impression: 1. Left foot swelling 2. Lymphedema left leg, etiology unclear 3. Venous insufficiency bilateral legs 4. Scarring and fibrosis of the legs Plan: 1. Type of swelling was reviewed in detail with the patient. Most likely this is due to significant soft tissue damage after knee surgeries followed by phlebitis in the legs and venous insufficiency. She is status post the ablation in both legs. I suspect her issues were worse in the left leg and now she is showing the long-term lymphatic changes. However, with the side to side difference other things need to be ruled out has causative factors. Questions were answered and education was completed. 2. Venous insufficiency of the legs bilaterally to check venous status 3. CT abd/pelvic to check for proximal obstruction. 4. If all imaging okay will begin therapy for swelling with massage, bandaging and education with exercise. 5. After swelling down then compression. 6. Patient will follow up in 3 months or when needed. Thank you very much for referring Janet Soto. If you have any questions please feel free to contact me at [phone]. Time spent with patient 60 minutes with greater than 50% time in consultation, education and coordination of care, excluding procedures. Mirtha Fernandes MD, ABWMS, FACCWS, [facility] [phone] Tian Jiménez RN - 12/13/2017 8:00 AM CDT Left leg swelling for years. History of bilateral vein ablation. Has used compression in the past. 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 fibrosis of skin Venous insufficiency of both lower extremities documented in this encounter Results CT Abdomen Pelvis w Contrast (05/02/2018 8:44 AM VENDING MACHINE FILLER) Anatomical Region Laterality Modality Abdomen/Pelvis, SUBRAD CT BODY, UMP CT ABDOMEN PELVIS, Computed Tomography RAD CT Specimen (Source) Anatomical Location Collection Method / Collectio n Time Received Time / Laterality Volume Narrative 05/02/2018 8:44 AM VENDING MACHINE FILLER EXAM DATE: ? 05/02/2018 [facility] CT ABDOMEN, PELVIS WITH CONTRAST 05/02/2018 8:00 AM INDICATION: Lower extremity edema TECHNIQUE: CT abdomen and pelvis. Multip lanar reformation images (MPR). Dose reduction techniques were used. IV CONTRAST: 100 ml Isovue 370 was admin istered intravenously after SPR istat CR= 0.8 mg/dl, eGFR= 72. COMPARISON: 06/22/2011 CT abdomen and pe lvis and 04/30/2018 DEXA FINDINGS: LUNG BASES: Lungs are clear. No pleural effusion. Heart size normal. ABDOMEN: IVC is patent with no extrinsic compression. Liver, spleen, pancreas, kidneys, adrenal glands, gallbladder, bi le ducts, and abdominal aorta are negative. PELVIS: Stable narrowing proximal left c ommon iliac vein secondary to anterior extrinsic compression by the crossing pr oximal right common iliac artery. Iliac veins are otherwise normal. Mild colonic tortuosity, redundancy and diverticulosis with moderate to large am ount of stool. Small intestine, colon, appendix, ureters, bladder, uterus and a dnexa otherwise negative. MUSCULOSKELETAL: L1 vertebral density me asurement of less than 110HU consistent with osteoporosis and results of recent DEXA. CONCLUSION: 1. ??Stable narrowing proximal left comm on iliac vein secondary to anterior extrinsic compression by the crossing pr oximal right common iliac artery. This may be of no clinical significance but c ould cause some impedance of venous return. ??Lower extremity venous duplex ultrasound may be useful in determining if there is asymmetric left-sided monoph asic flow. IVC and iliac veins are otherwise normal. 2. ??Mild colonic tortuosity, redundancy and diverticulosis with moderate to large amount of stool. 3. ??Osteoporosis. Procedure Note Richard Estrada MD - 09/28/2020Formatting o f this note might be different from the original. EXAM DATE: 05/02/2018 [facility] CT ABDOMEN, PELVIS WITH CONTRAST 05/02/2018 8:00 AM INDICATION: Lower extremity edema TECHNIQUE: CT abdomen and pelvis. Multip lanar reformation images (MPR). Dose reduction techniques were used. IV CONTRAST: 100 ml Isovue 370 was admin istered intravenously after SPR istat CR= 0.8 mg/dl, eGFR= 72. COMPARISON: 06/22/2011 CT abdomen and pe lvis and 04/30/2018 DEXA FINDINGS: LUNG BASES: Lungs are clear. No pleural effusion. Heart size normal. ABDOMEN: IVC is patent with no extrinsic compression. Liver, spleen, pancreas, kidneys, adrenal glands, gallbladder, bi le ducts, and abdominal aorta are negative. PELVIS: Stable narrowing proximal left c ommon iliac vein secondary to anterior extrinsic compression by the crossing pr oximal right common iliac artery. Iliac veins are otherwise normal. Mild colonic tortuosity, redundancy and diverticulosis with moderate to large am ount of stool. Small intestine, colon, appendix, ureters, bladder, uterus and a dnexa otherwise negative. MUSCULOSKELETAL: L1 vertebral density me asurement of less than 110HU consistent with osteoporosis and results of recent DEXA. CONCLUSION: 1. Stable narrowing proximal left common iliac vein secondary to anterior extrinsic compression by the crossing pr oximal right common iliac artery. This may be of no clinical significance but c ould cause some impedance of venous return. Lower extremity venous duplex ul trasound may be useful in determining if there is asymmetric left-sided monoph asic flow. IVC and iliac veins are otherwise normal. 2. Mild colonic tortuosity, redundancy a nd diverticulosis with moderate to large amount of stool. 3. Osteoporosis. Mirtha Fernandes MD IMG CT ORDERABLES documented in this encounter Visit Diagnoses Diagnosis Left leg swelling Lymphedema of left lower extremity Scar condition and fibrosis of skin Venous insufficiency of both lower extre mities documented in this encounter Care Teams Impregnating Helper Relationship Specialty Start Date End Date Catrina Sue MD PCP - General Family Practice 06/05/[address] [place] [address] Catrina Sue MD Assigned PCP 03/28/[address] [place] [address] Catrina Sue MD Assigned PCP 09/11/19 03/27/[address] [place] [address] documented as of this encounter
--- OUTSIDE RECORDS SUMMARY | 2022-02-27 08:12 | XMS_ITS | Encounter Summary ---
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 documented as of this encounter Plan of Treatment Not on filedocumented as of this encounter Visit Diagnoses Not on filedocumented in this encounter Care Teams Career Technical Supervisor Relationship Specialty Start Date End Date Cartina Sue MD PCP - General Family Practice 06/05/[address] [place] [phone] Catrina Sue MD Assigned PCP 03/28/[address] [place] [phone] Catrina Sue MD Assigned PCP 09/11/19 03/27/[address] [place] [address] documented as of this encounter
--- OUTSIDE RECORDS SUMMARY | 2022-02-27 08:12 | XMS_ITS | Encounter Summary ---
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 TECHNICIAN Result Encounter Note - Jacky Gamez CMA - 04/30/2018 9:00 AM CST Called pt with results. ---TIIT Swanson TECHNICIAN documented in this encounter Plan of Treatment Not on filedocumented as of this encounter Procedures Procedure Name Priority Date/Time Associated Diagnosis Comme nts TSH SENSITIVE Routine 04/30/2018 8:49 AM Hypothyroidism due to Results for this ([facility]) GIS TECHNICIAN acquired atrophy of procedur e are in thyroid the results section. documented in this encounter Results (ABNORMAL) TSH Sensitive (Hydrocision) (04/30/2018 8:49 AM GIS TECHNICIAN) P athologist Signature TSH 5.13 (H) 0.30 - 5.00 [facility] uIU/mL LAB Specimen (Source) Anatomical Collection Method Collection Time Re ceived Time Location / / Volume Laterality Blood specimen VENOUS BLOOD / 04/30/2018 8:49 AM (specimen) Unknown GIS TECHNICIAN Narrative [facility] - 04/30/2018 4:15 PM CS T Test performed by: [facility] [address] [place] [address] Catrina Sue MD LAB - [facility] Performing Organization Address City/State/ZIP Code Phon e Number [facility] documented in this encounter Visit Diagnoses Diagnosis 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
--- OUTSIDE RECORDS SUMMARY | 2022-02-27 08:12 | XMS_ITS | Encounter Summary ---
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 documented as of this encounter Miscellaneous Notes Telephone Encounter - Kavya Yanes - 08/12/2018 9:57 AM CDT Faxed lymphedema therapy to [facility] (fax [phone]) documented in this encounter Plan of Treatment Not on filedocumented as of this encounter Visit Diagnoses Not on filedocumented in this encounter Care Teams Child Support Specialist Relationship Specialty Start Date End Date Catrina Sue MD PCP - General Family Practice 06/05/[address] [place] [address] Catrina Sue MD Assigned PCP 03/28/[address] [place] [address] Catrina Sue MD Assigned PCP 09/11/19 03/27/[address] [place] [phone] documented as of this encounter
--- OUTSIDE RECORDS SUMMARY | 2022-02-27 08:12 | XMS_ITS | Encounter Summary ---
:1955 Author Organization [facility] Address [address] [place] [address] Care Team Providers Name Role Phone Catrina Sue MD Primary Care Provider Catrina Sue MD Unavailable Catrina Sue MD Unavailable Encounter Details Date Type Department Care Team Description 06/17/2018 Ambulatory - [facility] [address] [place] [phone] Social History Tobacco Use Types Packs/Day Years [...] with No / Unsure 06/15/2020 9:20 AM FOOT ORTHOPEDIST someone who was confirmed or suspected to have Coronavirus / COVID-19? documented as of this encounter Plan of Treatment Not on filedocumented as of this encounter Visit Diagnoses Not on filedocumented in this encounter Care Teams Desk Sergeant Relationship Specialty Start Date End Date Catrina Sue MD PCP - General Family Practice 06/05/[address] [place] [address] Catrina Sue MD Assigned PCP 03/28/[address] [place] [address] Catrina Sue MD Assigned PCP 09/11/19 03/27/[address] [place] [address] documented as of this encounter
--- OUTSIDE RECORDS SUMMARY | 2022-02-27 08:12 | XMS_ITS | Encounter Summary ---
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 documented as of this encounter Progress Notes Joann Hu V - 05/02/2018 11:57 AM CST S: Patient seen in [place] to be measured for [employer] knee high stockings. She has an Rx from Dr. Fernandes to treat her bilateral lymphedema. She reports her swelling to be minimal. O: Goal is to evaluate and measure patient for a compression garment that will help control her lymphedema. Observations do not show swelling from lymphatic fluid. The expected outcome with compliant use is to reduce swelling and control the patient's condition. A: I discussed with the patient the benefits of custom flat-knit compression versus OTS circular-knit. Three months ago, Dr. Fernandes had wrote an order for her to get fit for compression and Janet never returned my call at that time to set up an appnt. She is not interested in compression stockings and is aware that her insurance plan does not cover. She wants low-cost, circular knit options becauseshe has minimal swelling and will not wear anything else. She is aware that custom flat-knit would be better at containing and controlling her Lymphedema but has refused this option. Due to this, I instead measured her for OTS [employer] knee high stockings (medium, reg) in black. I assisted Janet in donning her compression garments that were pulled from the [place] stock supply. Once donned, the garments appeared to be fitting well and she stated they were comfortable. She was instructed on the donning and doffing process, the uses of the garments, and how to care for the items. She went home with one pair of [employer]wear knee high stockings (medium, regular), in black. She paid using the 20% OOP discount. A second pair of the same stocking in white was submitted for fabrication to [employer]. P: Once her second pair of stockings are shipped in, I will call her to let her know I am shipping them to her home address which was verified. She will make another card payment over the phone to pay for the second pair of stockings at that time. She is to call with any further concerns. Goal is to maintain a home program. MAKER PAPERBOARD documented in this encounter Plan of Treatment Not on filedocumented as of this encounter Visit Diagnoses Not on filedocumented in this encounter Care Teams Transportation Supervisor Relationship Specialty Start Date End Date Catrina Sue MD PCP - General Family Practice 06/05/[address] [place] [phone] Catrina Sue MD Assigned PCP 03/28/[address] [place] [address] Catrina Sue MD Assigned PCP 09/11/19 03/27/[address] [place] [phone] documented as of this encounter
--- OUTSIDE RECORDS SUMMARY | 2022-02-27 08:12 | XMS_ITS | Encounter Summary ---
:1955 Author Organization [facility] Address [address] [place] [address] Care Team Providers Name Role Phone Catrina Sue MD Primary Care Provider Catrina Sue MD Unavailable Catrina Sue MD Unavailable Encounter Details Date Type Department Care Team Description 02/14/2017 Records - 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 documented as of this encounter Plan of Treatment Not on filedocumented as of this encounter Procedures Procedure Name Priority Date/Time Associated Diagnosis Comme nts LAB RESULT - HIM SCAN 02/14/2017 11:39 AM CDT documented in this encounter Results LAB RESULT - HIM SCAN (02/14/2017 11:39 AM CDT) Specimen (Source) Anatomical Location Collection Method / Collectio n Time Received Time / Laterality Volume Narrative This result has an attachment that is no t available. Historical Provider NON-BEAKER LAB TESTING documented in this encounter Visit Diagnoses Not on filedocumented in this encounter Care Teams Plant Operations Engineer Relationship Specialty Start Date End Date Catrina Sue MD PCP - General Family Practice 06/05/[address] [place] [phone] Catrina Sue MD Assigned PCP 03/28/[address] [place] [phone] Catrina Sue MD Assigned PCP 09/11/19 03/27/[address] [place] [phone] documented as of this encounter
--- OUTSIDE RECORDS SUMMARY | 2022-02-27 08:12 | XMS_ITS | Encounter Summary ---
:1955 Author Organization [facility] Address [address] [place] [address] Care Team Providers Name Role Phone Catrina Sue MD Primary Care Provider Encounter Details Date Type Department Care Team Description 10/17/2017 Orders Only Catrina Rodriguez Hypothyro idism due to Clinic MD Kilo acquired atrophy of [address] [facility]. [address] [id number] [facility] [phone] [place] [id number] Social History Tobacco Use Types Packs/Day Years [...] thyroid documented in this encounter Care Teams Economic Manager Relationship Specialty Start Date End Date Catrina Sue MD PCP - General Family Practice 06/05/[address] [place] [address] documented as of this encounter
--- OUTSIDE RECORDS SUMMARY | 2022-02-27 08:13 | XMS_ITS | Encounter Summary ---
:1955 Author Organization [facility] Address [address] [place] [id number] Care Team Providers Name Role Phone Catrina Sue MD Primary Care Provider Reason for Visit Reason Onset Date Comments Refill Request 05/25/2014 Encounter Details Date Type Department Care Team Description 05/25/2014 Refill [facility] Catrina Sue MD Refill Request [facility] [address] [place] [address] (Wo rk) Social History Tobacco Use Types Packs/Day Years Used Date Smoking Tobacco: Former Alcohol Use Standard Drinks/Week Comments Not Asked 0 (1 standard drink = 0.6 oz pure alcoho l) Stress Answer Date Recorded Do you feel stress - tense, restless, nervous, or To some ex tent 02/24/2020 anxious, or unable to sleep at night because your mind is troubled all the time - these days? Sex Assigned at Date Recorded Not on file documented as of this encounter Plan of Treatment Not on filedocumented as of this encounter Visit Diagnoses Diagnosis Unspecified hypothyroidism - Primary documented in this encounter Care Teams Lye Machine Operator Relationship Specialty Start Date End Date Catrina Sue MD PCP - General Family Practice 06/05/[address] [place] [address] documented as of this encounter
--- OUTSIDE RECORDS SUMMARY | 2022-02-27 08:13 | XMS_ITS | Encounter Summary ---
:1955 Author Organization [facility] Address [facility] [place] [address] Care Team Providers Name Role Phone Catrina Sue MD Primary Care Provider Encounter Details Date Type Department Care Team Description 02/12/2015 Orders Only [facility] Dysuria [address] [place], [place] [id number] Social History Tobacco Use Types Packs/Day Years Used Date Smoking Tobacco: Former Alcohol Use Standard Drinks/Week Comments Yes 0 [...] documented as of this encounter Progress Notes Catrina Sue MD - 02/15/2015 5:30 PM CDT Quick Note: Call patient: Let patient know, no bacteria grew. If ongoing discomfort, could consider estrogen cream. documented in this encounter Plan of Treatment Not on filedocumented as of this encounter Procedures Procedure Name Priority Date/Time Associated Diagnosis Comme nts CULTURE URINE Routine 02/12/2015 1:55 PM Dysuria Results for this ([facility]) CDT procedure are i n the results section. URINALYSIS([facility]) Routine 02/12/2015 1:55 PM Dysuria Res ults for this CDT procedure are i n the results section. documented in this encounter Results Urine Culture ([facility]) (02/12/2015 1:55 PM CDT) athologist Signature Culture SEE RESULTS [facility] Comment: CULTURE, URINE SOURCE: Urine, Random CULTURE RESULTS: ?No Growth Specimen (Source) Anatomical Collection Method Collection Time Re ceived Time Location / / Volume Laterality Urine specimen 02/12/2015 1:55 PM (specimen) CDT Narrative [facility] - 02/13/2015 1:16 PM CD T Test performed by: [facility] [address] [place] [id number] Catrina Sue MD LAB - [facility] Performing Organization Address City/[facility] Code Phon e Number [facility] (ABNORMAL) Urinalysis ([facility]) (02/12/2015 1:55 PM CDT) [facility] gist Method Time Signature Specific [place] 1.025 1.005 - [facility] Urine 1.030 [facility]IN[facility] pH Urine 5.0 4.5 - 8.0 [facility] Leukocyte Negative NEGATIVE [facility] Esterase UR [facility] Nitrite Urine Positive (A) NEGATIVE [facility] Protein UR Negative NEGATIVE [facility] Glucose Urine Negative NEGATIVE [facility] Ketones Urine Negative NEGATIVE [facility] Urobilinogen 0.2 E.U./dL 0.2 E.U./dL [facility] mg/dL [facility] Bilirubin UR Negative NEGATIVE [facility] Blood UR Negative NEGATIVE [facility] Specimen Anatomical Collection Method Collection Time Receive d Time (Source) Location / / Volume Laterality Urine specimen 02/12/2015 1:55 PM 015 1:57 (specimen) CDT PM CDT Catrina Sue MD LAB - [facility] Performing Organization Address City/[facility]/ZIP Code Phon e Number [facility] [address] [place] [address] documented in this encounter Visit Diagnoses Diagnosis Dysuria documented in this encounter Care Teams Candle Molder Relationship Specialty Start Date End Date Catrina Sue MD PCP - General Family Practice 06/05/[address] [place] [id number] documented as of this encounter
--- OUTSIDE RECORDS SUMMARY | 2022-02-27 08:13 | XMS_ITS | Encounter Summary ---
:1955 Author Organization [facility] Address [address] [place] [address] Care Team Providers Name Role Phone Catrina Sue MD Primary Care Provider Reason for Visit Reason Onset Date Comments Refill Request 02/25/2015 Encounter Details Date Type Department Care Team Description 02/25/2015 Refill [facility] Catrina Sue MD Refill Request [facility] [address] [address] [place] [address] [phone] (Wo rk) Social History Tobacco Use Types [...] Telephone Encounter - Catrina Sue MD - 02/25/2015 4:09 PM CST Reviewed and approved [facility] documented in this encounter Plan of Treatment Not on filedocumented as of this encounter Visit Diagnoses Diagnosis Postmenopausal atrophic vaginitis - Prim wally documented in this encounter Care Teams Senior Sales Consultant Relationship Specialty Start Date End Date Catrina Sue MD PCP - General Family Practice 06/05/[address] [place] [phone] documented as of this encounter
--- OUTSIDE RECORDS SUMMARY | 2022-02-27 08:13 | XMS_ITS | Encounter Summary ---
:1955 Author Organization [facility] Address [address] [place] [id number] Care Team Providers Name Role Phone Catrina Sue MD Primary Care Provider Reason for Visit Reason Onset Date Comments Refill Request 02/16/2016 Encounter Details Date Type Department Care Team Description 02/16/2016 Refill [facility] Catrina Sue MD Refill Request [address] [place] [id number] [place], [place] [phone] (Wo rk) Social History Tobacco Use Types [...] Telephone Encounter - Catrina Sue MD - 02/16/2016 4:02 PM CDT Reviewed and approved documented in this encounter Plan of Treatment Not on filedocumented as of this encounter Visit Diagnoses Diagnosis Hypothyroidism due to acquired atrophy o f thyroid - Primary documented in this encounter Care Teams Stunt Person Relationship Specialty Start Date End Date Catrina Sue MD PCP - General Family Practice 06/05/[address] [place] [id number] documented as of this encounter
--- OUTSIDE RECORDS SUMMARY | 2022-02-27 08:13 | XMS_ITS | Encounter Summary ---
:1955 Author Organization [place] Address [facility] [place] [address] Care Team Providers Name Role Phone Catrina Sue MD Primary Care Provider Reason for Visit Reason Comments Physical Pap Forms disability form Encounter Details Date Type Department Care Team Description 02/07/2017 Office Visit Catrina Rodriguez Routine h istory and physical examination of adult (Primary Dx); Clinic MD Kilo Needs flu shot; [address] [place] Hypothyroidism due to acquir ed atrophy of thyroid; [place] [address] [address] Mild intermittent asthma without complic ation [phone] [place], [place] [address] Social History Tobacco Use Types [...] Sign Reading Time Taken Comments Blood Pressure 120/78 02/07/2017 1:51 PM CDT Pulse 76 02/07/2017 1:51 PM CDT Temperature 36.5 ??C (97.7 ??F) 02/07/2017 1:51 PM CDT Respiratory Rate 16 02/07/2017 1:51 PM CDT Oxygen Saturation 98% 02/07/2017 1:51 PM CDT Inhaled Oxygen Concentration - - Weight 61.5 kg (135 lb 9.6 oz) 02/07/2017 1:51 PM CDT Height 172.7 cm (5' 8) 02/07/2017 1:51 PM CDT Body Mass Index 20.62 02/07/2017 1:51 PM CDT documented in this encounter Patient Instructions Patient InstructionsHuyen Menjivar Jose L, RMA - 02/07/2017 1:40 PM CDT Wear good support shoes. You can do Yoga, this is great for core muscles or do pilates. Your medication list is printed, please keep this with you, it is helpful to bring this current listto any other medical appointments, the emergency room or hospital. If you had lab testing today and your results are reassuring or normal they will be be [facility]. If the lab tests need quick action we will call you with the results. The phone number we will call with results is # [phone] (home) . If this is not the best number please call our clinic and change the number. If you need any refills please call your pharmacy and they will contact us. If you have any further concerns or wish to schedule another appointment you must call our office during normal business hours [phone] (8-5:00 M-F) If you have urgent medical questions that cannot wait you may also call [phone] at any time of day. If you have a medical emergency please call 172. Thank you for coming to [facility]. My Asthma Action Plan Name: Janet Soto Date of : 1955 Date: 02/08/2017 My doctor: Catrina Sue My clinic: [address] [address] My Asthma Severity: intermittent Avoid your asthma triggers: upper respiratory infections, animal dander and cold air GREEN ZONE Good Control ?? I feel good ?? No cough or wheeze ?? Can work, sleep and play without asthma symptoms Continue with normal activities. No controlling medications are used. 1. If exercise triggers your asthma, take [...] minutes for up to 1 hour. 2. Schedule a visit with your doctor to be seen that day or the next day. 3. If you are still in the [...] Electronically signed by: Catrina Sue Annual Reminders: Flu Shot in the Fall, Pharmacy: [facility] - [place], [place] - [address] [place] [address] [facility] - [address] documented in this encounter Progress Notes Jacky Gamez CMA - 02/14/2017 1:44 PM CDT Results mailed to patient. --TITI Swanson Catrina Sue MD - 02/14/2017 12:09 PM CDT 1. Result is: Normal 2. HPV NEG 3. Date next is due: 5 years with HPV 01/2022 4. Follow up colposcopy is: Not indicated Send Letter: Your pap smear results are very good and the lab found normal cells. This should be rechecked in 5 years. Please call or come in for any concerns about your health. Thank you. Catrina Sue MD - 02/12/2017 10:35 PM CDT Negative HPV, await pap cytology. Jacky Gamez CMA - 02/09/2017 9:22 AM CDT Called pt with results. ---TITI Swanson Catrina Sue MD - 02/08/2017 8:35 AM CDT Call patient: Your thyroid level came back at a level suggesting your thyroid dose is not strong enough. I will send a new dose to pharmacy 100 mcg daily (up from 75 mcg daily). Catrina Sue MD - 02/07/2017 1:40 PM CDT Female Physical Note Patient presents with: Physical: Pap Forms: disability form Concerns today: Has had years of skipping beats, years ago was on metoprolol for a short period, and now feeling this return in the last month or so possibly more after eating not daily, not rapid, Discussed group home use of PPI patient willing to reduce Some leg burning and toes sometimes numb: bilateral The 10-year ASCVD risk score (Antlersheidy THORNTON Jr, et al., 2013) is: 3.8% Values used to calculate the score: Age: 61 years Sex: Female Is Non- : No Diabetic: No Tobacco smoker: No Systolic Blood Pressure: 120 mmHg Is BP treated: No HDL Cholesterol: 81 mg/dL Total Cholesterol: 253 mg/dL ROS: CONSTITUTIONAL: no fatigue, no unexpected change in weight SKIN: no worrisome rashes, no worrisome moles, no worrisome lesions EYES: no acute vision problems or changes ENT: no ear problems, no mouth problems, no throat problems RESP: no significant cough, no shortness of breath CV: no chest pain, palpitations, no new or worsening peripheral edema GI: GERD and IBS with some loose and some cramping (had colonoscopy) : some dysuria Sexually Active: Yes Sexual concerns: No Contraception:not needed P: 3 Menarche: No LMP recorded. Patient is postmenopausal. STD History: Neg Last Pap Smear Date: normal Abnormal Pap History: no recent Patient Active Problem List Diagnosis ??? AK (actinic keratosis) ??? Esophageal reflux ??? Lesion of plantar nerve ??? Osteoarthritis of multiple joints ??? Disorder of bone and cartilage ??? Postmenopausal atrophic vaginitis ??? Symptomatic menopausal or female climacteric states ??? Hypothyroidism due to acquired atrophy of thyroid ??? Mild intermittent asthma without complication Current Outpatient Prescriptions Medication Sig Dispense Refill ??? levothyroxine (SYNTHROID/LEVOTHROID) 75 MCG tablet Take 1 tablet (75 mcg) by mouth daily 90 tablet 3 ??? citalopram (CELEXA) 10 MG tablet Take 1 tablet (10 mg) by mouth 2 times daily 180 tablet 3 ??? acyclovir (ZOVIRAX) 400 MG tablet Take 1 tablet (400 mg) by mouth 2 times daily 180 tablet 3 ??? estradiol (ESTRACE VAGINAL) 0.1 MG/GM vaginal cream Place 0.5 g vaginally twice a week 12 g 4 ??? omeprazole (PRILOSEC) 20 MG capsule Take 1 capsule (20 mg) by mouth daily 90 capsule 3 ??? albuterol (VENTOLIN HFA) 108 (90 BASE) MCG/ACT inhaler Inhale 2 puffs into the lungs every 6 hours. ??? sulfamethoxazole-trimethoprim (BACTRIM DS) 800-160 MG per tablet Take 1 tablet by mouth 2 times daily 0 ??? phenazopyridine (PYRIDIUM) 200 MG tablet Take 1 tablet (200 mg) by mouth 3 times daily as neededfor irritation Expect your urine to appear bright orange (Patient not taking: Reported on 02/07/2017) 6 tablet 0 Past Medical History: Diagnosis Date ??? Esophageal reflux 05/11/2012 ??? Essential hypertension, benign 09/18/2012 ??? Leiomyoma of uterus, unspecified 05/11/2012 ??? Unspecified asthma(493.90) 05/11/2012 ??? Unspecified hypothyroidism 05/11/2012 ??? Unspecified tinnitus 05/11/2012 Family History Problem (# of Occurrences) Relation (Name,Age of Onset) Colon Cancer (1) Paternal Grandmother Coronary Artery Disease (3) Father, Maternal Grandmother, Paternal Grandfather Other Cancer (1) Mother: AML Prostate Cancer (1) Maternal Grandfather Negative family history of: DIABETES, Hypertension, CEREBROVASCULAR DISEASE, Breast Cancer, Asthma Problem List Medication List and Allergy List were reviewed. Patient is an established patient of this clinic.. Social History Substance Use Topics ??? Smoking status: Former Smoker Quit date: 02/01/1977 ??? Smokeless tobacco: Not on file ??? Alcohol use 0.6 oz/week 1 Standard drinks or equivalent per week Comment: 1/week Children ? 3 grown with grandkids Has anyone hurt you physically, for example by pushing, hitting, slapping or kicking you or forcing you to have sex? Denies Do you feel threatened or controlled by a partner, ex-partner or anyone in your life? Denies RISK BEHAVIORS AND HEALTHY HABITS: Tobacco Use/Smoking: None Illicit Drug Use: None Do you use alcohol? Rare, social Diet (5-7 servings of fruits/veg daily): Yes Exercise (30 min accumulated most days):Yes Dental Care: Yes Calcium 1500 mg/d: Yes Seat Belt Use: Yes Calculated 2.8% risk for cardiovascular, recheck lipids perhaps in 4 years CV Risk based on Pooled Cohort Risk:2.8% Pooled Cohort Risk Calculator Immunization History Administered Date(s) Administered ??? HepB 07/13/1999, 03/13/2008, 12/24/2008 ??? Influenza (IIV3) 02/16/2011, 02/08/2012 ??? Influenza Vaccine IM 3yrs+ 4 Valent IIV4 02/25/2014, 02/02/2015, 02/02/2016 ??? Influenza Vaccine, 3 YRS +, IM (QUADRIVALENT W/PRESERVATIVES) 02/17/2013 ??? Pneumococcal 23 valent 04/06/2000, 12/24/2008 ??? TD (ADULT, 7+) 04/06/2000 ??? Tdap (Adacel,Boostrix) 12/24/2008 Reviewed Immunization Record Today EXAMINATION: BP 120/78 (BP Location: Right arm) Pulse 76 Temp 97.7 ??F (36.5 ??C) (Oral) Resp 16 Ht 5' 8(172.7 cm) Wt 135 lb 9.6 oz (61.5 kg) SpO2 98% BMI 20.62 kg/m2 GENERAL: healthy, alert and no distress EYES: Eyes grossly normal to inspection, extraocular movements - intact, and PERRL HENT: ear canals- normal; TMs- normal; Nose- normal; Mouth- no ulcers, no lesions NECK: no tenderness, no adenopathy, no asymmetry, no masses, no stiffness; thyroid- normal to palpation RESP: lungs clear to auscultation - no rales, no rhonchi, no wheezes BREAST: no masses, no tenderness, no nipple discharge, no palpable axillary masses or adenopathy CV: regular rates and rhythm, normal S1 S2, no S3 or S4 and no murmur, no click or rub - ABDOMEN: soft, no tenderness, no hepatosplenomegaly, no masses, normal bowel sounds normal vagina and vulva mild atrophy, normal cervix without lesions or tenderness, uterus normal size, adenxa normal in size without tenderness, pap smear done MS: extremities- no gross deformities noted, no edema SKIN: no suspicious lesions, no rashes NEURO: strength and tone- normal, sensory exam- grossly normal, mentation- intact, speech- normal, reflexes- symmetric PSYCH: Alert and oriented times 3; speech- coherent , normal rate and volume; able to articulate logical thoughts, able to abstract reason, no tangential thoughts, no hallucinations or delusions, affect- normal SPIROMETRY: moderate obstruction cannot rule out restriction component ASSESSMENT: 1. Health Care Maintenance: Normal Physical Exam 2. Asthma: currently well controlled 3.Hypothyroidism PLAN: 1. Routine follow up in one year. DEXA scan 2. Well controlled by ACT completed AAP. 3. Check TSH adjust if needed. documented in this encounter Nursing Notes Huyen Menjivar RMA - 02/07/2017 1:40 PM CDT Injectable Influenza Immunization Documentation 1. Has the patient received the information for the injectable influenza vaccine? YES 2. Is the patient 6 months of age or older? YES 3. Does the patient have any of the following contraindications? Severe allergy to eggs? No Severe allergic reaction to previous influenza vaccines? No Severe allergy to latex? No History of Guillain-Hickory syndrome? No Currently have a temperature greater than 100.4F? No 4. Severely egg allergic patients should have flu vaccine eligibility assessed by an MD, RN, or pharmacist, and those who received flu vaccine should be observed for 15 min by an MD, RN, Pharmacist, Roofer Gypsum, or member of clinic staff.: NO 5. Latex-allergic patients should be given latex-free influenza vaccine No. Please reference the Vaccine latex table to determine if your clinic???s product is latex-containing. Vaccination given by JOSEFA KO Act given. documented in this encounter Plan of Treatment Not on filedocumented as of this encounter Procedures Procedure Name Priority Date/Time Associated Diagnosis Comme nts HPV CASCADE PCR Routine 02/07/2017 3:05 PM Routine history and Results for this ([employer] CDT physical examination of proc edure are in adult the results section. HINGING MACHINE OPERATOR CYTOLOGY Routine 02/07/2017 3:05 PM Routine history and Re sults for this ([employer] CDT physical examination of proc edure are in adult the results section. TSH SENSITIVE Routine 02/07/2017 2:59 PM Hypothyroidism due to Results for this ([employer] CDT acquired atrophy of procedur e are in thyroid the results section. documented in this encounter Results HPV Randall PCR ([employer]) (02/07/2017 3:05 PM CDT) [facility] gist Method Time Signature Interpretation No HPV No HPV [facility] Type(s) Type(s) LAB Detected Detected, No High Risk HP Canvass Manager Lam [facility] B[facility] Cooley MD, [employer] Comment: [facility] [address] [place] [address], with final verification at [facility] laboratory. ?? Interpretation was performed at [facility], [address] [place], [place] [id number]. Specimen (Source) Anatomical Collection Method Collection Time Re ceived Time Location / / Volume Laterality 02/07/2017 3:05 PM CDT Narrative [facility] - 02/12/2017 10:09 AM C DT Test performed by: [place] [id number] No HPV Type(s) Detected Interpretation: The sample is negative f or the presence of DNA from one or more of the following high risk HPV type s (16, 18, 31, 33, 35, 39, 45, 51, 52, 56, 58, 66, and 68) and/or probable hig h or low risk HPV types (2a, 6, 11, 26, 30, 32, 34, 42, 43, 44, 53, 54, 55, 57, 61, 62, 67, 69, 70, 71, 72, 73, 74, 77, 81, 82, 83, 84, 85, 87, 89). ??H igh risk types are classified by the IARC as carcinogenicity, probably, or po ssible carcinogenic to humans. ?? According to the IARC, low risk types ar e not classifiable as to their carcingenicity to humans. These results do not exclude the possibility of additional low or high risk HPV types no t detected due to adequacy and representativeness of sampling or assay sensitivity. Comments: The absence of low and or high risk HPV types reduces the collective risk for the development of cervical dy splasia or neoplasia. ??This result, in association with the morphology assessm ent of the Pap sample are hernandez information for the determination of fol low-up testing and in the clinical management of the patient. Methodology: ??Genomic DNA was extracted from the submitted specimen and amplified by the polymerase chain reacti on (PCR) using consensus oligonucleotide primers for the L1 regio n of the human papillomavirus (HPV) genome. ??Concurrently, the integrity of the extracted DNA was evaluated by the amplification of beta-globin, a common housekeeping gene. ??Result interpretation is performed by analysis of peak height and size data generated through fluorescence detection by autom ated electrophoresis. ??HPV DNA positive PCR products were subjected to digestion by the restriction endonucleases Hae III, Pst 1, and Rsa 1. ??Digested DNA fragments were by automated electrophoresis. ??Digital electropherograms and gel images of data were generated and the sp ecific HPV type was determined by matching the restriction fragment patter ns of the respective specimens to that of known HPV restriction fragment patte rns. ??The analytical and performance characteristics of this laboratory-devel oped test (LDT) were determined by [facility] pursuant to Clinical Laborato ry Improvement Amendments (CLIA 88) requirements. ??It has not been cleared or approved by the U.S. Food and Drug Administration (FDA). ??The FDA has dete rmined that such clearance or approval is not a requirement prior to use for cl inical purposes. Catrina Sue MD LAB - [facility] Performing Organization Address City/State/ZIP Code Phon e Number [facility] HINGING MACHINE OPERATOR Cytology ([facility]) (02/07/2017 3:05 PM CDT) [facility] Method Time Signature Lab AP Case SEE RESULTS [facility] Report BELOW LAB Comment: Gynecologic Cytology Report ? Case: [id number] ? Authorizing Provider: ??Catrina bailey MD ?Collected: ? 02/07/2017 1505 ? First Screen: ?Nakul toribio, CT ?? Received: ? 02/08/2017 0914 ? (ASCP) ? Rescreen: ?KEATON Mcpherson ? (ASCP) ? Specimen: ?SUREPATH PAP, SCREENING, Endocervical/cervical ? Lab AP Adjunct Faculty Instructor Interpretation SEE RESULTS BELOW [facility] Comment: Negative for squamous intraepithelial le caleb or malignancy Lab AP Malignant? Normal Normal [facility] Specimen adequacy: Satisfactory for evaluation, [facility] endocervical/transformation zone component present HPV Reflex? Yes regardless of result [facility] High Risk? No [facility] Last Mens Period 2006 [facility] Lab AP Abnormal Bleeding No [facility] Lab AP Patient Status n/a [facility] Lab AP None [facility] Control/Hormones Lab AP Previous Normal 02/17/2013 [facility] Lab AP Previous Abnl no [facility] Lab AP Cervical Appearance normal [facility] Specimen (Source) Anatomical Collection Method Collection Time Re ceived Time Location / / Volume Laterality Endocervical swab 02/07/2017 3:05 (procedure) PM CDT Narrative [facility] - 02/14/2017 11:39 AM C DT Test performed by: [facility] [address] [place] [id number] Catrina Sue MD LAB - [employer] Performing Organization Address [facility]/ZIP Code Phon e Number [facility] (ABNORMAL) TSH Sensitive ([facility]) (02/07/2017 2:59 PM CDT) P athologist Signature TSH 8.88 (H) 0.30 - 5.00 [facility] uIU/mL LAB Specimen (Source) Anatomical Collection Method Collection Time Re ceived Time Location / / Volume Laterality Blood specimen VENOUS BLOOD / 02/07/2017 2:59 PM (specimen) Unknown CDT Narrative [facility] - 02/07/2017 8:36 PM CD T Test performed by: [facility] [address] [place] [id number] Catrina Sue MD [facility] - [employer] Performing Organization Address City/[facility]/ZIP Code Phon e Number [facility] documented in this encounter Visit Diagnoses Diagnosis Routine history and physical examination of adult - Primary Routine general medical examination at a health care facility Needs flu shot Need for prophylactic vaccination and in oculation against influenza Hypothyroidism due to acquired atrophy o f thyroid Mild intermittent asthma without complic ation Unspecified asthma documented in this encounter Care Teams Stage Set Up Worker Relationship Specialty Start Date End Date Catrina Sue MD PCP - General Family Practice 06/05/[address] [place] [address] [place] [address] documented as of this encounter
--- OUTSIDE RECORDS SUMMARY | 2022-02-27 08:13 | XMS_ITS | Encounter Summary ---
:1955 Author Organization [place] Address [address] [place] [address] Care Team Providers Name Role Phone Catrina Sue MD Primary Care Provider Reason for Visit Reason Onset Date Comments UTI 02/12/2015 Encounter Details Date Type Department Care Team Description 02/12/2015 Telephone [facility] Gonzalo Catrina Sweet MD UTI [address] [facility]. [address] [place] [address] [place] [address] [place] [address] [phone] (Wo rk) Social History Tobacco Use Types [...] this encounter Miscellaneous Notes Telephone Encounter - Rekha Gardiner - 02/16/2015 8:50 AM CDT Spoke with patient and informed her that the urine culture was negative for infection. Her symptoms have resolved and she has no further discomfort. If symptoms return, recommended OV. Rekha Gardiner Telephone Encounter - Catrina Sue MD - 02/12/2015 2:17 PM CDT Urinalysis shows only mild findings, irritated, but not a definitive UTI. I will give you a med tohelp with the burning now and wait for culture results and treat if needed then. Telephone Encounter - Rekha Gardiner - 02/12/2015 8:19 AM CDT Patient called this morning and is now finished with the 3 day course of Bactrim but still having dysuria. No fever or back pain. Patient will come today for a lab appt. for UA/UC, will discuss with Dr. Sue. Rekha Gardiner documented in this encounter Plan of Treatment Not on filedocumented as of this encounter Visit Diagnoses Diagnosis Dysuria - Primary documented in this encounter Care Teams Advanced Nursing Professor Relationship Specialty Start Date End Date Catrina Sue MD PCP - General Family Practice 06/05/[address] [place] [address] documented as of this encounter
--- OUTSIDE RECORDS SUMMARY | 2022-02-27 08:13 | XMS_ITS | Encounter Summary ---
:1955 Author Organization [place] Address [address] [place] [address] Care Team Providers Name Role Phone Catrina Sue MD Primary Care Provider Reason for Visit Reason Onset Date Comments Refill Request 09/21/2014 Encounter Details Date Type Department Care Team Description 09/21/2014 Refill [facility] Catrina Sue MD Refill Request [facility] [address] [address] [place] [address] [phone] (Wo rk) Social History Tobacco Use Types [...] Telephone Encounter - Catrina Sue MD - 09/21/2014 5:13 PM CDT Reviewed and approved documented in this encounter Plan of Treatment Not on filedocumented as of this encounter Visit Diagnoses Diagnosis Essential hypertension, benign - Primary documented in this encounter Care Teams Coding Manager Relationship Specialty Start Date End Date Catrina Sue MD PCP - General Family Practice 06/05/[address] [place] [address] documented as of this encounter
--- OUTSIDE RECORDS SUMMARY | 2022-02-27 08:13 | XMS_ITS | Encounter Summary ---
:1955 Author Organization [place] Address [address] [place] [address] Care Team Providers Name Role Phone Catrina Sue MD Primary Care Provider Reason for Visit Reason Onset Date Comments Refill Request 03/25/2014 Encounter Details Date Type Department Care Team Description 03/25/2014 Refill [facility] Catrina Sue MD Refill Request [address] [phone] [place] [phone] (Wo rk) Social History Tobacco Use Types [...] of this encounter Visit Diagnoses Diagnosis Major depression Major depressive disorder, single episod e, unspecified documented in this encounter Care Teams Commissary Agent Relationship Specialty Start Date End Date Catrina Sue MD PCP - General Family Practice 06/05/[address] [place] [address] documented as of this encounter
--- OUTSIDE RECORDS SUMMARY | 2022-02-27 08:13 | XMS_ITS | Encounter Summary ---
:1955 Author Organization [place] Address [facility] [place] [address] Care Team Providers Name Role Phone Catrina Sue MD Primary Care Provider Reason for Visit Reason Comments Physical patient stated that she has burning in her legs that has been going on for a while now. Encounter Details Date Type Department Care Team Description 02/02/2015 Office Visit ChristinaCatrina Pérez Hypothyro idism due to acquired atrophy of thyroid (Primary Dx); Clinic MD Kilo Asthma, mild intermittent, uncomplicated ; [address] [place] Influenza vaccination admini stered at current visit; [place] [address] [address] [place]; [phone] [place], [place] [address] Routine general medical examination at a health care facility; [phone] Major depressiv e disorder, recurrent episode, mild (H) (Work) Social History Tobacco Use Types Packs/Day Years [...] Sign Reading Time Taken Comments Blood Pressure 117/78 02/02/2015 2:02 PM CDT Pulse 67 02/02/2015 2:02 PM CDT Temperature 36.6 ??C (97.8 ??F) 02/02/2015 2:02 PM CDT Respiratory Rate - - Oxygen Saturation 99% 02/02/2015 2:02 PM CDT Inhaled Oxygen Concentration - - Weight 62.5 kg (137 lb 12.8 oz) 02/02/2015 2:02 PM CDT Height 172.1 cm (5' 7.75) 02/02/2015 2:02 PM CDT Body Mass Index 21.11 02/02/2015 2:02 PM CDT documented in this encounter Patient Instructions Patient InstructionsHannah Burgess CMA - 02/02/2015 2:17 PM CDT - YAY!!! You can stop taking your water pill. - You can start taking your celexa twice a day, one in the monring and one in the evening. Your medication list is printed, please keep [...] we will call with results is # [phone] (home) . If this is not the best number please call our clinic and change the number. If you need any refills please call your pharmacy and they will contact us. If you have any further concerns or wish to schedule another appointment you must call our office during normal business hours [phone] (8-5:00 M-F) If you have urgent medical questions that cannot wait you may also call [phone] at any time of day. If you have a medical emergency please call [phone]. Thank you for coming to [facility]. Preventive Health Recommendations Female Ages 50 - 64 Yearly exam: See your health care provider every year in order to o Review health changes. o Discuss preventive care. o Review your medicines if your doctor has prescribed any. ??? Get a Pap test every three years (unless you have an abnormal result and your provider advises testing more often). ??? If you get Pap tests with HPV test, you only need to test every 5 years, unless you have an abnormal result. ??? You do not need a Pap test if your uterus was removed (hysterectomy) and you have not had cancer. ??? You should be tested each year for STDs (sexually transmitted diseases) if you're at risk. ??? Have a mammogram every 1 to 2 years. ??? Have a colonoscopy at age 50, or have a yearly FIT test (stool test). These exams screen for colon cancer. ??? Have a cholesterol test every 5 years, or more often if advised. ??? Have a diabetes test (fasting glucose) every three years. If you are at risk for diabetes, you should have this test more often. ??? If you are at risk for osteoporosis (brittle bone disease), think about having a bone density scan (DEXA). Shots: Get a flu shot each year. Get a tetanus shot every 10 years. Nutrition: ??? Eat at least 5 servings of fruits and vegetables each day. ??? Eat whole-grain bread, whole-wheat pasta and brown rice instead of white grains and rice. ??? For bone health: Eat calcium-rich foods or take calcium pills (500 to 600 mg) twice a day with food. Also take vitamin D (1000 IUs) each day. Lifestyle ??? Exercise at least 150 minutes a week (30 minutes a day, 5 days a week). This will help you control your weight and prevent disease. ??? Limit alcohol to one drink per day. ??? No smoking. ??? Wear sunscreen to prevent skin cancer. ??? See your dentist every six months for an exam and cleaning. ??? See your eye doctor every 1 to 2 years. documented in this encounter Progress Notes Catrina Sue MD - 02/12/2015 9:32 PM CDT Quick Note: Informed at visit, Recheck in one year Catrina Sue MD - 02/02/2015 2:22 PM CDT Female Physical Note Concerns today: No special concerns today.- burning hot sensation both feet, from knees down (months-years) progressing to larger area, and nightly, no color change, no rashes, no swelling ROS: CONSTITUTIONAL: no fatigue, no unexpected change in weight SKIN: no worrisome rashes, no worrisome moles, no worrisome lesions EYES: no acute vision problems or changes ENT: no ear problems, no mouth problems, no throat problems RESP: no significant cough, no shortness of breath CV: no chest pain, no palpitations, no new or worsening peripheral edema GI: GERD and IBS with some loose and some cramping (had colonoscopy) NEURO: burning Sexually Active: Yes Sexual concerns: No Contraception:not needed P: 3 Menarche: No LMP recorded. Patient is postmenopausal. STD History: Neg Last Pap Smear Date: normal Abnormal Pap History: no recent Patient Active Problem List Diagnosis ??? AK (actinic keratosis) ??? Benign paroxysmal positional vertigo ??? Esophageal reflux ??? Lesion of plantar nerve ??? Leiomyoma of uterus ??? Osteoarthritis of multiple joints ??? Disorder of bone and cartilage ??? Postmenopausal atrophic vaginitis ??? Symptomatic menopausal or female climacteric states ??? Varicose veins of lower extremities with complications ??? Mild intermittent asthma ??? Hypothyroidism due to acquired atrophy of thyroid ??? Asthma, mild intermittent, uncomplicated Current Outpatient Prescriptions Medication Sig Dispense Refill ??? triamterene-hydrochlorothiazide (MAXZIDE-25) 37.5-25 MG per tablet Take 1 tablet by mouth daily 90 tablet 3 ??? levothyroxine (SYNTHROID, LEVOTHROID) 75 MCG tablet Take 1 tablet (75 mcg) by mouth daily 90 tablet 3 ??? citalopram (CELEXA) 10 MG tablet Take 1 tablet (10 mg) by mouth daily 90 tablet 3 ??? estradiol (ESTRACE VAGINAL) 0.1 MG/GM vaginal cream Place 0.5 g vaginally twice a week 12 g 3 ??? omeprazole (PRILOSEC) 20 MG capsule Take 1 capsule (20 mg) by mouth daily 90 capsule 3 ??? acyclovir (ZOVIRAX) 400 MG tablet Take 1 tablet by mouth 2 times daily. 180 tablet 3 ??? albuterol (VENTOLIN HFA) 108 (90 BASE) MCG/ACT inhaler Inhale 2 puffs into the lungs every 6 hours. Past Medical History Diagnosis Date ??? Leiomyoma of uterus, unspecified 05/11/2012 ??? Unspecified asthma(493.90) 05/11/2012 ??? Esophageal reflux 05/11/2012 ??? Unspecified hypothyroidism 05/11/2012 ??? Essential hypertension, benign 09/18/2012 ??? Unspecified tinnitus 05/11/2012 Family History Problem (# of Occurrences) Relation (Name,Age of Onset) Colon Cancer (1) Paternal Grandmother Coronary Artery Disease (3) Father, Maternal Grandmother, Paternal Grandfather Other Cancer (1) Mother: AML Prostate Cancer (1) Maternal Grandfather Negative family history of: Diabetes, Hypertension, Cerebrovascular Accident, Breast Cancer, Asthma Problem List Medication List and Allergy List were reviewed. Patient is an established patient of this clinic.. History Substance Use Topics ??? Smoking status: Former Smoker ??? Smokeless tobacco: Not on file ??? Alcohol Use: Yes Children ? 3 grown with grandkids Has [...] Calculator Immunization History Administered Date(s) Administered ??? Hepatitis B 07/13/1999, 03/13/2008, 12/24/2008 ??? Influenza (IIV3) 02/16/2011, 02/08/2012 ??? Influenza Vaccine IM 3yrs+ 4 Valent IIV4 02/25/2014 ??? Influenza Vaccine, 3 YRS +, IM (QUADRIVALENT W/PRESERVATIVES) 02/17/2013 ??? Pneumococcal 23 valent 04/06/2000, 12/24/2008 ??? TD (ADULT, 7+) 04/06/2000 ??? Tdap (Adacel,Boostrix) 12/24/2008 Reviewed Immunization Record Today EXAMINATION: BP 117/78 mmHg Pulse 67 Temp(Src) 97.8 ??F (36.6 ??C) (Oral) Ht 5' 7.75 (172.1 cm) Wt 137 lb 12.8 oz (62.506 kg) BMI 21.10 kg/m2 SpO2 99% GENERAL: healthy, alert and no distress EYES: [...] no hepatosplenomegaly, no masses, normal bowel sounds MS: extremities- no gross deformities noted, no edema SKIN: no suspicious lesions, no rashes NEURO: strength and tone- normal, sensory exam- grossly normal, mentation- intact, speech- normal, reflexes- symmetric PSYCH: Alert and oriented times 3; speech- coherent , normal rate and volume; able to articulate logical thoughts, able to abstract reason, no tangential thoughts, no hallucinations or delusions, affect- normal LYMPHATICS: ant. cervical- normal, post. cervical- normal, axillary- normal, supraclavicular- normal, inguinal- normal SPIROMETRY: moderate obstruction cannot rule out restriction component ASSESSMENT: 1. Health Care Maintenance: Normal Physical Exam 2. Asthma: currently well controlled 3. Hx of LE edema: s/p venous ablation 4. Hypothyroidism 5. Depression PLAN: 1. Routine follow up in one year. 2. Well controlled by ACT spirometry with some obstruction, possibly patient effort and possible restriction 3. Patient okay with reducing or stopping the use of diuretic, prescribed for ankle edema, has had venous ablation and ligation and now perhaps less problems and less need for diuretic 4. Check TSH was inadequate replacement last year, never previously rechecked. 5. Patient requested increase in dose, much improved with 10 mg feeling it wear off in evening, ok to take BID documented in this encounter Nursing Notes Hannah Burgess CMA - 02/02/2015 2:04 PM CDT Janet Soto 1. Has the patient received the information for the influenza vaccine? YES 2. Does the patient have any of the following contraindications? Allergy to eggs? No Allergic reaction to previous influenza vaccines? No Any other problems to previous influenza vaccines? No Paralyzed by Guillain-[place] syndrome? No Currently ? NO Current moderate or severe illness? No Vaccination given by Hannah Vega CMA. Recorded by HANNAH BURGESS documented in this encounter Plan of Treatment Not on filedocumented as of this encounter Procedures Procedure Name Priority Date/Time Associated Diagnosis Comme nts TSH SENSITIVE Routine 02/02/2015 2:52 PM Hypothyroidism due to Results for this ([facility]) CDT acquired atrophy of procedur e are in thyroid the results section. BASIC METABOLIC Routine 02/02/2015 2:52 PM [place] Result s for this PANEL ([facility]) CDT procedure are in the results section. HC SPIROMETRY, Routine 02/02/2015 Asthma, mild Results for t his BREATH CAPACITY intermittent, procedure a re in uncomplicated the results section. documented in this encounter Results Basic Metabolic Panel ([facility]) - Results < 1 hr (02/02/2015 2:52 PM CDT) P athologist Signature Glucose 92.0 60.0 - [facility] 109.0 LAB mg/dL Urea Nitrogen 14.0 7.0 - 30.0 [facility] mg/dL LAB Creatinine 0.8 0.6 - 1.3 [facility] mg/dL LAB Sodium 138.0 133.0 - [facility] 144.0 LAB mmol/L Potassium 4.4 3.4 - 5.3 [facility] mmol/L LAB Chloride 94.0 94.0 - [facility] 109.0 LAB mmol/L Carbon Dioxide 29.0 20.0 - [facility] 32.0 LAB mmol/L Calcium 9.8 8.5 - 10.4 [facility] mg/dL LAB eGFR Calculated 77.[address] >[address] [facility] (Non Black mL/min LAB Reference) eGFR Calculated 93.[address]0 [facility] (Black mL/min LAB Reference) Specimen Anatomical Collection Method Collection Time Receive d Time (Source) Location / / Volume Laterality Blood specimen VENOUS BLOOD / 02/02/2015 2:52 PM 02/02 2:52 (specimen) Unknown CDT PM CDT Catrina Sue MD LAB - [facility] Performing Organization Address City/[facility]/ZIP Code Phon e Number [facility] [address] [place] [address] TSH Sensitive ([facility]) (02/02/2015 2:52 PM CDT) athologist Signature TSH 0.79 0.30 - 5.00 [facility] uIU/mL LAB Specimen (Source) Anatomical Collection Method Collection Time Re ceived Time Location / / Volume Laterality Blood specimen VENOUS BLOOD / 02/02/2015 2:52 PM (specimen) Unknown CDT Narrative [facility] - 02/02/2015 8:32 PM CD T Test performed by: [facility] [address] [address] Catrina Sue MD [facility] Performing Organization Address City/[facility]/ZIP Code Phon e Number [facility] Spirometry, Breathing Capacity (02/02/2015) athologist Signature FEV-1 1.96 L(67%) FVC 2.79 L (73%) FEV1/FVC 0.7 (90%) FEF 25/75 Impressions Catrina Sue MD - 02/02/2015 Moderate obstruction, possible restricti on. Narrative This result has an attachment that is no t available. Catrina Sue MD PROCEDURES documented in this encounter Visit Diagnoses Diagnosis Hypothyroidism due to acquired atrophy o f thyroid - Primary Asthma, mild intermittent, uncomplicated Influenza vaccination administered at rrent visit Edema Routine general medical examination at a health care facility Major depressive disorder, recurrent epi sode, mild (H) Major depressive disorder, recurrent epi sode, mild documented in this encounter Care Teams Satin Finisher Relationship Specialty Start Date End Date Catrina Sue MD PCP - General Family Practice 06/05/[address] [place] [id number] documented as of this encounter
--- OUTSIDE RECORDS SUMMARY | 2022-02-27 08:13 | XMS_ITS | Encounter Summary ---
:1955 Author Organization [place] Address [facility] [place] [address] Care Team Providers Name Role Phone Catrina Sue MD Primary Care Provider Reason for Visit Reason Comments Pain pain in right breast since m onday. no injury, leteral side, closer to arm pit. hurts when moving. no swelli ng. Encounter Details Date Type Department Care Team Description 09/08/2015 Office Visit [facility] Oscar Lu MD Chest wall contusion, [address] [place] right, [place] [address] [address] encounter (Primary [phone] [place], [place] [address] Dx) [phone] (Wo rk) Social History Tobacco Use Types [...] Sign Reading Time Taken Comments Blood Pressure 110/75 09/08/2015 2:16 PM CDT Pulse 70 09/08/2015 2:16 PM CDT Temperature 36.8 ??C (98.2 ??F) 09/08/2015 2:16 PM CDT Respiratory Rate 16 09/08/2015 2:16 PM CDT Oxygen Saturation 99% 09/08/2015 2:16 PM CDT Inhaled Oxygen Concentration - - Weight 59.1 kg (130 lb 3.2 oz) 09/08/2015 2:16 PM CDT Height 171.5 cm (5' 7.5) 09/08/2015 2:16 PM CDT Body Mass Index 20.09 09/08/2015 2:16 PM CDT documented in this encounter Patient Instructions Patient InstructionsDanae Jennings CMA - 09/08/2015 2:22 PM CDT - Keep checking skin (especially the red area by breast), if it starts to blister or looks like it may blister, give us a call right away. - If symptoms persist, let us know. Your medication list is printed, please keep [...] we will call with results is # [phone] (home) . If this is not the best number please call our clinic and change the number. If you need any refills please call your pharmacy and they will contact us. If you have any further concerns or wish to schedule another appointment you must call our office during normal business hours [phone] (8-5:00 M-F) If you have urgent medical questions that cannot wait you may also call [phone] at any time of day. If you have a medical emergency please call [phone]. Thank you for coming to [facility]. documented in this encounter Progress Notes Oscar Shea MD - 09/08/2015 2:40 PM CDT SUBJECTIVE: This is a 60-year-old female with a history significant for hypothyroidism, depression, gastroesophageal reflux disease and persistent postmenopausal symptoms. She presents today with a dayhistory of lateral right breast pain. On Sunday she noticed pain, she points to a small area at her l ateral right breast. She cannot recall any injury or when she first noticed pain. She does recall bumping her right shoulder on a table on Sunday but cannot recall whether the breast pain started before or after this event. She describes the pain as stinging and aching she will have intermittent pangs of pain lasts between a fraction of a second to a few seconds. She notices this pain intermittently, sometimes when knitting, sometimes which she is first sitting down, sometimes with pushing motions, toweling off, or when clothing rubs on area. These triggers are not consistently reproducible. She can perform some of these activities and not have the pain and sometimes she will have the pain. There is no associated discomfort and no other areas of pain, shortness of breath, skin changes or skin rash. She has been in her usual state of good health. REVIEW OF SYSTEMS: She has intentionally lost 11 pounds since 05/2015 through calorie counting. Over the past 2 days she has had some very mild bilateral abdominal cramps that she describes similar toher previous menstrual cramps. She otherwise has a complete negative complete review of systems other than some intermittent joint pain which is unchanged over the years. OBJECTIVE: VITAL SIGNS: As above. GENERAL: She is alert, no distress, relates her own history readily. HEENT: Head is normocephalic and atraumatic. Eyes, sclerae are nonicteric, noninjected. Moist mucousmembranes. NECK: Supple without lymphadenopathy. CARDIOVASCULAR: Regular rate and rhythm without murmur. LUNGS: Clear bilaterally. EXTREMITIES: Examination of her right upper extremity shows normal muscle bulk and tone and normal skin of the right upper extremity. No AC joint acromial or other areas of shoulder tenderness. BREASTS: Examination of the right breast shows an approximately 7 mm, round, flat, regularly bordered, slightly reddened area which is somewhat tender to the touch. There is a linear compression greg in a semicircular pattern along the right breast border from her sports bra. The skin is otherwise unremarkable. There are no vesicular lesions or other skin lesions. The breast has no palpable lumps or deformity. There is a normal-appearing nipple without discharge. The axilla is free of adenopathy. Notenderness along the pectoral muscle or along the rib margins. MUSCULOSKELETAL: She has full range of motion. Assessment of the rotator cuff and deltoid and pectoral and deep breathing elicits no pain. ASSESSMENT AND PLAN: 1. Likely soft tissue injury at the right lateral chest wall/breast where she has point tenderness. I anticipate spontaneous and complete resolution over the next 7 days. If she develops any skin changes, particularly any vesicular lesions she should call right away to initiate treatment if the story becomes consistent with shingles. She has been vaccinated for shingles. Otherwise she will continue to observe the skin, feel the area for development of any palpable lumps or bumps and monitor for resolution of symptoms. If her symptoms do not resolve or she develops any new symptoms she will return for reevaluation. 2. Hypothyroidism: Her most recent TSH was in range. 3. Health care maintenance: She had screening mammography about 6 months ago which was normal. documented in this encounter Plan of Treatment Not on filedocumented as of this encounter Visit Diagnoses Diagnosis Chest wall contusion, right, initial enc ounter - Primary documented in this encounter Care Teams Game Master Relationship Specialty Start Date End Date Catrina Sue MD PCP - General Family Practice 06/05/[address] [place] [id number] documented as of this encounter
--- OUTSIDE RECORDS SUMMARY | 2022-02-27 08:13 | XMS_ITS | Encounter Summary ---
:1955 Author Organization [place] Address [address] [place] [address] Care Team Providers Name Role Phone Catrina Sue MD Primary Care Provider Encounter Details Date Type Department Care Team Description 02/12/2015 [facility] Sweet Dysuria (Primary Dx) [address] [facility] [place] [address] [address] [place] [phone] [place], [place] [address] [phone] (Wo rk) Social History Tobacco Use Types [...] documented as of this encounter Miscellaneous Notes Addendum Note - Luz Galindo CMA - 02/12/2015 8:27 AM CDT Addended by: LUZ GALINDO on: 02/12/2015 08:27 AM Modules accepted: Orders documented in this encounter Plan of Treatment Not on filedocumented as of this encounter Results Urine Culture ([facility]) (02/12/2015 1:55 PM CDT) athologist Signature Culture SEE RESULTS [facility] Comment: CULTURE, URINE SOURCE: Urine, Random CULTURE RESULTS: ?No Growth Specimen (Source) Anatomical Collection Method Collection Time Re ceived Time Location / / Volume Laterality Urine specimen 02/12/2015 1:55 PM (specimen) CDT Narrative [facility] - 02/13/2015 1:16 PM CD T Test performed by: [facility] [address] [place] [id number] Catrina Sue MD LAB - [facility] Performing Organization Address City/[facility] Phon e Number [facility] (ABNORMAL) Urinalysis ([facility]) (02/12/2015 1:55 PM CDT) Patholo gist Method Time Signature Specific [place] 1.025 1.005 - [facility] Urine 1.030 CLINIC [...] MD LAB - [facility] Performing Organization Address City/[facility] Phon e Number [facility] [address] [place] [id number] documented in this encounter Visit Diagnoses Diagnosis Dysuria Dysuria - Primary documented in this encounter Care Teams Service Team Leader Relationship Specialty Start Date End Date Catrina Sue MD PCP - General Family Practice 06/05/[address] [place] [id number] documented as of this encounter
--- OUTSIDE RECORDS SUMMARY | 2022-02-27 08:13 | XMS_ITS | Encounter Summary ---
:1955 Author Organization [place] Address [address] [place] [address] Care Team Providers Name Role Phone Catrina Sue MD Primary Care Provider Reason for Visit Reason Onset Date Comments Refill Request 04/05/2015 Encounter Details Date Type Department Care Team Description 04/05/2015 Refill [facility] Catrina Sweet MD Refill Request [facility] [address] [address] [place], [place] [id number] (Wo rk) Social History Tobacco Use Types [...] Notes Telephone Encounter - Rekha Gardiner - 04/09/2015 12:09 PM CST Refill on bactrim was requested by mistake and patient will work with mail order pharmacy to correct. Rekha Gardiner T HOLE DRILLER Telephone Encounter - Catrina Sue MD - 04/05/2015 5:29 PM CST Won't refill bactrim, would need info or reason for why needing abx. Refilled synthroid. T HOLE DRILLER documented in this encounter Plan of Treatment Not on filedocumented as of this encounter Visit Diagnoses Diagnosis Hypothyroidism due to acquired atrophy o f thyroid - Primary documented in this encounter Care Teams Internal Combustion Engine Inspector Relationship Specialty Start Date End Date Catrina Sue MD PCP - General Family Practice 06/05/[address] [place] [address] documented as of this encounter
--- OUTSIDE RECORDS SUMMARY | 2022-02-27 08:13 | XMS_ITS | Encounter Summary ---
:1955 Author Organization [facility] Address [address] [place] [address] Care Team Providers Name Role Phone Catrina Sue MD Primary Care Provider Encounter Details Date Type Department Care Team Description 02/03/2016 Hospital Encounter [facility] Catrina Sue Visit for screening RYANNE MD [facility] [address] [phone] [place] [address] Social History Tobacco Use Types [...] Start Date End Date acyclovir (ZOVIRAX) 400 Take 1 tablet (400 180 tablet 3 /07/201501/16/2019 MG tabletIndications: mg) by mouth 2 Recurrent herpes simplex times daily albuterol (VENTOLIN HFA) Inhale 2 puffs into 0 01/16/2019 108 (90 BASE) MCG/ACT the lungs every 6 inhaler hours. citalopram (CELEXA) 10 MG Take 1 tablet (10 180 tablet 3 02/11/2016 tabletIndications: Major mg) by mouth 2 depressive disorder, times daily recurrent episode, mild (H) estradiol (ESTRACE Place 0.5 g 12 g 4 02/25/201510/17 VAGINAL) 0.1 MG/GM vaginally twice a vaginal creamIndications: week Postmenopausal atrophic vaginitis levothyroxine (SYNTHROID, Take 1 tablet (75 90 tablet 3 02/16/2016 LEVOTHROID) 75 MCG mcg) by mouth daily tabletIndications: Hypothyroidism due to acquired atrophy of thyroid omeprazole (PRILOSEC) 20 Take 1 capsule (20 90 capsule 3 10/17/2017 MG capsuleIndications: mg) by mouth daily GERD (gastroesophageal reflux disease) phenazopyridine Take 1 tablet (200 6 tablet 0 02/12/2015 0 10/17/2017 (PYRIDIUM) 200 MG mg) by mouth 3 tabletIndications: times daily as Dysuria needed for irritation Expect your urine to appear bright orange sulfamethoxazole-trimetho Take 1 tablet by 0 01/2110/17/2017 prim (BACTRIM DS) 800-160 mouth 2 times daily MG per tablet documented as of this encounter Plan of Treatment Not on filedocumented as of this encounter Procedures Procedure Name Priority Date/Time Associated Diagnosis Comme nts MA SCREENING Routine 02/03/2016 8:35 AM Visit for screening Re sults for this DIGITAL BILATERAL CDT mammogram procedure are in the results section. documented in this encounter Results MA Screening Digital Bilateral (02/03/2016 8:35 AM CDT) Anatomical Region Laterality Modality Breast Bilateral Other Specimen (Source) Anatomical Location Collection Method / Collectio n Time Received Time / Laterality Volume Narrative 02/03/2016 11:43 AM CDT BILATERAL FULL FIELD DIGITAL SCREENING MAMMOGRAM Performed on: 02/03/16. Compared to: 01/28/2015 Mammo Screening Bilateral, and 01/21/2014 Mammo Screening Bilateral Findings: The breasts have scattered are as of fibroglandular densities. There is no radiographic evidence of mal ignancy. This study was evaluated with the assistance of Computer-Aided De tection. Continue routine screening mammogram as recommended. ACR BI-RADS Category 1: Negative Procedure Note Brenden Ruiz MD - 09/27/2020Formattin g of this note might be different from the original. BILATERAL FULL FIELD DIGITAL SCREENING MAMMOGRAM Performed on: 02/03/16. Compared to: 01/28/2015 Mammo Screening Bilateral, and 01/21/2014 Mammo Screening Bilateral Findings: The breasts have scattered are as of fibroglandular densities. There is no radiographic evidence of mal ignancy. This study was evaluated with the assistance of Computer-Aided De tection. Continue routine screening mammogram as recommended. ACR BI-RADS Category 1: Negative Catrina Sue MD IMG MAMMOGRAPHY ORDERABLES documented in this encounter Visit Diagnoses Diagnosis Visit for screening mammogram Other screening mammogram documented in this encounter Care Teams Hot Wound Spring Production Supervisor Relationship Specialty Start Date End Date Catrina Sue MD PCP - General Family Practice 06/05/[address] [place] [address] documented as of this encounter
--- OUTSIDE RECORDS SUMMARY | 2022-02-27 08:13 | XMS_ITS | Encounter Summary ---
:1955 Author Organization [facility] Address [address] [place] [address] Care Team Providers Name Role Phone Catrina Sue MD Primary Care Provider Reason for Visit Reason Onset Date Comments Refill Request 02/11/2016 Encounter Details Date Type Department Care Team Description 02/11/2016 Refill [facility] Catrina Sue MD Refill Request [address] [place] [address] [place], [place] [phone] (Wo rk) Social History Tobacco Use Types [...] Telephone Encounter - Catrina Sue MD - 02/11/2016 5:49 PM CDT Reviewed and approved documented in this encounter Plan of Treatment Not on filedocumented as of this encounter Visit Diagnoses Diagnosis Major depressive disorder, recurrent epi sode, mild (H) - Primary Major depressive disorder, recurrent epi sode, mild documented in this encounter Care Teams Employee Benefits Administrator Relationship Specialty Start Date End Date Catrina Sue MD PCP - General Family Practice 06/05/[address] [place] [address] documented as of this encounter
--- OUTSIDE RECORDS SUMMARY | 2022-02-27 08:13 | XMS_ITS | Encounter Summary ---
:1955 Author Organization [facility] Address [address] [place] [address] Care Team Providers Name Role Phone Catrina Sue MD Primary Care Provider Reason for Visit Reason Onset Date Comments Dysuria 02/08/2015 Encounter Details Date Type Department Care Team Description 02/08/2015 Telephone [facility] Catrina Aragon MD Dysuria [address] [address] [place], [place] [phone] (Wo rk) Social History Tobacco Use Types [...] Notes Telephone Encounter - Rekha Gardiner - 02/08/2015 8:52 AM CDT Notified patient rx was sent to the pharmacy. Telephone Encounter - Catrina Sue MD - 02/08/2015 8:21 AM CDT Reviewed and will phone in antibiotic for a 3 day course. Telephone Encounter - Rekha Gardiner - 02/08/2015 7:39 AM CDT Patient calls today with complaints of dysuria and frequency since yesterday. Denies fever, back pain or hematuria. She is babysitting grandchildren today so is not able to come into the clinic but would like an rx sent to the [facility] listed in her chart. If symptoms not resolving with tx, she will come in for OV. Last OV was 02-02-15. Cell phone [phone] documented in this encounter Plan of Treatment Not on filedocumented as of this encounter Visit Diagnoses Diagnosis UTI (lower urinary tract infection) - Pr imary Urinary tract infection, site not specif ied documented in this encounter Care Teams Hide Cleaner Relationship Specialty Start Date End Date Catrina Sue MD PCP - General Family Practice 06/05/[address] [place] [address] documented as of this encounter
--- OUTSIDE RECORDS SUMMARY | 2022-02-27 08:13 | XMS_ITS | Encounter Summary ---
:1955 Author Organization [facility] Address [address] [place] [address] Care Team Providers Name Role Phone Catrina Sue MD Primary Care Provider Catrina Sue MD Unavailable Catrina Sue MD Unavailable Encounter Details Date Type Department Care Team Description 12/28/2014 Communication - [address] [place] [address] Social History Tobacco Use Types Packs/Day Years [...] with No / Unsure 06/15/2020 9:20 AM FREIGHT INSPECTOR someone who was confirmed or suspected to have Coronavirus / COVID-19? documented as of this encounter Plan of Treatment Not on filedocumented as of this encounter Visit Diagnoses Not on filedocumented in this encounter Care Teams Research Group Director Relationship Specialty Start Date End Date Catrina Sue MD PCP - General Family Practice 06/05/[address] [place] [address] Catrina Sue MD Assigned PCP 03/28/[address] [place] [address] Catrina Sue MD Assigned PCP 09/11/19 03/27/[address] [place] [address] documented as of this encounter
--- OUTSIDE RECORDS SUMMARY | 2022-02-27 08:13 | XMS_ITS | Encounter Summary ---
:1955 Author Organization [facility] Address [address] [place] [address] Care Team Providers Name Role Phone Catrina Sue MD Primary Care Provider Reason for Visit Reason Onset Date Comments Refill Request 10/05/2015 Encounter Details Date Type Department Care Team Description 10/05/2015 Refill [facility] Catrina Sue MD Refill Request [facility] [address] [address] [place], [place] [phone] (Wo rk) Social History Tobacco Use Types [...] Telephone Encounter - Catrina Sue MD - 10/05/2015 6:18 PM CDT Reviewed and approved documented in this encounter Plan of Treatment Not on filedocumented as of this encounter Visit Diagnoses Diagnosis Recurrent herpes simplex - Primary Herpes simplex without mention of compli cation documented in this encounter Care Teams Chief Radiology Relationship Specialty Start Date End Date Catrina Sue MD PCP - General Family Practice 06/05/[address] [place] [address] documented as of this encounter
--- OUTSIDE RECORDS SUMMARY | 2022-02-27 08:13 | XMS_ITS | Encounter Summary ---
:1955 Author Organization [facility] Address [address] [place] [address] Care Team Providers Name Role Phone Catrina Sue MD Primary Care Provider Reason for Visit Reason Onset Date Comments Refill Request 01/29/2017 Encounter Details Date Type Department Care Team Description 01/29/2017 Telephone [facility] Catrina Sweet MD Refill Request [address] [place] [address] [place], [place] [phone] (Wo rk) Social History Tobacco Use Types [...] this encounter Miscellaneous Notes Telephone Encounter - Gill Cordova - 01/29/2017 3:53 PM CDT Patient has an appointment on the with Vikram. 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
--- OUTSIDE RECORDS SUMMARY | 2022-02-27 08:13 | XMS_ITS | Encounter Summary ---
:1955 Author Organization [facility] Address [address] [place] [address] Care Team Providers Name Role Phone Catrina Sue MD Primary Care Provider Encounter Details Date Type Department Care Team Description 02/05/2017 Hospital Encounter [facility] Catrina Sue Visit for screening RYANNE MD [facility] [address] [phone] [place] [address] Social History Tobacco Use Types [...] Take 1 tablet (400 180 tablet 3 09/2101/16/2019 MG tabletIndications: mg) by mouth 2 Recurrent herpes simplex times daily albuterol (VENTOLIN HFA) Inhale 2 puffs into 0 01/16/2019 108 (90 BASE) MCG/ACT the lungs every 6 inhaler hours. citalopram (CELEXA) 10 MG Take 1 tablet (10 180 tablet 3 04/02/2017 tabletIndications: Major mg) by mouth 2 depressive disorder, times daily recurrent episode, mild (H) estradiol (ESTRACE Place 0.5 g 12 g 4 02/25/201510/17 VAGINAL) 0.1 MG/GM vaginally twice a vaginal creamIndications: week Postmenopausal atrophic vaginitis levothyroxine Take 1 tablet (75 90 tablet 3 01/29/201701/21 (SYNTHROID/LEVOTHROID) 75 mcg) by mouth daily MCG tabletIndications: Hypothyroidism due to acquired atrophy [...] Associated Diagnosis Comme nts MA SCREENING Routine 02/05/2017 10:28 AM Visit for screening R esults for this DIGITAL BILATERAL CDT mammogram procedure are in the results section. documented in this encounter Results MA Screening Digital Bilateral (02/05/2017 10:28 AM CDT) Anatomical Region Laterality Modality Breast Bilateral Other Specimen (Source) Anatomical Location Collection Method / Collectio n Time Received Time / Laterality Volume Narrative 02/05/2017 10:33 AM CDT BILATERAL FULL FIELD DIGITAL SCREENING MAMMOGRAM Performed on: 02/05/17. Compared to: 02/03/2016 Mammo Screening Bilateral, 01/28/2015 Mammo Screening Bilateral, and 01/21/2014 Mammo Screening Bilateral Findings: The breasts have scattered are as of fibroglandular densities. There is no radiographic evidence of malignancy. This study was evaluated with the assistance of Computer-Aided Detection. Continue routine screening mammogram as recommended. ACR BI-RADS Category 1: Negative Procedure Note Shai Meyer MD - 09/28/2020Fo rmatting of this note might be different from the original. BILATERAL FULL FIELD DIGITAL SCREENING M AMMOGRAM Performed on: 02/05/17. Compared to: 02/03/2016 Mammo Screening Bilateral, 01/28/2015 Mammo Screening Bilateral, and 01/21/2014 Mammo [...] mammogram documented in this encounter Care Teams Generator Repairer Relationship Specialty Start Date End Date Catrina Sue MD PCP - General Family Practice 06/05/[address] [place] [address] documented as of this encounter
--- OUTSIDE RECORDS SUMMARY | 2022-02-27 08:13 | XMS_ITS | Encounter Summary ---
:1955 Author Organization [facility] Address [address] [place] [address] Care Team Providers Name Role Phone Catrina Sue MD Primary Care Provider Encounter Details Date Type Department Care Team Description 02/07/2017 Orders Only [facility] Catrina Sweet Screening for 1414 [facility]. E MD Kilo condition (Primary Dx) [place] [address] [place] [address] [address] [place], [place] [address] (Wo rk) Social History Tobacco Use Types [...] encounter Progress Notes Catrina Sue MD - 02/07/2017 12:34 PM CDT Normal mammogram repeat in 2 years. documented in this encounter Plan of Treatment Not on filedocumented as of this encounter Procedures Procedure Name Priority Date/Time Associated Diagnosis Comme nts MAMMOGRAM - HIM SCAN Routine 02/05/2017 Screening for condit ion Results for this procedure are i n the results section . documented in this encounter Results Mammogram - HIM Scan (02/05/2017) Anatomical Region Laterality Modality Other Narrative This result has an attachment that is no t available. Catrina Sue MD IMG MAMMOGRAPHY ORDERABLES documented in this encounter Visit Diagnoses Diagnosis Screening for condition - Primary Screening for unspecified condition documented in this encounter Care Teams Rougher Operator Relationship Specialty Start Date End Date Catrina Sue MD PCP - General Family Practice 06/05/[address] [place] [phone] documented as of this encounter
--- OUTSIDE RECORDS SUMMARY | 2022-02-27 08:13 | XMS_ITS | Encounter Summary ---
:1955 Author Organization [facility] Address [address] [place] [address] Care Team Providers Name Role Phone Catrina Sue MD Primary Care Provider Reason for Referral Diagnostic Imaging Mammo - Closed Specialty Diagnoses / Procedures Referred By Contact Refer red To Contact Diagnoses Screening for breast cancer Catrina Sue MD Procedures MA SCREENING DIGITAL BILAT [address] [place] [address] Referral ID Status Reason Start Date Expiration Date Visits Requ ested Visits Authorized [id number] Closed 03/08/2016 03/08/2017 1 1 [employer] Reason for Visit Reason Comments Physical CPE UTI burning urination x yesterda y, had it before so know it is, Uricalm OTC for it Other no on juaniumMD to d/c Blood Draw lipid check Breast Problem wants to speak with you rega rding breast she saw Dr. Shea back in August for Shoulder right shoulder pain, will be seeing Dr. Nam Morel Sunday at 11am in [facility] Encounter Details Date Type Department Care Team Description 02/02/2016 Office Visit Catrina Rodriguez Adult gen eral medical exam (Primary Dx); Clinic MD [facility]; 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 20]; [phone] [place], [place] [address] Family history of ischemic heart disease ; [phone] Immunization du e; (Work) Screening for breast cancer Social History Tobacco Use Types Packs/Day Years [...] Reading Time Taken Comments Blood Pressure 118/77 02/02/2016 2:24 PM CDT Pulse 72 02/02/2016 2:24 PM CDT Temperature 36.6 ??C (97.9 ??F) 02/02/2016 2:24 PM CDT Respiratory Rate 18 02/02/2016 2:24 PM CDT Oxygen Saturation 96% 02/02/2016 2:24 PM CDT Inhaled Oxygen Concentration - - Weight 60.1 kg (132 lb 6.4 oz) 02/02/2016 2:24 PM CDT Height 172.7 cm (5' 8) 02/02/2016 2:24 PM CDT Body Mass Index 20.13 02/02/2016 2:24 PM CDT documented in this encounter Patient Instructions Patient InstructionsNate Pascual RMA - 02/02/2016 2:41 PM CDT - Your medication list is printed, please keep [...] we will call with results is # [phone] (home) . If this is not the best number please call our clinic and change the number. If you need any refills please call your pharmacy and they will contact us. If you have any further concerns or wish to schedule another appointment you must call our office during normal business hours [phone] (8-5:00 M-F) If you have urgent medical questions that cannot wait you may also call [phone] at any time of day. If you have a medical emergency please call 911. Thank you for coming to [facility]. My Asthma Action Plan Name: Janet Soto Date of : 1955 Date: 02/02/2016 My doctor: Catrina Sue My clinic: [address] [address] My Asthma Severity: intermittent Avoid your asthma triggers: upper respiratory infections and allergies GREEN ZONE Good Control ?? I feel good ?? No cough or wheeze ?? Can work, sleep and play without asthma symptoms Take your asthma control medicine every day. Take the medications listed below daily. Not on controlling medication 1. If exercise triggers your asthma, take [...] or Urgent Care visit for follow-up treatment. This Asthma Action Plan provides authorization for the administration of medication described in theAAP. Electronically signed by: Catrina Sue Annual Reminders: Meet with Extractor Operator, Flu Shot in the Fall, Pneumonia Shot Pharmacy: [facility] - [place], [place] - [address] [place] [address] [facility] - [address] FIGURE 4 An external file that holds a picture, illustration, etc. Prone trunk lift with weighted backpack. (A) Patient lies prone over a pillow, wearing a backpack secured to the upper back. (B) Squeeze shoulder blades together, tighten gluteal muscles and lift chestoff the mat, keeping cervical and lumbar spine in neutral. (C) Begin with 1 set of 10 repetitions and progress with weights in backpack, up to a maximum weight of 30% of 1-repetition maximum.27 In lieuof a weighted backpack, patients can use handheld dumbbells and perform the exercise with their elbows bent and their hands by their ears. Progress the dumbbells to 2.27 kg in each hand, and perform 3 sets of 8 repetitions.36 Dos Don???ts Maintain good postural alignment during exercise Avoid seated rowing machines or upper body ergometers Strengthen core stabilizer muscles, such as transversus abdominus, obliques, and multifidus Avoid crunches, curl-ups, or flexed position (traditional sit-ups) When bending or lifting objects, keep the spine in neutral, and bend at the hips and knees (hip hinge); keep objects close to the body Don???t twist or bend your spine when lifting objects When getting out of bed, roll onto the side before sitting up (log roll) Don???t sit straight up from a horizontal position When coughing or sneezing, stabilize trunk in neutral by hugging a pillow, or placing hands on knees while hip hinging, or place hand in small of back to help keep back in neutral Avoid forceful trunk flexion while coughing or sneezing Maintain the natural curves in your neck and back while sitting and standing. Imagine that you are lengthening through the crown of your head Avoid leaning over towards your work, or standing in a pelvic tilt What: MA Screening Where: [facility] When: 02/03/16 at 8:15am Who is with: Fax: Any additional comments: Scheduled by: ELIDIA Queen [employer] documented in this encounter Progress Notes Catrina Sue MD - 03/10/2016 6:15 PM DIRECTOR EDUCATIONAL RADIO Quick Note: Normal mammogram repeat in 2 years. CTOR EDUCATIONAL RADIO Catrina Sue MD - 02/02/2016 2:49 PM CDT Female Physical Note Concerns today: Right shoulder hurts: crunchy and aches down to elbow, seeing Ortho on Sunday Breast right: some pain in August, saw Dr. Shea, discussed and observation plan, recalls several days of pain. Has mammogr ROS: CONSTITUTIONAL: no fatigue, no unexpected change [...] Outpatient Prescriptions Medication Sig Dispense Refill ??? sulfamethoxazole-trimethoprim (BACTRIM,SEPTRA) 400-80 MG per tablet Take 1 tablet by mouth 2 times daily 6 tablet 0 ??? acyclovir (ZOVIRAX) 400 MG tablet Take 1 tablet (400 mg) by mouth 2 times daily 180 tablet 3 ??? levothyroxine (SYNTHROID, LEVOTHROID) 75 MCG tablet Take 1 tablet (75 mcg) by mouth daily 90 tablet 3 ??? estradiol (ESTRACE VAGINAL) 0.1 MG/GM vaginal cream Place 0.5 g vaginally twice a week 12 g 4 ??? citalopram (CELEXA) 10 MG tablet Take 1 tablet (10 mg) by mouth 2 times daily 180 tablet 3 ??? omeprazole (PRILOSEC) 20 MG capsule Take 1 capsule (20 mg) by mouth daily 90 capsule 3 ??? albuterol (VENTOLIN HFA) 108 (90 BASE) MCG/ACT inhaler Inhale 2 puffs into the lungs every 6 hours. ??? phenazopyridine (PYRIDIUM) 200 MG tablet Take 1 tablet (200 mg) by mouth 3 times daily as neededfor irritation Expect your urine to appear bright orange 6 tablet 0 Past Medical History Diagnosis Date ??? Leiomyoma [...] tobacco: Not on file ??? Alcohol Use: 0.6 oz/week 1 Standard drinks or equivalent [...] Vaccine IM 3yrs+ 4 Valent IIV4 02/25/2014, 02/02/2015 ??? Influenza Vaccine, 3 YRS +, IM (QUADRIVALENT W/PRESERVATIVES) 02/17/2013 ??? Pneumococcal 23 valent 04/06/2000, 12/24/2008 ??? TD (ADULT, 7+) 04/06/2000 ??? Tdap (Adacel,Boostrix) 12/24/2008 Reviewed Immunization Record Today EXAMINATION: BP 118/77 mmHg Pulse 72 Temp(Src) 97.9 ??F (36.6 ??C) (Oral) Resp 18 Ht 5' 8 (172.7 cm) Wt 132 lb 6.4 oz (60.056 kg) BMI 20.14 kg/m2 SpO2 96% GENERAL: healthy, alert and no distress EYES: [...] DEXA scan 2. Well controlled by ACT . 3. Check TSH documented in this encounter Nursing Notes Nate Pascual RMA - 02/02/2016 2:17 PM CDT 02/01/2016 PCS Previsit Plan DUE FOR: AAP ACT-given to complete Flu shot -ok Hepatitis c screening Advance Directive-info/packet given to complete and return a copy to clinic Cervical Cancer Screening - last pap done 01/2013 NL - repeat 5 yrs, not due until 2018 Last mammo--01/28/2015, going in tomorrow for her yearly screening JOSEFA Navas 1. Has the patient received the information for the influenza vaccine? YES 2. Does the patient have any of the following contraindications? No Allergy to eggs? No Allergic reaction to previous influenza vaccines? No Any other problems to previous influenza vaccines? No Paralyzed by Guillain-Dresden syndrome? No Currently ? No Current moderate or severe illness? No Vaccination given by JOSEFA Navas. Recorded by Nate Pascual documented in this encounter Miscellaneous Notes Addendum Note - Jacky Rodriguez CMA - 03/08/2016 10:20 AM DIRECTOR EDUCATIONAL RADIO Addended by: JACKY RODRIGUEZ on: 03/08/2016 10:20 AM Modules accepted: Orders [employer] EDUCATIONAL RADIO documented in this encounter Plan of Treatment Not on filedocumented as of this encounter Procedures Procedure Name Priority Date/Time Associated Diagnosis Comme nts MA SCREENING Routine 02/03/2016 Screening for breast Results for this DIGITAL BILATERAL cancer procedure are in the results section. TSH SENSITIVE Routine 02/02/2016 3:34 PM Hypothyroidism due to Results for this ([facility]) CDT acquired atrophy of procedur e are in thyroid the results section. LIPID PANEL Routine 02/02/2016 3:34 PM Family history of Resu lts for this ([facility]) CDT ischemic heart disease proce dure are in the results section. ASTHMA ACTION PLAN Routine 02/02/2016 2:58 PM Intermittent ast hma, CDT uncomplicated [J45.20] documented in this encounter Results MA SCREENING DIGITAL BILAT (02/03/2016) P athologist Signature MAMMOGRAM Anatomical Region Laterality Modality Breast Bilateral Other Narrative This result has an attachment that is no t available. Catrina Sue MD IMG MAMMOGRAPHY ORDERABLES TSH Sensitive ([employer]) (02/02/2016 3:34 PM CDT) P athologist Signature TSH 4.31 0.30 - 5.00 [facility] uIU/mL LAB Specimen (Source) Anatomical Collection Method Collection Time Re ceived Time Location / / Volume Laterality Blood specimen VENOUS BLOOD / 02/02/2016 3:34 PM (specimen) Unknown CDT Narrative [facility] - 02/02/2016 8:58 PM CD T Test performed by: [facility] [address] [address] Catrina Sue MD LAB - [facility] Performing Organization Address City/State/ZIP Code Phon e Number [facility] (ABNORMAL) Lipid Panel ([facility]) (02/02/2016 3:34 PM CDT) [facility] gist Method Time Signature Cholesterol 253.0 (H) <200.0 [facility] mg/dL LAB Triglycerides 112.0 <150.0 [facility] mg/dL LAB HDL Cholesterol 81.0 >50.0 [facility] Comment: If diabetic or CVD then referen ce range <100 VLDL-Cholesterol 22.0 7.0 - 32.0 mg/dL [facility] LDL Cholesterol Direct 150.0 (H) 0.0 - 99.0 mg/dL [facility] Cholesterol/HDL Ratio 3.1 <5.0 RATIO [facility] Specimen Anatomical Collection Method Collection Time Receive d Time (Source) Location / / Volume Laterality Blood specimen VENOUS BLOOD / 02/02/2016 3:34 PM 02/01 3:35 (specimen) Unknown CDT PM CDT Catrina Sue MD LAB - [facility] Performing Organization Address City/State/ZIP Code Phon e Number [facility] [address] [place] [id number] documented in this encounter Visit Diagnoses Diagnosis Adult general medical exam - Primary Unspecified general medical examination Dysuria Hypothyroidism due to acquired atrophy o f thyroid Intermittent asthma, uncomplicated [J45. 20] Family history of ischemic heart disease Immunization due Need for prophylactic vaccination and in oculation against unspecified single disease documented in this encounter Care Teams Agribusiness Professor Relationship Specialty Start Date End Date Catrina Sue MD PCP - General Family Practice 06/05/[address] [place] [address] documented as of this encounter
--- OUTSIDE RECORDS SUMMARY | 2022-02-27 08:13 | XMS_ITS | Encounter Summary ---
:1955 Author Organization [facility] Address [address] [place] [address] Care Team Providers Name Role Phone Catrina Sue MD Primary Care Provider Reason for Visit Reason Onset Date Comments Medication Question 02/02/2016 Encounter Details Date Type Department Care Team Description 02/02/2016 Telephone [facility] Catirna Sweet, Medication Question [address] [place] [address] [address] [facility] [phone] [place], [place] [address] (Wo rk) Social History Tobacco [...] Telephone Encounter - Catrina Sue MD - 02/03/2016 10:42 PM CDT Noted. Telephone Encounter - Christine Domingo RN - 02/02/2016 4:04 PM CDT She like the double strength, bactrium 800-160mg, please inform pharmacy. Thanks Called confirmation above for Bactrim DS 800/160mg #6 taken 1 tablet twice a day to Pharmacist. Thiscorrection has also been reflected into pt's med list by [facility]. Federica RN Telephone Encounter - Christine Domingo RN - 02/02/2016 3:33 PM CDT Spoke with Ashia Pharmacist, she would like to double check on whether physician meant to prescribe regular versus double strength Bactrim. Federica RN Telephone Encounter - Isamar Henderson - 02/02/2016 2:52 PM CDT [facility] Family Medicine phone call message- medication clarification/question: Full Medication Name: bactrim generic Question: needs to confirm the dosage. Please call and advise Pharmacy confirmed as [facility] - [place], [place] - [address] [place] [address] [facility] - [address] EAST: Yes OK to leave a message on voice mail? Yes Primary language: Emirati Drawbridge Operator needed? No Call taken on February 02, 2016 at 2:52 PM by Isamar Henderson documented in this encounter Plan of Treatment Not on filedocumented as of this encounter Visit Diagnoses Diagnosis Dysuria - Primary documented in this encounter Care Teams Non Acoustic Operator Relationship Specialty Start Date End Date Catrina Sue MD PCP - General Family Practice 06/05/[address] [place] [address] documented as of this encounter
--- OUTSIDE RECORDS SUMMARY | 2022-02-27 08:13 | XMS_ITS | Encounter Summary ---
:1955 Author Organization [facility] Address [address] [place] [address] Care Team Providers Name Role Phone Catrina Sue MD Primary Care Provider Encounter Details Date Type Department Care Team Description 01/28/2015 Hospital Encounter [facility] BREAST C[facility] Catrina Sue Visit for screening RYANNE MD [facility] [address] [phone] [place] [address] Social History Tobacco Use Types [...] acyclovir (ZOVIRAX) 400 MG Take 1 tablet by 180 tablet 3 03/201310/05/2015 tabletIndications: mouth 2 times Recurrent herpes simplex daily. albuterol (VENTOLIN HFA) Inhale 2 puffs 0 01/16/2019 108 (90 BASE) MCG/ACT into the lungs inhaler every 6 hours. citalopram (CELEXA) 10 MG Take 1 tablet (10 90 tablet 3 06/201302/02/2015 tabletIndications: Major mg) by mouth depression daily estradiol (ESTRACE VAGINAL) Place 0.5 g 12 g 3 014 02/25/2015 0.1 MG/GM vaginal vaginally twice a creamIndications: week Postmenopausal atrophic vaginitis hydrochlorothiazide Take 1 tablet by 0 02/02/2015 (HYDRODIURIL) 25 MG tablet mouth daily. levothyroxine (SYNTHROID, Take 1 tablet (75 90 tablet 3 06/201404/05/2015 LEVOTHROID) 75 MCG mcg) by mouth tabletIndications: daily Unspecified hypothyroidism omeprazole (PRILOSEC) 20 MG Take 1 capsule 90 capsule 3 01/2210/17/2017 capsuleIndications: GERD (20 mg) by mouth (gastroesophageal reflux daily disease) triamterene-hydrochlorothia Take 1 tablet by 90 tablet 3 09/08/2015 zide (MAXZIDE-25) 37.5-25 mouth daily MG per tabletIndications: Essential hypertension, benign documented as of this encounter Plan of Treatment Not on filedocumented as of this encounter Procedures Procedure Name Priority Date/Time Associated Diagnosis Comme nts MA SCREENING Routine 01/28/2015 8:56 AM Visit for screening Re sults for this BILATERAL CDT mammogram procedure are i n the results section. documented in this encounter Results MA Screening Bilateral (01/28/2015 8:56 AM CDT) Anatomical Region Laterality Modality Breast Bilateral Other Specimen (Source) Anatomical Location Collection Method / Collectio n Time Received Time / Laterality Volume Narrative 01/28/2015 9:46 AM CDT BILATERAL FULL FIELD DIGITAL SCREENING MAMMOGRAM Performed on: 01/28/15. Compared to: 01/21/2014 Mammo Screening Bilateral, 01/16/2013 Mammo Screening Bilateral Findings: The breasts have scattered are as of fibroglandular densities. There is no radiographic evidence of malignancy. This study was evaluated with the assistance of Computer-Aided Detection. Continue routine screening mammogram as recommended. ACR BI-RADS Category 1: Negative Procedure Note Chelle Landeros MD - 1 BILATERAL FULL FIELD DIGITAL SCREENING M AMMOGRAM Performed on: 01/28/15. Compared to: 01/21/2014 Mammo Screening Bilateral, 01/16/2013 Mammo Screening Bilateral Findings: The breasts [...] mammogram documented in this encounter Care Teams Cooler Conveyor Loader Relationship Specialty Start Date End Date Catrina Sue MD PCP - General Family Practice 06/05/[address] [place], [place] [id number] documented as of this encounter
--- OUTSIDE RECORDS SUMMARY | 2022-02-27 08:14 | XMS_ITS | Encounter Summary ---
:1955 Author Organization [place] Address [address] [place] [address] Care Team Providers Name Role Phone Catrina Sue MD Primary Care Provider Reason for Referral Consultation - Closed Specialty Diagnoses / Procedures Referred By Contact Refer red To Contact Diagnoses Nodule of finger, left Kiley Felipe NP [facility] [address] [place], [place] [address] Referral ID Status Reason Start Date Expiration Date Visits Requ ested Visits Authorized [id number] Closed 10/16/2013 04/14/2014 1 1 Reason for Visit Reason Comments Mass ring finger lump for couple weeks ago Encounter Details Date Type Department Care Team Description 10/15/2013 Office Visit [facility] c Kiley Felipe Nodule of finger, left (Prim wally Dx); [address] [facility]. E Jeanine Lockwood NP Unspecified asthma(493.90) [place] [address] [facility] [phone] [address] [place], [place] [address] (Wo rk) Social History Tobacco Use Types Packs/Day Years Used Date Smoking Tobacco: Former Tobacco Cessation: Counseling Given: No Alcohol Use Standard Drinks/Week Comments Not Asked [...] Sign Reading Time Taken Comments Blood Pressure 92/61 10/15/2013 9:39 AM CDT Pulse 74 10/15/2013 9:39 AM CDT Temperature 36.7 ??C (98.1 ??F) 10/15/2013 9:39 AM CDT Respiratory Rate - - Oxygen Saturation 98% 10/15/2013 9:39 AM CDT Inhaled Oxygen Concentration - - Weight 61.6 kg (135 lb 12.8 oz) 10/15/2013 9:39 AM CDT Height 172.1 cm (5' 7.75) 10/15/2013 9:39 AM CDT Body Mass Index 20.8 10/15/2013 9:39 AM CDT documented in this encounter Patient Instructions Patient InstructionsKiley Felipe, ASIF - 10/15/2013 10:28 AM CDT Your medication list is printed, please keep this with you, it is helpful to bring this current listto any other medical appointments and if you ever go to the emergency room or hospital. If you had lab testing today and your results are reassuring or normal they will be [facility]. If the lab tests need quick action we will call you with the results. The phone number we will call with results is # [phone] (home) . If this is not the best number please call our clinic and change the number. If you need any refills please call your pharmacy and they will contact us. If you have any further concerns or wish to schedule another appointment you must call our office during normal business hours [phone] (8-5:00 M-F) If you have urgent medical questions that cannot wait you may also call [phone] at any time of day. If you have a medical emergency please call 911. Thank you for coming to [facility]. Pt has appointment with [facility] on October 22 in [place]. Referral faxed over along visit note and [facility] was informed to drop imaging into there portal. 11/10/13 [facility] consult notes to . JOSEFA Duarte (Cm) documented in this encounter Progress Notes Kiley Felipe, ASIF - 10/15/2013 10:04 AM CDT HPI: Janet Soto is a 58 year old female with a significant past medical history of hypothyroid and asthma who presents for the new concern(s) of 1. Lump on finger -over dorsal PIP 4th of left hand. Pain x 1 month, bump x 1-2 week. Getting bigger. Pain is most noticable with movement- particularly full flexion. Joint is stiff and sore with movement. She is right handed. -no unexplained weight loss, fever, night sweats or fatigue. -history of OA, no family history of RA. -did have episode of SOB over memorial weekend. With activity. Went away, did have cold at the time. PMHX: Patient Active Problem List Diagnosis ??? AK (actinic keratosis) ??? Benign paroxysmal positional vertigo ??? Mastodynia ??? Esophageal reflux ??? Unspecified hypothyroidism ??? Lesion of plantar nerve ??? Leiomyoma of uterus, unspecified ??? Unspecified asthma ??? Osteoarthrosis involving, or with mention of more than one site, but not specified as generalized, multiple sites ??? Disorder of bone and cartilage, unspecified ??? Postmenopausal atrophic vaginitis ??? Symptomatic menopausal or female climacteric states ??? Unspecified tinnitus ??? Varicose veins of lower extremities with other complications ??? Essential hypertension, benign Current Outpatient Prescriptions Medication Sig Dispense Refill ??? estradiol (ESTRACE VAGINAL) 0.1 MG/GM vaginal cream Place 0.5 g vaginally twice a week 12 g 3 ??? levothyroxine (SYNTHROID, LEVOTHROID) 75 MCG tablet Take 1 tablet (75 mcg) by mouth daily 90 tablet 3 ??? triamterene-hydrochlorothiazide (MAXZIDE-25) 37.5-25 MG per tablet Take 1 tablet by mouth daily 90 tablet 3 ??? Ginseng 100 MG CAPS Take 2 capsules by mouth daily ??? omeprazole (PRILOSEC) 20 MG capsule Take 1 capsule (20 mg) by mouth daily 90 capsule 3 ??? acyclovir (ZOVIRAX) 400 MG tablet Take 1 tablet by mouth 2 times daily. 180 tablet 3 ??? calcium carbonate-vitamin D (CALCIUM + D) 600-200 MG-UNIT TABS Take 1 tablet daily. ??? ERYTHROMYCIN OP Apply 3 4 drops to each eye 3 4 times daily. ??? fexofenadine (SAMI) 180 MG tablet Take 1 tablet daily. ??? fluticasone (FLONASE) 50 MCG/ACT nasal spray [place] 2 sprays into both nostrils daily. ??? hydrochlorothiazide (HYDRODIURIL) 25 MG tablet Take 1 tablet by mouth daily. ??? meloxicam (MOBIC) 15 MG tablet Take 1 tablet by mouth daily. ??? albuterol (VENTOLIN HFA) 108 (90 BASE) MCG/ACT inhaler Inhale 2 puffs into the lungs every 6 hours. 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 Denies repetitive UE activities No Known Allergies No results found for this or any previous visit (from the past 24 hour(s)). Review of Systems: Negative except noted in HPI Physical Exam: Filed Vitals: 10/15/13 0939 BP: 92/61 Pulse: 74 Temp: 98.1 ??F (36.7 ??C) TempSrc: Oral Height: 5' 7.75 (172.1 cm) Weight: 135 lb 12.8 oz (61.598 kg) SpO2: 98% Body mass index is 20.8 kg/(m^2). GENERAL APPEARANCE: healthy, alert and no distress, NECK: no adenopathy, no asymmetry, masses, or scars and thyroid normal to palpation RESP: lungs clear to auscultation - no rales, rhonchi or wheezes CV: regular rate and rhythm, and no murmur, click, rub or gallop MS: 3mm hard, fixed nodule over ulnar aspect of PIP 4th finger on left hand. Pain with palpation andwith flexion. Normal ROM of finger and wrist. No overlying erythema or warmth, mild edema. No other nodules appreciated in hands or elbows Assessment and Plan 1. Nodule of finger -xray completed-possible bone fragment?, await final radiology read -given arthritic symptoms will check RF and ESR -Referral Orthopedics-hand specialist. *small accessory ossicle per radiologist read. Options for treatment and follow-up care were reviewed with the patient and/or guardian. Janet Arevalogfried and/or guardian engaged in the decision making process and verbalized understanding of the options discussed and agreed with the final plan. Kiley Felipe NP documented in this encounter Nursing Notes Evans February - 10/15/2013 9:35 AM CDT DUE FOR: AAP ACT Spirometry Christine Torres CMA - 10/15/2013 9:35 AM CDT DUE FOR: AAP ACT Spirometry documented in this encounter Miscellaneous Notes Addendum Note - Blane Pascual RMA - 10/20/2013 2:28 PM CDT Addended by: BLANE PASCUAL on: 10/20/2013 02:28 PM Modules accepted: Orders documented in this encounter Plan of Treatment Scheduled Referrals Name Type Priority Associated Diagnoses Order S chedule ORTHOPEDICS ADULT Referral Routine Nodule of finger, left 1 Occurrences starting REFERRAL 10/16/2013 unti l 04/17/2014 documented as of this encounter Procedures Procedure Name Priority Date/Time Associated Comments Diagnosis RHEUMATOID FACTOR Routine 10/15/2013 10:31 Nodule of finger, R esults for this QUANT ([facility]) AM CDT left procedure are in the results section. ERYTHROCYTE SED RATE Routine 10/15/2013 10:31 Nodule of finger , Results for this ([facility]) AM CDT left procedure are i n the results section. XR HAND LEFT G/E 3 Routine 10/15/2013 Nodule of finger, VIEWS left documented in this encounter Results Erythrocyte Sed Rate ([facility]) (10/15/2013 10:31 AM CDT) athologist Signature Sed Rate 16 0 - 20 [facility] mm/hr LAB Specimen Anatomical Collection Method Collection Time Receive d Time (Source) Location / / Volume Laterality Blood specimen 10/15/2013 10:31 4 5:51 (specimen) AM CDT PM CDT Kiley Felipe NP LAB - [facility] Performing Organization Address City/State/ZIP Code Phon e Number [facility] Rheumatoid Factor Quant ([facility]) (10/15/2013 10:31 AM CDT) athologist Signature RA,Quantitative <15.0 0 - 30 [facility] IU/mL LAB Specimen Anatomical Collection Method Collection Time Receive d Time (Source) Location / / Volume Laterality Blood specimen 10/15/2013 10:31 4 5:51 (specimen) AM CDT PM CDT Kiley Felipe NP LAB - [facility] Performing Organization Address City/State/ZIP Code Phon e Number [facility] XR HAND LT G/E 3 VW (10/15/2013) Anatomical Region Laterality Modality Hand, Wrist Left Other Narrative This result has an attachment that is no t available. Kiley Felipe NP IMG DIAGNOSTIC IMAG ING ORDERABLES documented in this encounter Visit Diagnoses Diagnosis Nodule of finger, left - Primary Unspecified asthma(493.90) Unspecified asthma documented in this encounter Care Teams Dishing Machine Operator Relationship Specialty Start Date End Date Catrina Sue MD PCP - General Family Practice 06/05/[address] [place] [address] documented as of this encounter
--- OUTSIDE RECORDS SUMMARY | 2022-02-27 08:14 | XMS_ITS | Encounter Summary ---
:1955 Author Organization [facility] Address [address] [place] [address] Care Team Providers Name Role Phone Catrina Sue MD Primary Care Provider Reason for Visit Reason Onset Date Comments Refill Request 09/03/2012 Encounter Details Date Type Department Care Team Description 09/03/2012 Refill [facility] Catrina Sue MD Refill Request [address] [address] [place] [address] (Wo rk) Social History Tobacco Use Types Packs/Day Years Used Date Smoking Tobacco: Never Assessed Stress Answer Date Recorded Do you feel [...] wally documented in this encounter Care Teams Clerk Television Production Relationship Specialty Start Date End Date Catrina Sue MD PCP - General Family Practice 06/05/[address] [place] [address] documented as of this encounter
--- OUTSIDE RECORDS SUMMARY | 2022-02-27 08:14 | XMS_ITS | Encounter Summary ---
:1955 Author Organization [facility] Address [address] [place] [address] Care Team Providers Name Role Phone Catrina Sue MD Primary Care Provider Reason for Visit Reason Onset Date Comments Refill Request 09/17/2012 Encounter Details Date Type Department Care Team Description 09/17/2012 Refill [facility] Catrina Sue MD Refill Request [address] [address] [place], [place] [phone] (Wo rk) Social History Tobacco Use Types [...] Primary documented in this encounter Care Teams Produce Clerk Relationship Specialty Start Date End Date Catrina Sue MD PCP - General Family Practice 06/05/[address] [place] [id number] documented as of this encounter
--- OUTSIDE RECORDS SUMMARY | 2022-02-27 08:14 | XMS_ITS | Encounter Summary ---
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 documented as of this encounter Plan of Treatment Not on filedocumented as of this encounter Procedures Procedure Name Priority Date/Time Associated Diagnosis Comme nts MA SCREENING Routine 01/16/2013 12:00 AM Results for this BILATERAL CDT procedure are i n the results section. documented in this encounter Results MA Screening Bilateral (01/16/2013 12:00 AM CDT) Anatomical Region Laterality Modality Breast Bilateral Other Specimen (Source) Anatomical Location Collection Method / Collectio n Time Received Time / Laterality Volume Narrative 01/16/2013 12:00 AM CDT FULL FIELD DIGITAL SCREENING MAMMOGRAM INDICATION: Screening. COMPARISON: 11/30/2010 and older. FINDINGS: Breast tissue is composed of s cattered fibroglandular densities. No radiographic evidence of malignancy. ??No significant change from previous mammogram. CAD analysis was performed and used in t he interpretation of this exam. ACR CATEGORY: ??1 - NEGATIVE CONFIDENTIAL MEDICAL REPORT [place] [address] Phone: ??[phone] ?Fax: ??[phone] Name: ??DIVYADANAY HWANG ?? Account: ?? [id number] IMRN: [id number] Number:[id number] Date of :1955 ?? Location: NX R Age: ??57 ?Sex: ??FInterpreted by: Reji WILKINSON MD Ordered By:CATRINA PEARCE Phy : ?CATRINA PEARCE Date of Service:01/16/13 Exam: ?REASON FOR EXAM: ? MG SCREENING MAMMOGRAM BILAT ?? SCREENIN G MAMMOGRAM RADIOLOGY REPORT This report is preliminary unless an lucero ctronic signature appears below. Electronically Signed By: ??FRANKIE RENEE ? D: ??01/17/2013 ?16:25T: ?? 3 ?? 16:25R: ??01/17/2013 ?? 16:25Tech: [id number] Procedure Note Provider, Historical - 11/11/2020Formatt ing of this note might be different from the original. FULL FIELD DIGITAL SCREENING MAMMOGRAM INDICATION: Screening. COMPARISON: 11/30/2010 and older. FINDINGS: Breast tissue is composed of s cattered fibroglandular densities. No radiographic evidence of malignancy. No significant change from previous mammogram. CAD analysis was performed and used in t he interpretation of this exam. ACR CATEGORY: 1 - NEGATIVE CONFIDENTIAL MEDICAL [place] [address] Name: DANAY STOKES Account: [id number] IMRN: [id number] Number:[id number] Date of :1955 Location: [facility] Age: 57 Sex: FInterpreted by: FRANKIE RENEE MD Ordered By:CATRINA PEARCE Phy : CATRINA PEARCE Date of Service:01/16/13 Exam: REASON FOR EXAM: MG SCREENING MAMMOGRAM BILAT SCREENING M AMMOGRAM RADIOLOGY REPORT This report is preliminary unless an lucero ctronic signature appears below. Electronically Signed By: FRANKIE SPICER T: 01/17/2013 16:25R: 01/17/2013 16:25Tech: [id number] Historical Provider IMG MAMMOGRAPHY ORDERABLES documented in this encounter Visit Diagnoses Not on filedocumented in this encounter Care Teams Supervisor Metal Furniture Assembly Relationship Specialty Start Date End Date Catrina Pearce MD PCP - General Family Practice 06/05/[address] [place] [address] Catrina Pearce MD Assigned PCP 03/28/[address] [place] [address] Catrina Pearce MD Assigned PCP 09/11/19 03/27/[address] [place] [address] documented as of this encounter
--- OUTSIDE RECORDS SUMMARY | 2022-02-27 08:14 | XMS_ITS | Encounter Summary ---
:1955 Author Organization [facility] Address [address] [place] [address] Care Team Providers Name Role Phone Catrina Sue MD Primary Care Provider Reason for Visit Reason Onset Date Comments Refill Request 07/07/2013 Encounter Details Date Type Department Care Team Description 07/07/2013 Refill [facility] Catrina Sue MD Refill Request [facility] [address] [address] [place] [address] (Wo rk) Social History Tobacco [...] Primary documented in this encounter Care Teams Waste Disposal Leakage Tester Relationship Specialty Start Date End Date Catrina Sue MD PCP - General Family Practice 06/05/[address] [place] [address] documented as of this encounter
--- OUTSIDE RECORDS SUMMARY | 2022-02-27 08:14 | XMS_ITS | Encounter Summary ---
:1955 Author Organization [facility] Address [address] [place] [address] Care Team Providers Name Role Phone Catrina Pearce MD Primary Care Provider Encounter Details Date Type Department Care Team Description 02/18/2013 Orders Only [facility] Catrina Sweet Intermittent asthma 1414 [facility]. E MD Kilo (Primary Dx) [place] [address] 14[address] [place] [phone] [place] [address] (Wo rk) Social History Tobacco Use Types [...] on file documented as of this encounter Patient Instructions Patient InstructionsCatrina Pearce MD - 02/18/2013 10:10 AM CDT My Asthma Action Plan Name: Janet Soto Date of : 1955 Date: 02/18/2013 My doctor: Catrina Pearce My clinic: [address] [address] [phone] My Control Medicine: none used My Rescue Medicine: albuterol My Asthma Severity: intermittent Avoid your asthma triggers: upper respiratory infections and allergens GREEN ZONE Good Control ?? I feel good ?? No cough or wheeze ?? Can work, sleep and play without asthma symptoms Take your asthma control medicine every day. 1. If exercise triggers your asthma, take your rescue medication ?? 15 minutes before exercise or sports, and ?? During exercise if you have asthma symptoms 2. Spacer to use with inhaler: If you have a spacer, make sure to use it with your inhaler YELLOW ZONE Getting Worse I have ANY of these: ?? I do not feel good ?? Cough or wheeze ?? Chest feels tight ?? Wake up at night 1. Keep taking your Green Zone medications 2. Start taking your rescue medicine: ?? every 20 minutes for up to 1 hour. Then every 4 hours for 24-48 hours. 3. If you stay in the Yellow Zone for more than 12-24 hours, contact your doctor. 4. If you do not return to the Green Zone in 12-24 hours or you get worse, start taking your oral steroid medicine if prescribed by your provider. RED ZONE Medical Alert - Get Help I have ANY of these: ?? I feel awful ?? Medicine is not helping ?? Breathing getting harder ?? Trouble walking or talking ?? Nose opens wide to breathe 1. Take your rescue medicine NOW 2. If your provider has prescribed an oral steroid medicine, start taking it NOW 3. Call your doctor NOW 4. If you are still in the Red Zone after 20 minutes and you have not reached your doctor: ?? Take your rescue medicine again and ?? Call 911 or go to the emergency room right away See your regular doctor within 2 weeks of an Emergency Room or Urgent Care visit for follow-up treatment. Electronically signed by: CATRINA PEARCE, February 18, 2013 Annual Reminders: Flu Shot in the Fall, Pharmacy: [id number] - [place], [place] - [address] [address] [id number] - [place], [place] - [address] [facility] Asthma Triggers How To Control Things That Make Your Asthma Worse Triggers are things that make your asthma worse. Look at the list below to help you find your triggers and what you can do about them. You can help prevent asthma flare-ups by staying away from your triggers. Trigger What you can do Cigarette Smoke Tobacco smoke can make asthma worse. Do not allow smoking in your home, car or around you. Be sure no one smokes at a child???s day care or school. If you smoke, ask your health care provider for ways to help you quick. Ask family members to quit too. Ask your health care provider for a referral to Quit plan to help you quit smoking, or call 5-774-266-PLAN. Colds, Flu, Bronchitis These are common triggers of asthma. Wash your hands often. Don???t touch your eyes, nose or mouth. Get a flu shot every year. Dust Mites These are tiny bugs that live in cloth or carpet. They are too small to see. Wash sheets and blankets in hot water every week. Encase pillows and mattress in dust mite proof covers. Avoid having carpet if you can. If you have carpet, vacuum weekly. Use a dust mask and HEPA vacuum. Pollen and Outdoor Mold Some people are allergic to trees, grass, or weed pollen, or molds. Try to keep your windows closed. Limit time out doors when pollen count is high. Ask you health care provider about taking medicine during allergy season. Animal Dander Some people are allergic to skin flakes, urine or saliva from pets with fur or feathers. Keep pets with fur or feathers out of your home. If you can???t keep the pet outdoors, then keep the pet out of your bedroom. Keep the bedroom door closed. Keep pets off cloth furniture and away from stuffed toys. Mice, Rats, and Cockroaches Some people are allergic to the waste from these pests. Cover food and garbage. Clean up spills and food crumbs. Store grease in the refrigerator. Keep food out of the bedroom. Indoor Mold This can be a trigger if your home has high moisture Fix leaking faucets, pipes, or other sources ofwater. Clean moldy surfaces. Dehumidify basement if it is damp and smelly. Smoke, Strong Odors, and Sprays These can reduce air quality. Stay away from strong odors and sprays, such as perfume, powder, hair spray, paints, smoke incense, paint, cleaning products, candles and new carpet. Exercise or Sports Some people with asthma have this trigger. Be active! Ask you doctor about taking medicine before sports or exercise to prevent symptoms. Warm up for 5-10 minutes before and after sports or exercise. Other Triggers of Asthma Cold air: Cover your nose and mouth with a scarf. Sometimes laughing or crying can be a trigger. Some medicines and food can trigger asthma. documented in this encounter Plan of Treatment Not on filedocumented as of this encounter Visit Diagnoses Diagnosis Intermittent asthma - Primary Unspecified asthma documented in this encounter Care Teams Wallpaper Remover Steam Relationship Specialty Start Date End Date Catrina Pearce MD PCP - General Family Practice 06/05/[address] [place] [address] documented as of this encounter
--- OUTSIDE RECORDS SUMMARY | 2022-02-27 08:14 | XMS_ITS | Encounter Summary ---
:1955 Author Organization [facility] Address [address] [place] [address] Care Team Providers Name Role Phone Catrina Sue MD Primary Care Provider Reason for Visit Reason Onset Date Comments Other 02/03/2014 Encounter Details Date Type Department Care Team Description 02/03/2014 Telephone [facility] Catrina Sweet MD Other [address] [place] [address]. [address] [address] [place] [address] [phone] (Wo rk) Social History Tobacco Use Types [...] this encounter Miscellaneous Notes Telephone Encounter - Christine Torres CMA - 02/03/2014 3:44 PM CDT Results given to patient, letter also mailed. Telephone Encounter - Catrina Jimenez - 02/03/2014 2:34 PM CDT [facility] Family Medicine phone call message- general phone call: Reason for call: Pt was calling back Dr Sue. Pt stated that it was in regards to blood levels were high. Please call and advise. Return call needed: Yes OK to leave a message on voice mail? Yes Primary language: Cook Islander Director Of Online Merchandising needed? No Call taken on February 03, 2014 at 2:34 PM by Catrina Jimenez documented in this encounter Plan of Treatment Not on filedocumented as of this encounter Visit Diagnoses Not on filedocumented in this encounter Care Teams Seconds Handler Relationship Specialty Start Date End Date Catrina Sue MD PCP - General Family Practice 06/05/[address] [place] [address] documented as of this encounter
--- OUTSIDE RECORDS SUMMARY | 2022-02-27 08:14 | XMS_ITS | Encounter Summary ---
:1955 Author Organization [place] Address [address] [place] [address] Care Team Providers Name Role Phone Catrina Sue MD Primary Care Provider Encounter Details Date Type Department Care Team Description 03/25/2014 Orders Only Catrina Rodriguez Unspecifi ed Clinic MD Kilo hypothyroidism 1414 [facility] [address] [place] [address] [facility] [phone] [place], [place] [address] Social History Tobacco Use Types [...] this encounter Visit Diagnoses Diagnosis Unspecified hypothyroidism documented in this encounter Care Teams Commercial Administrator Relationship Specialty Start Date End Date Catrina Sue MD PCP - General Family Practice 06/05/12 [facility] [place] [address] documented as of this encounter
--- OUTSIDE RECORDS SUMMARY | 2022-02-27 08:14 | XMS_ITS | Encounter Summary ---
:1955 Author Organization [place] Address [address] [place] [address] Care Team Providers Name Role Phone Catrina Sue MD Primary Care Provider Encounter Details Date Type Department Care Team Description 02/03/2014 Orders Only Catrina Rodriguez Unspecifi ed Clinic MD Kilo hypothyroidism 1414 [facility] [address] [place] [address] [facility] [phone] [place], [place] [address] Social History Tobacco Use Types Packs/Day Years [...] hypothyroidism documented in this encounter Care Teams Fabric And Accessories Estimator Relationship Specialty Start Date End Date Catrina Sue MD PCP - General Family Practice 06/05/12 [facility] [place] [address] documented as of this encounter
--- OUTSIDE RECORDS SUMMARY | 2022-02-27 08:14 | XMS_ITS | Encounter Summary ---
:1955 Author Organization [place] Address [address] [place] [address] Care Team Providers Name Role Phone Catrina Pearce MD Primary Care Provider Reason for Visit Reason Onset Date Comments Other 02/18/2013 Encounter Details Date Type Department Care Team Description 02/18/2013 Telephone [facility] Gonzalo Catrina Sweet MD Other [address] [place] [address]. [address] [address] [place], [place] [id number] (Wo rk) Social History Tobacco Use Types [...] this encounter Miscellaneous Notes Telephone Encounter - Blane Pascual CMA - 02/18/2013 11:44 AM CDT Mailed AAP to patient Telephone Encounter - Blane Pascual CMA - 02/18/2013 11:44 AM CDT Message copied by BLANE PASCUAL on SunFeb 18, 2013 11:44 AM ------ Message from: CATRINA PEARCE Created: SunFeb 18, 2013 10:10 AM Regarding: RE: overdue AAP I completed it thanks ----- Message ----- From: Blane Pascual CMA Sent: 02/17/2013 4:41 PM To: Catrina Pearce MD Subject: overdue AAP Hi, You saw pt today, she is overdue for an AAP. Could you put one in for patient and I can mail it to her. Blane Cortés documented in this encounter Plan of Treatment Not on filedocumented as of this encounter Visit Diagnoses Not on filedocumented in this encounter Care Teams Explosive Expert Relationship Specialty Start Date End Date Catrina Pearce MD PCP - General Family Practice 06/05/[address] [place] [address] documented as of this encounter
--- OUTSIDE RECORDS SUMMARY | 2022-02-27 08:14 | XMS_ITS | Encounter Summary ---
:1955 Author Organization [place] Address [address] [place] [address] Care Team Providers Name Role Phone Catrina Sue MD Primary Care Provider Catrina Sue MD Unavailable Catrina Sue MD Unavailable Encounter Details Date Type Department Care Team Description 01/23/2014 Records - [facility] MD [facility] [address] [place] [address] [phone] Social History Tobacco Use Types Packs/Day Years [...] with No / Unsure 06/15/2020 9:20 AM WOMEN'S SWIM COACH someone who was confirmed or suspected to have Coronavirus / COVID-19? documented as of this encounter Plan of Treatment Not on filedocumented as of this encounter Procedures Procedure Name Priority Date/Time Associated Diagnosis Comme nts LIPID PROFILE Routine 01/23/2014 10:42 AM Results for this CDT procedure are i n the results section . documented in this encounter Results (ABNORMAL) Lipid Profile (01/23/2014 10:42 AM CDT) [facility] Method Time Signature Cholesterol 215 (H) <=199 01/23/2014 HEALTH mg/dL 4:01 PM CDT [facility] Triglycerides 85 <=149 01/23/2014 HEALTH mg/dL 4:01 PM CDT [facility] Direct Measure 71 >=40 01/23/2014 [facility] HDL mg/dL 4:01 PM CDT [facility] LDL Cholesterol 127 0 - 129 01/23/2014 HEALTH Calculated mg/dL 4:01 PM CDT [facility] Specimen Anatomical Collection Method Collection Time Receive d Time (Source) Location / / Volume Laterality Blood specimen 01/23/2014 10:42 4 3:06 (specimen) AM CDT PM CDT Catrina Sue MD LAB - BLOOD ORDERABLES Performing Organization Address City/State/[facility] Code Phon e Number [place] [address] [address] [facility] documented in this encounter Visit Diagnoses Not on filedocumented in this encounter Care Teams Mold Engraver Relationship Specialty Start Date End Date Catrina Sue MD PCP - General Family Practice 06/05/[address] [place] [address] Catrina Sue MD Assigned PCP 03/28/[address] [place] [address] Catrina Sue MD Assigned PCP 09/11/19 03/27/[address] [place] [address] documented as of this encounter
--- OUTSIDE RECORDS SUMMARY | 2022-02-27 08:14 | XMS_ITS | Encounter Summary ---
:1955 Author Organization [place] Address [address] [place] [address] Care Team Providers Name Role Phone Catrina Sue MD Primary Care Provider Reason for Visit Reason Onset Date Comments Call Back 09/18/2012 Encounter Details Date Type Department Care Team Description 09/18/2012 Telephone [facility] Gonzalo Catrina Sweet MD Call Back [facility]. [address] [place] [address] [place] [address] (Wo rk) Social History Tobacco [...] this encounter Miscellaneous Notes Telephone Encounter - Dave Menjivar - 09/18/2012 11:[address] [facility] Family Medicine phone call message- medication clarification/question: Full Medication Name: Dyazide Dose: Question: Patient has always got this medication in tablets but the one today they received was for capsule and they would like that to be switch. Please call and advise. Pharmacy confirmed as [id number] - [place], [place] - [address] [facility] [id number] - [place], [place] - [address] [place] [address]: Yes, [facility] OK to leave a message on voice mail? Primary language: Rwandan Front Tender needed? No Call taken on September 18, 2012 at 11:16 AM by Dave Menjivar documented in this encounter Plan of Treatment Not on filedocumented as of this encounter Visit Diagnoses Diagnosis Essential hypertension, benign - Primary documented in this encounter Care Teams Maltster Relationship Specialty Start Date End Date Catrina Sue MD PCP - General Family Practice 06/05/[address] [place] [address] documented as of this encounter
--- OUTSIDE RECORDS SUMMARY | 2022-02-27 08:14 | XMS_ITS | Encounter Summary ---
:1955 Author Organization [place] Address [address] [place] [address] Care Team Providers Name Role Phone Catrina Sue MD Primary Care Provider Catrina Sue MD Unavailable Catrina Seu MD Unavailable Encounter Details Date Type Department Care Team Description 01/21/2014 [facility] Catrina Sue Other screening [facility] Benedict Boateng MD mammogram [address] [place] [phone] Social History Tobacco Use Types Packs/Day Years [...] with No / Unsure 06/15/2020 9:20 AM NETWORK LIAISON someone who was confirmed or suspected to have Coronavirus / COVID-19? documented as of this encounter Plan of Treatment Not on filedocumented as of this encounter Procedures Procedure Name Priority Date/Time Associated Diagnosis Comme nts MA SCREENING Routine 01/21/2014 8:58 AM Other screening Result s for this BILATERAL CDT mammogram procedure are i n the results section. documented in this encounter Results MA Screening Bilateral (01/21/2014 8:58 AM CDT) Anatomical Region Laterality Modality Breast Bilateral Other Specimen (Source) Anatomical Location Collection Method / Collectio n Time Received Time / Laterality Volume Narrative 01/21/2014 4:51 PM CDT BILATERAL FULL FIELD DIGITAL SCREENING MAMMOGRAM Performed on: 01/21/14. Compared to: 01/16/2013 Mammo Screening Bilateral, 11/17/2011 Mammo Diagnostic Bilateral, 11/30/2010 Mammo Screening Bilateral. Findings: The breasts have scattered fib roglandular densities. There is no radiographic evidence of malignancy. This study was evaluated with the assistance of Computer-Aided Detection. Continue routine screening mammogram as recommended. ACR BI-RADS Category 1: Negative Procedure Note Heather Grijalva MD - 11/11/2020F ormatting of this note might be different from the original. BILATERAL FULL FIELD DIGITAL SCREENING M AMMOGRAM Performed on: 01/21/14. Compared to: 01/16/2013 Mammo Screening Bilateral, 11/17/2011 Mammo Diagnostic Bilateral, 11/30/2010 Mammo Screening Bilateral. Findings: The breasts have scattered fib roglandular densities. There is no radiographic evidence of malignancy. This study was evaluated with the assistance of Computer-Aided Detection. Continue routine screening mammogram as recommended. ACR BI-RADS Category 1: Negative Catrina Sue MD IMG MAMMOGRAPHY ORDERABLES documented in this encounter Visit Diagnoses Diagnosis Other screening mammogram documented in this encounter Care Teams Custom Bow Maker Relationship Specialty Start Date End Date Catrina Sue MD PCP - General Family Practice 06/05/[address] [place] [address] Catrina Sue MD Assigned PCP 03/28/[address] [place] [address] Catrina Sue MD Assigned PCP 09/11/19 03/27/20 [facility] [place] [address] documented as of this encounter
--- OUTSIDE RECORDS SUMMARY | 2022-02-27 08:14 | XMS_ITS | Encounter Summary ---
:1955 Author Organization [place] Address [address] [place] [address] Care Team Providers Name Role Phone Catrina Sue MD Primary Care Provider Reason for Visit Reason Onset Date Comments Other 03/06/2013 Encounter Details Date Type Department Care Team Description 03/06/2013 Telephone [facility] Gonzalo Catrina Sweet MD Other [address] [place] [address]. [address] [address] [place], [place] [phone] (Wo rk) Social History Tobacco Use Types [...] this encounter Miscellaneous Notes Telephone Encounter - Katy Ludwig RN - 03/11/2013 3:52 PM CST Called patient back and advised of Dr. Sue's note -- she consulted on the spine note, and thinks it is acquired or more noticeable due to scoliosis. Dr. Sue is not too worried about this if it is not causing problems. Patient states that if Dr. Sue isn't worried about this, neither is she, and she is not experiencing any symptoms. Informed patient that more x-rays and referrals can be done if it becomes a problem in the future. Patient appreciates Dr. Sue's recommendations. Katy Ludwig RN LE TAKER OPERATOR Telephone Encounter - Leyla Mcdowell - 03/11/2013 3:46 PM CST Pt is home now and can be reach. Other soto she could be reach tomorrow on her cell phone [phone] LE TAKER OPERATOR Telephone Encounter - Catrina Sue MD - 03/11/2013 10:39 AM SAMPLE TAKER OPERATOR Contacted [facility] and spoke, may just be acquired or apparent from the scoliosis. Could arrange for thoracic xray and referral if wanting. Not too concerned. LE TAKER OPERATOR Telephone Encounter - Catrina Jimenez - 03/06/2013 3:02 PM CST [facility] Family Medicine phone call message- general phone call: Reason for call: Pt stated that you told her to call you in about 10 days from her last visit if shedid not hear from you. Pt stated that it has been more then 10 days and she has not heard from you. Pt stated that she had a CPE with you and that you found something on her spine and that you where going to talk with a spine doctor about this and then call her back. Pt is wondering what you found youabout this and would like you to call her. Please call and advise. Return call needed: Yes OK to leave a message on voice mail? Yes Primary language: Moroccan Campus Dean needed? No Call taken on March 06, 2013 at 3:03 PM by Catrina Jimenez LE TAKER OPERATOR documented in this encounter Plan of Treatment Not on filedocumented as of this encounter Visit Diagnoses Not on filedocumented in this encounter Care Teams Gas Meter Mechanic Relationship Specialty Start Date End Date Catrina Sue MD PCP - General Family Practice 06/05/[address] [place] [address] documented as of this encounter
--- OUTSIDE RECORDS SUMMARY | 2022-02-27 08:14 | XMS_ITS | Encounter Summary ---
:1955 Author Organization [place] Address [address] [place] [address] Care Team Providers Name Role Phone Catrina Sue MD Primary Care Provider Reason for Visit Reason Onset Date Comments Medication Question 10/31/2012 Encounter Details Date Type Department Care Team Description 10/31/2012 Telephone [facility] Catrina Sweet, Medication Question 1414 [facility] [place] [address] [facility] [phone] [place], [place] [address] (Wo rk) Social History Tobacco [...] Telephone Encounter - Catrina Sue MD - 11/01/2012 6:09 PM CDT Wants to restart suppressive therapy, worked really well without problems. Telephone Encounter - Rhys Groves - 10/31/2012 10:31 AM CDT 10-31-2012 Patient Called and said that she was treated with ACyclovir for HPV/Herpee 2 years ago and the symptom is coming back and wonder Is Dr Sue can put her back this medication again. Telephone Encounter - Latosha Andino - 10/31/2012 9:[address] [facility] Family Medicine phone call message- patient requesting to speak with PCP or provider: PCP: Catrina Sue Additional Comments: Patient would like to speak with Dr. Sue about a prescription. This is allthe information the patient would leave. Patient informed that it may take up to 2 business days to hear back from PCP:Yes OK to leave a message on voice mail? Yes Primary language: [place]se Assembly Room Supervisor needed? No Call taken on October 31, 2012 at 9:31 AM by Latosha Andino documented in this encounter Plan of Treatment Not on filedocumented as of this encounter Visit Diagnoses Diagnosis Recurrent herpes simplex - Primary Herpes simplex without mention of compli cation documented in this encounter Care Teams Repair Manager Relationship Specialty Start Date End Date Catrina Sue MD PCP - General Family Practice 06/05/[address] [place] [address] documented as of this encounter
--- OUTSIDE RECORDS SUMMARY | 2022-02-27 08:14 | XMS_ITS | Encounter Summary ---
:1955 Author Organization [place] Address [address] [place] [address] Care Team Providers Name Role Phone Catrina Pearce MD Primary Care Provider Reason for Visit Reason Comments RECHECK meds Forms handicap parking permit Flu Shot Balance/ Vestibular Refill Request Encounter Details Date Type Department Care Team Description 02/25/2014 Office Visit [facility] Gonzalo Catrina Sweet Major depression (Primary Dx ); 1414 [facility]. E MD Kilo Unspecified hypothyroidism; [place] [address] [facility] [place] Need for prophylactic vaccin ation and inoculation against influenza; [phone] Unspecified asthma [place] [address] Social History Tobacco Use Types Packs/Day Years [...] Sign Reading Time Taken Comments Blood Pressure 129/85 02/25/2014 4:41 PM ORDER DEPARTMENT SUPERVISOR Pulse 74 02/25/2014 4:41 PM ORDER DEPARTMENT SUPERVISOR Temperature 36.6 ??C (97.9 ??F) 02/25/2014 4:41 PM ORDER DEPARTMENT SUPERVISOR Respiratory Rate - - Oxygen Saturation 100% 02/25/2014 4:41 PM ORDER DEPARTMENT SUPERVISOR Inhaled Oxygen Concentration - - Weight 61 kg (134 lb 6.4 oz) 02/25/2014 4:41 PM ORDER DEPARTMENT SUPERVISOR Height 172.7 cm (5' 8) 02/25/2014 4:41 PM ORDER DEPARTMENT SUPERVISOR Body Mass Index 20.44 02/25/2014 4:41 PM ORDER DEPARTMENT SUPERVISOR documented in this encounter Progress Notes Catrina Pearce MD - 02/25/2014 4:45 PM CST SUBJECTIVE: Janet Soto is a 58 year old female who presents to clinic today for depression and asthma Depression Current symptoms include irritablility. ?? Other associated symptoms: now noticing some dizzy feelings that haven't abated ?? - has noticed even almost falling, losing balance, not spinning sensation, having trouble guessing step height going down stairs ?? Looked at counseling and so very expensive, can't afford: guilty about first divorce 25 years agowhen kids little ?? Complicating factors: Significant life event: Yes- When children were around 6yo (3 kids) having marital issues and had toleave, got and gave custody to spouse, stayed connected but still feels guilty Current substance abuse: None Anxiety / Panic / Manic symptoms: Yes- Some anxiety, but feels more edgy irritable ?? Patient education: options regarding the counseling, goal setting ?? Problems taking medications regularly No ?? Medication side effects: Yes feels since starting has this worsening off- balance issues, lost balance by stairs ?? Counseling: interested but cost prohivitive Today's Depression Rating was 2 ASTHMA: -well controlled, having rare symptoms Problem List Patient Active Problem List Diagnosis ??? AK (actinic keratosis) ??? Benign paroxysmal positional vertigo ??? Esophageal reflux ??? Unspecified hypothyroidism ??? [...] with other complications ??? Essential hypertension, benign ROS: C: NEGATIVE for fever, chills, change in weight R: NEGATIVE for significant cough or SOB CV: NEGATIVE for chest pain, palpitations or peripheral edema OBJECTIVE: BP 129/85 Pulse 74 Temp(Src) 97.9 ??F (36.6 ??C) (Oral) Ht 5' 8 (172.7 cm) Wt 134 lb 6.4 oz(60.963 kg) BMI 20.44 kg/m2 SpO2 100% Body mass index is 20.44 kg/(m^2). GENERAL: healthy, alert, well nourished, well hydrated, no distress RESP: lungs clear to auscultation - no rales, no rhonchi, no wheezes CV: regular rates and rhythm, normal S1 S2, no S3 or S4 and no murmur, no click or rub - MENTAL STATUS EXAM: Appearance/Behavior:No apparent distress Speech:Normal Mood/Affect:normal affect and tearful at times discussing current issues Insight:Adequate ASSESSMENT/PLAN: Reviewed PHQ 9 score and plan is:Antidepressant changed: New Rx: citalopram Janet was seen today for recheck, forms, flu shot, balance/ vestibular and refill request. Diagnoses and associated orders for this visit: Major depression - citalopram (CELEXA) 10 MG tablet; Take 1 tablet (10 mg) by mouth daily Unspecified hypothyroidism - levothyroxine (SYNTHROID, LEVOTHROID) 50 MCG tablet; Take 1 tablet (50 mcg) by mouth daily Need for prophylactic vaccination and inoculation against influenza - Flu Vaccine, Quad Preserve Free, 3+ years [60912] - ADMIN VACCINE, INITIAL Unspecified asthma - Asthma Control Test (ACT) Risks, benefits and alternatives of treatments discussed. Plan agreed on. Follow up with Provider - one month -40 mins spent with pt >50% face to face counseling on above conditions. CATRINA PEARCE MD R DEPARTMENT SUPERVISOR documented in this encounter Nursing Notes Her, JOSEFA Bynum - 02/25/2014 5:42 PM CST [employer] [place] 1. Has the patient received the information for the influenza vaccine? YES 2. Does the patient have any of the following contraindications? Allergy to eggs? No Allergic reaction to previous influenza vaccines? No Any other problems to previous influenza vaccines? No Paralyzed by Guillain-[place] syndrome? No Currently ? NO Current moderate or severe illness? No Vaccination given by ruddy. Recorded by RUDDY HER R DEPARTMENT SUPERVISOR Christine Torres CMA - 02/25/2014 4:39 PM CST DUE FOR: ACT AAP Spirometry Advance directive Flu shot R DEPARTMENT SUPERVISOR documented in this encounter Plan of Treatment Not on filedocumented as of this encounter Visit Diagnoses Diagnosis Major depression - Primary Major depressive disorder, single episod e, unspecified Unspecified hypothyroidism Need for prophylactic vaccination and in oculation against influenza Unspecified asthma documented in this encounter Care Teams Legal Document Specialist Relationship Specialty Start Date End Date Catrina Pearce MD PCP - General Family Practice 06/05/[address] [place] [address] documented as of this encounter
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
--- OUTSIDE RECORDS SUMMARY | 2022-02-27 08:14 | XMS_ITS | Encounter Summary ---
:1955 Author Organization [facility] Address [address] [place] [id number] Care Team Providers Name Role Phone Catrina Sue MD Primary Care Provider Reason for Visit Reason Onset Date Comments Refill Request 08/14/2013 Encounter Details Date Type Department Care Team Description 08/14/2013 Refill [facility] Catrina Sue MD Refill Request [facility] [address] [address] [place] [phone] (Wo rk) Social History Tobacco Use Types [...] encounter Visit Diagnoses Diagnosis Postmenopausal atrophic vaginitis Unspecified hypothyroidism Essential hypertension, benign documented in this encounter Care Teams Associate Loan Officer Relationship Specialty Start Date End Date Catrina Sue MD PCP - General Family Practice 06/05/[address] [place], [place] [phone] documented as of this encounter
--- OUTSIDE RECORDS SUMMARY | 2022-02-27 08:14 | XMS_ITS | Encounter Summary ---
:1955 Author Organization [facility] Address [address] [place] [address] Care Team Providers Name Role Phone Catrina Sue MD Primary Care Provider Reason for Visit Reason Onset Date Comments Other 10/16/2013 Encounter Details Date Type Department Care Team Description [facility]/16[facility] [address] [facility] [address] [facility] [phone] [place] [id number] (Wo rk) Social History Tobacco Use Types [...] this encounter Miscellaneous Notes Telephone Encounter - Kiley Felipe NP - 10/16/2013 2:30 PM CDT Called and spoke with Janet. 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 I told her that we would take care of getting the xray to [facility]. She agreed with plan. Has appointment 10/22/13 in [facility]. Will have Danae ensure xray is available to [facility], likely though [facility] radiology portal Telephone Encounter - Catrina Jimenez - 10/16/2013 1:32 PM CDT [facility] Family Medicine phone call message- general phone call: Reason for call: Pt had called earlier and talked with Kimberly. Pt would like to talk to her again when she get a chance. Please call and advise. Return call needed: Yes OK to leave a message on voice mail? Yes Primary language: [place] Wire Winding Machine Operator needed? No Call taken on October 16, 2013 at 1:32 PM by Catrina Jimenez documented in this encounter Plan of Treatment Not on filedocumented as of this encounter Visit Diagnoses Not on filedocumented in this encounter Care Teams Furniture Repair Technician Relationship Specialty Start Date End Date Catrina Sue MD PCP - General Family Practice 06/05/[address] [place] [phone] documented as of this encounter
--- OUTSIDE RECORDS SUMMARY | 2022-02-27 08:14 | XMS_ITS | Encounter Summary ---
:1955 Author Organization [facility] Address [address] [place] [address] Care Team Providers Name Role Phone Catrina Sue MD Primary Care Provider Reason for Visit Reason Comments Physical BMP, Thyroid, CBC, Shingles needs perscription to go to pharmacy. Musculoskeletal Problem left foot swelling Ear Problem ringing in left ear, gotten worst in the last year Forms Handicap parking Recheck Medication refill 90 day for Omeprazole Arthritis left wrist pain, feels like its broken Flu Shot Encounter Details Date Type Department Care Team Description 02/17/2013 Office Visit [facility] Catrina Sweet GERD (gastroesophageal reflu x disease) (Primary Dx); [address] [facility]. MD Kilo Unspecified asthma; [place] [address] [place] [address] Unspecified hypothyroidism; [phone] VIDA E Essential hypertension, benign; [place], [place] [address] Routine general medical examination at a health care facility; [phone] Screening for t hyroid disorder; (Work) Need for prophylactic vaccination and in oculation against influenza Social History Tobacco Use Types Packs/Day Years [...] Sign Reading Time Taken Comments Blood Pressure 108/79 02/17/2013 10:00 AM CDT Pulse 61 02/17/2013 10:00 AM CDT Temperature 36.7 ??C (98.1 ??F) 02/17/2013 10:00 AM CDT Respiratory Rate 17 02/17/2013 10:00 AM CDT Oxygen Saturation 100% 02/17/2013 10:00 AM CDT Inhaled Oxygen Concentration - - Weight 61.3 kg (135 lb 3.2 oz) 02/17/2013 10:00 AM CDT Height 172.7 cm (5' 8) 02/17/2013 10:00 AM CDT Body Mass Index 20.56 02/17/2013 10:00 AM CDT documented in this encounter Patient Instructions Patient InstructionsCatrina Sue MD - 02/17/2013 10:44 AM CDT Preventive Health Recommendations Female Ages 50 - 64 Yearly exam: See your health care provider every year in order to o Review health changes. o Discuss preventive care. o Review your medicines if your doctor has prescribed any. Get a Pap test every three years (unless you have an abnormal result and your provider advises testing more often). If you get Pap tests with HPV test, you only need to test every 5 years, unless you have an abnormal result. You do not need a Pap test if your uterus was removed (hysterectomy) and you have not had cancer. You should be tested each year for STDs (sexually transmitted diseases) if you're at risk. Have a mammogram every 1 to 2 years. Have a colonoscopy at age 50, or have a yearly FIT test (stool test). These exams screen for colon cancer. Have a cholesterol test every 5 years, or more often if advised. Have a diabetes test (fasting glucose) every three years. If you are at risk for diabetes, you should have this test more often. If you are at risk for osteoporosis (brittle bone disease), think about having a bone density scan (DEXA). Shots: Get a flu shot each year. Get a tetanus shot every 10 years. Nutrition: Eat at least 5 servings of fruits and vegetables each day. Eat whole-grain bread, whole-wheat pasta and brown rice instead of white grains and rice. For bone health: Eat calcium-rich foods or take calcium pills (500 to 600 mg) twice a day with food. Also take vitamin D (1000 IUs) each day. Lifestyle Exercise at least 150 minutes a week (30 minutes a day, 5 days a week). This will help you control your weight and prevent disease. Limit alcohol to one drink per day. No smoking. Wear sunscreen to prevent skin cancer. See your dentist every six months for an exam and cleaning. See your eye doctor every 1 to 2 years. documented in this encounter Progress Notes Laith Brown CMA - 02/24/2013 9:36 AM NUT SORTER Quick Note: Letter sent to pt SORTER Catrina Sue MD - 02/21/2013 4:13 PM CDT Quick Note: Please send letter. Please send result letter: Your pap smear results are included in this letter. Your results are normal. We recommend that thistest should be repeated in 5 years. If you have any questions please call our clinic. Dr. Catrina Sue Laith Brown CMA - 02/18/2013 3:55 PM CDT Quick Note: Letter sent to pt Catrina Sue MD - 02/18/2013 10:02 AM CDT Quick Note: Please send letter. Your blood tests have all returned. Your thyroid is normal, the recommended screening is every 5 years, if symptoms of thyroid arise we can check it whenever. Your kidney function, electrolytes and sugar levels are all great, this is followed yearly. Your cholesterol levels are also fine. They are mildly elevated but not in the range that medication is warranted. I would continue to recommend a healthy diet full of fruits and vegetables and low in red meat and fat. We will send another note when your pap smear returns. Thank you, Catrina Sue MD MPH Catrina Sue MD - 02/17/2013 10:44 AM CDT Female Physical Note Concerns today: 1. Left wrist intermittent pain (known arthritis) 2. Left ear tinnitus chronic and worsening 3. Left foot swelling intermittent (recent endovenous ablation to legs) BP 108/79 Pulse 61 Temp 98.1 ??F (36.7 ??C) (Oral) Resp 17 Ht 5' 8 (172.7 cm) Wt 135 lb 3.2 oz (61.326 kg) BMI 20.56 kg/m2 SpO2 100% ROS: CONSTITUTIONAL: no fatigue, no unexpected change in weight SKIN: no worrisome rashes, no worrisome moles, no worrisome lesions EYES: no acute vision problems or changes RESP: no significant cough, no shortness of breath CV: no chest pain, no palpitations, no new or worsening peripheral edema GI: no nausea, no vomiting, no constipation, no diarrhea MUSCULOSKELETAL: knee pains, arthritis, sometimes foot pains, left wrist NEURO: no weakness, no dizziness, no syncope, no headaches ENDOCRINE: no temperature intolerance, no skin/hair changes Sexually Active: Yes Sexual concerns: No Contraception:tubal ligation Menarche: No LMP recorded. Patient is postmenopausal. Menopausal since: early 50s STD History: Neg Last Pap Smear Date: normal Abnormal Pap History: None possibly years ago Patient Active Problem List Diagnosis ??? AK [...] with other complications ??? Essential hypertension, benign Past Medical History Diagnosis Date ??? Leiomyoma of uterus, unspecified 05/11/2012 ??? Unspecified asthma 05/11/2012 ??? Esophageal reflux 05/11/2012 ??? Unspecified hypothyroidism 05/11/2012 ??? Essential hypertension, benign 09/18/2012 ??? Unspecified tinnitus 05/11/2012 No family history on file. Reviewed no other significant FH Family History and past Medical History reviewed and unchanged/updated. History Substance Use Topics ??? Smoking status: Former Smoker ??? Smokeless tobacco: Not on file ??? Alcohol Use: Not on file Children ? yes Has anyone hurt you physically, for example by pushing, hitting, slapping or kicking you or forcing you to have sex? Denies Do you feel threatened or controlled by a partner, ex-partner or anyone in your life? Denies RISK BEHAVIORS AND HEALTHY HABITS: Tobacco Use/Smoking: None Illicit Drug Use: None Do you use alcohol? Yes rarely Diet (5-7 servings of fruits/veg daily): Yes Exercise (30 min accumulated most days):Yes Dental Care: Yes Calcium 1500 mg/d: Yes Seat Belt Use: Yes Immunization History Administered Date(s) Administered ??? Hepatitis B 07/13/1999, 03/13/2008, 12/24/2008 ??? Influenza (IIV3) 02/16/2011, 02/08/2012 ??? Pneumococcal 23 valent 04/06/2000, 12/24/2008 ??? TD (ADULT, 7+) 04/06/2000 ??? Tdap (Adacel,Boostrix) 12/24/2008 Reviewed Immunization Record Today and patient wants shingles vaccine and needs script to pharmacy,written. EXAMINATION: GENERAL: healthy, alert and no distress EYES: [...] MS: extremities- no gross deformities noted, no edema, multiple venous bruising from recent venous ablation, skin intact MS: muscle wasting right latissimus and some acquired scoliotic change to back, peripheral pulses normal and left foot without significant edema Wrist Exam: WRIST: Inspection: no swelling, normal appearance Palpation: NON TENDER: Range of Motion: full finger ROM, full wrist ROM Strength: no deficits SKIN: no suspicious lesions, no rashes NEURO: strength and tone- normal, sensory exam- grossly normal, mentation- intact, speech- normal, reflexes- symmetric BACK: no CVA tenderness, no paralumbar tenderness - female: cervix- normal, adnexae- normal; uterus- normal, no masses, no discharge PSYCH: Alert and oriented times 3; speech- coherent , normal rate and volume; able to articulate logical thoughts, able to abstract reason, no tangential thoughts, no hallucinations or delusions, affect- normal LYMPHATICS: ant. cervical- normal, post. cervical- normal, axillary- normal, supraclavicular- normal, inguinal- normal ASSESSMENT: 1. Health Care Maintenance: Normal Physical Exam 2. HTN: controlled 3. 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 Spinal scoliosis and atrophy right sided, asymptomatic 5. Tinnitus chronic with normal exam PLAN: 1. Routine follow up in one year. 2. Check BMP and lipids and continue meds. 3. No change to current meds or activities 4. Will need to check with HE spine if anything needs to be done for this 5. Reassured and consider referral to ENT, consider further TMJ night splinting if possibly related documented in this encounter Nursing Notes 02/17/2013 9:40 AM CDT >> LAITH BROWN CMA Mon Feb 17, 2013 11:29 AM Janet Soto 1. Has the patient received the information for the influenza vaccine? YES 2. Does the patient have any of the following contraindications? Allergy to eggs? No Allergic reaction to previous influenza vaccines? No Any other problems to previous influenza vaccines? No Paralyzed by Guillain-Cascade syndrome? No Currently ? NO Current moderate or severe illness? No Vaccination given by Laith Brown CMA/JOSEFA. Recorded by LAITH BROWN >> LAITH BROWN CMA Mon Feb 17, 2013 10:03 AM DUE FOR: Shingles not available in clinic, refer to pharmacy- pt needs prescription. BMP --- HTN/meds Needs Pap ACT,AAP, Spirometry --- Asthma documented in this encounter Miscellaneous Notes Addendum Note - Laith Brown CMA - 02/18/2013 2:11 PM CDT Addended by: LAITH BROWN on: 02/18/2013 02:11 PM Modules accepted: Orders documented in this encounter Plan of Treatment Not on filedocumented as of this encounter Procedures Procedure Name Priority Date/Time Associated Diagnosis Comme nts TSH SENSITIVE Routine 02/17/2013 1:18 PM Screening for Results for this ([email or web address] CDT thyroid disorder procedure a re in the results section. LIPID PANEL Routine 02/17/2013 1:18 PM Essential Results f or this ([facility]) CDT hypertension, benign procedu re are in the results section. HPV CASCADE PCR Routine 02/17/2013 11:08 AM Resul ts for this ([facility]) CDT procedure are i n the results section. FIELD TRAFFIC INVESTIGATOR CYTOLOGY Routine 02/17/2013 11:08 AM Routine general Resul ts for this ([facility]) CDT medical examination procedur e are in at a [facility] care the results facility section. BASIC METABOLIC Routine 02/17/2013 11:06 AM Essential Resul ts for this PANEL ([facility]) CDT hypertension, benign proce dure are in the results section. documented in this encounter Results TSH Sensitive ([facility]) (02/17/2013 1:18 PM CDT) P athologist Signature TSH 1.2 0.3 - 5.0 [facility] uIU/mL Specimen Anatomical Collection Method Collection Time Receive d Time (Source) Location / / Volume Laterality Blood specimen VENOUS BLOOD / 02/17/2013 1:18 PM 02/17 1:18 (specimen) Unknown CDT PM CDT Catrina Sue MD [facility] Performing Organization Address City/State/ZIP Code Phon e Number [facility] (ABNORMAL) Lipid Panel ([facility]) - Results < 1 hr (02/17/2013 1:18 PM CDT) [facility] Method Time Signature Cholesterol 228.0 (H) <200.0 [facility] mg/dL LAB Triglycerides 133.0 <150.0 [facility] mg/dL LAB HDL Cholesterol 73.0 >50.0 [facility] mg/dL LAB Comment: If diabetic or CVD then referen ce range <100 VLDL-Cholesterol 27.0 7.0 - 32.0 mg/dL [facility] LDL Cholesterol Direct 129.0 (H) 0.0 - 99.0 mg/dL [facility] Cholesterol/HDL Ratio 3.1 <5.0 RATIO [facility] Specimen Anatomical Collection Method Collection Time Receive d Time (Source) Location / / Volume Laterality Blood specimen VENOUS BLOOD / 02/17/2013 1:18 PM 02/17 1:19 (specimen) Unknown CDT PM CDT Catrina Sue MD LAB - [facility] Performing Organization Address City/State/ZIP Code Phon e Number [facility] [address] [place] [address] HPV Beaver PCR ([facility]) (02/17/2013 11:08 AM CDT) Component Value Ref Test Analysis Performed At [facility] Range Method Time Signature HPV CASCADE - HPV Result ?NEGATIVE FOR HPV ? MISYS NOTE (Negative) --------- Interpretation: This sample is NEGATIVE for the presence of HPV DNA. These results do not exclude the possibility of HPV not detected due to sampling or assay sensitivity. Interpreted by: [facility] Comments: The presence of certain HPV types is an established risk fa ctor for the development of cellular dysplasia or neoplasia. Identification of the specific HPV type permits the assignm ent of disease risk, and is important to the clinical managemen t of the patient. [employer] Dieing Out Machine Operator ?Cristina Bernstein M.D. --------- Methodology: Genomic DNA was extracted from the submitted specimen and amplified by the polymerase chain reaction(PCR) using consensus oligonucleotide primers specific for the L1 region of the [facility] papillomavirus (HPV) genome. Concurrently,the integrity of the extracted DNA was evaluated by the amplification of beta-globin, a common housekeeping gene. HPV DNA positive PCR products wer e subjected to digestion by endonucleases Hae III,Pst 1,and R sa 1. Digested DNA fragments were on a 5% polyacrylamid e gel and visualized by ethidium bromide intercalation. A digital image of the gel was captured and the specific HPV type was determined by matching the restriction fragment patterns of the respec tive specimens to that of known HPV restriction fragment pattern s. This clinical test was developed and its performance characteristics determined by [facility]. It has not been cleared or approv ed by the U.S. Food and Drug Administration. Clearance or approva l for such tests is not required by the U.S. Food and Drug Administration. Specimen Anatomical Collection Method Collection Time Receive d Time (Source) Location / / Volume Laterality 02/17/2013 11:08 02/17/2013 AM CDT 11:08 AM CDT Catrina Sue MD LAB - [facility] Performing Organization Address City/State/ZIP Code Phon e Number [facility]YS FIELD TRAFFIC INVESTIGATOR Cytology ([facility]) (02/17/2013 11:08 AM CDT) Component Value Ref Test Analysis Performed At [facility] Range Method Time Signature FIELD TRAFFIC INVESTIGATOR CYTOLOGY [id number] ? Slide(s) 1 [facility] NOTE [facility] Specimen Type: ??SUREPATH SCREEN SOURCE: ENDOCERV CERVICAL PAP SMEAR INTERPRETATION: NEGATIVE FOR SQUAMOUS INTRAEPITHELIAL LESION OR MALIGNANCY NEGATIVE FOR HIGH RISK HPV (please see separate HPV report) Interpreted by: [facility] Endocervical Component Present Satisfactory for Interpretation PATIENT HISTORY Reflex HPV.................: YES REGARDLESS OF RESULT High Risk..................: NO LMP/Menopause Date.........: 2006 Abnormal Bleeding:.........: NO Pt Status..................: NOT APPLICABLE Control/Hormones.....: NONE Previous Normal/Date.......: 2010 Prev. Abn Date/Dx..........: none Cervical Appearance........: atrophy S. Parsons CT(ASCP) ? (electronically signed) Performed at: ??[address] [address] Date Received: 02/17/13 ?Date Completed: 02/21/13 ??ABN Complete: Specimen Anatomical Collection Method Collection Time Receive d Time (Source) Location / / Volume Laterality Swab (specimen) 02/17/2013 11:08 02/18/20 13 AM CDT 11:08 AM CDT Catrina Sue MD LAB - [facility] Performing Organization Address City/State/ZIP Code Phon e Number [email or web address] Basic Metabolic Panel ([facility]) - Results < 1 hr (02/17/2013 11:06 AM CDT) athologist Signature Glucose 88.0 60.0 - [facility] 109.0 LAB mg/dL Urea Nitrogen 14.0 7.0 - 30.0 [facility] mg/dL LAB Creatinine 0.9 0.6 - 1.3 [facility] mg/dL LAB Sodium 141.0 133.0 - [facility] 144.0 LAB mmol/L Potassium 4.3 3.4 - 5.3 [facility] mmol/L LAB Chloride 97.0 94.0 - [facility] 109.0 LAB mmol/L Carbon Dioxide 30.0 20.0 - [facility] 32.0 LAB mmol/L Calcium 9.6 8.5 - 10.4 [facility] mg/dL LAB eGFR Calculated 68.1 >60.0 [facility] (Non Black mL/min LAB Reference) eGFR Calculated 82.4 >60.0 [facility] (Black mL/min LAB Reference) Specimen Anatomical Collection Method Collection Time Receive d Time (Source) Location / / Volume Laterality Blood specimen VENOUS BLOOD / 02/17/2013 11:06 013 (specimen) Unknown AM CDT 11:06 AM CDT Catrina Sue MD LAB - [facility] Performing Organization Address City/State/[facility] Code Phon e Number [facility] [address] [place] [address] documented in this encounter Visit Diagnoses Diagnosis GERD (gastroesophageal reflux disease) - Primary Esophageal reflux Unspecified asthma(493.90) Unspecified asthma Unspecified hypothyroidism Essential hypertension, benign Routine general medical examination at a health care facility Screening for thyroid disorder Need for prophylactic vaccination and in oculation against influenza documented in this encounter Care Teams Motorbike Courier Relationship Specialty Start Date End Date Catrina Sue MD PCP - General Family Practice 06/05/[address] [place] [id number] documented as of this encounter
--- OUTSIDE RECORDS SUMMARY | 2022-02-27 08:14 | XMS_ITS | Encounter Summary ---
:1955 Author Organization [facility] Address [address] [place] [address] Care Team Providers Name Role Phone Catrina Sue MD Primary Care Provider Reason for Visit Reason Onset Date Comments Medication Question 08/20/2013 Encounter Details Date Type Department Care Team Description 08/20/2013 Telephone [facility] Catrina Sweet, Medication Question [address]14 [facility] [place] [address] [facility] [phone] [place], [place] [address] (Wo rk) Social History Tobacco [...] Telephone Encounter - Catrina Sue MD - 08/21/2013 12:18 PM CDT Fixed script. Telephone Encounter - Nate Pascual CMA - 08/20/2013 3:26 PM CDT estradiol (ESTRACE VAGINAL) 0.1 MG/GM vaginal cream -- Sig: Place 0.5 g vaginally twice a week Insert 1 Applicator daily. Please clarify SIG and fax back to pharmacy documented in this encounter Plan of Treatment Not on filedocumented as of this encounter Visit Diagnoses Diagnosis Postmenopausal atrophic vaginitis documented in this encounter Care Teams Finishing Trimmer Relationship Specialty Start Date End Date Catrina Sue MD PCP - General Family Practice 06/05/[address] [place] [phone] documented as of this encounter
--- OUTSIDE RECORDS SUMMARY | 2022-02-27 08:14 | XMS_ITS | Encounter Summary ---
:1955 Author Organization [facility] Address [address] [place] [address] Care Team Providers Name Role Phone Catrina Sue MD Primary Care Provider Encounter Details Date Type Department Care Team Description 03/23/2014 Orders Only [facility] Unspecified hypothyroidism [address] [place], [place] [id number] Social History Tobacco Use Types Packs/Day Years [...] as of this encounter Progress Notes Christine Torres CMA - 03/25/2014 1:58 PM TOP COLLAR MAKER Quick Note: Results called to patient, patient states she does still have some 75 mcg available at home and will refill when needed. COLLAR MAKER Catrina Sue MD - 03/25/2014 12:23 PM TOP COLLAR MAKER Quick Note: Call patient: Your thyroid dose is now too low. Your previous 75 mcg dose was lowered to 50 mcg dose and there isno inbetween dose, so I think the best solution and closest to normal is when you take 75 mcg daily.I will refax in the 75 mcg pills. COLLAR MAKER documented in this encounter Plan of Treatment Not on filedocumented as of this encounter Procedures Procedure Name Priority Date/Time Associated Diagnosis Comme nts TSH SENSITIVE Routine 03/23/2014 10:28 Unspecified Results fo r this ([facility] AM TOP COLLAR MAKER Hypothyroidism procedure are in the results section. documented in this encounter Results (ABNORMAL) TSH Sensitive ([facility]) (03/23/2014 10:28 AM TOP COLLAR MAKER) P athologist Signature TSH 10.35 (H) 0.30 - 5.05 [facility] uIU/mL LAB Specimen Anatomical Collection Method Collection Time Receive d Time (Source) Location / / Volume Laterality Blood specimen VENOUS BLOOD / 03/23/2014 10:28 014 6:57 (specimen) Unknown AM TOP COLLAR MAKER PM TOP COLLAR MAKER Catrina Sue MD LAB - [facility] Performing Organization Address City/State/ZIP Code Phon e Number [facility] documented in this encounter Visit Diagnoses Diagnosis Unspecified hypothyroidism documented in this encounter Care Teams Superintendent Compressor Stations Relationship Specialty Start Date End Date Catrina Sue MD PCP - General Family Practice 06/05/[address] [place] [id number] documented as of this encounter
--- OUTSIDE RECORDS SUMMARY | 2022-02-27 08:14 | XMS_ITS | Encounter Summary ---
:1955 Author Organization [facility] Address [address] [place] [id number] Care Team Providers Name Role Phone Catrina Sue MD Primary Care Provider Reason for Visit Reason Onset Date Comments Refill Request 07/08/2012 Encounter Details Date Type Department Care Team Description 07/08/2012 Refill [facility] Catrina Sue MD Refill Request [address] [address] [place] [address] [phone] (Wo rk) Social History Tobacco Use Types [...] Primary documented in this encounter Care Teams Entry Level Assistant Manager Relationship Specialty Start Date End Date Catrina Sue MD PCP - General Family Practice 06/05/[address] [place] [phone] documented as of this encounter
--- OUTSIDE RECORDS SUMMARY | 2022-02-27 08:14 | XMS_ITS | Encounter Summary ---
:1955 Author Organization [place] Address [address] [place] [address] Care Team Providers Name Role Phone Catrina Pearce MD Primary Care Provider Encounter Details Date Type Department Care Team Description 03/25/2014 Orders Only [facility] Catrina Pearce Mild intermittent [address] [facility]. MD Kilo asthma (Primary Dx) [place] [address] 1414 [place] [phone] [place], [place] 55[facility] [phone] (Wo rk) Social History Tobacco Use Types [...] Patient Instructions Patient InstructionsCatrina Pearce MD - 03/25/2014 12:19 PM CST My Asthma Action Plan Name: Janet Soto Date of : 1955 Date: 03/25/2014 My doctor: Catrina Pearce My clinic: [facility] [address] [place] [address] My Asthma Severity: intermittent Avoid your asthma triggers: upper respiratory infections and allergies GREEN ZONE Good Control ?? I feel good ?? No cough or wheeze ?? Can work, sleep and play without asthma symptoms Take the medications listed below daily. NOT ON ASTHMA CONTROLLING MEDCINE. 1. If exercise triggers your asthma, take [...] the administration of medication described in theAAP. YES Electronically signed by: CATRINA PEARCE Annual Reminders: Meet with Tank Truck Driver, Flu Shot in the Fall, Pneumonia Shot once after age 65 can get two shots 5 years apart Pharmacy: [id number] - [place], [place] - [address] [id number] - [place], [place] - [address] [facility] - [address] [facility] HEALTH COORDINATOR documented in this encounter Plan of Treatment Not on filedocumented as of this encounter Procedures Procedure Name Priority Date/Time Associated Diagnosis Comme nts ASTHMA ACTION PLAN Routine 03/25/2014 12:19 PM COMMUNITY HEALTH COORDINATOR documented in this encounter Visit Diagnoses Diagnosis Mild intermittent asthma - Primary Unspecified asthma documented in this encounter Care Teams Store Specialist Relationship Specialty Start Date End Date Catrina Pearce MD PCP - General Family Practice 06/05/[address] [place] [address] documented as of this encounter
--- OUTSIDE RECORDS SUMMARY | 2022-02-27 08:15 | XMS_ITS | Encounter Summary ---
:1955 Author Organization [place] Address [address] [place] [address] Care Team Providers Name Role Phone Unavailable Primary Care Provider Unavailable Reason for Visit Reason Onset Date Comments Refill Request 03/25/2012 Encounter Details Date Type Department Care Team Description 03/25/2012 Refill [facility] Catrina Aragon MD Refill Request 1414 [facility] [address] [place] [address] [place] [address] [phone] (Wo rk) Social History Tobacco Use Types [...] as of this encounter Visit Diagnoses Diagnosis GERD (gastroesophageal reflux disease) - Primary Esophageal reflux documented in this encounter
--- OUTSIDE RECORDS SUMMARY | 2022-02-27 08:15 | XMS_ITS | Encounter Summary ---
:1955 Author Organization [place] Address [address] [place] [address] Care Team Providers Name Role Phone Catrina Sue MD Primary Care Provider Catrina Sue MD Unavailable Catrina Sue MD Unavailable Encounter Details Date Type Department Care Team Description 11/16/2011 Office Visit-[facility] Sofía Mendoza MD [address] [facility] [place] N [address] (Wo rk) Social History Tobacco Use Types [...] documented as of this encounter Progress Notes Angela Mendoza MD - 11/16/2011 1:20 PM CDT Oil Heaterman: Angela Mendoza Status: Final Encounter: 2011-11-16 13:20:00.000 Type: FM Visit Reason For Visit Patient presents for soreness on both breats and hard lump on top of baby toe. Allergy List reviewed: Current Immunizations reviewed: Up to date Medication list reviewed with patient and was up to date. No change in meds, Pharmacy is now called [facility] pharmacy. PHQ2 was given and was negative. Allergies No Known Allergies No Known Drug Allergy. Smoking Assessment No secondhand cigarette smoke exposure. No tobacco use. Vital Signs Recorded by lindsay on 16 Nov 2011 01:16 PM BP:120/74, RUE, Sitting, HR: 76 b/min, R Radial, Weight: 134 lb, O2 Sat: 97 (%SpO2). Current Meds Calcium + D 600-200 MG-UNIT Tablet;TAKE 1 TABLET DAILY.; RPT Ventolin HFA 108 (90 Base) MCG/ACT Aerosol Solution;INHALE 2 PUFFS FOUR TIMES DAILY DIRECTED.; Rx Hydrochlorothiazide 25 MG Tablet;TAKE 1 TABLET DAILY.; Rx Fluticasone Propionate 50 MCG/ACT Suspension;USE 1 TO 2 SPRAYS IN EACH NOSTRIL ONCE DAILY.; Rx Fexofenadine HCl 180 MG Tablet;TAKE 1 TABLET DAILY.; Rx Erythromycin opt.0.5% drops;Apply 3-4 drops to each eye 3-4 times daily.; Rx Estrace 0.1 MG/GM Cream;INSERT 1/2APPLICATORFUL (1GM) VAGINALLY WEEKLY.; Rx Omeprazole 20 MG Capsule Delayed Release;TAKE 1 CAPSULE DAILY EVERY MORNING BEFORE BREAKFAST.; Rx Vaniqa 13.9 % Cream;APPLY AND GENTLY MASSAGE INTO AFFECTED AREA(S) ONCE DAILY.; Rx Levothyroxine Sodium 75 MCG Tablet;TAKE 1 TABLET DAILY.; Rx Triamterene-HCTZ 37.5-25 MG Capsule;TAKE 1 CAPSULE DAILY.; Rx Nitrofurantoin Macrocrystal 100 MG Capsule;TAKE 1 CAPSULE EVERY 12 HOURS DAILY.; Rx. Active Problems Actinic Keratosis (702.0) Benign Paroxysmal Positional Vertigo (386.11) Care Coordinated By; Tier 1 Cataract; Bilateral (366.9); l > R Cervical Pap Smear (V76.2) Esophageal Reflux (530.81) Hypothyroidism (244.9) Leiomyoma Of The Uterus (218.9) Mild Intermittent Asthma (493.90) Osteoarthritis Of Multiple Sites (715.89) Osteopenia (733.90) Pigmented Nevus (216.9); right thoracic back area Postmenopausal Atrophic Vaginitis (627.3) Symptomatic Menopause (627.2) Tinnitus (388.30) Varicose Veins With Swelling (454.8). SOAP SUBJECTIVE: Janet Soto is a 56-year-old female who comes in today for 2 concerns. 1.The patient states that she has noticed some right and left breast tenderness over the last 2 weeks or so. She says it feels almost like her breasts use to when she had her periods. She notices no lumps in the area. She has noted no discharge from the breasts. She has no family history of breast cancer. She has had regular mammograms and her last one was 12/02/2010. She has had no injury to the area. She has had no fevers, chills, night sweats or weight loss. 2.She also has noted a small lump on top of her 5th toe on the left foot. She noted it for the firsttime yesterday. She has had neuromas on the bottom of her feet but never anything on top of her foot. It was mildly sore yesterday. She has no pain with manipulation of the foot however. Again no trauma to the area or injury. OBJECTIVE: GENERAL: Alert, no apparent distress. VITAL SIGNS: As above and within normal limits. BREAST EXAM: Bilaterally within normal limits. She does have mild tenderness on the inner parts of both breasts on the upper quadrant. There is no palpable lumps. No drainage from the breasts and no lymphadenopathy in the axillae bilaterally. MUSCULOSKELETAL: Reveals a small palpable, mobile cyst like structure present on the dorsum of her 5th foot on the left. It is tender to palpation. She has no swelling in the area, no redness. No otherskin abnormalities. PSYCH: The patient's affect is appropriate. ASSESSMENT AND PLAN: This is a 56-year-old female who comes in today with: 1.Breast pain: At this point we will order a diagnostic mammogram. I suspect that this is hormonal changes going on in her body causing the breast discomfort but will order the diagnostic mammogram to be sure. She can follow-up as needed for this. She is comfortable with this plan. 2.Neuroma: I suspect that this is consistent with something like a neuroma or else a lipoma, however, it is in an unusual location. For now will monitor it and watch it closely. If it starts to get larger, if it starts to become more painful or more problematic would consider excision of the area for diagnostic purposes. She is comfortable with this plan. Dictated by Angela Mendoza MD, Resident; ; ; ; ts. Assessment Pain in breast (611.71) [place]'s neuroma (355.6) Plan Patient participated in and agrees with today's plan. Attending Note Patient reviewed and discussed with resident. Agree with Plan of Care. Supervising Physician: Dr. Mcdowell. Signature Signed By: Angela Mendoza MD,Resident; 11/20/2011 9:18 AM CONFIGURATION MANAGEMENT CONSULTANT. Signed By: Lorene Mcdowell MD; 12/19/2011 4:03 PM CONFIGURATION MANAGEMENT CONSULTANT. documented in this encounter Plan of Treatment Not on filedocumented as of this encounter Visit Diagnoses Not on filedocumented in this encounter Care Teams Electrical Assembler Relationship Specialty Start Date End Date Catrina Sue MD PCP - General Family Practice 06/05/[address] [place] [id number] aCtrina Sue MD Assigned PCP 03/28/[address] [place] [address] Catrina Sue MD Assigned PCP 09/11/19 03/27/[address] [place] [address] documented as of this encounter
--- OUTSIDE RECORDS SUMMARY | 2022-02-27 08:15 | XMS_ITS | Encounter Summary ---
:1955 Author Organization [facility] Address [address] [place] [address] Care Team Providers Name Role Phone Unavailable Primary Care Provider Unavailable Encounter Details Date Type Department Care Team Description 02/08/2012 Historic Results [facility] Catrina Sweet, [address] [place] [address] [place] [address] [place] [address] [place], [place] [address] (Wo rk) Social History Tobacco [...] Associated Diagnosis Comme nts TSH SENSITIVE Routine 02/08/2012 3:14 PM Results for this ([email or web address]) CDT procedure are i n the results section. documented in this encounter Results TSH Sensitive ([facility]) (02/08/2012 3:14 PM CDT) P athologist Signature TSH 1.1 0.3 - 5.0 [facility] HISTORICAL uIU/ml RESULTS Specimen Anatomical Collection Method Collection Time Receive d Time (Source) Location / / Volume Laterality 02/08/2012 3:14 PM 2 3:14 CDT PM CDT Catrina Sue MD LAB - [facility] Performing Organization Address City/State/ZIP Code Phon e Number [facility] HISTORICAL RESULTS documented in this encounter Visit Diagnoses Not on filedocumented in this encounter
--- OUTSIDE RECORDS SUMMARY | 2022-02-27 08:15 | XMS_ITS | Encounter Summary ---
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 documented as of this encounter Plan of Treatment Not on filedocumented as of this encounter Procedures Procedure Name Priority Date/Time Associated Comments Diagnosis MA DIAGNOSTIC Routine 11/17/2011 12:00 AM Results for this BILATERAL CDT procedure are i n the results section. documented in this encounter Results MA Diagnostic Digital Bilateral (11/17/2011 12:00 AM CDT) Anatomical Region Laterality Modality Breast Bilateral Other Specimen (Source) Anatomical Location Collection Method / Collectio n Time Received Time / Laterality Volume Impressions 11/17/2011 12:00 AM CDT No sign of malignancy. ACR CATEGORY 1: ??NEGATIVE. BEATRIZ MARSHALL MD [facility]; D 11/17/2011 15:26:00; T 11/17/2011 16:13:49; R 11/17/2011 16:13:49; [id number] TECHNOLOGIST: [id number] ; FLUOROSCOPY TIME: 0 ?min. Patient Name: DANAY STOKES ??MRN: [id number] ? This report is preliminary unless an lucero ctronic signature appears below. This document has been electronically si gned by BEATRIZ MARSHALL MD on 11/18/2011 14:33:32. CONFIDENTIAL MEDICAL REPORT [place] [address] Phone: ??[phone] ?Fax: ?? Name: ??DANAY STOKES ?? Account: ?? [id number] Interpreted By ??BEATRIZ MARSHALL MD ?? Lo cation: NXR Requisition: ??[id number] ?? Room: ? Service Date: ??11/17/11 ?? Exam: ? REASON FOR EXAM: ? MG DIAGNOSTIC BILATERAL MAMMO ?? BILATER AL ??BR PAIN RADIOLOGY REPORT Narrative 11/17/2011 12:00 AM CDT Ordered by: ?KANU MARIN ??: 1955 Primary: ??KANU MARIN MD ?Ag e: ??56Y ?Sex: F Referred by: ?? RADIOLOGY REPORT BILATERAL FULL-FIELD DIGITAL MAMMOGRAM, 11/17/2011. INDICATION: Bilateral breast pain with n o lump. Symmetry is normal. There is no mass or architectural distortion. No suspicious calcifications are present. There have been no changes since November 2010. Procedure Note Provider, Historical - 11/02/2020Formatt ing of this note might be different from the original. Ordered by: KANU MARIN : 04/24 Primary: KANU MARIN MD Age: 56Y Sex: F Referred by: RADIOLOGY REPORT BILATERAL FULL-FIELD DIGITAL MAMMOGRAM, 11/17/2011. INDICATION: Bilateral breast pain with n o lump. Symmetry is normal. There is no mass or architectural distortion. No suspicious calcifications are present. There have been no changes since November 2010. IMPRESSION: No sign of malignancy. ACR CATEGORY 1: NEGATIVE. BEATRIZ MARSHALL MD [facility]; D 11/17/2011 15:26:00; T 11/17/2011 16:13:49; R 11/17/2011 16:13:49; [id number] TECHNOLOGIST: [id number] ; FLUOROSCOPY TIME: 0 min. Patient Name: DANAY STOKES MRN: [id number] This report is preliminary unless an lucero ctronic signature appears below. This document has been electronically si gned by BEATRIZ MARSHALL MD on 11/18/2011 14:33:32. [place] [place] [address] Name: DANAY STOKES Account: [id number] Interpreted By BEATRIZ MARSHALL MD Locatio n: NXR Requisition: [id number] Room: Service Date: 11/17/11 Exam: REASON FOR EXAM: MG DIAGNOSTIC BILATERAL MAMMO BILATERAL BR PAIN RADIOLOGY REPORT Historical Provider IMG MAMMOGRAPHY ORDERABLES documented in this encounter Visit Diagnoses Not on filedocumented in this encounter Care Teams Carburetor Expert Relationship Specialty Start Date End Date Catrina Sue MD PCP - General Family Practice 06/05/[address] [place] [address] Catrina Sue MD Assigned PCP 03/28/[address] [place] [address] Catrina Sue MD Assigned PCP 09/11/19 03/27/[address] [place] [address] documented as of this encounter
--- OUTSIDE RECORDS SUMMARY | 2022-02-27 08:15 | XMS_ITS | Encounter Summary ---
:1955 Author Organization [place] Address [address] [place] [address] Care Team Providers Name Role Phone Unavailable Primary Care Provider Unavailable Encounter Details Date Type Department Care Team Description 12/28/2009 Office Visit-[facility] DEPT Acosta Deluca MD [facility] [address] [place] [address] (Wo rk) Social History Tobacco Use Types [...] documented as of this encounter Progress Notes Acosta Deluca - 12/28/2009 1:20 PM CDT Regional Transportation Manager: Acosta Deluca Status: Final Encounter: 28 Dec 2009 Type: Visit Reason For Visit Patient presents for suture removal. Allergy List reviewed: Current Immunizations reviewed: Up to date Medication list reviewed with patient and was up to date. Allergies No Known Allergies No Known Drug Allergy. Smoking Assessment No secondhand cigarette smoke exposure. No tobacco use. Vital Signs Recorded by brandoerIrina on 28 Dec 2009 01:33 PM BP:113/73, RUE, Sitting, HR: 78 b/min, Temp: 98.1 F, Height: 68 in, Weight: 130.4 lb, BMI: 19.8 kg/m2, O2 Sat: 98 (%SpO2). Immunizations Hepatitis B; #1; 13 Jul 1999 Td; 06 Apr 2000 Pneumo (Pneumovax); 21 May 2003 Influenza; 08 Jun 2006 Influenza; 22 Mar 2007 Hepatitis B; #2; 13 Mar 2008 Influenza; 13 Mar 2008 Tdap (Adacel); 24 Dec 2008 Hepatitis B (Engerix); 24 Dec 2008 Pneumo (Pneumovax); 24 Dec 2008 Influenza; 24 Dec 2008 H1N1 Influenza Inj; 22 Mar 2009. Current Meds Levothyroxine Sodium 75 MCG Tablet;TAKE 1 TABLET DAILY.; RPT Maxzide-25 37.5-25 MG Tablet;TAKE 1 TABLET DAILY DIRECTED.; RPT Prevacid 15 MG Capsule Delayed Release;; RPT Calcium + D 600-200 MG-UNIT Tablet;TAKE 1 TABLET DAILY.; RPT Estrace 0.1 MG/GM Cream;INSERT 1/4 APPLICATORFUL (1GM) VAGINALLY TWICE WEEKLY.; Rx Acyclovir 200 MG Capsule;TAKE 1 CAPSULE TWICE DAILY; Rx. Active Problems Acute Cystitis (595.0) Benign Paroxysmal Positional Vertigo (386.11) Care Coordinated By; Tier 1 Cataract; Bilateral (366.9); l > R Esophageal Reflux (530.81) Headache (784.0); frequent Herpes Simplex Type II 13 Jun 2002 (054.10) Hypothyroidism (244.9) Leiomyoma Of The Uterus (218.9) Mild Intermittent Asthma (493.90) Osteoarthritis Of Multiple Sites (715.89) Osteopenia (733.90) Pigmented Nevus (216.9); right thoracic back area Postmenopausal Atrophic Vaginitis (627.3) Recurrent Dislocation Of The Knee / Patella / Tibia / Fibula (718.36) Symptomatic Menopause (627.2) Tension-type Headache (339.10) Tinnitus (388.30) Urethritis (597.80) Visit For: Screening Exam Lipoid Disorders (V77.91). SOAP SUBJECTIVE: This 54-year-old female presents for a visit for removal of sutures and for histology results. She was seen here on December 17, [address] Sue and was found to have a darkly pigmented nevus on her right back which underwent elliptical excision and was sent to pathology. Histopathologyshows that it was a seborrheic keratosis. Patient has no other complaints today. OBJECTIVE: Vitals are reviewed and within normal limits. General: Well appearing female in no apparent distress. Cardiovascular: Regular rate and rhythm without murmur. Lungs are clear bilaterally. Skin: There are 56 interrupted sutures over the site of the excision which is well healing on her right back. ASSESSMENT/PLAN: 1.Suture removal: I removed all 5 interrupted sutures without problem. The scar appears to be well healing. Instructed her to keep it covered if she does wear a bra since it is immediately under her bra line at least until the skin appears to be fully healed in the next week or so. Discussed her pathology results with her, that this is a benign process but she is likely to have recurrence of these elsewhere on her body over the years. Follow-up with Dr. Sue as needed. Dictated by Acosta Deluca MD, Resident; ; ; ; ts. Assessment Removal of sutures (V58.32) Attending Note Patient reviewed and discussed with resident. Agree with Plan of Care. Supervising Physician: Dr. Mdcowell. Signature Signed By: Acosta Deluca MD,Resident; 12/31/2009 8:22 AM MANAGER PERSONAL. Signed By: Lorene Mcdowell MD; 01/04/2010 3:57 PM MANAGER PERSONAL. documented in this encounter Plan of Treatment Not on filedocumented as of this encounter Visit Diagnoses Not on filedocumented in this encounter
--- OUTSIDE RECORDS SUMMARY | 2022-02-27 08:15 | XMS_ITS | Encounter Summary ---
:1955 Author Organization [place] Address [address] [place] [address] Care Team Providers Name Role Phone Unavailable Primary Care Provider Unavailable Encounter Details Date Type Department Care Team Description 03/24/[address] [facility] Catrina Sweet, [address] [place] [address] [place] [address] [address] [place], [place] [address] (Wo rk) Social History Tobacco [...] Name Priority Date/Time Associated Diagnosis Comme nts HISTOLOGY OUT REACH Routine 03/24/2011 9:49 AM Re sults for this SPEC. ([facility]) OFFICE TECHNOLOGY INSTRUCTOR procedure are in the results section. documented in this encounter Results Histology Out Reach Spec. ([facility]) (03/24/2011 9:49 AM OFFICE TECHNOLOGY INSTRUCTOR) [facility] Method Time Signature HISTOLOGY OUT See [facility] HISTORICAL REACH - NOTE Comment: RESULTS Comment: Case#: [id number] SURGICAL PATHOLOGY REPORT [facility] Status: Final Report MICRO/DIAGNOSIS: SKIN, RIGHT SHOULDER, BIOPSY ? 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 ? - ?LATERAL AND DEEP EDGES NEG ATIVE FOR TUMOR. Pathologist: Bob Owen M.D., Ph.D. ??(Electronically Signed) [facility] CLINICAL INFORMATION: Clinical History..............itchy mol e- right shoulder Reason for Procedure..........scab-criss ty Specimen #1 Submitted as:.....mole righ t shoulder SPECIMEN SUBMITTED : A) MOLE RIGHT SHOULDER GROSS DESCRIPTION: A) SOURCE: MOLE RIGHT SHOULDER Received in formalin labeled with the lan delgado's name and mole right shoulder is a 0.3 cm, circular, w mark-heath, granular cutaneous tissue, which is excised to a depth of 0.2 cm. The specimen is inked blue. B&TE-1C. ??RJR:e ds The following procedure codes have been billed on this case:1 X LEVEL 4-G&M ([id number]); ICD9: 173.62 This test was performed at: ?[facility] ?[address] [place] [address] ?[place], [place] ??[address] ?Phone n umber: [phone] CC: CATRINA PEARCE [phone] CCEND: All histology slide preparation, stains and image analysis done at [facility] are performed at [facility], [address] [place] [address], [id number], with f inal interpretation and frozen section analysis at the indicated laboratory. Date Collected: 03/24/11 ? Castro e Received: ??03/24/11 Date Completed: 03/27/11 13:56 ?? Reques t: [id number] Specimen Anatomical Collection Method Collection Time Receive d Time (Source) Location / / Volume Laterality 03/24/2011 9:49 AM 1 9:49 OFFICE TECHNOLOGY INSTRUCTOR AM OFFICE TECHNOLOGY INSTRUCTOR Catrina Pearce MD LAB - [facility] Performing Organization Address City/State/ZIP Code Phon e Number [facility] HISTORICAL RESULTS documented in this encounter Visit Diagnoses Not on filedocumented in this encounter
--- OUTSIDE RECORDS SUMMARY | 2022-02-27 08:15 | XMS_ITS | Encounter Summary ---
:1955 Author Organization [place] Address [address] [place] [address] Care Team Providers Name Role Phone Unavailable Primary Care Provider Unavailable Encounter Details Date Type Department Care Team Description 02/16/2011 Office Visit-[facility] INTERFACE [facility] DEPT Provider, [facility] Nurs e Social History Tobacco Use Types Packs/Day Years [...] documented as of this encounter Progress Notes Provider, [facility] Nurse - 02/16/2011 9:40 AM CDT Battery Tester And Repairer: Brian Torres Status: Final Encounter: 16 Feb 2011 Type: Nurse Note Inj Meds Administration INFLUENZA VACCINATION CONTRAINDICATIONS No Age less than 6 months: No Severe allergy to chicken eggs No Severe reaction to flu shot in the past No Had Guillain-Cl[place]more syndrome (Polish Polio) No Anaphylactic (life-threatening) reaction to latex PRECAUTION No Moderate or severe illness IF ANY ITEM MARKED YES THEN M.D. ASSESSMENT REQUIRED. Allergies No Known Allergies No Known Drug Allergy. Immunizations Hepatitis B; #1; 13 Jul 1999 Td; 06 Apr 2000 Pneumo (Pneumovax); 21 May 2003 Hepatitis B; #2; 13 Mar 2008 Influenza; 13 Mar 2008 Tdap (Adacel); 24 Dec 2008 Hepatitis B (Engerix); 24 Dec 2008 Pneumo (Pneumovax); 24 Dec 2008 Influenza; 24 Dec 2008 H1N1 Influenza Inj; 22 Mar 2009 Influenza (Split); 04 Feb 2010 FLUZONE Inj; 16 Feb 2011. Current Meds Prevacid 15 MG Capsule Delayed Release;; RPT Calcium + D 600-200 MG-UNIT Tablet;TAKE 1 TABLET DAILY.; RPT Estrace 0.1 MG/GM Cream;INSERT 1/4 APPLICATORFUL (1GM) VAGINALLY TWICE WEEKLY.; Rx Levothyroxine Sodium 75 MCG Tablet;TAKE 1 TABLET DAILY.; Rx Ventolin HFA 108 (90 Base) MCG/ACT Aerosol Solution;INHALE 2 PUFFS FOUR TIMES DAILY DIRECTED.; Rx Hydrochlorothiazide 25 MG Tablet;TAKE 1 TABLET DAILY.; Rx Fluticasone Propionate 50 MCG/ACT Suspension;USE 1 TO 2 SPRAYS IN EACH NOSTRIL ONCE DAILY.; Rx Fexofenadine HCl 180 MG Tablet;TAKE 1 TABLET DAILY.; Rx Erythromycin opt.0.5% drops;Apply 3-4 drops to each eye 3-4 times daily.; Rx Omeprazole 20 MG Capsule Delayed Release;TAKE 1 CAPSULE DAILY EVERY MORNING BEFORE BREAKFAST.; Rx. Active Problems Benign Paroxysmal Positional Vertigo (386.11) Care Coordinated By; Tier 1 Cataract; Bilateral (366.9); l > R Cervical Pap Smear (V76.2) Esophageal Reflux (530.81) Hypothyroidism (244.9) Leiomyoma Of The Uterus (218.9) Mild Intermittent Asthma (493.90) Osteoarthritis Of Multiple Sites (715.89) Osteopenia (733.90) Pigmented Nevus (216.9); right thoracic back area Postmenopausal Atrophic Vaginitis (627.3) Symptomatic Menopause (627.2) Tinnitus (388.30) Varicose Veins With Swelling (454.8). Signature Signed By: JOSEFA Short LPN; 02/16/2011 2:31 PM ARMORED TRUCK DRIVER. documented in this encounter Plan of Treatment Not on filedocumented as of this encounter Visit Diagnoses Not on filedocumented in this encounter
--- OUTSIDE RECORDS SUMMARY | 2022-02-27 08:15 | XMS_ITS | Encounter Summary ---
:1955 Author Organization [facility] Address [address] [place] [address] Care Team Providers Name Role Phone Unavailable Primary Care Provider Unavailable Encounter Details Date Type Department Care Team Description 05/11/2012 Abstract Amanda monte Abstract, Provider [address] [place] [address] Social History Tobacco Use Types Packs/Day Years [...]
--- OUTSIDE RECORDS SUMMARY | 2022-02-27 08:15 | XMS_ITS | Encounter Summary ---
:1955 Author Organization [facility] Address [address] [place] [address] Care Team Providers Name Role Phone Catrina Sue MD Primary Care Provider Catrina Sue MD Unavailable Catrina Sue MD Unavailable Encounter Details Date Type Department Care Team Description 02/08/2012 Office Visit-P INTERFACE P DEPT Fatoumata Sue MD [address] [place], [place] [address] (Wo rk) Social History Tobacco [...] as of this encounter Progress Notes Catrina uSe MD - 02/08/2012 1:20 PM CDT Data Collection Technician: Catrina Sue Status: Final Encounter: 2012-02-08 13:20:00.000 Type: FM Adult CPE Reason For Visit Patient presents for CPE. Last Pap smear by patient report 2012 Allergy List reviewed: Current Immunizations reviewed: Needs Flu shot, shingles Medication list reviewed with patient and was updated. PHQ2 was given and was negative. Allergies No Known Allergies No Known Drug Allergy. Smoking Assessment No secondhand cigarette smoke exposure. No tobacco use. Vital Signs Recorded by [email or web address] on 08 Feb 2012 01:19 PM BP:118/75, HR: 71 b/min, Resp: 18 r/min, Temp: 98.0 F, Height: 67.25 in, Weight: 135.4 lb, BMI: 21 kg/m2. Current Meds Calcium + D 600-200 MG-UNIT [...] 1 CAPSULE EVERY 12 HOURS DAILY.; Rx. Immunizations Hepatitis B; #1; 13 Jul 1999 Td; 06 Apr 2000 Pneumo (Pneumovax); 21 May 2003 Hepatitis B; #2; 13 Mar 2008 Influenza; 13 Mar 2008 Tdap (Adacel); 24 Dec 2008 Hepatitis B (Engerix); 24 Dec 2008 Pneumo (Pneumovax); 24 Dec 2008 Influenza; 24 Dec 2008 H1N1 Influenza Inj; 22 Mar 2009 Influenza (Split); 04 Feb 2010 FLUZONE Inj; 16 Feb 2011. Active Problems Actinic Keratosis (702.0) Benign Paroxysmal Positional Vertigo (386.11) Breast Pain (611.71) Care Coordinated By; Tier 1 Cataract; Bilateral (366.9); l > R Cervical Pap Smear (V76.2) Esophageal Reflux (530.81) Hypothyroidism (244.9) [place]'s Neuroma (355.6) Leiomyoma Of The Uterus (218.9) Mild Intermittent Asthma (493.90) Osteoarthritis Of Multiple Sites (715.89) Osteopenia (733.90) Pigmented Nevus (216.9); right thoracic back area Postmenopausal Atrophic Vaginitis (627.3) Symptomatic Menopause (627.2) Tinnitus (388.30) Varicose Veins With Swelling (454.8). PMH Normal (V22.2); 3 term pregnanciestwice had PP phlebitis Reported Positive Pap Smear (795.19); GABRIELA, ASCUSnormal colp 05/04/00. PSH Excision Of Lesion Face Malignant; basal cell forehead Reconstruction For Recurrent Patellar Dislocation 1967, 1973; Bilateral Removal Of Sutures (V58.32) Tubal Ligation 1979 (V25.2). Personal Hx Care Coordinated By; Tier 1. Family Hx Maternal history of Acute Myelogenous Leukemia Paternal grandmother's history of Carcinoma Of The Large Intestine Paternal grandfather's history of Carcinoma Of The Large Intestine Paternal uncle's history of Sudden / Instantaneous ; 2 different uncles. Adult PE HCM Female Concerns today: see hpi ROS: Constitutional:no fevers, or unintentional weight change Eyes: no vision change, diplopia or red eyes Ears, Nose and Throat: no tinnitus or hearing change, no epistaxis or nasal discharge, no oral lesions, throat clear. Cardiovascular: Details: see HPI Respiratory: Details: asthma seems the same and stable GI:no nausea, vomiting, diarrhea or constipation, no abdominal pain : Details: see hpi Musculoskeletal: no joint or muscle pain or swelling Integumentary: no concerning lesions or moles, seeing dermatology has previous skin cancer Neuro: no loss of strength or sensation, no numbness or tingling, no tremor, no dizziness, no headache Endo: no polyuria or polydipsia, no temperature intolerance Heme/Lymph: no concerning bumps, no bleeding problems Psych: no depression or anxiety, no sleep problems Sexually Active Yes At risk sexual behavior? Details: dryness and painful Sexual concerns: Contraception: Not needed Menarche: Menopausal since age 50 STD History:Negative [ ] Last Pap Smear Date: [ ] Normal Abnormal Pap History: None PAST MEDICAL HISTORY See PMH: reviewed no other significant history. CAD None DM None Details basal cell skin FAMILY HISTORY :See FH:reviewed no other significant FH CAD Yes Details father SOCIAL HISTORY Children ? Over the past two weeks, how often have you been bothered by any of the following problems? Little interest or pleasure in doing things. 0 = Not at all Feeling down, depressed, or hopeless. 0 = Not at all Has anyone hurt you physically, for example by pushing, hitting, slapping or kicking you or forcing you to have sex? Denies Do you feel threatened or controlled by a partner, ex-partner or anyone in your life? Denies RISK BEHAVIORS AND HEALTHY HABITS Tobacco Use/Smoking None Illicit Drug Use None ETOH None or rarely Diet (5-7 servings of fruits/veg daily) Yes Exercise (30 min accumulated most days) Yes Dental Care Yes Calcium 1500 mg/d Yes Seat Belt Use Yes Cholesterol Level (>45 yo or at risk) IMMUNIZATIONS: Reviewed Immunization Record Today EXAMINATION: Constitutional: no distress, comfortable, pleasant Vital signs: Reviewed and normal Eyes: anicteric, normal extra-ocular movements Ears, Nose and Throat: tympanic membranes clear, nose clear and free of lesions, throat clear. Neck: supple with full range of motion, no thyromegaly Cardiovascular: regular rate and rhythm, no murmurs, rubs or gallops, peripheral pulses full and symmetric Respiratory: clear to auscultation, no wheezes or crackles, normal breath sounds Gastrointestinal: positive bowel sounds, nontender, no hepatosplenomegaly, no masses Musculoskeletal:full range of motion, no edema Skin:no concerning lesions, no jaundice Breast: no lumps, no nipple discharge, tender bilaterally Chest wall: slight tenderness over left lateral rib area, not point tender Neurological: cranial nerves intact, normal strength and sensation, reflexes at patella and biceps normal, normal gait, no tremor Psychological:appropriate mood Lymphatic: no cervical, axillary, or inguinal lymphadenopathy ASSESSMENT:Normal Physical Exam 1. Atypical chest pain: consistent with costochondritis by location, exam and hx. low risk for cardiac source with nl lipids, non smoker, no dm 2. Postmenopausal with stress urinary incontinence and vaginal atrophy PLAN: 1. Naproxen 500 mg BID to see if has any improvement on chest pain -fu in 2-3 weeks if no changes, take meds with food 2. Trial of restarting higher dose of esstrogen cream consistently Td: HPI 1. Chest pain X months -concerned because father and grandfather with ASCVD at age 50s-defined pain sharp at times, not during exertion, activities, but with sitting and standing can come on for just several seconds, sometimes last for hours -pain is very localized to the far left side of the chest -bouts happen weekly, can go several days without -just disappears without treating -no associated diaphoresis, dyspnea, no change in dyspnea, possibly radiates to back 2 Urinary incontinence -prolonged voiding, and some leaking with signifcant valsalva pressure . Signature Signed By: Catrina Sue M.D.; 02/10/2012 5:37 PM [employer]. [employer] WORKERS documented in this encounter Plan of Treatment Not on filedocumented as of this encounter Visit Diagnoses Not on filedocumented in this encounter Care Teams Ice Skating Instructor Relationship Specialty Start Date End Date Catrina Sue MD PCP - General Family Practice 06/05/[address] [place] [address] Catrina Sue MD Assigned PCP 03/28/[address] [place] [address] Catrina Sue MD Assigned PCP 09/11/19 03/27/[address] [place] [address] documented as of this encounter
--- OUTSIDE RECORDS SUMMARY | 2022-02-27 08:15 | XMS_ITS | Encounter Summary ---
:1955 Author Organization [facility] Address [address] [place] [address] Care Team Providers Name Role Phone Unavailable Primary Care Provider Unavailable Encounter Details Date Type Department Care Team Description 02/08/2012 Results Only INTERFACED REPORT Nunu Sue MD [address] [place], [place] [address] (Wo rk) Social History Tobacco [...] Priority Date/Time Associated Diagnosis Comme nts LIPID PANEL Routine 02/08/2012 1:32 PM Results f or this ([facility]) CDT procedure are i n the results section. documented in this encounter Results (ABNORMAL) Lipid Panel ([facility]) (02/08/2012 1:32 PM CDT) P athologist Signature Cholesterol 196.0 <200.0 [facility] mg/dL [facility] Triglycerides 88.0 <150.0 [facility] mg/[facility] HDL Cholesterol 68.0 >50.0 [facility] mg/dL [facility] Comment: If diabetic or CVD then referen ce range <100 VLDL-Cholesterol 18.0 7.0 - 32.0 mg/dL [facility] LDL Cholesterol Direct 110.0 (H) 0.0 - 99.0 mg/dL [facility] Cholesterol/HDL Ratio 2.9 <5.0 [facility]ATIO [facility] Specimen Anatomical Collection Method Collection Time Receive d Time (Source) Location / / Volume Laterality 02/08/2012 1:32 PM 2 1:32 CDT PM CDT Catrina Sue MD LAB - [facility] Performing Organization Address City/State/ZIP Code Phon e Number [facility] [address] [place] [address] [facility] documented in this encounter Visit Diagnoses Not on filedocumented in this encounter
--- OUTSIDE RECORDS SUMMARY | 2022-02-27 08:15 | XMS_ITS | Encounter Summary ---
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 See Historical Hospital Medical Record f or documentation Historical Provider IMG CT ORDERABLES documented in this encounter Visit Diagnoses Not on filedocumented in this encounter Care Teams .Net Developer Relationship Specialty Start Date End Date Catrina Sue MD PCP - General Family Practice 06/05/[address] [place] [address] Catrina Sue MD Assigned PCP 03/28/[address] [place] [address] Catrina Sue MD Assigned PCP 09/11/19 03/27/[address] [place] [address] documented as of this encounter
--- OUTSIDE RECORDS SUMMARY | 2022-02-27 08:15 | XMS_ITS | Encounter Summary ---
:1955 Author Organization [facility] Address [address] [facility] [place] [address] Care Team Providers Name Role Phone Unavailable Primary Care Provider Unavailable Encounter Details Date Type Department Care Team Description 10/05/2010 Office Visit-P INTERFACE P DEPT Marco A Le MD [address] [address] (Wo rk) Social History Tobacco Use Types [...] documented as of this encounter Progress Notes Ezio Cummings MD - 10/05/2010 10:20 AM CDT Administrative Processor: Ezio Le Status: Final Encounter: 05 Oct 2010 Type: Visit Reason For Visit Patient presents for Sore throat, fever and cough. RT eye was matted shut this morning Mammo 4-12-10 Normal Last Pap smear by patient report Unable to review medication list as patient doesn't know their medications: Advised patient to bring all medications to each visit. ] PHQ2 was given and was negative. Allergies No Known Allergies No Known Drug Allergy. Smoking Assessment No secondhand cigarette smoke exposure. No tobacco use. Vital Signs Recorded by [facility] on 05 Oct 2010 10:26 AM BP:113/71, RUE, Sitting, HR: 98 b/min, R Radial, Resp: 18 r/min, Normal, Temp: 98.4 F, Oral, Height: 68 in, Weight: 128 lb, BMI: 19.5 kg/m2, O2 Sat: 97 (%SpO2). Current Meds Prevacid 15 MG Capsule Delayed Release;; RPT Calcium + D 600-200 MG-UNIT Tablet;TAKE 1 TABLET DAILY.; RPT Estrace 0.1 MG/GM Cream;INSERT 1/4 APPLICATORFUL (1GM) VAGINALLY TWICE WEEKLY.; Rx Vaniqa 13.9 % Cream;APPLY AND GENTLY MASSAGE INTO AFFECTED AREA(S) ONCE DAILY.; Rx Acyclovir 200 MG Capsule;TAKE 1 CAPSULE 4 TIMES DAILY at first sign of any symptom for 7 days; Rx Levothyroxine Sodium 75 MCG Tablet;TAKE 1 TABLET DAILY.; Rx Ventolin HFA 108 (90 Base) MCG/ACT Aerosol Solution;INHALE 2 PUFFS FOUR TIMES DAILY DIRECTED.; Rx Hydrochlorothiazide 25 MG Tablet;TAKE 1 TABLET DAILY.; Rx. Active Problems Benign Paroxysmal Positional Vertigo (386.11) Care Coordinated By; Tier 1 Cataract; Bilateral (366.9); l > R Cervical Pap Smear (V76.2) Esophageal Reflux (530.81) Headache (784.0); frequent Hypothyroidism (244.9) Leiomyoma Of The Uterus (218.9) Mild Intermittent Asthma (493.90) Osteoarthritis Of Multiple Sites (715.89) Osteopenia (733.90) Pigmented Nevus (216.9); right thoracic back area Postmenopausal Atrophic Vaginitis (627.3) Recurrent Dislocation Of The Knee / Patella / Tibia / Fibula (718.36) Symptomatic Menopause (627.2) Tension-type Headache (339.10) Tinnitus (388.30). SOAP SUBJECTIVE: Janet Soto is a 55-year-old female with a history of asthma coming in for about a months worth of runny nose, sinus congestion, dry cough and sore throat. Patient states symptoms started about a month ago, seemed to be getting worse. She does have occasional seasonal allergies, usuallyin the fall. Initially had an episode of nasal congestion, runny nose which has now progressed into an itchy, sore, scratchy throat and a hacking occasional cough. No sore ears. No fevers or chills. Nochest pain. No shortness of breath. PAST FAMILY HISTORY AND SOCIAL HISTORY: Nonsmoker. REVIEW OF SYSTEMS: Otherwise a full complete review of systems was completed and negative. PHYSICAL EXAMINATION: Vital signs: Temperature is afebrile. O2 sats 97% on room air. General: This is an otherwise healthy, well appearing female, no distress. HEENT: TMs are clear bilaterally. Canals are normal. Sclera is slightly watery, injected conjunctivaon the right. Oropharynx is slightly reddened, tonsils are normal, no exudate. Mild shotty lymphadenopathy in the anterior cervical chains. Cardiovascular: Regular rate and rhythm, S1, S2 are present, no murmurs. Pulmonary: Clear to auscultation bilaterally, no wheezes, rhonchi or crackles. Occasional cough. Skin: Warm, dry, no rash. Abdomen: Soft and non-tender. Normal bowel sounds. LABORATORY DATA: Rapid strep negative. ASSESSMENT AND PLAN: A 55-year-old female with allergic rhinitis and pharyngitis as well as conjunctivitis. 1.Allergic rhinitis: Recommended switching to over the counter fexofenadine daily. Also prescribed Flonase to use daily. 2.Conjunctivitis: Prescribed erythromycin ophthalmologic drops to use 3-4 times a day as needed. 3.Pharyngitis: Rapid strep negative. Likely from postnasal drip. Should benefit from above treatments. Disposition: Patient should follow-up in clinic as needed. Dictated by Ezio Cummings MD, Resident; ; ; ; ts. Assessment Acute conjunctivitis (372.00) Allergic rhinitis (477.9) Acute pharyngitis Orders Fluticasone Propionate 50 MCG/ACT Suspension;USE 1 TO 2 SPRAYS IN EACH NOSTRIL ONCE DAILY; Qty0; R1;Rx. Fexofenadine HCl 180 MG Tablet;TAKE 1 TABLET DAILY; Qty30; R3; Rx. Erythromycin opt.0.5% drops;Apply 3-4 drops to each eye 3-4 times daily; Qty1; R0; Rx. Attending Note Patient reviewed and discussed with resident. Agree with Plan of Care. Supervising Physician: Dr. Lloyd. Signature Signed By: Ezio Le MD,Resident; 10/06/2010 1:41 PM DIRECTOR OF SOFTWARE ENGINEERING. Signed By: Nam Lloyd MD; 10/19/2010 11:51 AM DIRECTOR OF SOFTWARE ENGINEERING. documented in this encounter Plan of Treatment Not on filedocumented as of this encounter Visit Diagnoses Not on filedocumented in this encounter
--- OUTSIDE RECORDS SUMMARY | 2022-02-27 08:15 | XMS_ITS | Encounter Summary ---
:1955 Author Organization [place] Address [facility] [place] [address] Care Team Providers Name Role Phone Unavailable Primary Care Provider Unavailable Encounter Details Date Type Department Care Team Description 10/05/2010 Historic Results INTERFACED REPORT Felton Le MD [address] [address] (Wo rk) Social History Tobacco [...] Name Priority Date/Time Associated Diagnosis Comme nts GROUP A STREP Routine 10/05/2010 11:12 AM Results for this THROAT ([facility]) CDT procedur e are in the results section. RAPID STREP SCREEN Routine 10/05/2010 10:30 AM Re sults for this (GROUP) ([facility]) CDT procedure a re in the results section. documented in this encounter Results Group A Strep Throat ([facility]) (10/05/2010 11:12 AM CDT) [facility] Method Time Signature Group A No Group A [facility] HISTORICAL Strep,Throat Strep rRNA RESULTS detected Specimen Anatomical Collection Method Collection Time Receive d Time (Source) Location / / Volume Laterality 10/05/2010 11:12 10/05/2010 AM CDT 11:12 AM CDT Ezio Le MD LAB - [facility] Performing Organization Address City/State/ZIP Code Phon e Number [facility] HISTORICAL RESULTS Rapid Strep Screen (Group) ([facility]) (10/05/2010 10:30 AM CDT) Analysis Performed At [facility] Time Signature Rapid Strep A NEGATIVE [facility] HISTORICAL Screen RESULTS Specimen Anatomical Collection Method Collection Time Receive d Time (Source) Location / / Volume Laterality 10/05/2010 10:30 10/05/2010 AM CDT 10:30 AM CDT Ezio Le MD LAB - [facility] Performing Organization Address City/State/ZIP Code Phon e Number [facility] HISTORICAL RESULTS documented in this encounter Visit Diagnoses Not on filedocumented in this encounter
--- OUTSIDE RECORDS SUMMARY | 2022-02-27 08:15 | XMS_ITS | Encounter Summary ---
:1955 Author Organization [place] Address [facility]ly [facility] [place] [address] Care Team Providers Name Role Phone Unavailable Primary Care Provider Unavailable Encounter Details Date Type Department Care Team Description 02/04/2010 Office Visit-P INTERFACE P DEPT Fatoumata Sue MD [employer] [facility] [place], [place] [address] (Wo rk) Social History Tobacco [...] of this encounter Progress Notes Catrina Sue - 02/04/2010 10:40 AM CDT Office Services Manager: Catrina Sue Status: Final Encounter: 04 Feb 2010 Type: Visit Reason For Visit Patient presents for pap. Last Pap smear by patient report due Mammo: 4-10 Allergy List reviewed: Current Immunizations reviewed: Up to date Medication list reviewed with patient and was up to date. No refills needed today. Allergies No Known Allergies No Known Drug Allergy. Smoking Assessment No secondhand cigarette smoke exposure. No tobacco use. Vital Signs Recorded by Brian Torres on 04 Feb 2010 11:01 AM BP:108/73, HR: 62 b/min, Resp: 22 r/min, Temp: 98.1 F, Height: 68 in, Weight: 130.8 lb, BMI: 19.9 kg/m2, O2 Sat: 98 (%SpO2). Current Meds Levothyroxine Sodium 75 MCG Tablet;TAKE 1 TABLET DAILY.; RPT Prevacid 15 MG Capsule Delayed Release;; RPT Calcium + D 600-200 MG-UNIT Tablet;TAKE 1 TABLET DAILY.; RPT Estrace 0.1 MG/GM Cream;INSERT 1/4 APPLICATORFUL (1GM) VAGINALLY TWICE WEEKLY.; Rx Vaniqa 13.9 % Cream;APPLY AND GENTLY MASSAGE INTO AFFECTED AREA(S) ONCE DAILY.; Rx Acyclovir 200 MG Capsule;TAKE 1 CAPSULE 4 TIMES DAILY at first sign of any symptom for 7 days; Rx Triamterene-HCTZ 37.5-25 MG Tablet;TAKE 1 TABLET DAILY DIRECTED.; Rx. Active Problems Benign Paroxysmal Positional Vertigo (386.11) Care Coordinated By; Tier 1 Cataract; Bilateral (366.9); l > R Esophageal Reflux (530.81) Headache (784.0); frequent Hypothyroidism (244.9) Leiomyoma Of The Uterus (218.9) Mild Intermittent Asthma (493.90) Osteoarthritis Of Multiple Sites (715.89) Osteopenia (733.90) Pigmented Nevus (216.9); right thoracic back area Postmenopausal Atrophic Vaginitis (627.3) Recurrent Dislocation Of The Knee / Patella / Tibia / Fibula (718.36) Symptomatic Menopause (627.2) Tension-type Headache (339.10) Tinnitus (388.30). HPI Here for Pap, last CPE clinic ran out of power and unable to perform, no vaginal issues or problems. ROS Review of Systems : no change in urine, no dysuria or hematuria, no sexual dysfunction. Physical Exam Constitutional: no distress, comfortable, pleasant Breasts: normal bilat no nipple discharge, no mass, nl skin, nl axilla Gentiourinary:normal external genitalia, cervix normal without lesions, no masses or cervical motion tendernessThin Prep collected. Assessment Cervical Pap smear (V76.2) Plan Routine vocal music teacher recommend repeat pap in 2-3 years, annual mammography. Signature Signed By: Catrina Sue M.D.; 02/06/2010 5:39 PM BAFFLE INSTALLER. documented in this encounter Plan of Treatment Not on filedocumented as of this encounter Visit Diagnoses Not on filedocumented in this encounter
--- OUTSIDE RECORDS SUMMARY | 2022-02-27 08:15 | XMS_ITS | Encounter Summary ---
:1955 Author Organization [place] Address [facility] [place] [address] Care Team Providers Name Role Phone Unavailable Primary Care Provider Unavailable Encounter Details Date Type Department Care Team Description 02/16/2011 Office Visit-P INTERFACE UMP DEPT Fatoumata Sue MD [facility] [place], [place] [address] (Wo rk) Social History Tobacco [...] this encounter Progress Notes Catrina Sue - 02/16/2011 9:40 AM CDT Crown Ceramist: Catrina Sue Status: Amended, Final Encounter: 16 Feb 2011 Type: FM Adult CPE Reason For Visit Patient presents for complete physical. Allergy List reviewed: Current Immunizations reviewed: Up to date Patient is at risk for influenza and should receive flu shot. Medication list reviewed with patient and was up to date. Pt D/C acyclovir and vaniqa. PHQ2 was given and was negative. Allergies No Known Allergies No Known Drug Allergy. Smoking Assessment No secondhand cigarette smoke exposure. No tobacco use. Vital Signs Recorded by lindsay on 16 Feb 2011 09:46 AM BP:122/72, RUE, Sitting, HR: 77 b/min, Height: 68 in, Weight: 132.375 lb, BMI: 20.1 kg/m2. Current Meds Prevacid 15 MG Capsule Delayed [...] CAPSULE DAILY EVERY MORNING BEFORE BREAKFAST.; Rx. Immunizations Hepatitis B; #1; 13 Jul 1999 Td; 06 Apr 2000 Pneumo (Pneumovax); 21 May 2003 Hepatitis B; #2; 13 Mar 2008 Influenza; 13 Mar 2008 Tdap (Adacel); 24 Dec 2008 Hepatitis B (Engerix); 24 Dec 2008 Pneumo (Pneumovax); 24 Dec 2008 Influenza; 24 Dec 2008 H1N1 Influenza Inj; 22 Mar 2009 Influenza (Split); 04 Feb 2010. Active Problems Acute Conjunctivitis (372.00) Acute Pharyngitis Allergic Rhinitis (477.9) Benign Paroxysmal Positional Vertigo (386.11) Care Coordinated [...] Menopause (627.2) Tension-type Headache (339.10) Tinnitus (388.30). PMH Normal (V22.2); 3 term pregnanciestwice had PP phlebitis Reported Positive Pap Smear (795.19); GABRIELA, ASCUSnormal colp 05/04/00. PSH History of tubal ligation 1979 (V25.2) Amended By: Catrina Sue ; 02/16/2011 10:51 PM INTERCEPTOR OPERATOR; History of reconstruction for recurrent patellar dislocation 05/14/1967 02:00AM Bilateral Amended By: Ji ; 02/16/2011 10:51 PM INTERCEPTOR OPERATOR Excision Of Lesion Face Malignant; basal cell forehead Reconstruction For Recurrent Patellar Dislocation; Bilateral Removal Of Sutures (V58.32). Personal Hx Care Coordinated By; Tier 1. Family Hx Maternal history of Acute Myelogenous Leukemia Paternal grandmother's history of Carcinoma Of The Large Intestine Paternal grandfather's history of Carcinoma Of The Large Intestine Paternal uncle's history of Sudden / Instantaneous ; 2 different uncles. Adult PE HCM Female Concerns today: Chronic GERD, skin spots and hx. skin ca ROS: Constitutional:no fevers, night sweats or unintentional weight change Eyes: no vision change, diplopia or red eyes Ears, Nose and Throat: Details: vertigo/dizzy possibly intermittent, wondered if from meds Cardiovascular: no chest pain, or pain with walking, no orthopnea or PND, some palpitations Respiratory: no dyspnea, cough, shortness of breath or wheezing Details: ] GI:no nausea, vomiting, diarrhea or constipation, Details: severe heartburn : no change in urine, no dysuria or hematuria, no sexual dysfunction, vaginal dryness and worries about estrogen cream cancer risk Musculoskeletal: Details: knee instability wants handicap parking option for winter months, worries about falls Integumentary: Details: hx. of basal cell and some spots on shoulders, back seem rough Neuro: no loss of strength or sensation, no numbness or tingling, no tremor, no dizziness, no headache Endo: no polyuria or polydipsia, no temperature intolerance Heme/Lymph: no concerning bumps, no bleeding problems Psych: no depression or anxiety, no sleep problems Sexually Active Yes Sexual concerns: No Contraception: Tubal ligation P: 3 Menarche: [ ] Menopausal since years? STD History:Negative Last Pap Smear Date: [ ] Normal Abnormal Pap History: None PAST MEDICAL HISTORY See PMH: reviewed no other significant history. FAMILY HISTORY :See FH:reviewed no other significant FH CAD Yes Details parents and brother with dz. in 50s SOCIAL HISTORY Children ? yes: Has anyone hurt you physically, for example by pushing, hitting, slapping or kicking you or forcing you to have sex? Denies Do you feel threatened or controlled by a partner, ex-partner or anyone in your life? Denies RISK BEHAVIORS AND HEALTHY HABITS Tobacco Use/Smoking None Illicit Drug Use None ETOH rare Diet (5-7 servings of fruits/veg daily) Yes Exercise (30 min accumulated most days) Yes Dental Care Yes Calcium 1500 mg/d Yes Seat Belt Use Cholesterol Level (>45 yo or at risk) [...] crackles, normal breath sounds Gastrointestinal: positive bowel sounds,midepigastric tenderness, no hepatosplenomegaly, no masses Musculoskeletal:full range of motion, no edema Skin: Details: rough skin erosion small 3mm left shoulder top, mid between shoulder blades Breast: no lumps, no nipple discharge Neurological: cranial nerves intact, normal strength and sensation, reflexes at patella and biceps normal, normal gait, no tremor Psychological:appropriate mood Lymphatic: no cervical, axillary, or inguinal lymphadenopathy ASSESSMENT: Normal Physical Exam 2. Chronic GERD: unresponsive to current PPI 3. Hx. of Basal cell with several skin lesions 4. Hypothyroid currently asymptomatic, appears euthyroid 5. Hyperlipidemia with fam hx. ASCVD PLAN: 1. Check lipid and high sens CRP discussed with pt unsure if would change plan, but pt wanting to consider further cardiac issues if elevated crp 2. Refer for endoscopy: concerns about Barretts...pt wonders about January. 3. Recommend biopsy of lesions: consider here and then derm referral if positive for possible MOHS 4. Check TSH 5. Discussed chronic meds okay to continue, okay to reduce estrogen cream to 1/week use Td: Amended By: Catrina Sue ; 02/16/2011 10:50 PM INTERCEPTOR OPERATOR. HPI REflux is not controlled: many symptoms, burning even up into mouth X 7 years. Signature Signed By: Catrina Sue M.D.; 02/16/2011 10:50 PM INTERCEPTOR OPERATOR. Signed By: Catrina Sue M.D.; 02/16/2011 10:50 PM INTERCEPTOR OPERATOR. Signed By: Catrina uSe M.D.; 02/16/2011 10:52 PM INTERCEPTOR OPERATOR. documented in this encounter Plan of Treatment Not on filedocumented as of this encounter Visit Diagnoses Not on filedocumented in this encounter
--- OUTSIDE RECORDS SUMMARY | 2022-02-27 08:15 | XMS_ITS | Encounter Summary ---
:1955 Author Organization [place] Address [facility] [place] [address] Care Team Providers Name Role Phone Unavailable Primary Care Provider Unavailable Encounter Details Date Type Department Care Team Description 02/16/2011 Historic Results [facility] Gonzalo Catrina Sweet, [address] [place] [address] [place] [address] [place] [address] [place], [place] [address] (Wo rk) Social History Tobacco [...] Name Priority Date/Time Associated Diagnosis Comme nts C-REACTIVE PROTEIN Routine 02/16/2011 10:47 AM Re sults for this ([facility]) CDT procedure are i n the results section. TSH SENSITIVE Routine 02/16/2011 10:47 AM Results for this ([facility]) CDT procedure are i n the results section. LIPID CASCADE Routine 02/16/2011 10:47 AM Results for this ([facility]) CDT procedure are i n the results section. documented in this encounter Results (ABNORMAL) Lipid [place] ([facility]) (02/16/2011 10:47 AM CDT) Patholo gist Method Time Signature Cholesterol 211 (H) <200 [facility] HISTOR[facility] mg/dL RESULTS Triglycerides 82 <150 [facility] mg/dL RESULTS HDL Cholesterol 71 >39 mg/dL [facility]OR[facility] RESULTS LDL Cholesterol 124 <130 [facility] Calculated mg/dL RESULTS Specimen Anatomical Collection Method Collection Time Receive d Time (Source) Location / / Volume Laterality 02/16/2011 10:47 02/16/2011 AM CDT 10:47 AM CDT Catrina Sue MD LAB - [facility] Performing Organization Address City/State/ZIP Code Phon e Number [facility] HISTORICAL RESULTS C-Reactive Protein ([facility]) (02/16/2011 10:47 AM CDT) P athologist Signature C-Reactive 0.1 <0.9 mg/dL [facility] HISTORICAL Protein RESULTS Specimen Anatomical Collection Method Collection Time Receive d Time (Source) Location / / Volume Laterality 02/16/2011 10:47 02/16/2011 AM CDT 10:47 AM CDT Catrina Sue MD [facility] - [facility] Per[facility] Organization Address City/State/ZIP Code Phon e Number [facility] HISTORICAL RESULTS TSH Sensitive ([facility]) (02/16/2011 10:47 AM CDT) P athologist Signature TSH 1.9 0.3 - 5.0 [facility] HISTORICAL uIU/ml RESULTS Specimen Anatomical Collection Method Collection Time Receive d Time (Source) Location / / Volume Laterality 02/16/2011 10:47 02/16/2011 AM CDT 10:47 AM CDT Catrina Sue MD [facility] - [facility] Per[facility] Organization Address City/State/ZIP Code Phon e Number [facility] HISTORICAL RESULTS documented in this encounter Visit Diagnoses Not on filedocumented in this encounter
--- OUTSIDE RECORDS SUMMARY | 2022-02-27 08:15 | XMS_ITS | Encounter Summary ---
:1955 Author Organization [place] Address [address] [facility] [place] [address] Care Team Providers Name Role Phone Unavailable Primary Care Provider Unavailable Encounter Details Date Type Department Care Team Description 04/13/2011 Office Visit-P INTERFACE P DEPT Matt Phipps Bob presley Choi MD [address] [facility] [address] [place], [place] [id number] (Wo rk) Social History Tobacco Use Types [...] documented as of this encounter Progress Notes Matt Phipps - 04/13/2011 4:20 PM CST Corrective And Manual Arts Therapist: Matt Phipps Status: Final Encounter: 13 Apr 2011 Type: FM Visit Reason For Visit Patient presents for Fever diarrhea, nauseous, lower abdominal pain with back pain. ACT form given to pt. mammo 11-30-10 Normal Last Pap smear by patient report 02-04-10 Normal Allergy List reviewed: Current Immunizations reviewed: Up to date Medication list reviewed with patient and was up to date. pt taking meds listed PHQ2 was given and was negative. Allergies No Known Allergies No Known Drug Allergy. Smoking Assessment No secondhand cigarette smoke exposure. No tobacco use. Vital Signs Recorded by [facility] on 13 Apr 2011 04:24 PM BP:144/82, RUE, Sitting, HR: 118 b/min, R Radial, Resp: 20 r/min, Normal, Temp: 98.1 F, Oral, Height: 68 in, Weight: 129 lb, BMI: 19.6 kg/m2, O2 Sat: 98 (%SpO2). Current Meds Calcium + D 600-200 MG-UNIT Tablet;TAKE 1 TABLET DAILY.; RPT Levothyroxine Sodium 75 MCG Tablet;TAKE 1 TABLET [...] GENTLY MASSAGE INTO AFFECTED AREA(S) ONCE DAILY.; Rx. Active Problems Actinic Keratosis (702.0) [...] Tinnitus (388.30) Varicose Veins With Swelling (454.8). HPI 1. 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 Physical Exam Constitutional: no distress, comfortable, pleasant Vital signs: Reviewed and tachycardic Neck:supple with full range of motion, no thyromegaly Cardiovascular: regular rate and rhythm, no murmurs, rubs or gallops, peripheral pulses full and symmetric Respiratory: clear to auscultation, no wheezes or crackles, normal breath sounds Gastrointestinal: positive bowel sounds, no hepatosplenomegaly, no masses, no rebound/guarding. Details: ttp in RLQ. Skin:no concerning lesions, no jaundice. Plan Patient participated in and agrees with today's plan. 1. Abd pain/fever: acute. Pt is tachycardic and appears dehydrated. The focal RLQ pain concerning for appendicitis. Pt has known diverticulosis, so could consider diverticulitis, but this is typically left sided pain. Also, could be concerned for pylonephritis or PID. 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 - pt could not give a urine sample - she will at least need bolus of IV fluids - pt's will drive pt directly to [facility] ER - called ER and discussed case with Dr. Jaquez I spent 25 minutes and more than 1/2 of the time was in counseling and coordination of care. RTC as needed. Attending Note Patient reviewed and discussed with resident. Agree with Plan of Care. Supervising Physician: Dr. Lucio. Signature Signed By: Matt Phipps M.D.,Resident; 04/13/2011 6:55 PM PUTTY MIXER AND APPLIER. Signed By: Maria Luisa Lucio M.D.; 04/20/2011 4:57 PM PUTTY MIXER AND APPLIER. documented in this encounter Plan of Treatment Not on filedocumented as of this encounter Visit Diagnoses Not on filedocumented in this encounter
--- OUTSIDE RECORDS SUMMARY | 2022-02-27 08:15 | XMS_ITS | Encounter Summary ---
:1955 Author Organization [place] Address [facility] [place] [address] Care Team Providers Name Role Phone Unavailable Primary Care Provider Unavailable Encounter Details Date Type Department Care Team Description 03/24/2011 Office Visit-UMP INTERFACE UMP DEPT Fatoumata Sue MD [facility] [place], [place] [address] (Wo rk) Social History Tobacco [...] this encounter Progress Notes Catrina Sue - 03/24/2011 9:00 AM CST Print Controller: Catrina Sue Status: Final Encounter: 24 Mar 2011 Type: FM Visit Reason For Visit Patient presents for skin biopsy on right shoulder & back of neck and refill on Vaniqa. [facility]: 260 HM: -Due on [place]., [facility], act on asthma maintanence Last Pap smear by patient report 01/30 Allergy List reviewed: Current Immunizations reviewed: Up to date Patient has had flu shot. Medication list reviewed with patient and was up to date. PHQ2 was given and was negative. Allergies No Known Allergies No Known Drug Allergy. Vital Signs Recorded by Aracely Menjivar on 24 Mar 2011 08:59 AM BP:110/72, RUE, Sitting, HR: 76 b/min, R Radial, Temp: 98.6 F, Oral, Weight: 132.375 lb. Current Meds Omeprazole 20 MG Capsule Delayed Release;TAKE 1 CAPSULE DAILY EVERY MORNING BEFORE BREAKFAST.; Rx Hydrochlorothiazide 25 MG Tablet;TAKE 1 TABLET DAILY.; Rx Calcium + D 600-200 MG-UNIT Tablet;TAKE 1 TABLET DAILY.; RPT Estrace 0.1 MG/GM Cream;INSERT 1/2APPLICATORFUL (1GM) VAGINALLY WEEKLY.; Rx Erythromycin opt.0.5% drops;Apply 3-4 drops to each eye 3-4 times daily.; Rx Fexofenadine HCl 180 MG Tablet;TAKE 1 TABLET DAILY.; Rx Fluticasone Propionate 50 MCG/ACT Suspension;USE 1 TO 2 SPRAYS IN EACH NOSTRIL ONCE DAILY.; Rx Ventolin HFA 108 (90 Base) MCG/ACT Aerosol Solution;INHALE 2 PUFFS FOUR TIMES DAILY DIRECTED.; Rx Levothyroxine Sodium 75 MCG Tablet;TAKE 1 TABLET DAILY.; Rx. Active Problems [...] Varicose Veins With Swelling (454.8). HPI 1. Mole change right shoulder -not sure how long, but somewhat itchy or sore, very rough surface, seemed to be more inflammed or raised, keeps changing. Physical Exam Physical Exam Constitutional: no distress, comfortable, pleasant Skin:Details:right shoulder with single pinkish, macule with very keratotic surface 3mm diam. Assessment Actinic keratosis (702.0) Plan Patient participated in and agrees with today's plan. 1. Atypical mole: recommend biopsy Informed consent obtained. Skin prepped with betadine, anesth with 1% lidocaine with epi. In sterilefashion 3mm punch biopsy used and mole removed in entirety as visible. base cauterized with hyfercator and bacitracin and bandaid applied. No complications. Will notify of results and has appt scheduled with derm for other moles, so will likely pursue further work through that MD. Signature Signed By: Catrina Sue M.D.; 03/26/2011 6:04 PM SIGNAL SUPERVISOR. documented in this encounter Plan of Treatment Not on filedocumented as of this encounter Visit Diagnoses Not on filedocumented in this encounter
--- OUTSIDE RECORDS SUMMARY | 2022-02-27 08:15 | XMS_ITS | Encounter Summary ---
:1955 Author Organization [place] Address [address] [place] [id number] Care Team Providers Name Role Phone Unavailable Primary Care Provider Unavailable Encounter Details Date Type Department Care Team Description 01/27/2010 Office Visit-UMP INTERFACE UMP DEPT Fatoumata Sue MD [facility] [place], [place] [address] (Wo rk) Social History Tobacco [...] this encounter Progress Notes Catrina Sue - 01/27/2010 1:20 PM CDT Orthopedic Radiologic Technologist: Catrina Sue Status: Final Encounter: 27 Jan 2010 Type: FM Adult CPE Reason For Visit Patient presents for CPE. Last Pap smear by patient report due Mammo: 08-02-09 Allergy List reviewed: Current Immunizations reviewed: Up to date Medication list reviewed with patient and was up to date. Will ask MD for refills today. Allergies No Known Allergies No Known Drug Allergy. Smoking Assessment No secondhand cigarette smoke exposure. No tobacco use. Vital Signs Recorded by kate on 27 Jan 2010 01:13 PM BP:111/77, HR: 85 b/min, Resp: 20 r/min, Temp: 98.1 F, Height: 68 in, Weight: 129.4 lb, BMI: 19.7 kg/m2, O2 Sat: 98 (%SpO2). Current Meds Acyclovir 200 MG Capsule;TAKE 1 CAPSULE TWICE DAILY; Rx Levothyroxine Sodium 75 MCG Tablet;TAKE 1 TABLET DAILY.; RPT Maxzide-25 37.5-25 MG Tablet;TAKE 1 TABLET DAILY DIRECTED.; RPT Prevacid 15 MG Capsule Delayed Release;; RPT Calcium + D 600-200 MG-UNIT Tablet;TAKE 1 TABLET DAILY.; RPT Estrace 0.1 MG/GM Cream;INSERT 1/4 APPLICATORFUL (1GM) VAGINALLY TWICE WEEKLY.; Rx. Immunizations Hepatitis B; #1; 13 Jul 1999 Td; 06 Apr 2000 Pneumo (Pneumovax); 21 May 2003 Influenza; 08 Jun 2006 Influenza; 22 Mar 2007 Hepatitis B; #2; 13 Mar 2008 Influenza; 13 Mar 2008 Tdap (Adacel); 24 Dec 2008 Hepatitis B (Engerix); 24 Dec 2008 Pneumo (Pneumovax); 24 Dec 2008 Influenza; 24 Dec 2008 H1N1 Influenza Inj; 22 Mar 2009. Active Problems Benign Paroxysmal Positional Vertigo (386.11) [...] Sudden / Instantaneous ; 2 different uncles. HPI 1. Chronic GERD, now stable on Famotidine OTC 20 mg, but tried and failed omeprazole and prevacid. Wonders about when EGD is needed. Symptoms were burping, reflux up to mouth/nose/burning/pain 2. Positional vertigo: with head movement, looking up/down and rotation, has been intermittent for years, wonders what to do 3. Refills of Meds: Vaniqa for facial hair, working well, HCTZ and wants to switch acyclovir to prn/episodic, fewer flares . ROS Review of Systems Constitutional: no fevers, night sweats or unintentional weight change Eyes: no vision change, diplopia or red eyes Ears, Nose, Mouth, Throat: no tinnitus or hearing change, no epistaxis or nasal discharge, no oral lesions, throat clear; does have sharp random pain at right bahai, always brief Cardiovascular: no chest pain, palpitations, or pain with walking, no orthopnea or PND GI:Details: see HPI on GERD Musculoskeletal: etails: mole on back slightly red with one spot Neuro: Details: see dizziness. Physical Exam Physical Exam Constitutional: no distress, comfortable, pleasant Neck: supple with full range of motion, no thyromegaly Cardiovascular: regular rate and rhythm, no murmurs, rubs or gallops, peripheral pulses full and symmetric, no carotid bruits Respiratory: clear to auscultation, no wheezes or crackles, normal breath sounds. Assess and Plan Assessment and Plan Assessment: Normal Physical Exam 2. GERD 3. Recurrent patellar dislocations 4. HTN 5. Recurrent herpes Plan: 1. Health Care Maintence: Power is off so unable to do pelvic/pap and will reschedule 2. Completed paperwork for parking until 07/22/2010 3. Rieferred to [facility] for vestibular therapy 4. Refilled medications . Orders Vaniqa 13.9 % Cream;APPLY AND GENTLY MASSAGE INTO AFFECTED AREA(S) ONCE DAILY; Qty30; R11; Rx. Renew Acyclovir 200 MG Capsule;TAKE 1 CAPSULE 4 TIMES DAILY at first sign of any symptom for 7 days;Qty84; R3; Rx. Renew Triamterene-HCTZ 37.5-25 MG Tablet;TAKE 1 TABLET DAILY DIRECTED; Qty90; R3; Rx. Signature Signed By: Catrina Sue M.D.; 01/27/2010 2:35 PM DIAL BUFFER. documented in this encounter Plan of Treatment Not on filedocumented as of this encounter Visit Diagnoses Not on filedocumented in this encounter
--- OUTSIDE RECORDS SUMMARY | 2022-02-27 08:16 | XMS_ITS | Encounter Summary ---
:1955 Author Organization [place] Address [address] [place] [address] Care Team Providers Name Role Phone Unavailable Primary Care Provider Unavailable Encounter Details Date Type Department Care Team Description 12/24/2008 Office Visit-[facility] INTERFACE [facility] DEPT Provider, [facility] Nurs e Social History Tobacco [...] as of this encounter Progress Notes Provider, [facility] Nurse - 12/24/2008 10:00 AM CDT Merchandise Flow Team Leader: Aracely Menjivar Status: Final Encounter: 24 Dec 2008 Type: Nurse Note Allergies No Known Allergies No Known Drug Allergy. Immunizations Hepatitis B; #1; 13 Jul 1999 Td; 06 Apr 2000 Pneumo (Pneumovax); 21 May 2003 Influenza; 08 Jun 2006 Influenza; #1; 22 Mar 2007 Hepatitis B; #2; 13 Mar 2008 Influenza; #1; 13 Mar 2008. This patient does not qualify for [facility]. Current Meds Premarin 0.625 MG/GM Cream;apply two grams vaginally M,W,F for first week, then weekly; Rx Trazodone HCl 50 MG Tablet;TAKE 1/2 to one TABLET BEDTIME; Rx Levothyroxine Sodium 75 MCG Tablet;TAKE 1 TABLET DAILY.; Rx Albuterol 90 MCG/ACT AERS;INHALE 2 PUFFS FOUR TIMES DAILY DIRECTED.; Rx Triamterene-HCTZ 37.5-25 MG Capsule;TAKE 1 CAPSULE DAILY.; Rx Acyclovir 200 MG Capsule;TAKE 1 CAPSULE TWICE DAILY; Rx MedroxyPROGESTERone Acetate 2.5 MG Tablet;TAKE 1 TABLET DAILY.; Rx. Active Problems Benign Paroxysmal Positional Vertigo (386.11) Cataract; Bilateral (366.9); l > R Esophageal Reflux (530.81) Headache (784.0); frequent Herpes Simplex Type II 13 Jun 2002 (054.10) Hypothyroidism (244.9) Leiomyoma Of The Uterus (218.9) Mild Intermittent Asthma (493.90) Osteoarthritis Of Multiple Sites (715.89) Osteopenia (733.90) Postmenopausal Atrophic Vaginitis (627.3) Recurrent Dislocation Of The Knee / Patella / Tibia / Fibula (718.36) Symptomatic Menopause (627.2) Tinnitus (388.30). Orders Administered: Tdap (Adacel); 0.5ML; Intramuscular; Left Deltoid; Admin By: Aracely Menjviar; 24 Dec 2008. Administered: Hepatitis B (Engerix); 1.0 ml; Intramuscular; Left Deltoid; Admin By: Aracely Menjivar; 24 Dec 2008. Administered: Pneumo (Pneumovax); 0.5ml; Intramuscular; Right Deltoid; Admin By: Aracely Menjivar; 24 Dec 2008. Administered: Influenza; 0.5 ml; Intramuscular; Right Deltoid; Admin By: Aracely Menjivar; 24 Dec 2008. Signature Signed By: Aracely Menjivar CMA; 12/24/2008 10:35 AM TOOL GRINDING TECHNICIAN. documented in this encounter Plan of Treatment Not on filedocumented as of this encounter Visit Diagnoses Not on filedocumented in this encounter
--- OUTSIDE RECORDS SUMMARY | 2022-02-27 08:16 | XMS_ITS | Encounter Summary ---
:1955 Author Organization [place] Address [address] [place] [address] Care Team Providers Name Role Phone Unavailable Primary Care Provider Unavailable Encounter Details Date Type Department Care Team Description 11/29/2009 Office Visit-P INTERFACE P DEPT Fatoumata Sue MD [facility] [place], [place] [address] (Wo rk) Social History Tobacco [...] this encounter Progress Notes Catrina Sue - 11/29/2009 10:20 AM CDT Auto Machinist: Catrina Sue Status: Final Encounter: 29 Nov 2009 Type: Visit Reason For Visit Patient presents for questions on menopause and moles check. Last Pap smear by patient report 03-13-08 Mammo: 08-02-09 Allergy List reviewed: Current Immunizations reviewed: Up to date Medication list reviewed with patient and was up to date. No refills needed today. Allergies No Known Allergies No Known Drug Allergy. Smoking Assessment No secondhand cigarette smoke exposure. No tobacco use. Vital Signs Recorded by kate on 29 Nov 2009 10:17 AM BP:122/75, HR: 80 b/min, Resp: 18 r/min, Temp: 98.0 F, Height: 68.5 in, Weight: 132.6 lb, BMI: 19.9 kg/m2, O2 Sat: 96 (%SpO2). Current Meds Calcium + D 600-200 MG-UNIT Tablet;TAKE 1 TABLET DAILY; Qty0; R0; RPT. Acyclovir 200 MG Capsule;TAKE 1 CAPSULE TWICE DAILY; Rx Calcium + D 600-200 MG-UNIT Tablet;TAKE 1 TABLET DAILY.; RPT Levothyroxine Sodium 75 MCG Tablet;TAKE 1 TABLET DAILY.; RPT Maxzide-25 37.5-25 MG Tablet;TAKE 1 TABLET DAILY DIRECTED.; RPT Prevacid 15 MG Capsule Delayed Release;; RPT Sulfamethoxazole-TMP DS 800-160 MG Tablet;TAKE 1 TABLET TWICE DAILY FOR 3 DAYS.; Rx. Active Problems Acute Cystitis (595.0) Benign Paroxysmal Positional Vertigo (386.11) Cataract; Bilateral [...] (627.2) Tension-type Headache (339.10) Tinnitus (388.30) Urethritis (597.80). HPI Moles: hx. of basal cell CA in forehead s/p MOHS 1990s in [place] and notices one on left shoulder seems dry, and a dark mole on back, slowly changing over past couple months more flaky Menopause: Menses stopped 02/2008 and restarted in 2008, had endometrial bx. at [facility] 03/2009. Issues now with intercourse and low libido and painful: tried OTC, [place] producsts/other lubricants/moisturizing suppositories. ROS Review of Systems Constitutional: no fevers, night sweats or unintentional weight change GI:Details: Hx. 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 Physical Exam Physical Exam Constitutional: no distress, comfortable, pleasant Skin:Details: left shoulder with pale slight keratotic raised flat papule, stuck on appearance, right mid-thoracic back with piggmented nevi 8mm oval with curved dark black area of pigmentation, skin intact and slightly rough. Assessment Visit for: screening for lipoid disorders (V77.91) Postmenopausal atrophic vaginitis (627.3) Hypothyroidism (244.9) Pigmented nevus (216.9); right thoracic back area Orders Estrace 0.1 MG/GM Cream;INSERT 1/4 APPLICATORFUL (1GM) VAGINALLY TWICE WEEKLY; Qty60; R3; Rx. Plan Follow up: as needed recommend mole excision to be arranged whenever convenient Plan for Diagnosis #1 : Discussed at length, common findings of atrophy, didn't tolerate or was nervous on oral estrogen and combined testosterone. Willing to try topical estrogen. Reviewed options cream or vagifem tabs and will start with cream. Discussed use 1-2/week. discussed lubricants including silicone-based to reduce discomfort. Plan for Diagnosis #2: Reassured of benign left shoulder lesion, but unsure on right mid-thoracic and recommend excision and sending for histology Plan for Diagnosis #3: Adjust synthroid if needed, has been about one year and some GI changes of concern. Signature Signed By: Catrina Sue M.D.; 11/29/2009 2:52 PM GAME ATTENDANT. documented in this encounter Plan of Treatment Not on filedocumented as of this encounter Visit Diagnoses Not on filedocumented in this encounter
--- OUTSIDE RECORDS SUMMARY | 2022-02-27 08:16 | XMS_ITS | Encounter Summary ---
:1955 Author Organization [place] Address [address] [place] [address]. [place] [address] Care Team Providers Name Role Phone Unavailable Primary Care Provider Unavailable Encounter Details Date Type Department Care Team Description 12/26/2005 Results Only [facility] Antonio Ho MD [facility] [address] [place] [address] [place] [address] (Wo rk) Social History Tobacco Use Types [...] Name Priority Date/Time Associated Diagnosis Comme nts HC X-RAY KNEE Routine 12/26/2005 10:21 AM Results for this COMPLETE >=4 VIEWS CDT procedure are in the results section. HC X-RAY KNEE Routine 12/26/2005 10:20 AM Results for this COMPLETE >=4 VIEWS CDT procedure are in the results section. documented in this encounter Results X-RAY KNEE 4+ VIEW (12/26/2005 10:21 AM CDT) Anatomical Region Laterality Modality Other Specimen (Source) Anatomical Collection Method Collection Time Re ceived Time Location / / Volume Laterality 12/26/2005 10:21 AM CDT Impressions 12/28/2005 1:32 PM CDT EXAM: ?Left knee, 12/26/2005. INDICATION: ?Bilateral knee pain. FINDINGS: ?Standard views show mild knee join t space narrowing, but severe patellar -femoral joint narrowing. Bony surfaces appear to be touching along the lateral aspect. No joint effus ion. As seen on the right, cystic change is s een just below the tibial tubercle, probably benign fibrous cortic al defect. IMPRESSION: ?Mild knee joint narrowing. Severe DJD, patellofemoral joint. Ramonita Ho MD [facility]AL [facility]AG[facility] X-RAY KNEE 4+ VIEW (12/26/2005 10:20 AM CDT) Anatomical Region Laterality Modality Other Specimen (Source) Anatomical Collection Method Collection Time Re ceived Time Location / / Volume Laterality 12/26/2005 10:20 AM CDT Impressions 12/28/2005 1:31 PM CDT EXAM: ?Right knee, 12/26/2005. INDICATION: ?Bilateral knee pain. FINDINGS: ?Standard views show mild knee join t space narrowing. Patellofemoral joint on the other hand i s very narrow. Alignment appears quite good. No sign of joint eff usion. There is a cystic lesion near the tibial tubercle on the right which has a benign appearance. This is probabl y ??benign fibrous cortical defect. IMPRESSION: ?Mild narrowing of the knee joint. Severe patellofemoral joint narrowing. Minimal hypertrophic changes. Ramonita Ho MD GENERAL IMAGING documented in this encounter Visit Diagnoses Not on filedocumented in this encounter
--- OUTSIDE RECORDS SUMMARY | 2022-02-27 08:16 | XMS_ITS | Encounter Summary ---
:1955 Author Organization [place] Address [facility] [place] [address] Care Team Providers Name Role Phone Catrina Sue MD Primary Care Provider Catrina Sue MD Unavailable Catrina Sue MD Unavailable Encounter Details Date Type Department Care Team Description 03/18/2008 Office Visit-[facility] Colin Gonzalez MD [address] [place] [address] Social History Tobacco Use Types [...] documented as of this encounter Progress Notes Colin Bailey MD - 03/18/2008 3:44 PM CST Volunteer Patient Representative: COLIN BAILEY Status: Final Encounter: 18 Mar 2008 Type: Amanda Letters AutoSend Letters Mrs. DA[place] [address] March 18, 2008 Dear Mrs. DANAY STOKES Please see below for your recent test results. Your results are normal and reassuring. If you have any questions, please call the clinic at [phone] and leave a message. I'll return your call as soon as I can (usually within the week). Test: Your Result: Pap smear normal Sincerely, COLIN BAILEY M.D. [facility] Hours: Sunday - Sunday 8:00 am - 5:00 pm . Signature Electronically Signed By: COLIN BIALEY M.D.; 03/18/2008 3:45 PM CIVIL ENGINEERING TEACHER. documented in this encounter Plan of Treatment Not on filedocumented as of this encounter Visit Diagnoses Not on filedocumented in this encounter Care Teams Stock Shaper Relationship Specialty Start Date End Date Catrina Sue MD PCP - General Family Practice 06/05/[address] [place] [address] Catrina Sue MD Assigned PCP 03/28/[address] [place] [address] Catrina Sue MD Assigned PCP 09/11/19 03/27/[address] [place] [address] documented as of this encounter
--- OUTSIDE RECORDS SUMMARY | 2022-02-27 08:16 | XMS_ITS | Encounter Summary ---
:1955 Author Organization [place] Address [facility] [place] [address] Care Team Providers Name Role Phone Catrina Sue MD Primary Care Provider Catrina Sue MD Unavailable Catrina Sue MD Unavailable Encounter Details Date Type Department Care Team Description 09/06/2007 Office Visit-[facility] Colin Gonzalez MD [address] [place] [address] Social History Tobacco Use Types [...] encounter Progress Notes Colin Bailey MD - 09/06/2007 5:01 AM CDT Conductor And Engineer: COLIN BAILEY Status: Final Encounter: 06 Sep 2007 Type: Amanda Nelson AutoSend Letters Mrs. [place] [address] September 06, 2007 Dear Mrs. DANAY STOKES Please see below for your recent test results.. If you have any questions, please call the clinic at [phone] and leave a message. I'll return your call as soon as I can (usually within the week). Test: Your Result: Thyroid normal Hemoglobin normal Potassium upper limit of normal (5.1)-you can skip taking the potassium supplement on two days per week. Let's recheck a potassium level in a few weeks. JUst call for a non-fasting lab appt. Sincerely, COLIN BAILEY M.D. [facility] Hours: Sunday - Sunday 8:00 am - 5:00 pm . Signature Electronically Signed By: COLIN BAILEY M.D.; 09/06/2007 5:04 AM SPLITTING MACHINE OPERATOR. documented in this encounter Plan of Treatment Not on filedocumented as of this encounter Visit Diagnoses Not on filedocumented in this encounter Care Teams Pleat Taper Relationship Specialty Start Date End Date Catrina Sue MD PCP - General Family Practice 06/05/[address] [place] [address] Catrina Sue MD Assigned PCP 03/28/[address] [place] [address] Catrina Sue MD Assigned PCP 09/11/19 03/27/[address] [place] [address] documented as of this encounter
--- OUTSIDE RECORDS SUMMARY | 2022-02-27 08:16 | XMS_ITS | Encounter Summary ---
:1955 Author Organization [place] Address [address] [place] [address] Care Team Providers Name Role Phone Catrina Sue MD Primary Care Provider Catrina Sue MD Unavailable Catrina Sue MD Unavailable Encounter Details Date Type Department Care Team Description 03/17/2008 Office Visit-[facility] Colin Gonzalez MD [address] [place] [address] Social History Tobacco Use Types [...] encounter Progress Notes Colin Bailey MD - 03/17/2008 11:47 AM CST Jewel Stripper: COLIN BAILEY Status: Final Encounter: 17 Mar 2008 Type: Amanda Nelson AutoSend Results TSH 13 Mar 2008 09:44 AM - TSH: 3.2 uIU/ml PV Hemoglobin 13 Mar 2008 09:35 AM - Hemoglobin: 13.3 g/dl PV LIPID PANEL 13 Mar 2008 09:35 AM - CHOLESTEROL: 210.0 mg/dL - TRIGLYCERIDES: 74.0 mg/dL - HDL: 83.0 mg/dL - VLDL: 15.0 mg/dL - LDL: 113.0 mg/dL - CHOL/HDL RATIO: 2.5 ratio FM Glucose, Fasting 13 Mar 2008 09:35 AM - GLUCOSE, FASTIN.0 mg/dL. Janet I think all these results are satisfactory. You should continue the same dose of the thyroid supplement. I am not worried about the slightly high level of total cholesterol since your HDL Good cholesterol is so good. Signature Electronically Signed By: COLIN BAILEY M.D.; 03/17/2008 11:49 AM RIPPER OPERATOR. documented in this encounter Plan of Treatment Not on filedocumented as of this encounter Visit Diagnoses Not on filedocumented in this encounter Care Teams Pbx Technician Relationship Specialty Start Date End Date Catrina Sue MD PCP - General Family Practice 06/05/[address] [place] [address] Catrina Sue MD Assigned PCP 03/28/[address] [place] [address] Catrina Sue MD Assigned PCP 09/11/19 03/27/[address] [place] [address] documented as of this encounter
--- OUTSIDE RECORDS SUMMARY | 2022-02-27 08:16 | XMS_ITS | Encounter Summary ---
:1955 Author Organization [place] Address [address] [place] [address] Care Team Providers Name Role Phone Catrina Sue MD Primary Care Provider Catrina Sue MD Unavailable Catrina Sue MD Unavailable Encounter Details Date Type Department Care Team Description 09/05/2007 Office Visit-[facility] Colin Sanchez MD [address] [place] [address] Social History Tobacco Use Types [...] encounter Progress Notes Colin Bailey MD - 09/05/2007 2:00 PM CDT Geomorphology Teacher: COLIN BAILEY Status: Final Encounter: 05 Sep 2007 Type: [facility] Visit Reason For Visit Patient presents to discuss the symptoms of menopause Allergy List reviewed: Current Immunizations reviewed: Bp taken with adult cuff on auto.machine. Allergies No Known Allergies No Known Drug Allergy. Smoking Assessement No secondhand cigarette smoke exposure. No tobacco use. Vital Signs Recorded by [email or web address] on 05 Sep 2007 02:05 PM BP:122/70, RUE, Sitting, HR: 77 b/min, R Radial, Weight: 131.6 lb, O2 Sat: 97 (%SpO2). Current Meds Albuterol 90 MCG/ACT Aerosol Solution;INHALE 2 PUFFS FOUR TIMES DAILY DIRECTED.; Rx Protonix 40 MG Tablet Delayed Release;TAKE 1 TABLET DAILY.; RPT Metoprolol Succinate 25 MG Tablet Extended Release 24 Hour;TAKE 0.5 TABLET DAILY; Rx Potassium Chloride CR 10 MEQ Capsule Extended Release;TAKE 2 CAPSULE DAILY for 2 d then 1 daily; Rx Levothyroxine Sodium 75 MCG Tablet;TAKE 1 TABLET DAILY.; Rx Triamterene-HCTZ 37.5-25 MG Capsule;TAKE 1 CAPSULE DAILY.; Rx. 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 HPI Nervous, unable to concentrate, feels on edge. Doesn't feel rested in am NO hot flashes Has tried a herbal prep no benefit NO libido? Vaginal dryness She did get to Dr. More's office-had endometrial bx, she says was told it was normal She had some bleeding in Apr and again small amount recently. Physical Exam Thyroid feels normal Minimal lid lag. NO tremor COR RSR Chest clear. Assessment Symptomatic menopause (627.2) Postmenopausal atrophic vaginitis (627.3) Plan Will check HGB, K+, TSH Trial of trazodone HS will resume more continuous use of vag premarin Progress report in 2 weeks if not doing well May consider trial of estrogen systemic although she really doesn't want HRT. Signature Electronically Signed By: COLIN BAILEY M.D.; 09/06/2007 5:00 AM QUARRY EXTRACTION WORKER. documented in this encounter Plan of Treatment Not on filedocumented as of this encounter Visit Diagnoses Not on filedocumented in this encounter Care Teams Reducing System Operator Relationship Specialty Start Date End Date Catrina Sue MD PCP - General Family Practice 06/05/[address] [place] [address] Catrina Sue MD Assigned PCP 03/28/[address] [place] [address] Catrina Sue MD Assigned PCP 09/11/19 03/27/[address] [place] [address] documented as of this encounter
--- OUTSIDE RECORDS SUMMARY | 2022-02-27 08:16 | XMS_ITS | Encounter Summary ---
:1955 Author Organization [place] Address [address] [place] [address] Care Team Providers Name Role Phone Catrina Sue MD Primary Care Provider Catrina Sue MD Unavailable Catrina Sue MD Unavailable Encounter Details Date Type Department Care Team Description 05/03/2007 Office Visit-[facility] Colin Sanchez MD [address] [place], [place] [id number] Social History Tobacco Use Types Packs/Day Years [...] encounter Progress Notes Colin Bailey MD - 05/03/2007 11:30 AM CST Pickle Maker: COLIN BAILEY Status: Final Encounter: 03 May 2007 Type: [facility] Visit Reason For Visit Patient presents for irregular heart rate. Allergy List reviewed: Current Immunizations reviewed: Up to date Medication list reviewed with patient and was up to date. Allergies No Known Allergies No Known Drug Allergy. Vital Signs Recorded by lobo on 03 May 2007 03:10 PM BP:115/73, RUE, Sitting, HR: 64 b/min, L Radial, Thready, Temp: 97.8 F, Oral, O2 Sat: 99 (%SpO2). Current Meds Triamterene-HCTZ 37.5-25 MG Capsule;TAKE 1 CAPSULE DAILY.; Rx Albuterol 90 MCG/ACT Aerosol Solution;INHALE 2 PUFFS FOUR TIMES DAILY DIRECTED.; Rx Levothyroxine Sodium 75 MCG Tablet;TAKE 1 TABLET DAILY.; Rx Protonix 40 MG Tablet Delayed Release;TAKE 1 TABLET DAILY.; RPT. 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 HPI Frequent palpitations again today. She had been told to be seen if this recurred. She feels no lightheadedness, has been taking mag supplement daily. No new stressors. Physical Exam Chest clear Cor few premature beats over 3 minutes of asculatation. NO change after 30 secs of walking in place.NO hepatomegaly or jvd. Assessment PVC's prob low grade ectopy without risk factors. Hypothyroid with recent decrease in dose. Plan Will start metoprolol XL 25 mg, 1/2 tab daily. Labs TSH, Renal pending. Porgres report next week. Will pull stress test result to review. My recall is that it was in not too distant past. Signature Signed By: COLIN BAILEY M.D.; 05/03/2007 3:39 PM LOAN OFFICER ASSISTANT. documented in this encounter Plan of Treatment Not on filedocumented as of this encounter Visit Diagnoses Not on filedocumented in this encounter Care Teams Subscription Agent Relationship Specialty Start Date End Date Catrina Sue MD PCP - General Family Practice 06/05/[address] [place] [address] Catrina Sue MD Assigned PCP 03/28/[address] [place] [address] Catrina Sue MD Assigned PCP 09/11/19 03/27/[address] [place] [address] documented as of this encounter
--- OUTSIDE RECORDS SUMMARY | 2022-02-27 08:16 | XMS_ITS | Encounter Summary ---
:1955 Author Organization Mobile Address [address] [place] [id number] Care Team Providers Name Role Phone Unavailable Primary Care Provider Unavailable Encounter Details Date Type Department Care Team Description 08/02/2009 Office Visit-[facility] INTERFACE UMP DEPT Acosta Deluca MD [facility] [address] [place] [address] (Wo rk) Social History Tobacco Use Types [...] this encounter Progress Notes Acosta Deluca - 08/02/2009 10:00 AM CDT Roof Bolting Coal Miner: Acosta Deluca Status: Final Encounter: 02 Aug 2009 Type: Visit Reason For Visit Patient presents for Possible bladder infection. Burning with urination, urgency and lower abdominalpain X 2 wks. Has a hx of bladder infections. Sent to lab for UA Mammo 04-28-08 Normal Last Pap smear by patient report 03-13-08 Normal Allergy List reviewed: Current Immunizations reviewed: Up to date Medication list reviewed with patient and was updated. Pt also taking HCTZ and Synthroid. Allergies No Known Allergies No Known Drug Allergy. Smoking Assessment No secondhand cigarette smoke exposure. No tobacco use. Vital Signs Recorded by Melissa Larson on 02 Aug 2009 10:02 AM BP:101/66, RUE, Sitting, HR: 89 b/min, R Radial, Resp: 14 r/min, Normal, Temp: 97.7 F, Oral, Weight: 132 lb, O2 Sat: 98 (%SpO2). Current Meds Acyclovir 200 MG Capsule;TAKE 1 CAPSULE TWICE DAILY; Rx. Active Problems Benign Paroxysmal Positional Vertigo [...] Tension-type Headache (339.10) Tinnitus (388.30) Urethritis (597.80). SOAP GENITOURINARY Urinary Tract Infection HPI and ROS: Active medical problems: See problem list HPI: Symptoms onset: 3 days ago Dysuria: Present Frequency: Present Urgency: Present Blood in urine: None Incontinence: None Chills: None Complicating Factors - : No Diabetes: None Immunosuppression: None Renal Calculi/abnormalities/insufficiency None Urine Catheterization or procedure in last 2 weeks None Recent or current resident of Health care facility No >3 UTIs within last 12 months: No Flank pain: None Fever>101: None Abdominal pain: mild suprapubic pain Nausea: None Vomiting: None Age <18 or >65 yo: None Antibiotic Rx within last 4 weeks: None Pyelonephritis within last 3 months:None Diarrhea: None Constipation: None Genital redness: None Genital itching: None Vaginal discharge: None Physical Examination: Constitutional: Normal Skin: Normal Respiratory: Normal CV: Normal Bowel sounds: Normal Abdomen: Normal CVA tenderness: Negative Genitalia: Deferred Pelvic: Deferred because low risk of STI. Rectal: Deferred Assessment: UTI: Uncomplicated Plan: Septra DS one tab by mouth 2 times daily for 3 days. Patient has already picked up some Pyridium. Follow-Up: as needed. Assessment Acute cystitis (595.0) Orders Sulfamethoxazole-TMP DS 800-160 MG Tablet;TAKE 1 TABLET TWICE DAILY FOR 3 DAYS; Qty6; R0; Rx. Attending Note Patient reviewed and discussed with resident. Agree with Plan of Care. Supervising Physician: Dr. Lang Davis. Signature Signed By: Acosta Deluca MD,Resident; 08/03/2009 10:49 AM ROTARY ENGINE ASSEMBLER. Signed By: Nathaniel Davis M.D.; 08/07/2009 8:14 AM ROTARY ENGINE ASSEMBLER. documented in this encounter Plan of Treatment Not on filedocumented as of this encounter Visit Diagnoses Not on filedocumented in this encounter
--- OUTSIDE RECORDS SUMMARY | 2022-02-27 08:16 | XMS_ITS | Encounter Summary ---
:1955 Author Organization [place] Address [facility] [place] [address] Care Team Providers Name Role Phone Unavailable Primary Care Provider Unavailable Encounter Details Date Type Department Care Team Description 12/18/2008 Office Visit-P INTERFACE P DEPT Marco A Carlson MD [address] [place] [phone] (Wo rk) Social History Tobacco Use Types [...] as of this encounter Progress Notes Christine Carlson MD - 12/18/2008 9:20 AM CDT Franchise Sales Manager: RobynEri Status: Final Encounter: 18 Dec 2008 Type: Visit Reason For Visit Patient presents for establish care with roe REDDY. Allergy List reviewed: Current Immunizations reviewed: Needs Tdap and HBV Medication list reviewed with patient and was up to date. Allergies No Known Allergies No Known Drug Allergy. Smoking Assessment No secondhand cigarette smoke exposure. No tobacco use. Vital Signs Recorded by kovang on 18 Dec 2008 09:24 AM BP:108/60, HR: 72 b/min, Resp: 20 r/min, Temp: 97.4 F, Height: 68.5 in, Weight: 132 lb, BMI: 19.8 kg/m2. Current Meds Premarin 0.625 MG/GM Cream;apply two grams vaginally M,W,F for first week, then weekly; Rx Trazodone HCl 50 MG Tablet;TAKE 1/2 to one TABLET BEDTIME; Rx Levothyroxine Sodium 75 MCG Tablet;TAKE 1 TABLET DAILY.; Rx Albuterol 90 MCG/ACT AERS;INHALE 2 PUFFS FOUR TIMES DAILY DIRECTED.; Rx Triamterene-HCTZ 37.5-25 MG Capsule;TAKE 1 CAPSULE DAILY.; Rx. 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 SOAP SUBJECTIVE: Patient is a 53-year-old female seen by myself for the first time since Dr. Bailey retired. The patient comes in with numerous concerns. 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 The patient states both knees are sore and she has had some neck pain and bilateral hands. The patient has a history of knee problems with bilateral dislocations and surgeries to fix patella dislocations. The patient has been seen by an orthopedic surgeon in the past and he said she will eventually develop arthritis of the knees. The patient does get some aching pain in the knees after standing for long periods of time. She does note some improvement with Advil. The patient has also had some neck pain and was told by Dr. Bailey that this was arthritis. The patient's big concern is her hands, she is a avid knitter and she notes that when she wakes up in the morning her hands at the MCP and PIP joints are very stiff and sore. No swelling, no erythema. Patient notices the pain when she is gripping. Occasionally her left elbow has been swollen. The patient has no family history ofconnective tissue disorders or rheumatoid arthritis. The patient states that she is noticing it takes her longer to stand up, she can't jump right up but is still able to walk. The patient exercises regularly on a treadmill 3 times a week and weights at least twice a week. Has dropped off in the last couple of weeks but is planning to return to her exercise. 2.Patient is concerned about menopausal symptoms. The patient remarried approximately 2 years ago and since then has gone through menopause. Her last menstrual period was last fall. The patient states since then she intercourse has been very painful, feeling like sandpaper. Patient tried a course of vaginal Premarin but only used it once a week and had no relief. The patient is using lubricants as well as other things to try to help her symptoms. The patient would like relief of this as it is starting to affect their relationship. 3.The patient also has a history of herpes. The patient had 2 outbreaks in October and is averaging about 2 outbreaks a month. The patient would like treatment to prevent the frequency of herpes outbreaks. OBJECTIVE: Vital signs reviewed and normal. General: Alert and oriented x 3, no acute distress. Lungs: Clear to auscultation bilaterally. Cardiovascular: Regular rate and rhythm, no murmurs, gallops or rubs. Joints: Hand MCP and PIP joints, no swelling, no erythema, no tenderness with palpation. Good range of motion and good strength. Knees: Patient with well healed surgical scars over both knees. Patient with some joint enlargement, no effusion, no erythema. Patient with significant crepitus with flexionand extension of the knees. ASSESSMENT/PLAN: 1.Osteoarthritis: Based on the patient's history and exam consistent with osteoarthritis. Offered x-rays, patient declined today. Offered physical and occupational therapy. Patient desires to try an exercise regimen on her own. Patient given strengthening exercises as well as stretching to work on the joints. The patient was encouraged to use a squeezing ball for the hands. Patient also encouraged touse Tylenol versus Advil for the pain. 2.Vaginal atrophy due to menopause: Patient will try 3 months of Estratest with estrogen plus testosterone as well as a Provera to see if any improvement of symptoms. At that point we will consider switching to vaginal Premarin to continue to maintain the vaginal mucosa. Patient is to follow-up in February for evaluation of symptoms. 3.Herpes: Patient with frequent herpes outbreaks. Will start her on suppressive doses of Acyclovir 200 mg po b.i.d. The patient is to follow-up in February or sooner as needed. Eri Carlson MD [place]; ; ; ; ts. Assessment Symptomatic menopause (627.2) Hypothyroidism (244.9) Osteoarthritis of multiple sites (715.89) Herpes simplex type II (054.10) Orders Acyclovir 200 MG Capsule;TAKE 1 CAPSULE TWICE DAILY; Kst565; R3; Rx. MedroxyPROGESTERone Acetate 2.5 MG Tablet;TAKE 1 TABLET DAILY; Qty90; R3; Rx. Signature Signed By: Eri Carlson M.D.; 12/21/2008 3:43 PM BIOMETRICIAN. documented in this encounter Plan of Treatment Not on filedocumented as of this encounter Visit Diagnoses Not on filedocumented in this encounter
--- OUTSIDE RECORDS SUMMARY | 2022-02-27 08:16 | XMS_ITS | Encounter Summary ---
:1955 Author Organization [place] Address [address] [place] [id number] Care Team Providers Name Role Phone Unavailable Primary Care Provider Unavailable Encounter Details Date Type Department Care Team Description 03/13/2008 Office Visit-P INTERFACE P DEPT Colin Bailey M D Social History Tobacco Use Types Packs/Day Years [...] of this encounter Progress Notes Colin Bailey F - 03/13/2008 8:20 AM CST Hosiery Repairer: COLIN BAILEY Status: Final Encounter: 13 Mar 2008 Type: FM Adult CPE Reason For Visit Patient presents for Cpe, check growth on back, painful. Changed in size and texture. Dizziness, neck pain.. Headaches are worse Last Pap smear by patient report last year] Allergy List reviewed: Current Immunizations reviewed: Patient is at risk for influenza and should receive flu shot. Medication list reviewed with patient and was updated. PCS please remember to complete SMOKING assessment. Lavage to pt's Rt ear with success. Pt became dizzy and was asked to lye on Rt side to discharge allwater. Pt tolerated well. Allergies No Known Allergies No Known Drug Allergy. Smoking Assessment No secondhand cigarette smoke exposure. No tobacco use. Vital Signs Recorded by jrothers on 13 Mar 2008 08:09 AM BP:108/73, HR: 84 b/min, Temp: 98.0 F, Height: 68.5 in, Weight: 130 lb, BMI: 19.5 kg/m2, LMP: 10 Feb 2008, O2 Sat: 99 (%SpO2). Current Meds Albuterol 90 MCG/ACT Aerosol Solution;INHALE 2 PUFFS FOUR TIMES DAILY DIRECTED.; Rx Protonix 40 MG Tablet Delayed Release;TAKE 1 TABLET DAILY.; RPT Metoprolol Succinate 25 MG Tablet Extended Release 24 Hour;TAKE 0.5 TABLET DAILY; Rx Premarin 0.625 MG/GM Cream;apply two grams vaginally M,W,F for first week, then weekly; Rx Trazodone HCl 50 MG Tablet;TAKE 1/2 to one TABLET BEDTIME; Rx Triamterene-HCTZ 37.5-25 MG Capsule;TAKE 1 CAPSULE DAILY.; Rx Potassium Chloride CR 10 MEQ Capsule Extended Release;TAKE 1 CAPSULE DAILY 5 DAYS PER WEEK; Rx Levothyroxine Sodium 75 MCG Tablet;TAKE 1 TABLET DAILY.; Rx. Immunizations Hepatitis B; #3; 13 Jul 1999 Td; 06 Apr 2000 Pneumo (Pneumovax); 21 May 2003 Influenza; 08 Jun 2006 Influenza; #1; 22 Mar 2007. 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 PMH Normal (V22.2); 3 term pregnanciestwice had PP phlebitis Reported Positive Pap Smear (795.1); GABRIELA, ASCUSnormal colp 05/04/00. PSH Excision Of Lesion Face Malignant; basal cell forehead Reconstruction For Recurrent Patellar Dislocation; Bilateral. Family Hx Maternal history of Acute Myelogenous Leukemia Paternal grandmother's history of Carcinoma Of The Large Intestine Paternal grandfather's history of Carcinoma Of The Large Intestine Paternal uncle's history of Sudden / Instantaneous ; 2 different uncles. ROS Review of Systems Constitutional: no fevers, night sweats or unintentional weight change Eyes: no vision change, diplopia or red eyes, sees eye dr. andre Ears, Nose, Mouth, Throat: no tinnitus or hearing change, no epistaxis or nasal discharge, no oral lesions, throat clear Cardiovascular: no chest pain,no palpitations-came off metoprolol and they did not recur, or pain with walking, no orthopnea or PND Respiratory: no dyspnea, cough, shortness of breath or wheezing, rarely using MDI- it does work, perhaps twice in past month GI: no nausea, vomiting, no abdominal painShe has fragmented stools with little substacne ussually several per day, no blood or melena. : no change in urine, no dysuria or hematuria, no sexual dysfunction. She had MP in Dec and Jan-lasted 12d-had gone 4 months without Musculoskeletal: no joint or muscle pain or swelling Integumentary: no concerning lesions or molesshe wonders about moles on her back Neuro: no loss of strength or sensation, no numbness or tingling, no tremor, no dizziness, no headache Endo: no polyuria or polydipsia, no temperature intolerance Heme/Lymph: no concerning bumps, no bleeding problems Allergy: no environmental allergies Psych: no depression or anxiety, no sleep problems, doesn't sleep real well, didn't think trazodone helpled much Low libido. Physical Exam Physical Exam Constitutional: no distress, comfortable, pleasant Eyes: anicteric, normal extra-ocular movements, fundi not seen well Ears, Nose and Throat: R tympanic membrane obscured, L clear, nose clear and free of lesions, throatclear. Neck: supple with full range of motion, no thyromegaly, some crepitation Cardiovascular: regular rate and rhythm, no murmurs, rubs or gallops, peripheral pulses full and symmetric Respiratory: clear to auscultation, no wheezes or crackles, normal breath sounds Gastrointestinal: positive bowel sounds, nontender, no hepatosplenomegaly, no masses Gentiourinary: normal external genitalia, cervix normal without lesions, no masses or cervical motion tenderness, uterus is Rightward. Musculoskeletal: full range of motion, no edema. Scars on knees from prev surgery Skin:no concerning lesions, no jaundice irritated vladimir kerat R side of back also irreg one above that. Multiple tattoos, floral R post shoulder, R forearm, L breast and LLQ abd Breast: no lumps, no nipple discharge, axillae clear Neurological: cranial nerves intact, normal strength and sensation, reflexes at patella and biceps normal, normal gait, no tremor Psychological: appropriate mood Lymphatic: no cervical, axillary, or inguinal lymphadenopathy. Assess and Plan OK to d/c triamterene/hctx watch for edema or rising bp. ok to use premarin vag cream again I suggested she use trazodone again as it may help her libido I will review paper records on uterine us, endometrial specs-per [facility]Production Gear C[facility] She will let me know if any recurrent bleeding or update in two months. Will excise vladimir kerat prn-ow recheck it next visit. I asked her to do Ubaldo's exercises-handout mailed. If not responding, she will let m know. Also will do ROM, WWP, massage for her cervicogenic MCGINNIS's.. She will let me know if not responding. . Assessment Cataract Bilateral; (366.9); l > R Tinnitus (388.30) Mild intermittent asthma (493.90) Esophageal reflux (530.81) Symptomatic menopause (627.2) Postmenopausal atrophic vaginitis (627.3) Hypothyroidism (244.9) Osteopenia (733.90) Recurrent dislocation of the knee / patella / tibia / fibula (718.36) Benign paroxysmal positional vertigo (386.11) Leiomyoma of the uterus (218.9) Signature Electronically Signed By: Niyah Olmedo MA; 03/13/2008 10:04 AM DISINTEGRATOR. Electronically Signed By: COLIN BAILEY M.D.; 03/13/2008 3:41 PM DISINTEGRATOR. documented in this encounter Plan of Treatment Not on filedocumented as of this encounter Visit Diagnoses Not on filedocumented in this encounter
--- OUTSIDE RECORDS SUMMARY | 2022-02-27 08:16 | XMS_ITS | Encounter Summary ---
:1955 Author Organization [place] Address [facility] [place] [address] Care Team Providers Name Role Phone Unavailable Primary Care Provider Unavailable Encounter Details Date Type Department Care Team Description 03/22/2009 Office Visit-[facility] INTERFACE P DEPT Marco A Carlson MD [address] [place] [phone] (Wo rk) Social History Tobacco [...] encounter Progress Notes Christine Carlson MD - 03/22/2009 9:40 AM CST Animal Rides Manager: AndreasEri aguero Status: Final Encounter: 22 Mar 2009 Type: FM Adult CPE Reason For Visit Patient presents for CPE, right knee pain, and menopause. Allergy List reviewed: Current Immunizations reviewed: Up to date Patient has had flu shot. Medication list reviewed with patient and was up to date. Allergies No Known Allergies No Known Drug Allergy. Smoking Assessment No secondhand cigarette smoke exposure. No tobacco use. Vital Signs Recorded by kovang on 22 Mar 2009 09:36 AM BP:108/71, HR: 86 b/min, Resp: 22 r/min, Temp: 98.1 F, Height: 68.5 in, Weight: 135.2 lb, BMI: 20.3 kg/m2. Current Meds Premarin 0.625 MG/GM Cream;apply two grams vaginally M,W,F for first week, then weekly; Rx Trazodone HCl 50 MG Tablet;TAKE 1/2 to one TABLET BEDTIME; Rx Albuterol 90 MCG/ACT AERS;INHALE 2 PUFFS FOUR TIMES DAILY DIRECTED.; Rx Triamterene-HCTZ 37.5-25 MG Capsule;TAKE 1 CAPSULE DAILY.; Rx Acyclovir 200 MG Capsule;TAKE 1 CAPSULE TWICE DAILY; Rx MedroxyPROGESTERone Acetate 2.5 MG Tablet;TAKE 1 TABLET DAILY.; Rx Levothyroxine Sodium 75 MCG Tablet;TAKE 1 TABLET DAILY.; Rx. Immunizations Hepatitis B; #1; 13 Jul 1999 Td; 06 Apr 2000 Pneumo (Pneumovax); 21 May 2003 Influenza; 08 Jun 2006 Influenza; #1; 22 Mar 2007 Hepatitis B; #2; 13 Mar 2008 Influenza; #1; 13 Mar 2008 Tdap (Adacel); 24 Dec 2008 Hepatitis B (Engerix); 24 Dec 2008 Pneumo (Pneumovax); 24 Dec 2008 Influenza; 24 Dec 2008. Active Problems Benign Paroxysmal Positional Vertigo (386.11) [...] uncles. Adult PE HCM Female Concerns today: Vaginal Bleeding: She was taking estrogen/testesterone and provera for 21 days. This was from December 22 to 2008. She D/C this because of acne and weight gain as well as concerns about side effects of estrogen therapy. She states having a period starting Last Sunday on . She states her LMP before this was 12 months ago. She states she's currently spotting, had some breast tenderness,no clots. Has concerns of on going right knee pain. Has history of arthritis in hands, possibly knees. Pain can be upto 7-8/10. Worse walking down the stairs or sitting down too long. She is continuing excercise. Not taking/using any medications for knee pain. ROS: Constitutional:no fevers, night sweats or gained weight change Details: 7lb weight gain when on the estrogen/testereone for menopause. Eyes: no vision change, diplopia or red eyes Respiratory: Some cough no dyspnea, shortness of breath or wheezing Details: Dry cough getting over cold that started a week ago. Cough is worse at night. States that it's getting better. GI: Some nausea, vomiting, diarrhea or constipation, no abdominal pain Neuro: Yes headache Details: Headaches 3-5 times a week in the morning. Allergy: Yes environmental allergies Details: Cats Psych: No depression Details: Mood is OK Sexually Active Sexual concerns: Contraception: P: 3 LMP: 03/15/09 STD History: none Last Pap Smear Date: 2006 Abnormal Pap History: colpo in past, normal since PAST MEDICAL HISTORY FAMILY HISTORY : Maternal history of Acute Myelogenous Leukemia Paternal grandmother's history of Carcinoma Of The Large Intestine Paternal grandfather's history of Carcinoma Of The Large Intestine Paternal uncle's history of Sudden / Instantaneous ; 2 different uncles. SOCIAL HISTORY Children: 3 Over the past two weeks, how often have you been bothered by any of the following problems? Little interest or pleasure in doing things. Feeling down, depressed, or hopeless. Has anyone hurt you physically, for example by pushing, hitting, slapping or kicking you or forcing you to have sex? Do you feel threatened or controlled by a partner, ex-partner or anyone in your life? RISK BEHAVIORS AND HEALTHY HABITS Tobacco Use/Smoking Illicit Drug Use ETOH Diet (5-7 servings of fruits/veg daily) Exercise (30 min accumulated most days) Dental Care Calcium 1500 mg/d Seat Belt Use Cholesterol Level (>45 yo or at risk) Date done and result: doing cholesterol check today Recommended Colon CA Screening (>50 ) Date done and result:07/04/06-Normal Breast CA Screening Recommended. Patient will schedule own mammogram in the next couple of months. IMMUNIZATIONS: Getting H1N1 today. EXAMINATION: Constitutional: no distress, comfortable, pleasant Eyes: anicteric, normal extra-ocular movements Ears, Nose and Throat: tympanic membranes clear, nose clear and free of lesions Cardiovascular: regular rate and rhythm, no murmurs, rubs or gallops Respiratory: clear to auscultation, no wheezes or crackles, normal breath sounds Gastrointestinal: positive bowel sounds, nontender, no hepatosplenomegaly, no masses Musculoskeletal: Details: No swelling/erythema on bilateral knees. Surgical scars present bilaterally. Slight right medial knee tenderness on palpation. Full ROM on left knee. Full range of motion on right knee flexion, slighty decreased right knee extension due to pain, posterior drawer negative bilat erally, no popliteal cysts palpated, negative rodger test bilaterally. Neurological: normal gait, no tremor Psychological:appropriate mood Lymphatic: no cervical, axillary, or inguinal lymphadenopathy ASSESSMENT: 1. Uterine Bleeding 2. Right knee pain. 3. Health care maintenance 4 - Hypothyroid PLAN: 1. Endometrial biopsy in clinic was attempted but not successful. Patient cervical opening was stenotic/closed. Will do pelvic ultrasound and if there is endometrial thickening, refer to CLERICAL CAR CHECKER for biopsy, if normal ultrasound do premarin and repeat EMB attempt. 2. Patient is ok tolerating pain as it is. Encourage activity and exercise. Offered Steroid injection, she does not want at this time. Pt also states she saw Ortho in past and said she is not close to needing knee replacement. 3 - Lipid panel ordered. Mammogram ordered. 4 - TSH ordered. Attending Note In supervising the medical student. I repeated the exam documented above. I have reviewed and verified the medical students documentation. Supervising Physician: Dr. Carlson. Signature Signed By: Jake Malik ; 03/22/2009 12:42 PM DYNAMICS AX CONSULTANT; Author. Signed By: Eri Carlson M.D.; 03/22/2009 2:32 PM DYNAMICS AX CONSULTANT. documented in this encounter Plan of Treatment Not on filedocumented as of this encounter Visit Diagnoses Not on filedocumented in this encounter
--- OUTSIDE RECORDS SUMMARY | 2022-02-27 08:16 | XMS_ITS | Encounter Summary ---
:1955 Author Organization [facility] Address [address] [place] [id number] Care Team Providers Name Role Phone Unavailable Primary Care Provider Unavailable Encounter Details Date Type Department Care Team Description 12/17/2009 Office Visit-P INTERFACE P DEPT Fatoumata Sue MD [employer] [facility] [place], [place] [address] (Wo rk) Social History Tobacco [...] this encounter Progress Notes Catrina Sue - 12/17/2009 2:20 PM CDT Ethics Instructor: Vikram Catrina Status: Final Encounter: 17 Dec 2009 Type: Visit Reason For Visit Patient presents for Mole removal. Allergy List reviewed: Current Immunizations reviewed: Up to date Medication list reviewed with patient and was up to date. Meds are up to date per pt. Allergies No Known Allergies No Known Drug Allergy. Smoking Assessment No secondhand cigarette smoke exposure. No tobacco use. Vital Signs Recorded by alonso on 17 Dec 2009 02:28 PM HR: 89 b/min, Temp: 98.5 F, Oral, Weight: 130 lb, O2 Sat: 97 (%SpO2). Recorded by alonso on 17 Dec 2009 02:34 PM BP:98/82, RUE, Sitting. Current Meds Acyclovir 200 MG Capsule;TAKE 1 CAPSULE TWICE DAILY; Rx Levothyroxine Sodium 75 MCG Tablet;TAKE 1 TABLET DAILY.; RPT Maxzide-25 37.5-25 MG Tablet;TAKE 1 TABLET DAILY DIRECTED.; RPT Prevacid 15 MG Capsule Delayed Release;; RPT Calcium + D 600-200 MG-UNIT Tablet;TAKE 1 TABLET DAILY.; RPT Estrace 0.1 MG/GM Cream;INSERT 1/4 APPLICATORFUL (1GM) VAGINALLY TWICE WEEKLY.; Rx. Active Problems Acute Cystitis (595.0) Benign [...] Visit For: Screening Exam Lipoid Disorders (V77.91). HPI Mole on back, right has been changing. More pigment in irregular pattern. Physical Exam Right back under bra line with 1 cm keratosis with dark brown curved edge of pigment. Plan Informed consent obtained. Back prepped with betadine. Anesthetatized with 1% lido and epi buffered with bicarb. Sterile prep. Using #15 blade elliptical incision around oval mole. Skin removed, greatest diameter 2 cm length. Using 5-O vicryl interrupted deep closure performed, then skin edges closed with interrupted 5-0 Dermalon. Bacitracin and bandaid applied. PT needs f/u in 7-10 days for suture removal. Discussed wound care. Signature Signed By: Catrina Sue M.D.; 12/17/2009 9:06 PM WEB SITE ADMIN. documented in this encounter Plan of Treatment Not on filedocumented as of this encounter Visit Diagnoses Not on filedocumented in this encounter
--- OUTSIDE RECORDS SUMMARY | 2022-02-27 08:16 | XMS_ITS | Encounter Summary ---
:1955 Author Organization [facility] Address [facility] [place] [address] Care Team Providers Name Role Phone Unavailable Primary Care Provider Unavailable Encounter Details Date Type Department Care Team Description 03/23/2009 Office Visit-[facility] INTERFACE P DEPT Vance [facility] [place] [address] (Wo rk) Social History Tobacco Use Types [...] documented as of this encounter Progress Notes Gabi Dinh - 03/23/2009 2:00 PM CST Sales And Training Specialist: Gabi Ayala Status: Final Encounter: 23 Mar 2009 Type: Visit Reason For Visit Patient presents for possible bladder infection. Allergy List reviewed: Current Immunizations reviewed: Up to date Medication list reviewed with patient and was up to date. Allergies No Known Allergies No Known Drug Allergy. Smoking Assessment No secondhand cigarette smoke exposure. No tobacco use. Vital Signs Recorded by Chelle Sinha on 23 Mar 2009 01:53 PM BP:109/70, RUE, Sitting, HR: 71 b/min, R Radial, Temp: 97.9 F, Oral, Weight: 135 lb. Current Meds Acyclovir 200 MG Capsule;TAKE 1 CAPSULE TWICE DAILY; Rx MedroxyPROGESTERone Acetate 2.5 MG Tablet;TAKE 1 TABLET DAILY.; Rx Premarin 0.625 MG/GM Cream;apply two grams vaginally M,W,F for first week, then weekly; Rx Trazodone HCl 50 MG Tablet;TAKE 1/2 to one TABLET BEDTIME; Rx Triamterene-HCTZ 37.5-25 MG Capsule;TAKE 1 CAPSULE DAILY.; Rx Albuterol 90 MCG/ACT AERS;INHALE 2 [...] (718.36) Symptomatic Menopause (627.2) Tinnitus (388.30). SOAP Subjective: Janet is a pleasant 53-yr-old female coming in for a headache and concerns about a possible UTI. I saw her in clinic yesterday and in office endometrial biopsy was attempted but unsuccessful. She reports that this morning she had pain while urinating and has urinated 4 times today which is high for her. She states having a history of UTI's in the past, last one being 2 years ago. She states that she feels the urge to urinate even after urinating. She reports having pink urine, but also says she's had some vaginal spotting. She denies any vaginal discharge. She also underwent a transvaginal ultrasound this am for evaluation of her endometrial lining. She describes having a headache that was bad this morning when she woke up. She reports that it starts on behind her head and goes to the front. She says it's worse when she is picking up stuff or whenlying down. She took Excedrin and that hasn't really cleared it away as it usually does in the past.Feels that there is a lot of pressure in her head. She denies any nausea, vomiting or vision disturbances. Feels that she may have had slight weakness in her left hand and foot, but that this was transient. She also notes that she does feel very worried about her abnormal uterine bleeding. She has also only eaten a banana today. She uses caffeine minimally, mostly in her green tea that she drinks araceli y. Objective: General: Alert, NAD, cooperative HEENT: No sinus tenderness Cardiovascular: RRR, no murmurs G. I.: No abdominal tenderness, no hepatosplenomegaly or masses. Neuro: CN 2-12 grossly intact; 5/5 strength UE - biceps, triceps, trap, brachioradialis, bilaterally; 5/5 strength LE - plantar/dorsiflexion, quads, bilaterally Assessment: 1. Likely Urethritis 2. Headache Plan 1. UA negative for leukocytes or nitrates. Patient has Urostat at home and will use that for symptomatic relief. Recommended if symptoms persist, call the clinic and a script for anti-biotics can be filled. This could likely be a urethritis based on the Betadine used yesterday for attempted endometrial biopsy, as well as the use of a speculum yesterday and transvaginal ultrasound probe today. Encouraged good PO fluid intake, cranberry juice. 2. Likely tension-type in nature. No neurological defecits, symptoms not consistent with migraine. Gave 30 mg IM Toradol, which took headache away. Gave warning symptoms for return: persistent MCGINNIS, blurred vision, change or defecit in motor function, 'worst headache of life.'. Results PV Urinalysis 23 Mar 2009 02:35 PM - UA - Specific Clayton: 1.005 - UA - pH: 7.0 - UA - Leukocytes: Neg - UA - Nitrite: Neg - UA - Protein: Neg - UA - Glucose: Neg - UA - Ketones: Neg - UA - Bilirubin: Neg - UA - Blood: Neg. Assessment Urethritis (597.80) Tension-type headache (339.10) Inj Meds Administration Drug: Toradol Dose: 30mg/1ml Route: IM Lot #: [id number] Exp Date: 4-10 Comments: Given in left upper Quadrant]. Attending Note In supervising the medical student. I repeated the exam documented above. I have reviewed and verified the medical students documentation. The medical student's documentation is correct. Resident Physician: Dr Germán Ayala Supervising Physician: Dr. Shea. Signature Signed By: Jake Malik ; 03/23/2009 3:18 PM WORKFORCE MANAGER; Author. Signed By: Gabi Ayala MD,Resident; 03/23/2009 4:10 PM WORKFORCE MANAGER. Signed By: Oscar Shea M.D.; 03/24/2009 8:30 AM WORKFORCE MANAGER. documented in this encounter Plan of Treatment Not on filedocumented as of this encounter Visit Diagnoses Not on filedocumented in this encounter
[2022-02-27 10:38] LABS: Albumin* 4.4 g/dL (3.3-5.0)
[2022-02-27 10:39] LABS: Chloride* 102 mmol/L (96-114); Potassium* 4.9 mmol/L (3.6-5.1); Sodium* 139 mmol/L (135-149)
[2022-02-27 10:41] LABS: Aspartate Amino Transferase* 26 U/L (12-35); Bilirubin Total* 0.5 mg/dL (0.1-1.5); Blood Urea Nitrogen* 19 mg/dL (7-30); Carbon Dioxide* 31 mmol/L (20-32); Cholesterol* 290 mg/dL (90-199); Creatinine* 0.8 mg/dL (0.5-1.5); Estimated Glomerular Filt Rate 80 ml/min; Total Protein* 7.4 g/dL (6.0-8.3)
[2022-02-27 10:42] LABS: Alanine Aminotransferase* 18 U/L (4-35); Alkaline Phosphatase* 50 U/L (40-150); Calcium* 9.7 mg/dL (8.4-10.6); Glucose* 87 mg/dL (60-115); HDL Cholesterol* 81 mg/dL (>=50); LDL Cholesterol Calculated 185 mg/dL (<100); Triglycerides* 118 mg/dL (40-149)
[2022-02-27 11:04] LABS: Vitamin D 25 Hydroxy* 61 ng/mL (30-80)
[2022-02-27 11:35] LABS: Vitamin B12* 480 pg/mL (243-894)
[2022-03-03 18:34] LABS: Free T4 Free Thyroxine* 1.41 ng/dL (0.70-1.85)
== END 2022-02-27 13:39 | disposition home or self-care (01) ==
PROVIDERS: PCP Family Medicine; Visit Provider Family Medicine
DX: G62.9 Polyneuropathy, unspecified (principal); Z13.1 Encounter for screening for diabetes mellitus; Z13.6 Encounter for screening for cardiovascular disorders; Z13.0 Encounter for screening for diseases of the blood and blood-forming organs and certain disorders involving the immune mechanism
CPT/HCPCS: 80053; 80061; 82306; 82607; 84439; 84443

== ENCOUNTER 2022-05-26 09:48 | Outpatient (CLI) | payer OTHER, SELFPAY ==
--- NOTE | 2022-05-26 10:15 | CRLHL7_ITS ---
For Patients: As a result of the Cures Act, medical imaging exams and procedure reports are released immediately into your electronic medical record. You may view this report before your referring provider. If you have questions, please contact your health care provider. BILATERAL SCREENING MAMMOGRAM WITH COMPUTER-AIDED DETECTION AND TOMOSYNTHESIS TECHNIQUE: CC and MLO views were obtained. These mammographic images have been obtained using full-field digital technique. These mammographic images were interpreted with the benefit of computer-aided detection. Breast Tomosynthesis was used in this interpretation. COMPARISON FILM: 03/15/21, 01/28/20, 09/03/18. FINDINGS: There are scattered areas of fibroglandular density IMPRESSION: There is no radiographic evidence for malignancy. ASSESSMENT: BI-RADS Category 1: Negative RECOMMENDATION: Routine screening mammogram in 1 year. A lay language report of this examination will be provided to the patient. Ino Burdick M.D. Diagnostic Radiologist [email or web address] Transcribed: 2:52 p.mPattie zaman/Dictated by: Ino Burdick MD @ 05/29/2022 12:47:00 PM (Electronically Signed)
== END 2022-05-26 09:49 | disposition home or self-care (01) ==
LOC: MAMMO 09:49
PROVIDERS: PCP Family Medicine; Visit Provider Family Medicine
DX: Z12.31 Encounter for screening mammogram for malignant neoplasm of breast (principal)
CPT/HCPCS: 77063; 77067

== ENCOUNTER 2022-06-02 10:00 | Outpatient (REF) | payer OTHER, SELFPAY ==
[2022-06-06 21:01] LABS: Vitamin B6 (Pyridoxal 5-Phos) 41.5 nmol/L (20.0-125.0)
== END 2022-06-02 10:01 | disposition home or self-care (01) ==
LOC: NPINS 10:00
PROVIDERS: PCP Family Medicine; Visit Provider Psychiatry & Neurology Neurology
DX: E03.9 Hypothyroidism, unspecified (principal); E78.5 Hyperlipidemia, unspecified; G64 Other disorders of peripheral nervous system; H53.9 Unspecified visual disturbance; G43.709 Chronic migraine without aura, not intractable, without status migrainosus
CPT/HCPCS: 80061; 84207; 84439; 84443

== ENCOUNTER 2023-03-05 08:47 | Outpatient (CLI) | payer OTHER, SELFPAY | END 2023-03-05 08:48 | disposition home or self-care (01) | LOC: NFLDREF 08:49 | PROVIDERS: PCP Family Medicine; Visit Provider Family Medicine | DX: Z00.00 Encounter for general adult medical examination without abnormal findings (principal); E78.5 Hyperlipidemia, unspecified; E53.8 Deficiency of other specified B group vitamins; E03.9 Hypothyroidism, unspecified; M81.0 Age-related osteoporosis without current pathological fracture | CPT/HCPCS: 80053; 80061; 82306; 82607; 82652; 84443 ==

== ENCOUNTER 2023-03-10 07:40 | Emergency (ER) | payer OTHER, SELFPAY ==
[2023-03-10 07:50] VITALS: BP 144/76; PULSE 82; RESP 18; TEMP 36.6; O2SAT 95; BMI 21.6
--- NOTE | 2023-03-10 08:13 | CRLHL7_ITS ---
For Patients: As a result of the Cures Act, medical imaging exams and procedure reports are released immediately into your electronic medical record. You may view this report before your referring provider. If you have questions, please contact your health care provider. INDICATION: Pain at the base of 4th toe. Technique: Three-view study right 4th toe. FINDINGS: No evidence of acute fracture or dislocation. No bone or soft tissue abnormalities. IMPRESSION: Negative radiographic examination of the right 4th toe. Dictated by Diamante Hi MD @ 03/10/2023 9:09:26 AM (Electronically Signed)
--- NOTE | 2023-03-10 08:27 | ED_ITS ---
HPI - Extremity Injury (Lower) General Date Seen: 03/10/23 Chief Complaint: Extremity Pain/Injury, Lower Stated Complaint: R foot pain Time Seen by Provider: 03/10/23 07:59 Source: patient Mode of arrival: ambulatory Limitations: no limitations History of Present Illness HPI Narrative: Patient is a 67-year-old female with no pertinent medical issues presenting for right 4th toe pain. She states this 9 around 20:00 she headed on the bed frame. As day was going on she is having worsening pain. Today she woke up was unable to put any pressure on it. She is unable to use a walker either but was able to maneuver with crutches. She says the pain is tolerable as long as she is not walking on it. No other injuries noted. Denies numbness or weakness Related Data Home Medications Medication Instructions Recorded Confirmed calcium carbonate 600 mg calcium 1,200 mg PO QDAY 03/02/22 03/07/23 (1,500 mg) tablet (Calcium) magnesium 250 mg tablet 250 mg PO QDAY 03/07/23 03/07/23 Previous Rx's Medication Instructions Recorded albuterol sulfate 90 mcg/actuation 2 inh inhalation Q8H PRN shortness 03/07/23 aerosol inhaler of breath or wheezing #8.5 grams citalopram 10 mg tablet 10 mg PO BID #180 tabs 03/07/23 cyanocobalamin (vitamin B-12) 1,000 mcg PO QDAY #90 tabs 03/07/23 1,000 mcg tablet (Vitamin B-12) levothyroxine 75 mcg tablet 75 mcg PO DAILY #90 tabs 03/07/23 rosuvastatin 5 mg tablet (Crestor) 5 mg PO QDAY #90 tabs 03/07/23 Allergies Allergy/AdvReac Type Severity Reaction Status Date / Time No Known Allergies Allergy Verified 03/10/23 07:50 Review of Systems Narrative: negative unless stated in HPI PFSH PFSH Medical History Dyslipidemia (03/02/22) ?E78.5 - Hyperlipidemia, unspecified (ICD-10) Neuropathy ?G62.9 - Polyneuropathy, unspecified (ICD-10) Migraine with aura ?G43.109 - Migraine with aura, not intractable, without status migrainosus (ICD-10) Mild intermittent asthma in adult without complication ?J45.20 - Mild intermittent asthma, uncomplicated (ICD-10) Skin cancer (~1993) ?C44.90 - Unspecified malignant neoplasm of skin, unspecified (ICD-10) History of adenomatous polyp of colon (07/06/21) ?Z86.010 - Personal history of colonic polyps (ICD-10) Depression ?F32.A - Depression, unspecified (ICD-10) Lymphedema of left lower extremity ?I89.0 - Lymphedema, not elsewhere classified (ICD-10) Bilateral tinnitus ?H93.13 - Tinnitus, bilateral (ICD-10) Osteoarthritis, multiple sites ?M15.9 - Polyosteoarthritis, unspecified (ICD-10) Osteoporosis ?M81.0 - Age-related osteoporosis without current pathological fracture (ICD- 10) GERD (gastroesophageal reflux disease) ?K21.9 - Gastro-esophageal reflux disease without esophagitis (ICD-10) Hypothyroidism ?E03.9 - Hypothyroidism, unspecified (ICD-10) Surgical History History of varicose veins (2013) ?Z86.79 - Personal history of other diseases of the circulatory system (ICD- 10) History of bilateral tubal ligation (1979) ?Z98.51 - Tubal ligation status (ICD-10) History of knee surgery (1967) ?Z98.890 - Other specified postprocedural states (ICD-10) Family History Father Coronary artery disease Sister Coronary artery disease Mother AML (acute myeloblastic leukemia) Maternal Grandmother Coronary artery disease Paternal Grandfather Coronary artery disease Maternal Grandfather Family history of prostate cancer Paternal Grandmother Colon cancer Social History Narrative: , 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[employer], 3 adult children, lives in [place] nonsmoker, quit age 21, 6 pack years does not exercise alcohol 1 drink/ week What is your current living situation?: I presently have a place to live Problems where you live: declined to answer In the past 12 months, utilities in danger of being shut off: no In past 12 months, lack of transportation kept you from medical appts, meetings, work, or getting things needed for daily living: no In the past 12 mos, have been you worried that your food would run out before you had money to buy more?: never true In the past 12 mos, the food you bought just didn't last and you didn't have money to buy more?: never true Smoking Status: Former smoker Do you use any of these nicotine containing products: None Second hand tobacco smoke exposure: No How often do you have a drink containing alcohol: 2-4 times a month How many standard drinks containing alcohol do you have on a typical day: 1 or 2 How often do you have six or more drinks on one occasion: Never AUDIT-C Alcohol total score: 2 Non-prescribed substance use: denies use How often does anyone, including family, friends and others, physically hurt you : never How often does anyone, including family, friends and others, insult or talk down to you: never How often does anyone, including family, friends and others, threaten you with harm: never How often does anyone, including family, friends and others, scream or curse at you: never Little interest or pleasure in doing things: not at all Feeling down, depressed, or hopeless: not at all service: No Exam Narrative: Exam Narrative: Const: Well-nourished, Well-developed, in mild distress Eyes: PERRL, no conjunctival injection, and symmetrical lids HENT: Atraumatic external nose and ears. Moist mucous membranes. MSK: transfer patient to the base of the right 4th toe, mild swelling noted at the base of the right 4th toe. No other injuries noted Skin: Warm, Dry. No rashes or lesions. Neuro: Normal Muscle tone, No focal neurological deficits. Psych: Awake, Alert, & Oriented x3. Appropriate mood and affect. Const: Vital Signs, click to edit/add: Vital Signs - 24 hr 03/10/23 07:50 Temperature 97.9 F Pulse Rate [Pulse Oximeter] 82 Respiratory Rate 18 Blood Pressure [Ri ght Upper Arm] 144/76 H Pulse Oximetry 95 Oxygen Delivery Me thod Room Air Course Vital Signs Vital signs: Initial Vital Signs Temperature 97.9 F 03/10/23 07:50 Temperature Source Temporal Artery Scan 03/10/23 07:50 Pulse Rate 82 03/10/23 07:50 Pulse Rhythm Regular 03/10/23 07:50 Respiratory Rate 18 03/10/23 07:50 Blood Pressure 144/76 H 03/10/23 07:50 Blood Pressure Mean 98 03/10/23 07:50 Blood Pressure Position Supine 03/10/23 07:50 Pulse Oximetry 95 03/10/23 07:50 Oxygen Delivery Method Room Air 03/10/23 07:50 Vital Signs Temperature 97.9 F 03/10/23 07:50 Pulse Rate 82 03/10/23 07:50 Respiratory Rate 18 03/10/23 07:50 Blood Pressure 144/76 H 03/10/23 07:50 Pulse Oximetry 95 03/10/23 07:50 Oxygen Delivery Method Room Air 03/10/23 07:50 Temperature 97.9 F 03/10/23 07:50 Pulse Rate 82 03/10/23 07:50 Respiratory Rate 18 03/10/23 07:50 Blood Pressure 144/76 H 03/10/23 07:50 Pulse Oximetry 95 03/10/23 07:50 Oxygen Delivery Method Room Air 03/10/23 07:50 MDM - Extremity Injury (Lower) MDM Narrative Medical decision making narrative: patient is a 67-year-old female presenting for page to the base of the right 4th toe. And no other injuries noted. She hit the toe last night on the bed frame. patient is not requesting any pain medication at this time. We did the x-ray of the toe and shows no acute fractures. She most likely sprained it. We will still give her stiff-soled shoe to help with ambulation. She will be discharged home and she is agreeable to this plan. Imaging Data Foot x-ray: Radiologist's impression: Negative radiographic examination of the right 4th toe. Dictated by Diamante Hi MD @ 03/10/2023 9:09:26 AM Discharge Plan Discharge Clinical Impression: Sprain of fourth toe of right foot Qualifiers: Encounter type: initial encounter Qualified Code(s): S93.504A - Unspecified sprain of right lesser toe(s), initial encounter Patient Disposition: Home, Self-Care Condition: Stable Instructions: Foot Sprain (ED) Additional Instructions: take Tylenol and ibuprofen for pain. Wear the hard-soled shoe as needed for comfort. If symptoms persist again follow-up with the primary care provider. Return to emergency department for new or worsening symptoms. Her toe will be painful for at least a few days up to a few weeks. May even be longer as these can be injuries do take time to heal Prescriptions: No Action calcium carbonate [Calcium 600] 600 mg calcium (1,500 mg) tablet 1,200 mg PO QDAY magnesium 250 mg tablet 250 mg PO QDAY rosuvastatin [Crestor] 5 mg tablet 5 mg PO QDAY Qty: 90 3RF levothyroxine 75 mcg tablet 75 mcg PO DAILY Qty: 90 3RF citalopram 10 mg tablet 10 mg PO BID Qty: 180 3RF albuterol sulfate 90 mcg/actuation HFA aerosol inhaler 2 inh inhalation Q8H PRN (Reason: shortness of breath or wheezing) Qty: 8.5 1RF cyanocobalamin (vitamin B-12) [Vitamin B-12] 1,000 mcg tablet 1,000 mcg PO QDAY Qty: 90 3RF Follow Up/Referrals: Ileana Ontiveros MD [Primary Care Provider] - Stand Alone Forms: [facility] Info Instructions
--- OUTSIDE RECORDS SUMMARY | 2023-03-10 08:35 | XMS_ITS | Continuity of Care Document ---
Author Name Unknown Organization [facility] Address [address] [address] [place] [address] Phone Care Team Providers Care Obstetrics And Gynecology Professor Name Role Phone Maye Cameron CRNA Unavailable Unavailable Allergies, Adverse Reactions, Alerts Substance Reaction Status Criticality codeine All around feeling bad Active No In formation Medications Medication Instructions Dosage Effective Dates (start - stop) Status Comments CELEXA (unknown strength) take 1 tablet by oral route every day Not Available - Active Multiple Vitamin Tab take 1 tablet by oral route every day with food - Active Calcium 600 + D(3) 600 mg calcium-200 unit Cap take 1 Tablet by Oral route every day 1 Tablet - Active Synthroid 88 mcg Tab Take 1 tablet by mouth daily - Active Albuterol unknownINHALER as needed - Active omeprazole 20 mg Cap, Delayed Release take 1 capsule (20MG) by oral route every day before a meal 20 MG - No Longer Active levothyroxine 75 mcg Tab take 1 tablet (75MCG) by ORAL route every day 75 MCG - No Longer Active triamterene-hydrochl orothiazide 37.5 mg-25 mg Tab take 1 tablet by oral route every day 1.00 tablet - No Longer Active ProAir HFA 90 mcg/Actuation Aerosol Inhaler inhale 2 puff by inhalation route every 4 - 6 hours as needed No Longer Active Vaniqa 13.9 % Topical Cream apply by topical route every day a thin layer to the affected area(s) Not Available No Longer Active glucosamine-chondroi tin 500 mg-400 mg Cap take 2 Tablet by Oral route every day 2 Tablet No Longer Active triamterene-hydrochl orothiazide 37.5 mg-25 mg Tab Take one tablet by mouth daily - No Longer Active Prilosec unknown Take 1 tablet by mouth daily No Longer Active Procedures Procedure Date Colonoscopy Flex; W/remov Les- Level Iv-surg Path Gross/micro Colonoscopy Flex; Dx (sep Pro) 12 Offic/outpt E&m Estab Mod-hi 2 12 G8447 Offic/outpt E&m Estab Mod-hi 2 11 Routine Serum Collection G8447 Ugi Endo; Dx W/wo Collec Specm 11 Colonoscopy Flex; Dx (sep Pro) 07 Advance Directives Directive Yes / No Effective Date File Name No Information Encounters Encounter Description Practice Location Reason(s) For Visit Diagnoses Date Provider Providers Copied on Encounter [facility] G[place] RIBEIRO [address] [address], [place], [id number], [place] tel:[phone] [facility] No Information 2 Rakesh Villavicencio. [address] [facility], [place], [place], [id number], [place]. tel:[phone] Referring Provider: Lam Rachel, [address] [facility] [address], [place], [address] . tel:[phone] [facility] QUINTIN [address] [address], [place], [id number], [place] tel:[phone] [facility] GI Symptoms or Concerns (chief complaint) Colorectal polyp detected on colonoscopyDiver ticulosis of colon without diverticulitisHe morrhoids, internalEncounte r for screening for malignant neoplasm of colonBenign neoplasm of transverse colon 2 Juan Pablo Fritz. [address] [facility], [address], [id number], [place]. tel:[phone] Referring Provider: Referral Self. [facility], [address] [address], [place], [place], [id number], [place] tel:[phone] [facility] No Information 2 Margy Cantrell. [address] [facility], [address], [id number], [place]. tel:[phone] [facility], [address] [address], [place], [place], [id number], [place] tel:[phone] [facility] Diverticulosis Of ColonColon Cancer ScreeningColon Cancer ScreeningIrritab le Bowel SyndromeDivertic ulosis Of Colon 2 Jhon Lowe. [address], [id number], [place]. tel:[phone] Referring Provider: Catrina Sue MD, [address] [place] [address], [address]. tel:[phone] Offic/outpt E&m Estab Mod-hi 2 [facility], [address] [address], [place], [place], [id number], [place] tel:[phone] [facility] GERD (chief complaint) Gastroesophageal RefluxIrritable Bowel Syndrome 2 Jhon Lowe. [address], [id number], [place]. tel:[phone] Referring Provider: Catrina Sue MD, [address] [place] [address], [address]. tel:[phone] Offic/outpt E&m Estab Mod-hi 2 [facility], [address] [address], [place], [id number], [place] tel:[phone] [facility] Heartburn (chief complaint) Heartburn 1 No Information Referring Provider: Catrina Sue MD, [address] [place], [address]. tel:[phone] [facility] [place], [address] [address], [place], [id number], [place] tel:[phone] [facility] HeartburnHeartbu rn Severo Sanchez. [address] [facility], [facility] [address], [place], [place], [id number], [place]. tel:[phone] Referring Provider: Catrina Sue MD, [address] [place], [address]. tel:[phone] [facility] [place], [address] [address], [place], [id number], [place] tel:[phone] [facility] Diverticulosis Of ColonFamily Hx Colon CancerChange In Bowel Habits 7 No Information Family History Family Member Type Diagnosis Age At Onset First degree family history Problem (finding) No history of Crohn's First degree family history Problem (finding) No Family history of No history of Colon Polyps First degree family history Problem (finding) Thyroid Disorder Mother Problem (finding) Leukemia Daughter Problem (finding) Thyroid disorder First degree family history Problem (finding) No history of Cancer, colon Sister Problem (finding) gallbladder disease Mother Problem (finding) Thyroid disorder Sister Problem (finding) asthma First degree family history Problem (finding) No history of Ulcerative Colitis Father Problem (finding) diverticulitis of colon Immunizations Vaccine Date Status Comments SARS-COV-2 (COVID-19) vaccin e, mRNA, spike protein, LNP, preservative free, 30 mcg/0.3mL dose administered Note: [facility] bi-direct ional interface ; Source: Other Registry influenza, seasonal vaccine, quadrivalent, adjuvanted, .5mL dose, preservative free administered Note: [facility] bi-di rectional interface ; Source: Other Registry SARS-COV-2 (COVID-19) vaccin e, mRNA, spike protein, LNP, preservative free, 30 mcg/0.3mL dose administered Note: [facility] bi-direct ional interface ; Source: Other Registry SARS-COV-2 (COVID-19) vaccin e, mRNA, spike protein, LNP, preservative free, 30 mcg/0.3mL dose administered Note: [facility] bi-direct ional interface ; Source: Other Registry Prevnar 13 administered Note: [facility] bi-d irectional interface ; Source: Other Registry Influenza, injectable, Madin Pina Canine Kidney, preservative free, quadrivalent administered Note: [facility] bi- directional interface ; Source: Other Registry zoster vaccine recombinant administered N ote: [facility] bi-directional interface ; Source: Other Registry influenza, high dose seasona l, preservative-free administered Note: [facility] bi-direct ional interface ; Source: Other Registry tetanus toxoid, reduced diphtheria toxoid, and acellular pertussis vaccine, adsorbed administered Note: [facility] b i-directional interface ; Source: Other Registry Afluria Qd administered Note: [facility] bi-directional interface ; Source: Other Registry Afluria Qd administered Note: [facility] bi-directional interface ; Source: Other Registry Afluria Qd administered Note: [facility] bi-directional interface ; Source: Other Registry Afluria Qd administered Note: [facility] bi-directional interface ; Source: Other Registry Afluria Qd administered Note: [facility] bi-directional interface ; Source: Other Registry zoster vaccine, live administered Note: [facility] bi-directional interface ; Source: Other Registry Influenza administered Note: [facility] bi-d irectional interface ; Source: Other Registry Influenza, seasonal, injectable administe red Note: [facility] bi- directional interface ; Source: Other Registry Influenza, seasonal, injectable administe red Note: [facility] bi- directional interface ; Source: Other Registry Novel itarewzic-[id number], all formulations administered Note: [facility] bi-direct ional interface ; Source: Other Registry influenza virus vaccine, unspecified formulation administered Note: [facility] bi-di rectional interface ; Source: Other Registry Energix Pediatric administered Note: [facility] bi-directional interface ; Source: Other Registry Pneumovax 23 administered Note: [facility] bi-d irectional interface ; Source: Other Registry tetanus toxoid, reduced diphtheria toxoid, and acellular pertussis vaccine, adsorbed administered Note: [facility] b i-directional interface ; Source: Other Registry Influenza, seasonal, injectable administe red Note: [facility] bi- directional interface ; Source: Other Registry Payers Payer name Insurance type Covered constitution party ID Authoriza tiomar(s) [facility]age CI [id number] Social History Type Description Quantity Date Captured Comments Sex Female Smoking Status No Information Chief Complaint And Reason For Visit No Information Reason For Referral Reason For Referral No Information History Of Present Illness Encounter Date Complaint History Of Prese nt Illness GI Symptoms or Concerns Functional Status Date Functional Assessmen t No Information Instructions Date Instruction Additional Infor mation Diverticulosis/Diverticulitis Re lated to Colorectal polyp detected on colonoscopy Colon Polyps Related to Color ectal polyp detected on colonoscopy Assessments Type Assessment Date No Information Patient Care Teams Name Effective Dates (start - stop) Status Members No Information
== END 2023-03-10 09:48 | disposition home or self-care (01) ==
PROVIDERS: Emergency Provider Student in an Organized Health Care Education/Training Program; PCP Family Medicine
DX: S93.504A Unspecified sprain of right lesser toe(s), initial encounter (principal)
CPT/HCPCS: 73660; 99282; 99283

== ENCOUNTER 2023-04-12 15:02 | Outpatient (CLI) | payer OTHER, SELFPAY ==
--- NOTE | 2023-04-12 15:30 | CRLHL7_ITS ---
For Patients: As a result of the Century Cures Act, medical imaging exams and procedure reports are released immediately into your electronic medical record. You may view this report before your referring provider. If you have questions, please contact your health care provider. DXA BONE MINERAL DENSITY STUDY Reason for exam: Osteoporosis. Current height (in): 67.5. Weight (lb): 138. Menopause age: 51. Ethnicity: White. 1. Have you had a previous hip or vertebral fracture? No. 2. Have you had any fractures during your adult life which did not result from significant trauma (e.g., auto accident)? No. 3. Did either of your parents have a hip fracture? No. 4. Do you smoke? No. 5. Have you ever taken Glucocorticoids? No. 6. Do you have rheumatoid arthritis? No. 7. Do you have secondary osteoporosis? Yes. 8. Do you drink 3 or more alcoholic drinks per day? No. 9. Are you being treated for osteoporosis? Yes. 10. Have you ever taken any of the following medications: Actonel, Evista, Fosamax, Miacalcin, Reclast, Boniva, Forteo, HRT (i.e. estrogen/hormone therapy), Protelos, Prolia, Vitamin D, Calcium, other ??? please specify. ANSWER: Yes, Vitamin D, calcium, HRT. 11. Do you have any of the following medical conditions: Anorexia or bulimia, asthma or emphysema, end stage renal disease, hyperparathyroidism, any seizure disorders, cancer, inflammatory bowel diseases, hysterectomy, other ??? please specify. ANSWER: Yes, Asthma or emphysematous. 12. What was your maximum height (inches)? 58.5. 13. Do you perform weight bearing exercise regularly? No. 14. Do you regularly consume dairy products? No. 15. Do you drink caffeinated beverages? Yes. 16. At what age did your period start? 10. 17. Are you premenopausal? No. 18. How many full term pregnancies have you had? 3. 19. Have you ever missed your period for more than 6 months in a row (not including or menopause)? Yes. TECHNIQUE: Bone mineral density study was performed using the [employer]. FINDINGS: The results of the study expressed as bone mineral density (BMD) are as follows: Lumbar spine L1 to L3: BMD: 0.740 g/cm2. T-score: -2.5. Z-score: -0.5. Neck Left: BMD: 0.544 g/cm2. T-score: -2.8. Z-score: -1.0. Right: BMD: 0.584 g/cm2. T-score: -2.4. Z-score: -0.6. Total Left: BMD: 0.644 g/cm2. T-score: -2.4. Z-score: -0.9. Right: BMD: 0.688 g/cm2. T-score: -2.1. Z-score: -0.6. IMPRESSION: Osteoporosis. *Comparison exams done prior to 09/2019 were performed on different unit, [employer]. Ino Burdick M.D. Diagnostic Radiologist [email or web address] NORMA/Dictated by: Ino Burdick MD @ 04/17/2023 12:58:00 PM (Electronically Signed)
== END 2023-04-12 15:03 | disposition home or self-care (01) ==
LOC: RAD 15:03
PROVIDERS: PCP Family Medicine; Visit Provider Family Medicine
DX: M81.0 Age-related osteoporosis without current pathological fracture (principal)
CPT/HCPCS: 77080

== ENCOUNTER 2023-07-02 07:29 | Outpatient (CLI) | payer OTHER, SELFPAY ==
--- NOTE | 2023-07-02 07:45 | MM_ITS ---
Patient: DANAY STOKES Facility:?[facility] Patient ID:?[id number] Site Patient ID:?[id number]. Site :?[id number] Study:?XRay-Breast Bilateral 3D W/CAD-07/02/2023 8:03:10 AM Ordering Physician:Radha Final Report: BILATERAL SCREENING MAMMOGRAM WITH COMPUTER-AIDED DETECTION AND TOMOSYNTHESIS TECHNIQUE: CC and MLO views were obtained. These mammographic images have been obtained using full-field digital technique. These mammographic images were interpreted with the benefit of computer-aided detection. Breast Tomosynthesis was used in this interpretation. COMPARISON FILM: 05/26/22, 03/15/21, 01/28/20. FINDINGS: There are scattered areas of fibroglandular density IMPRESSION: There is no radiographic evidence for malignancy. ASSESSMENT: BI-RADS Category 1: Negative RECOMMENDATION: Routine screening mammogram in 1 year. A lay language report of this examination will be provided to the patient. Ino Burdick M.D. Diagnostic Radiologist [email or web address] ADALBERTO/clarence R& Transcribed: 4:22 p.m. NORMA/Dictated by: Ino Burdick MD @ 07/02/2023 9:02:00 AM Signed by:?Ino Burdick MD @07/02/2023 4:36:02 PM (Electronic Signature)
== END 2023-07-02 07:30 | disposition home or self-care (01) ==
LOC: MAMMO 07:29
PROVIDERS: PCP Family Medicine; Visit Provider Family Medicine
DX: Z12.31 Encounter for screening mammogram for malignant neoplasm of breast (principal)
CPT/HCPCS: 77063; 77067

== ENCOUNTER 2024-03-10 07:30 | Outpatient (CLI) | payer OTHER, SELFPAY ==
--- OUTSIDE RECORDS SUMMARY | 2024-03-12 13:11 | XMS_ITS | Encounter Summary ---
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 documented in this encounter Plan of Treatment Not on file documented as of this encounter Visit Diagnoses Not on filedocumented in this encounter Care Teams Chronometer Repairer Relationship Specialty Start Date End Date Catrina Sue MD [address] [place] [address] PCP - General Family Practice 06/05/12 Catrina Sue MD [address] [place] [address] Assigned PCP 03/28/20 Catrina Sue MD [address] [place] [address] Assigned PCP 09/11/19 03/27/20 documented as of this encounter
--- OUTSIDE RECORDS SUMMARY | 2024-03-12 13:11 | XMS_ITS | Clinical Summary ---
Author Organization [facility] Address [address] [place] [address] Care Team Providers Care Model And Mold Maker Plaster Name Role Phone Catrina Sue MD Primary Care Provider [phone] Catrina Sue MD Unavailable [phone] Allergies Active Allergy Reactions Criticality Noted Date Comments Cats 09/08/2015 Horse Protein 09/08/2015 Uncaria Tomentosa (Cats Claw) Unknown 2015 Medications Calcium Carbonate-Vitamin D (CALCIUM PLUS VITAMIN D PO) Take 2 tablets by mouth daily Active multivitamin (THERMEMS) TABS Take 1 tablet by mouth Active albuterol (VENTOLIN HFA) 108 (90 Base) MCG/ACT inhalerIndication s:Mild intermittent asthma without complication Inhale 2 puffs into the lungs every 6 hours 1 Inhaler 3 9 Active zoledronic Acid (RECLAST) 5 MG/100ML SOLN infusionIndicatio ns:Age-related osteoporosis without current pathological fracture Inject 100 mLs (5 mg) into the vein once for 1 dose 100 mL 1 Active levothyroxine (SYNTHROID/LEVOTH ROID) 75 MCG tabletIndications :Hypothyroidism due to acquired atrophy of thyroid Take 1 tablet (75 mcg) by mouth daily 90 tablet 3 2 Active citalopram (CELEXA) 10 MG tabletIndications :Major depressive disorder, recurrent episode, mild (H) Take 1 tablet (10 mg) by mouth 2 times daily 180 tablet 3 2 Active rosuvastatin (CRESTOR) 5 MG tablet Take 1 tablet by mouth daily at 2 pm 3 Active propranolol (INDERAL) 60 MG tablet Take 1 tablet by mouth 2 times daily 3 Active cyanocobalamin (VITAMIN B-12) 1000 MCG tablet Take 1 tablet by mouth daily at 2 pm 3 Active SUMAtriptan (IMITREX) 25 MG tablet Take 25 mg by mouth at onset of headache 3 Active Active Problems Problem Noted Date Diagnosed Date Benign neoplasm of transverse colon 07/08/2021 Hemorrhoids 07/06/2021 Major depressive disorder, recurrent episode, mi ld 11/23/2020 Age-related osteoporosis wit hout current pathological fracture 05/24/2018 Lymphedema of left lower extremity 12/13/2017 Intractable migraine with aura 10/17/2017 Overview (10/17/2017): Since her 20s, previously on inderal, also ASA daily for prevention, uses excedrine for treatment Vertigo 10/17/2017 Acromioclavicular joint arthritis 02/04/2016 Hypothyroidism due to acquired atrophy of thyroi d 02/02/2015 Mild intermittent asthma without complication Overview (02/22/2015): Diagnosis updated by automated process. Provider to review and confirm. AK (actinic keratosis) 05/11/2012 Esophageal reflux 05/11/2012 Osteoarthritis of multiple joints 05/11/2012 Overview (01/22/2015): Problem list name updated by automated process. Provider to review Disorder of bone and cartilage 05/11/2012 Overview (01/22/2015): Problem list name updated by automated process. Provider to review Postmenopausal atrophic vaginitis 05/11/2012 Overview (02/07/2017): MENOPAUSE 2007 Symptomatic menopausal or female climacteric sta lorenzo 05/11/2012 Tinnitus, bilateral 05/11/2012 Overview (01/22/2015): Problem list name updated by automated process. Provider to review Irritable bowel syndrome 06/01/2011 Diverticular disease of colon 07/06/2006 Resolved Problems Problem Noted Date Diagnosed Date Resolved Date Routine general medical exam ination at a health care facility 02/14/2017 07/18/2023 Overview (02/14/2017): 1. Result is: Normal 2. HPV NEG 3. Date next is due: 5 years with HPV 01/2022 4. Follow up colposcopy is: Not indicated Mild intermittent asthma 03/25/201403/2016 Essential hypertension, benign 09/18/2012 02/02/2015 Overview (02/02/2015): The 10-year ASCVD risk score (Alonso THORNTON Jr, et al, 2013) is: 2.8% Values used to calculate the score: Age: 59 years Sex: Female Is an : No Diabetic: No Tobacco smoker: No Systolic Blood Pressure: 117 mmHg Prescribed Anti-hypertensives: No HDL Cholesterol: 71 mg/dL Total Cholesterol: 215 mg/dL Benign paroxysmal positional vertigo 05/11/2012 02/02/2016 Mastodynia 05/11/2012 02/26/2014 Cataract 05/11/2012 09/17/2012 Overview (01/22/2015): Problem list name updated by automated process. Provider to review Screening for malignant neoplasm of cervix 05/11/2012 09/17/2012 Overview (01/22/2015): Problem list name updated by automated process. Provider to review Hypothyroidism 05/11/2012 02/02/2015 Overview (01/22/2015): Problem list name updated by automated process. Provider to review Lesion of plantar nerve 05/11/201206/22 Leiomyoma of uterus 05/11/2012 02/02/20 16 Overview (01/22/2015): Problem list name updated by automated process. Provider to review Asthma 05/11/2012 02/02/2015 Overview (01/22/2015): Problem list name updated by automated process. Provider to review Benign neoplasm of skin 05/11/201208/22 Overview (01/22/2015): Problem list name updated by automated process. 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 Provider to review Immunizations Name Administration Dates Next Due HepB 12/24/2008,03/13/2008,07/13/1999 Hepatitis B, Peds 12/24/2008 Influenza (High Dose) Trival ent,PF (Fluzone) 01/22/2019 Influenza (IIV3) PF 02/08/2012,02/16/2011 Influenza Vaccine 18-64 (Flublok) 02/18/2021 Influenza Vaccine 65+ (FLUAD) 02/18/2021 Influenza Vaccine >6 months,quad, PF ,02/15/2018,02/07/2017,2015,02/02/2015,02/25/2014 Influenza Vaccine, 6+MO IM (QUADRIVALENT W/PRESERVATIVES) 02/17/2013 Influenza,INJ,MDCK,PF,Quad >6mo(Flucelvax) 02/03/2020 Pneumo Conj 13-V (2010&after) 02/24/2020 Pneumococcal 23 valent 12/24/2008,04/06/2000 TD,PF 7+ (Tenivac) 04/06/2000 TDAP (Adacel,Boostrix) 01/22/2019,12/24/2008 TDAP Vaccine (Boostrix) 01/22/2019 Zoster recombinant adjuvante d (SHINGRIX) 01/22/2019 Zoster vaccine, live 02/20/2013 Family History Medical History Relation Comments Tremor Brother 1 benign, essentia l CABG Father Coronary Artery Disease Father Heart [...] Years Used Date Smoking Tobacco: Former Cigarettes Q uit: 02/01/1977 Smokeless Tobacco: Never Tobacco Cessation:Counseling Given: No Alcohol Use Standard Drinks/Week Comments Yes 1 (1 standard drink = 0.6 oz pur e alcohol) 1/week PHQ-2 Answer Date Recorded PHQ-2 Score 0 02/24/2020 [facility] [place] [facility] - Occupational Stress Questionnaire Answer Date Recorded Do you feel stress - tense, restless, nervous, or anxious, or unable to sleep at night because your mind is troubled all the time - these days? To some extent 02/24/2020 Adolescent Education Answer Date Record ed Getting School Help Needed Not on file 02/03 Comments No Sex and Gender Information Value Date Recorded Sex Assigned at Not on file Legal Sex Female 4:27 AM AUTHORIZATION REPRESENTATIVE Gender Identity Not on file Sexual Orientation Not on file Occupation Industry Job Start Date Job End Date retired Not on file Not on file Not on file Last Filed Vital Signs Vital Sign Reading Time Taken Comments Blood Pressure 119/68 07/12/2021 12:52 PM CDT Pulse 72 07/12/2021 12:52 PM CDT Temperature 36.6 C (97.8 F) 07/12/2021 12:52 PM CDT Respiratory Rate 16 07/12/2021 12:52 PM CDT Oxygen Saturation 98% 07/12/2021 12:52 PM CDT Inhaled Oxygen Concentration - - Weight 63.5 kg (140 lb) 07/12/2021 11:03 AM CDT Height 172.7 cm (5' 7.99) 07/12/2021 11:03 AM C DT Body Mass Index 21.29 07/12/2021 11:03 AM CDT Plan of Treatment Health Maintenance Due Date Last Done Comments ANNUAL REVIEW OF HM ORDERS 1955 CT COLONOGRAPHY 1955 DEPRESSION ACTION PLAN 1953 FIT 1955 FLEX SIG 1955 sDNA (Cologuard) 1955 RSV VACCINE (1 - Risk 60-74 years 1-dose series) 2013 ZOSTER IMMUNIZATION (3 of 3) 03/19/2019 01/22/2019, 01/22/2019, 02/20/2013 SPIROMETRY 05/24/2019 05/24/2018, 01/21, 02/08/2012 PHQ-9 07/17/2019 01/16/2019, 01/23/2014 Pneumococcal Vaccine: 65+ Years (3 of 3 - PPSV23 or PCV20) 02/23/2021 02/24/2020, 12/24/2008, 04/06/2000 GLUCOSE 05/24/2021 05/24/2018, 01/21, 01/23/2014, Additional history exists ASTHMA CONTROL TEST 09/19/2021 03/22/2021, 01/16/2019, 02/07/2017, Additional history exists ASTHMA ACTION PLAN 03/22/2022 03/22/2021, 0 05/24/2018, 05/24/2018, Additional history exists FALL RISK ASSESSMENT 03/22/2022 03/22/2021, 06/25/2020, 02/24/2020, Additional history exists LIPID 03/22/2022 03/22/2021, 11/06/2019, 02/02/2016, Additional history exists TSH W/FREE T4 REFLEX 03/22/2022 03/22/2021, 02/24/2020, 01/16/2019, Additional history exists ADVANCE CARE PLANNING 06/17/2023 06/17/2018 COVID-19 Vaccine ( season) 2023 02/18/2021, 07/20/2020, 06/29/2020 INFLUENZA VACCINE (#1) 2023 , 02/18/2021, 02/03/2020, Additional history exists MEDICARE ANNUAL WELLNESS VISIT 03/07/2024 03/07/2023, 03/07/2023, 03/02/2022, Additional history exists MAMMO SCREENING 07/01/2025 07/02/2023, 06/21, 05/26/2022, Additional history exists COLONOSCOPY 07/06/2028 07/06/2021, 06/21, 07/06/2021, Additional history exists COLORECTAL CANCER SCREENING 07/06/2028 DTAP/TDAP/TD IMMUNIZATION (4 - Td or Tdap) 01/22/2029 01/22/2019, 01/22/2019, 12/24/2008, Additional history exists DEXA 04/14/2035 04/14/2020, 11/2018, 11/23/2006 LUNG CANCER SCREENING Discontinued 05/30/2008 HEPATITIS C SCREENING Completed 03/05/2018 HPV IMMUNIZATION Aged Out No longer e ligible based on patient's age to complete this topic MENINGITIS IMMUNIZATION Aged Out No l onger eligible based on patient's age to complete this topic RSV MONOCLONAL ANTIBODY Aged Out No l onger eligible based on patient's age to complete this topic Procedures Procedure Name Priority Date/Time Associated Diagnosis Comments COLONOSCOPY - HIM SCAN Routine 07/06/2021 TSH Routine 03/22/2021 2:10 PM AUTHORIZATION REPRESENTATIVE Hypothyroidism due to acquired atrophy of thyroid LIPID PROFILE Routine 03/22/2021 2:10 PM AUTHORIZATION REPRESENTATIVE Family history of ASCVD MA SCREENING BILATERAL W/ LAURA Routine 03/15/2021 8:49 AM AUTHORIZATION REPRESENTATIVE Screening mammogram, encounter for DEXA - HIM SCAN Routine 04/14/2020 BASIC METABOLIC PROFILE ([employer]) Routine 05/24/2018 2:48 PM AUTHORIZATION REPRESENTATIVE Age-related osteoporosis without current pathological fracture ASTHMA ACTION PLAN Routine 05/24/2018 1: 46 PM AUTHORIZATION REPRESENTATIVE Mild intermittent asthma without complication HC SPIROMETRY, BREATH CAPACITY Routine 05/24/2018 Mild intermittent asthma without complication HEPATITIS C ANTIBODY ([employer]) Routine 03/05/2018 9:58 AM AUTHORIZATION REPRESENTATIVE Screening for condition CT CHEST W/O & W CONTRAST Routine 05/30/2008 12:00 AM AUTHORIZATION REPRESENTATIVE from Last 3 Months or Most Recently Relevant to Health Maintenance Results * Colonoscopy - HIM Scan (07/06/2021) Patient Reported PROCEDURES Final Result * TSH (03/22/2021 2:10 PM AUTHORIZATION REPRESENTATIVE) TSH 2.29 0.30 - 5.00 uIU/mL 03/22/2021 10:06 PM AUTHORIZATION REPRESENTATIVE [facility] Blood STRUCTURE OF RIGHT UPPER LIMB / Unknown Venipuncture / Unknown 03/22/2021 2:10 PM AUTHORIZATION REPRESENTATIVE 03/22/2021 2:44 PM AUTHORIZATION REPRESENTATIVE Catrina Sue MD LAB - BLOOD ORDERABLES Fin al Result Performing Organization Address City/[facility]/ZIP Co de Phone Number [facility] [address] [place] [address] * (ABNORMAL) Lipid Profile (03/22/2021 2:10 PM AUTHORIZATION REPRESENTATIVE) Cholesterol 250(H) <=199 mg/dL 03/22/2021 10:24 PM AUTHORIZATION REPRESENTATIVE [facility] Triglycerides 174(H) <=149 mg/dL 03/22/2021 10:24 PM AUTHORIZATION REPRESENTATIVE [facility] Direct Measure HDL 66 >=50 mg/dL 03/22/2021 10:24 PM AUTHORIZATION REPRESENTATIVE [facility] Comment: HDL Cholesterol Reference Range: 0-2 years: No reference ranges established for patients under 2 years old at [facility] for lipid analytes. 2-8 years: Greater than 45 mg/dL 18 years and older: Female: Greater than or equal to 50 mg/dL Male: Greater than or equal to 40 mg/dL LDL Cholesterol Calculated 149(H) <=129 mg/dL 03/22/2021 10:24 PM AUTHORIZATION REPRESENTATIVE [facility] Patient Fasting > 8hrs? Unknown 03/22/2021 10:24 PM AUTHORIZATION REPRESENTATIVE [facility] Blood STRUCTURE OF RIGHT UPPER LIMB / Unknown Venipuncture / Unknown 03/22/2021 2:10 PM AUTHORIZATION REPRESENTATIVE 03/22/2021 2:44 PM AUTHORIZATION REPRESENTATIVE Catrina Sue MD LAB - BLOOD ORDERABLES Fin al Result [facility] [address] [address], [facility] [phone] * MA Screen Bilateral w/Laura (03/15/2021 8:49 AM AUTHORIZATION REPRESENTATIVE) Anatomical Region Laterality Modality Breast Bilateral Mammography Narrative 03/15/2021 12:20 PM AUTHORIZATION REPRESENTATIVE BILATERAL FULL FIELD DIGITAL SCREENING MAMMOGRAM WITH TOMOSYNTHESIS Performed on: 03/15/21 Compared to: 01/28/2020, 09/03/2018, 02/05/2017, and 02/03/2016 Technique: This study was evaluated with the assistance of Computer-Aided Detection. Breast Tomosynthesis was used in interpretation. Findings: The breasts have scattered areas of fibroglandular density. There is no radiographic evidence of malignancy. IMPRESSION: ACR BI-RADS Category 1: Negative RECOMMENDED FOLLOW-UP: Annual routine screening mammogram The results and recommendations of this examination will be communicated to the patient. us Catrina Sue MD IMG MAMMOGRAPHY ORDERABLES Final Result * DEXA - HIM Scan (04/14/2020) Anatomical Region Laterality Modality Other us Patient Reported IMG DEXA ORDERABLES Final Resul t * Basic Metabolic Profile ([facility]) (05/24/2018 2:48 PM AUTHORIZATION REPRESENTATIVE) Sodium 141 136 - 145 mmol/L [facility] Potassium 4.4 3.5 - 5.0 mmol/L [facility] Chloride 104 98 - 107 mmol/L [facility] CO2, Total 25 22 - 31 mmol/L [facility] Anion Gap 12 5 - 18 mmol/L [facility] Glucose 90 70 - 125 mg/dL . [facility] Calcium 9.7 8.5 - 10.5 mg/dL [facility] Urea Nitrogen 16 8 - 22 mg/dL [facility] Creatinine 0.83 0.60 - 1.10 mg/dL [facility] GFR Estimate If Black >60 >60 mL/min/1.7 3m2 [facility] GFR Estimate >60 >60 mL/min/1.[address] [facility] Blood specimen (specimen) VENOUS BLOOD / Unknown 05/24/2018 2:48 PM AUTHORIZATION REPRESENTATIVE Narrative [facility] - 05/24/2018 9:05 PM AUTHORIZATION REPRESENTATIVE Test performed by: [facility] [address] [place] [id number] Fasting Glucose reference range is 70-99 mg/dL per [place] Diabetes Association (ADA) guidelines. Catrina Sue MD LAB - [employer] Final Res ult Performing Organization Address [facility] Co de Phone Number [facility] * Spirometry, Breathing Capacity (05/24/2018) Pathologist [facility] FEV-1 1.83L (65%) FVC 2.71L (74%) FEV1/FVC 0.67 (88%) FEF 25/75 Jonns Catrina Sue MD - 05/24/2018 Moderate obstruction Cartina Sue MD PROCEDURES Edited Res ult - Final * Hepatitis C Antibody ([facility]) (03/05/2018 9:58 AM AUTHORIZATION REPRESENTATIVE) [facility] Hepatitis C Antibody Screen Negative Negative [facility] Blood specimen (specimen) VENOUS BLOOD / Unknown 03/05/2018 9:58 AM AUTHORIZATION REPRESENTATIVE Narrative [facility] - 03/06/2018 9:51 AM AUTHORIZATION REPRESENTATIVE Test performed by: [facility] [address] [place] [id number] Catrina Sue MD LAB - [facility] Final Res ult Performing Organization Address [facility] Co de Phone Number [facility] * CT Chest w/o & w Contrast (05/30/2008 12:00 AM AUTHORIZATION REPRESENTATIVE) Anatomical Region Laterality Modality Chest, SUBRAD CT BODY, UMP CT CHEST, RAD CT Computed Tomography Narrative 05/30/2008 12:00 AM AUTHORIZATION REPRESENTATIVE See Historical Hospital Medical Record for documentation Procedure Note Provider, Historical - 09/21/2020 See Historical Hospital Medical Record for documentation us Historical Provider IMG CT ORDERABLES Final Resu lt from Last 3 Months or Most Recently Relevant to Health Maintenance Insurance [employer] Advance Directives For more information, please contact: [phone] Documents on File Type Date Recorded 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 anation Advance Directives and Living Will 06/17/2018 1:46 PM Health Care Directiv e 05-31-18 * Full Code (Latest Code Status on File) Date Activated Date Inactivated Comments 03/23/2021 8:53 PM Question Answer Comments Code status determined by: Discussion with jocelyne nt/ legal decision maker Healthcare Agents on File Name Relationship Healthcare Agent Relationship Communication Jake Soto Spouse First Alternate Health Care Agent Destinee Brandonberenice Sister Health Care Agent Care Teams Model And Mold Maker Plaster Relationship Specialty Start Date End Date Catrina uSe MD [address] [place] [phone] PCP - General Family Practice 06/05/12 Catrina Sue MD [address] [place] [address] Assigned PCP 03/28/20
--- OUTSIDE RECORDS SUMMARY | 2024-03-12 13:11 | XMS_ITS | Encounter Summary ---
Author Organization [facility] Address [address] [place] [address] Care Team Providers Care Coal Screener Name Role Phone Catrina Sue MD Primary Care Provider Catrina Sue MD Unavailable [phone] Catrina Sue MD Unavailable [phone] Encounter Details Date Type Department Care Team (Late st Contact Info) Description 02/08/2012 Office Visit-[facility] INTERFACE [facility]PT Catrina Sue MD [facility] [place] [address] Social History Tobacco Use Types Packs/Day Years Used Date Smoking Tobacco: Never Assessed Comments Unknown Sex and Gender Information Value Date Recorded Sex Assigned at Not on file Legal Sex Female 4:27 AM WASHER MACHINE Gender Identity Not on file Sexual Orientation Not on file documented as of this encounter Progress Notes * Catrina Sue MD - 02/08/2012 1:20 PM CDT Center Medical Director: Catrina Sue Status: Final Encounter: 2012-02-08 13:20:00.000 [...] No tobacco use. 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 Denies Do you feel [...] By: Catrina Sue M.D.; 02/10/2012 5:37 PM WASHER MACHINE. ER MACHINE documented in this encounter Plan of Treatment Not on file documented as of this encounter Visit Diagnoses Not on filedocumented in this encounter Care Teams Coal Screener Relationship Specialty Start Date End Date Catrina Sue MD [address] [place] [phone] PCP - General Family Practice 06/05/12 Catrina Sue MD [address] [place] [address] Assigned PCP 03/28/20 Catrina Sue MD [address] [place] [address] Assigned PCP 09/11/19 03/27/20 documented as of this encounter
--- OUTSIDE RECORDS SUMMARY | 2024-03-12 13:11 | XMS_ITS | Encounter Summary ---
Author Organization [facility] Address [address] [place] [address] Care Team Providers Care Technology Sales Representative Name Role Phone Catrina Sue MD Primary Care Provider + [phone] Catrina Sue MD Unavailable [phone] Catrina Sue MD Unavailable [phone] Encounter Details Date Type Department Care Team (Late st Contact Info) Description 09/05/2007 Office Visit-[address] [address] Colin Bailey MD Social History Tobacco Use Types Packs/Day Years Used Date Smoking Tobacco: Never Assessed Comments Unknown Sex and Gender Information Value Date Recorded Sex Assigned at Not on file Legal Sex Female 4:27 AM NUCLEAR CHEMISTRY TECHNICIAN Gender Identity Not on file Sexual Orientation Not on file documented as of this encounter Progress Notes * Colin Bailey MD - 09/05/2007 2:00 PM CDT Enlisted Advisor: COLIN BAILEY Status: Final Encounter: 05 Sep 2007 Type: [facility] Visit Reason For Visit Patient presents to discuss the symptoms of menopause Allergy List reviewed: Current Immunizations reviewed: Bp taken with adult cuff on auto.machine. Allergies No Known Allergies No Known Drug Allergy. Smoking Assessement No secondhand cigarette smoke exposure. No tobacco use. Vital Signs Recorded by [email or web address] on 05 Sep 2007 02:05 PM BP:122/70, [...] By: COLIN BAILEY M.D.; 09/06/2007 5:00 AM NUCLEAR CHEMISTRY TECHNICIAN. documented in this encounter Plan of Treatment Not on file documented as of this encounter Visit Diagnoses Not on filedocumented in this encounter Care Teams Technology Sales Representative Relationship Specialty [place] [address] [place] [phone] PCP - General Family Practice 06/05/12 Catrina Sue MD [address] [place] [address] Assigned PCP 03/28/20 Catrina Sue MD [address] [place] [address] Assigned PCP 09/11/19 03/27/20 documented as of this encounter
--- OUTSIDE RECORDS SUMMARY | 2024-03-12 13:11 | XMS_ITS | Encounter Summary ---
Author Organization [facility] Address [address] [place] [address] Care Team Providers Care Vacuum Pan Tender Name Role Phone Catrina Sue MD Primary Care Provider + [phone] Catrina Sue MD Unavailable [phone] Catrina Sue MD Unavailable [phone] Encounter Details Date Type Department Care Team (Late st Contact Info) Description 11/16/2011 Office Visit-[facility] Angela Mendoza MD [address] [facility] [address] [address] Social History Tobacco Use Types Packs/Day Years Used Date Smoking Tobacco: Never Assessed Comments Unknown Sex and Gender Information Value Date Recorded Sex Assigned at Not on file Legal Sex Female 4:27 AM 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 Allergy List reviewed: Current Immunizations reviewed: Up to date Medication list reviewed with patient and was up to date. No change in meds, [facility] was given and was negative. [...] 12/02/2010. She has had no injury to thearea. She has had no fevers, chills, night sweats or weight loss. 2.She also has noted a small lump on top of her 5th toe on the left foot. She noted it for the first time yesterday. She has had neuromas on the [...] swelling in the area, no redness. No other skin abnormalities. PSYCH: The patient's affect is appropriate. [...] ; ts. 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 Attending Note Patient reviewed and discussed with resident. Agree with Plan of Care. Supervising Physician: Dr. Mcdowell. Signature Signed By: Angela Mendoza MD,Resident; 11/20/2011 9:18 AM GROUND CREW SUPERVISOR. Signed By: Lorene Mcdowell MD; 12/19/2011 4:03 PM GROUND CREW SUPERVISOR. documented in this encounter Plan of Treatment Not on file documented as of this encounter Visit Diagnoses Not on filedocumented in this encounter Care Teams Vacuum Pan Tender Relationship Specialty Start Date End Date Catrina Sue MD [address] [place] [id number] PCP - General Family Practice 06/05/12 Catrina Sue MD [address] [place] [address] Assigned PCP 03/28/20 Catrina Sue MD [address] [place] [id number] Assigned PCP 09/11/19 03/27/20 documented as of this encounter
--- OUTSIDE RECORDS SUMMARY | 2024-03-12 13:11 | XMS_ITS | Referral Summary ---
Author Organization [facility] Address [address] [place] [address] Care Team Providers Care Rivet Bucker Name Role Phone Catrina Sue MD Primary Care Provider [phone] Catrina Sue MD Unavailable [phone] Allergies Active Allergy Reactions Criticality Noted Date [...] to review Benign neoplasm of skin 05/11/2012 0511/2012 Overview (01/22/2015): Problem list name updated by [...] d ([facility]) 01/22/2019 Zoster vaccine, live 02/20/2013 Social History Tobacco Use Types Packs/Day Years Used Date Smoking Tobacco: Former Cigarettes Q uit: 02/01/1977 Smokeless Tobacco: Never Tobacco Cessation:Counseling Given: No Alcohol Use Standard Drinks/Week Comments Yes 1 (1 standard drink = 0.6 oz pur e alcohol) 1/week PHQ-2 Answer Date Recorded PHQ-2 Score 0 02/24/2020 [facility] Occupat ional [facility] - Occupational Stress [...] on file Legal Sex Female 4:27 AM EYELET OPERATOR Gender Identity Not on file Sexual Orientation [...] 07/12/2021 11:03 AM CDT Plan of Treatment Not on file Procedures Procedure Name Priority Date/Time Associated Diagnosis Comments COLONOSCOPY - HIM SCAN Routine 07/06/2021 TSH Routine 03/22/2021 2:10 PM EYELET OPERATOR Hypothyroidism due to acquired atrophy of thyroid LIPID PROFILE Routine 03/22/2021 2:10 PM EYELET OPERATOR Family history of ASCVD MA SCREENING BILATERAL W/ LAURA Routine 03/15/2021 8:49 AM EYELET OPERATOR Screening mammogram, encounter for DEXA - HIM SCAN Routine 04/14/2020 BASIC METABOLIC PROFILE ([facility]) Routine 05/24/2018 2:48 PM EYELET OPERATOR Age-related osteoporosis without current pathological fracture ASTHMA ACTION PLAN Routine 05/24/2018 1: 46 PM EYELET OPERATOR Mild intermittent asthma without complication HC SPIROMETRY, BREATH CAPACITY Routine 05/24/2018 Mild intermittent asthma without complication HEPATITIS C ANTIBODY ([facility]) Routine 03/05/2018 9:58 AM EYELET OPERATOR Screening for condition CT CHEST W/O & W CONTRAST Routine 05/30/2008 12:00 AM EYELET OPERATOR from Last 3 Months or Most Recently Relevant to Health Maintenance Results * Colonoscopy - HIM Scan (07/06/2021) us Patient Reported PROCEDURES Final Result * TSH (03/22/2021 2:10 PM EYELET OPERATOR) [facility] TSH 2.29 0.30 - 5.00 uIU/mL 03/22/2021 10:06 PM EYELET OPERATOR [facility] Blood STRUCTURE OF RIGHT UPPER LIMB / Unknown Venipuncture / Unknown 03/22/2021 2:10 PM EYELET OPERATOR 03/22/2021 2:44 PM EYELET OPERATOR Catrina Sue MD LAB - BLOOD ORDERABLES Fin al Result Performing Organization Address City/State/[facility] Co de Phone Number [facility] [address] [place] [address] * (ABNORMAL) Lipid Profile (03/22/2021 2:10 PM EYELET OPERATOR) Pathologist [facility] Cholesterol 250(H) <=199 mg/dL 03/22/2021 10:24 PM EYELET OPERATOR [facility] Triglycerides 174(H) <=149 mg/dL 03/22/2021 10:24 PM EYELET OPERATOR [facility] Direct Measure HDL 66 >=50 mg/dL 03/22/2021 10:24 PM EYELET OPERATOR [facility] Comment: HDL Cholesterol Reference Range: 0-2 years: No reference ranges established for patients under 2 years old at [facility] for lipid analytes. 2-8 years: Greater than 45 mg/dL 18 years and older: Female: Greater than or equal to 50 mg/dL Male: Greater than or equal to 40 mg/dL LDL Cholesterol Calculated 149(H) <=129 mg/dL 03/22/2021 10:24 PM EYELET OPERATOR [facility] Patient Fasting > 8hrs? Unknown 03/22/2021 10:24 PM EYELET OPERATOR [facility] Blood STRUCTURE OF RIGHT UPPER LIMB / Unknown Venipuncture / Unknown 03/22/2021 2:10 PM EYELET OPERATOR 03/22/2021 2:44 PM EYELET OPERATOR Result [facility] Catrina Sue MD LAB - BLOOD ORDERABLES Fin al Result [facility] [address] [phone] * MA Screen Bilateral w/Laura (03/15/2021 8:49 AM EYELET OPERATOR) Anatomical Region Laterality Modality Breast Bilateral Mammography Narrative 03/15/2021 12:20 PM EYELET OPERATOR BILATERAL FULL FIELD DIGITAL SCREENING MAMMOGRAM WITH [...] patient. Catrina Sue MD IMG MAMMOGRAPHY ORDERABLES Final Result * DEXA - HIM Scan (04/14/2020) Anatomical Region Laterality Modality Other Patient Reported IMG DEXA ORDERABLES Final Resul t * Basic Metabolic Profile ([facility]) (05/24/2018 2:48 PM EYELET OPERATOR) Sodium 141 136 - 145 mmol/L [facility] Potassium 4.4 3.5 - 5.0 mmol/L [facility] Chloride 104 98 - 107 mmol/L [facility] CO2, Total 25 22 - 31 mmol/L [facility] Anion Gap 12 5 - 18 mmol/L [facility] Glucose 90 70 - 125 mg/dL [facility] Calcium 9.7 8.5 - 10.5 mg/dL [facility] Urea Nitrogen 16 8 - 22 mg/dL [facility] Creatinine 0.83 0.60 - 1.10 mg/dL [facility] GFR Estimate If Black >60 >60 mL/min/1.7 3m2 [facility] GFR Estimate >60 >60 mL/min/1.7 3m2 [facility] Blood specimen (specimen) VENOUS BLOOD / Unknown 05/24/2018 2:48 PM EYELET OPERATOR Narrative [facility] - 05/24/2018 9:05 PM EYELET OPERATOR Test performed by: [address] [id number] Fasting Glucose reference range is 70-99 mg/dL per [place] Diabetes [employer] (ADA) guidelines. us Catrina Sue MD LAB - [facility] Final Res ult [facility] * Spirometry, Breathing Capacity (05/24/2018) Pathologist [facility] FEV-1 1.83L (65%) FVC 2.71L (74%) FEV1/FVC 0.67 (88%) FEF 25/75 Impressions Catrina Sue MD - 05/24/2018 Moderate obstruction us Catrina Sue MD PROCEDURES Edited Res ult - Final * Hepatitis C Antibody ([place]) (03/05/2018 9:58 AM EYELET OPERATOR) Pathologist [facility] Hepatitis C Antibody Screen Negative Negative [facility] Blood specimen (specimen) VENOUS BLOOD / Unknown 03/05/2018 9:58 AM EYELET OPERATOR Narrative [facility] - 03/06/2018 9:51 AM EYELET OPERATOR Test performed by: [address] [place] [address] us Catrina Sue MD LAB - [facility] Final Res ult [facility] * CT Chest w/o & w Contrast (05/30/2008 12:00 AM EYELET OPERATOR) Anatomical Region Laterality Modality Chest, SUBRAD CT BODY, UMP CT CHEST, RAD CT Computed Tomography Narrative 05/30/2008 12:00 AM EYELET OPERATOR See Historical Hospital Medical Record for documentation Procedure Note Provider, Historical - 09/21/2020 See Historical Hospital Medical Record for documentation us Historical Provider IMG CT ORDERABLES Final Resu lt from Last 3 Months or Most Recently Relevant to Health Maintenance Insurance [employer] Advance Directives For more information, please contact: [phone] Documents on File Type Date Recorded Patient Yarn Preparation Supervisor Expl anation Advance Directives and Living Will [...] Spouse First Alternate Health Care Agent Destinee Neves Sister Health Care Agent Care Teams Rivet Bucker Relationship Specialty Start Date End Date Catrina Sue MD [address] [place] [id number] PCP - General Family Practice 06/05/12 Catrina Sue MD [address] [place] [id number] Assigned PCP 03/28/20
--- OUTSIDE RECORDS SUMMARY | 2024-03-12 13:11 | XMS_ITS | Encounter Summary ---
Author Organization [facility] Address [address] [place] [address] Care Team Providers Care License Distributor Name Role Phone Catrina Sue MD Primary Care Provider + [phone] Catrina Sue MD Unavailable [phone] Catrina Sue MD Unavailable [phone] Encounter Details Date Type Department Care Team (Late st Contact Info) Description 05/03/2007 Office Visit-[address] [address] Colin Bailey MD Social History Tobacco Use Types Packs/Day Years Used Date Smoking Tobacco: Never Assessed Comments Unknown Sex and Gender Information Value Date Recorded Sex Assigned at Not on file Legal Sex Female 4:27 AM MANAGER INTERNSHIP Gender Identity Not on file Sexual Orientation Not on file documented as of this encounter Progress Notes * Colin Bailey MD - 05/03/2007 11:30 AM CST Bar Useful Or Busser: COLIN BAILEY Status: Final Encounter: 03 May 2007 Type: [facility] Visit Reason For Visit Patient presents for irregular heart rate. Allergy List reviewed: Current Immunizations reviewed: Up to date Medication list reviewed with patient and was up to date. Allergies No Known Allergies No Known Drug Allergy. Vital Signs Recorded by nboyce on 03 May 2007 03:10 PM BP:115/73, [...] change after 30 secs of walking in place. NO hepatomegaly or jvd. Assessment PVC's prob low grade ectopy without risk factors. Hypothyroid with recent decrease in dose. Plan Will start metoprolol XL 25 mg, 1/2 tab daily. Labs TSH, Renal pending. Porgres report next week. Will pull stress test result to review. My recall is that it was in not too distant past. Signature Signed By: COLIN BAILEY M.D.; 05/03/2007 3:39 PM MANAGER INTERNSHIP. documented in this encounter Plan of Treatment Not on file documented as of this encounter Visit Diagnoses Not on filedocumented in this encounter Care Teams License Distributor Relationship Specialty Start Date End Date Catrina Sue MD [address] [place] [address] PCP - General Family Practice 06/05/12 [place] [address] [place] [address] Assigned PCP 03/28/20 [place] [address] [place] [address] Assigned PCP 09/11/19 03/27/20 documented as of this encounter
--- OUTSIDE RECORDS SUMMARY | 2024-03-12 13:11 | XMS_ITS | Clinical Summary ---
Author Organization [employer] [facility] [employer] [facility] Address [place], [place] [address] Care Team Providers Care Asset Protection Specialist Name Role Phone Catrina Sue Primary Care Provider [phone] Allergies No known active allergies Medications Medication Sig Dispensed Refills Start Date End Date Status levothyroxine (SYNTHROID) 75 mcg tablet 12/19/2015 Active Active Problems Problem Noted Date Diagnosed Date Impingement syndrome of right shoulder 6 Acromioclavicular joint arthritis 02/04/2016 Biceps tendonitis on right 02/04/2016 Family History Medical History Relation Name Comments Heart failure Father Relation Name Status Comments Father Social History Tobacco Use Types Packs/Day Years Used Date Smoking Tobacco: Former Alcohol Use Standard Drinks/Week Comments Yes 0 (1 standard drink = 0.6 oz pur e alcohol) Sex and Gender Information Value Date Recorded Sex Assigned at Not on file Gender Identity Not on file Sexual Orientation Not on file Obstetrics History Plan of Treatment Health Maintenance Due Date Last Done Comments Tdap 1964 Depression screening for age 12+ 1965 BMI (ht and wt on same day) for age 18+ 1971 Hepatitis C screening for age 18-79 1971 Tetanus booster 1973 Colonoscopy through age 75 1998 Lipids for age 45-75 1998 Mammogram for age 45-75 1998 Zoster (shingles) series for age 50+ (1 of 2) 05/19/19 04 DEXA/DXA scan for age 65+ 2018 Pneumococcal series for age 65+ (1 of 1 - PCV) 019 COVID-19 vaccine series (2023-25 season) 4 Influenza for age 65+ 12/23/2023 Care Teams Asset Protection Specialist Relationship Specialty Start Date End Date Catrina Sue PCP - General Family Practice 01/25/16
--- OUTSIDE RECORDS SUMMARY | 2024-03-12 13:11 | XMS_ITS | Encounter Summary ---
Author Organization [facility] Address [address] [place] [address] Care Team Providers Care Hone Operator Name Role Phone Catrina Sue MD Primary Care Provider + [phone] Catrina Sue MD Unavailable [phone] Catrina Sue MD Unavailable [phone] Encounter Details Date Type Department Care Team (Late st Contact Info) Description 03/18/2008 Office Visit-[address] [address] Edmond Bailey MD Social History Tobacco Use Types Packs/Day Years Used Date Smoking Tobacco: Never Assessed Comments Unknown Sex and Gender Information Value Date Recorded Sex Assigned at Not on file Legal Sex Female 4:27 AM HOSIERY MENDER Gender Identity Not on file Sexual Orientation Not on file documented as of this encounter Progress Notes * Edmond Bailey MD - 03/18/2008 3:44 PM CST Energy Specialist: EDMOND BAILEY Status: Final Encounter: 18 Mar 2008 Type: Amanda Nelson [employer] Letters Mrs. DANAY [place] [address] March 18, 2008 [address] Mrs. DANAY STOKES Please see below for your recent test results. Your results are normal and reassuring. If you have any questions, please call the clinic at [phone] and leave a message. I'll return your call as soon as I can (usually within the week). Test: Your Result: Pap smear normal Sincerely, EDMOND BAILEY M.D. [facility] Hours: Sunday - Sunday 8:00 am - 5:00 pm . Signature Electronically Signed By: EDMOND BAILEY M.D.; 03/18/2008 3:45 PM HOSIERY MENDER. documented in this encounter Plan of Treatment Not on file documented as of this encounter Visit Diagnoses Not on filedocumented in this encounter Care Teams Hone Operator Relationship Specialty Start Date End Date Catrina Sue MD [address] [place] [phone] PCP - General Family Practice 06/05/12 Catrina Sue MD [address] [place] [address] Assigned PCP 03/28/20 Catrina Sue MD [address] [place] [id number] Assigned PCP 09/11/19 03/27/20 documented as of this encounter
--- OUTSIDE RECORDS SUMMARY | 2024-03-12 13:11 | XMS_ITS | Encounter Summary ---
Author Organization [facility] Address [address] [place] [address] Care Team Providers Care Mixer Slagman Name Role Phone Catrina Sue MD Primary Care Provider Catrina Sue MD Unavailable [phone] Catrina Sue MD Unavailable [phone] Encounter Details Date Type Department Care Team (Late st Contact Info) Description 09/06/2007 Office Visit-[address] [address] Colin Bailey MD Social History Tobacco Use Types Packs/Day Years Used Date Smoking Tobacco: Never Assessed Comments Unknown Sex and Gender Information Value Date Recorded Sex Assigned at Not on file Legal Sex Female 4:27 AM CALL CENTER OPERATIONS MANAGER Gender Identity Not on file Sexual Orientation Not on file documented as of this encounter Progress Notes * Colin Bailey MD - 09/06/2007 5:01 AM CDT Equipment Services Associate: COLIN BAILEY Status: Final Encounter: 06 Sep 2007 Type: Amanda Nelson [employer] Letters Mrs. DA[place] [address] September 06, 2007 Dear Mrs. DANAY STOKES Please see below for your recent test results.. If you have any questions, please call the clinic at [phone] and leave a message. I'll return your call as soon as I can (usually within the week). Test: Your Result: Thyroid normal Hemoglobin normal Potassium upper limit of normal (5.1)-you can skip taking the potassium supplement on two days per week. Let's recheck a potassium level in a few weeks. JUst call for a non-fasting lab appt. Sincerely, COLIN BAILEY M.D. [facility] Hours: Sunday - Sunday 8:00 am - 5:00 pm . Signature Electronically Signed By: COLIN BAILEY M.D.; 09/06/2007 5:04 AM CALL CENTER OPERATIONS MANAGER. documented in this encounter Plan of Treatment Not on file documented as of this encounter Visit Diagnoses Not on filedocumented in this encounter Care Teams Mixer Slagman Relationship Specialty Start Date End Date Catrina Sue MD [address] [place] [id number] PCP - General Family Practice 06/05/12 Catrina Sue MD [address] [place] [address] Assigned PCP 03/28/20 Catrina Sue MD [address] [place] [address] Assigned PCP 09/11/19 03/27/20 documented as of this encounter
== END 2024-03-10 07:31 | disposition home or self-care (01) ==
LOC: NFLDREF 03-12 13:09
PROVIDERS: PCP Family Medicine; Referring Provider Family Medicine; Visit Provider Family Medicine
DX: Z00.00 Encounter for general adult medical examination without abnormal findings (principal); E53.8 Deficiency of other specified B group vitamins; E78.5 Hyperlipidemia, unspecified; E03.9 Hypothyroidism, unspecified; M81.0 Age-related osteoporosis without current pathological fracture; R79.89 Other specified abnormal findings of blood chemistry; Z78.9 Other specified health status; F41.9 Anxiety disorder, unspecified
CPT/HCPCS: 80053; 80061; 82306; 82607; 84443; 86803

== ENCOUNTER 2024-07-02 10:04 | Outpatient (CLI) | payer OTHER, SELFPAY ==
--- NOTE | 2024-07-02 10:15 | CRLHL7_ITS ---
For Patients: As a result of the Century Cures Act, medical imaging exams and procedure reports are released immediately into your electronic medical record. You may view this report before your referring provider. If you have questions, please contact your health care provider. BILATERAL SCREENING MAMMOGRAM WITH COMPUTER-AIDED DETECTION AND TOMOSYNTHESIS TECHNIQUE: CC and MLO views were obtained. These mammographic images have been obtained using full-field digital technique. These mammographic images were interpreted with the benefit of computer-aided detection. Breast Tomosynthesis was used in this interpretation. COMPARISON FILM: 07/02/23, 05/26/22, 03/15/21. FINDINGS: There are scattered areas of fibroglandular density. IMPRESSION: There is no radiographic evidence for malignancy. ASSESSMENT: BI-RADS Category 1: Negative RECOMMENDATION: Routine screening mammogram in 1 year. A lay language report of this examination will be provided to the patient. Ino Burdick M.D. Diagnostic Radiologist [email or web address] SP/Dictated by: Ino Burdick MD @ 07/03/2024 8:16:00 AM (Electronically Signed)
== END 2024-07-02 10:05 | disposition home or self-care (01) ==
LOC: MAMMO 10:05
PROVIDERS: PCP Family Medicine; Visit Provider Family Medicine
DX: Z12.31 Encounter for screening mammogram for malignant neoplasm of breast (principal)
CPT/HCPCS: 77063; 77067

== ENCOUNTER 2025-03-13 07:55 | Outpatient (CLI) | payer OTHER, SELFPAY | END 2025-03-13 07:56 | disposition home or self-care (01) | LOC: NFLDREF 03-19 13:32 | PROVIDERS: PCP Family Medicine; Referring Provider Family Medicine; Visit Provider Family Medicine | DX: M81.0 Age-related osteoporosis without current pathological fracture (principal); Z78.9 Other specified health status; R53.83 Other fatigue; E78.5 Hyperlipidemia, unspecified; E03.9 Hypothyroidism, unspecified; E53.8 Deficiency of other specified B group vitamins | CPT/HCPCS: 80053; 80061; 82306; 82607; 82728; 84443 ==